=== PATIENT | male | born 1945 | race Caucasian/White ===

== ENCOUNTER 2016-11-06 18:43 | Emergency (ER) | payer OTHER ==
[~2016-11-06] VITALS: Ht 182.9 cm; Wt 121.8 kg
[~2016-11-06 18:43] MED LIST: ALT10 PO; ASPEC81 PO; ATEN50TA8 PO; ATOR-24 PO; COLE1TAB PO; DABI150C PO; DYZ PO; HMLI SC; INSDGI SC; MAGN400T6 PO; MULT-506 PO; NTRGSL/4 UT; POTA-335 PO; SULF-183 PO; TOPI50TA16 PO
[2016-11-06] MEDS ORDERED: SODIUM CHLORIDE 0.9% 1000ML 1,000 ML IV STA (18:53)
[2016-11-06 19:02] VITALS: Ht 182.9 cm; Wt 121.8 kg
[2016-11-06 19:20] LABS: BASO ABS # 0.07 K/uL (0-0.2); COMPLETE YES; EOS % 9.3 %; HEMATOCRIT 43.8 % (42-52); IG% 0.3 %; LYMPH % 29.9 %; LYMPH ABS # 2.12 K/uL (1.2-3.4); MEAN CELL VOLUME 98.4 fL (80-100); MEAN CORPUSCULAR HEMOGLOBIN 34.6 pg (25-34); MEAN CORPUSCULAR HGB CONC 35.2 g/dl (32-36); MEAN PLATELET VOLUME 10.1 fL (7.4-10.4); NEUT % 49.5 %; PLATELET COUNT 135 K/uL (130-400); RED BLOOD COUNT 4.45 M/uL (4.7-6.1); WHITE BLOOD COUNT 7.08 K/uL (4.8-10.8)
[2016-11-06 19:35] VITALS: O2SAT 96
--- NOTE | 2016-11-06 19:38 | DIAGNOSTIC IMAGING REPORT ---
CT SCAN OF THE BRAIN WITHOUT IV CONTRAST CLINICAL HISTORY: Change in mental status. COMPARISON STUDY: CT of the neck dated 02/24/2013. TECHNIQUE: Unenhanced axial CT scan of the brain is performed from the vertex to the skull base. CT DOSE: 614.27 mGy.cm FINDINGS: Brain parenchyma: There are age-related involutional changes noting mild subcortical and periventricular microangiopathic change. There is no hemorrhage, mass effect, or evidence of acute territorial ischemia by CT criteria. Hart-white matter is preserved. No extra-axial fluid collection is seen. Ventricles, sulci, cisterns: Prominent secondary to involutional change. Intracranial vasculature: There is atherosclerotic calcification of the cavernous carotid and vertebral arteries. Calvarium: Unremarkable. Sinuses and mastoids: There is minimal fluid within the sphenoid sinuses. Trace mucosal thickening is noted in the left maxillary antrum. The remaining Paranasal sinuses are clear. There is a left mastoid effusion. The right mastoid air cells are well pneumatized. Orbits: The bony orbits are grossly intact. There are bilateral ocular lens implants. IMPRESSION: 1. There is no hemorrhage, mass effect, or evidence of acute territorial ischemia by CT criteria. 2. Left mastoid effusion Electronically signed by: Brayan Mraquez M.D. 11/06/2016 7:36 PM Dictated Date/Time: 11/06/2016 7:33 PM
--- NOTE | 2016-11-06 19:42 | DIAGNOSTIC IMAGING REPORT ---
SINGLE VIEW CHEST CLINICAL HISTORY: Generalized weakness. FINDINGS: An AP, portable, upright chest radiograph is compared to study dated 12/03/2012. The examination is degraded by portable technique, large body habitus, and patient rotation. A single lead cardiac pacemaker is unchanged in position. The patient is status post midline sternotomy. The heart is enlarged and there is atherosclerotic calcification of the thoracic aorta. There is mild prominence of the central pulmonary vasculature. There are low lung volumes and bibasilar atelectasis. No focal airspace consolidation or large pleural effusion is seen. No pneumothorax is seen. The skeletal structures are osteopenic. The bony thorax is grossly intact. IMPRESSION: 1. Cardiomegaly and cardiac pacemaker. There is prominence of the central pulmonary vasculature. Correlate clinically for evidence of mild congestive failure. 2. Low lung volumes. No airspace consolidation or large pleural effusion is seen. Electronically signed by: Brayan Marquez M.D. 11/06/2016 7:41 PM Dictated Date/Time: 11/06/2016 7:39 PM
[2016-11-06 19:44] LABS: INR 1.3 (0.9-1.1); PARTIAL THROMBOPLASTIN RATIO 1.8; PROTHROMBIN TIME (PATIENT) 13.5 SECONDS (9.0-12.0)
[2016-11-06] MEDS ORDERED: RAMI10CA PO (19:44)
[2016-11-06] MEDS ORDERED: ASPI81TA21 PO (19:44)
[2016-11-06] MEDS ORDERED: POTA-65 PO (19:44)
[2016-11-06] MEDS ORDERED: INSU100I SC (19:44)
[2016-11-06] MEDS ORDERED: TRIA37.5 PO (19:44)
[2016-11-06] MEDS ORDERED: INSDGI SC (19:44)
[2016-11-06 19:53] LABS: BUN/CREATININE RATIO 19.3 (10-20)
[2016-11-06 19:54] LABS: CALCIUM 8.5 mg/dl (8.5-10.1); CREATININE 1.3 mg/dl (0.60-1.40); THYROID STIMULATING HORMONE 1.32 uIu/ml (0.300-4.500)
[2016-11-06 20:06] LABS: CKMB/CK RATIO 3.4 (0-3.0); MAGNESIUM 2.2 mg/dl (1.8-2.4); POTASSIUM 3.9 mmol/L (3.5-5.1)
[2016-11-06] MEDS ORDERED: SODIUM CHLORIDE 0.9% 1000ML 1,000 ML IV SCH (22:21)
[2016-11-06] MEDS ORDERED: GLUCOSE 40% GEL 15 GM TUBE PO PRN (22:30)
[2016-11-06] MEDS ORDERED: GLUCAGON FOR INJ 1 MG VIAL SQ PRN (22:30)
[2016-11-06] MEDS ORDERED: DEXTROSE 50% 50 ML SYR IV PRN (22:30)
[2016-11-06] MEDS ORDERED: ACETAMINOPHEN 325 MG TAB PO PRN (22:30)
[2016-11-06] MEDS ORDERED: ONDANSETRON INJ 2 MG/ML 2 ML VIAL IV PRN (22:30)
[2016-11-06] MEDS ORDERED: GLUCOSE 10 TABS/TUBE PO PRN (22:30)
[2016-11-06] MEDS ORDERED: GABAPENTIN 800 MG TAB PO SCH (22:45)
[2016-11-06] MEDS ORDERED: MULTI-VITAMIN INFUSION INJ 10 ML, THIAMINE HCL INJ 100 MG, FoLIC ACID INJ 1 MG in SODIU... IV SCH (22:45)
[2016-11-06] MEDS ORDERED: NITROGLYCERIN 0.4 MG SL PER TAB CHARGE UT SCH (22:45)
[2016-11-06] MEDS ORDERED: LORAZEPAM 1 MG TAB PO PRN (22:45)
[2016-11-06] MEDS ORDERED: IV FLUIDS COMPLETED PRN (23:00)
--- NOTE | 2016-11-06 23:10 | History and Physical ---
History & Physical Date & Time of Service: Nov 06, 2016 at 22:48 Chief Complaint: Altered Mental Status Primary Care Physician: Christ Andrews D.O. History of Present Illness Source: patient Patient is a 71 yr male with PMH of Carotid artery stenosis, Atrial fibrillation , CAD S/P CABG, HTN, CKD III, HLP, PAD, DM II, Pacemaker and other problems presents for evaluation after an episode of syncope. Patient and his family reports that he was having his dinner and drinking alcohol and had any episode of syncope and lost consciousness for about 10 minutes. Patient was confused after the episode and had some balance issues. He had another brief episode of syncope while getting CT of head which lasted for about 10 seconds but did not have confusion after the second episode. Patient believes the symptoms are likely secondary to alcohol and also states his pacemaker is being monitored closely by his community relations rep for possible battery replacement/Interrogation. Currently is alert, awake, oriented and denies any history of head trauma, aspiration, chest pain, SOB, abd pain, fever, chills, palpations, headache, dizziness, blurry vision, incontinence, diaphoresis, nausea, vomiting, weakness , numbness, samuel ein bowel/bladder habits, facial deformity or slurred speech. Past Medical/Surgical History Medical Problems: (1) Cardiac pacemaker procedure Status: Resolved (2) Diabetes mellitus type 2 Status: Chronic (3) Hypertension Status: Chronic (4) Myocardial infarction Status: Resolved (5) Quadruple bypass Status: Resolved Family History Diabetes mellitus Heart disease Hypertension Not contributory Social History Smoking Status: Former Smoker Alcohol Use: socially Drug Use: none Marital Status: Immunizations History of Influenza Vaccine: N/A History of Tetanus Vaccine?: Unknown History of Pneumococcal: No History of Hepatitis B Vaccine: No Multi-Drug Resistant Organisms History of MDRO: No Allergies Coded Allergies: Sulfa Antibiotics (Unverified Allergy, Unknown, DELIRIUM, 11/06/16) Patient states that he gets violent with bactrim and othr sulfa antibiotics. Home Medications Scheduled Aspirin Enteric Coated (Ecotrin Or Generic), 81 MG PO DAILY Atenolol (Tenormin), 50 MG PO DAILY Atorvastatin (Lipitor), 40 MG PO DAILY Colestipol Hcl (Colestid), 1 GM PO BIDM Dabigatran Etexilate Mesylate (Pradaxa), 150 MG PO BID Insulin Glargine (Lantus), 25 SC QPM Insulin Lispro (Human) (Humalog), UNITS SC TIDM Magnesium Oxide (Mag-Ox), 400 MG PO DAILY Multivitamin (Multivitamin), 1 TAB PO DAILY Nitroglycerin (Nitrostat), 0.4 MG UT PRN Potassium Chloride (Potassium Chloride ER), 20 MEQ PO DAILY Ramipril (Ramipril), 1 CAP PO DAILY Topiramate (Topamax), 50 MG PO BID Triamterene/Hctz (Dyazide 37.5MG/25MG), 1 CAP PO DAILY Review of Systems See HPI for pertinent positives & negatives. A total of 10 systems reviewed and were otherwise negative. Physical Exam Vital Signs Date Time Temp Pulse Resp B/P (MAP) Pulse Ox O2 Delivery O2 Flow Rate FiO2 11/06/16 22:46 72 11/06/16 21:50 60 24 105/50 95 Room Air 11/06/16 19:35 96 Nasal Cannula 2.0 11/06/16 19:34 66 16 118/49 90 Room Air 11/06/16 19:34 90 Room Air 11/06/16 19:03 63 11/06/16 19:02 36.7 78 18 139/71 96 Room Air 11/06/16 18:56 96 Room Air 11/06/16 18:56 96 Room Air General Appearance: WD/WN, no apparent distress Head: normocephalic, atraumatic Eyes: normal inspection, PERRL ENT: normal ENT inspection, hearing grossly normal Neck: supple, trachea midline Respiratory/Chest: chest non-tender, lungs clear, normal breath sounds, no respiratory distress, no accessory muscle use Cardiovascular: no murmur, + irregularly irregular, + pertinent finding (TRace edema) Abdomen/GI: normal bowel sounds, non tender, soft, + pertinent finding ( Protuberant) Back: normal inspection Extremities/Musculoskelatal: normal inspection, + pertinent finding (Trace edema) Neurologic/Psych: visual supervisor II-XII nml as tested, no motor/sensory deficits, alert, normal mood/affect, oriented x 3 Skin: normal color, warm/dry, + pertinent finding (Well healed Surgical scar on left arm, left leg) Diagnostics Laboratory Results Results Past 24 Hours Test 11/06/16 19:03 11/06/16 19:08 11/06/16 19:57 Range/Units White Blood Count 7.08 4.8-10.8 K/uL Red Blood Count 4.45 4.7-6.1 M/uL Hemoglobin 15.4 14.0-18.0 g/dL Hematocrit 43.8 42-52 % Mean Corpuscular Volume 98.4 80-100 fL Mean Corpuscular Hemoglobin 34.6 25-34 pg Mean Corpuscular Hemoglobin Concent 35.2 32-36 g/dl Platelet Count 135 130-400 K/uL Mean Platelet Volume 10.1 7.4-10.4 fL Neutrophils (%) (Auto) 49.5 % Lymphocytes (%) (Auto) 29.9 % Monocytes (%) (Auto) 10.0 % Eosinophils (%) (Auto) 9.3 % Basophils (%) (Auto) 1.0 % Neutrophils # (Auto) 3.50 1.4-6.5 K/uL Lymphocytes # (Auto) 2.12 1.2-3.4 K/uL Monocytes # (Auto) 0.71 0.11-0.59 K/uL Eosinophils # (Auto) 0.66 0-0.5 K/uL Basophils # (Auto) 0.07 0-0.2 K/uL RDW Standard Deviation 47.3 36.4-46.3 fL RDW Coefficient of Variation 13.2 11.5-14.5 % Immature Granulocyte % (Auto) 0.3 % Immature Granulocyte # (Auto) 0.02 0.00-0.02 K/uL Prothrombin Time 13.5 9.0-12.0 SECONDS Prothromb Time International Ratio 1.3 0.9-1.1 Activated Partial Thromboplast Time 45.8 21.0-31.0 SECONDS Partial Thromboplastin Ratio 1.8 Sodium Level 140 136-145 mmol/L Potassium Level 3.9 3.5-5.1 mmol/L Chloride Level 108 98-107 mmol/L Carbon Dioxide Level 23 21-32 mmol/L Anion Gap 9.0 3-11 mmol/L Blood Urea Nitrogen 25 7-18 mg/dl Creatinine 1.30 0.60-1.40 mg/dl Est Creatinine Clear Calc Drug Dose 71.3 ml/min Estimated GFR () 64.1 Estimated GFR (Non- 55.3 BUN/Creatinine Ratio 19.3 10-20 Random Glucose 235 70-99 mg/dl Calcium Level 8.5 8.5-10.1 mg/dl Magnesium Level 2.2 1.8-2.4 mg/dl Total Bilirubin 0.3 0.2-1 mg/dl Direct Bilirubin 0.1 0-0.2 mg/dl Aspartate Amino Transf (AST/SGOT) 15 15-37 U/L Alanine Aminotransferase (ALT/SGPT) 25 12-78 U/L Alkaline Phosphatase 57 45-117 U/L Total Creatine Kinase 79 39-308 U/L Creatine Kinase MB 2.7 0.5-3.6 ng/ml Creatine Kinase MB Ratio 3.4 0-3.0 Troponin I 0.027 0-0.045 ng/ml Total Protein 6.8 6.4-8.2 gm/dl Albumin 3.5 3.4-5.0 gm/dl Thyroid Stimulating Hormone (TSH) 1.320 0.300-4.500 uIu/ml Bedside Troponin I < 0.030 0-0.045 ng/ml Ethyl Alcohol mg/dL 198.0 0-3 mg/dl Diagnostic Radiology CT head: 1. There is no hemorrhage, mass effect, or evidence of acute territorial ischemia by CT criteria. 2. Left mastoid effusion CXR: 1. Cardiomegaly and cardiac pacemaker. There is prominence of the central pulmonary vasculature. Correlate clinically for evidence of mild congestive failure. 2. Low lung volumes. No airspace consolidation or large pleural effusion is seen. EKG EKG: Atrial fibrillation, T wave inversion in anterolateral leads Impression Assessment and Plan Syncope Alcohol intoxication could be contributing Admit in Tele Will get Pacemaker Interrogation Check ECHO, Carotid doppler, EEG, Ortho statics Consult cardiology Monitor for any arrhythmias Trend cardiac enzymes Alcohol Intoxication: Start on alcohol withdrawal protocol Banana Bag Ativan PRN DM II: Last A1C:6.2 Start on ISS, accu checks Takes 36 lantus QHS at home. Will start with 30 QHS and titrate Atrial Fibrillation: Rate controlled Continue BB On pradaxa for anticoagulation CAD S/P CABG: Denies any chest pain Continue home meds HTN: Stable Continue home meds CKD III: Cr:1.3 Monitor renal function DVT Px: On pradaxa HLP: Continue statins Code Status: Full code VTE Prophylaxis VTE Risk Assessment Done? Y/N: Yes Risk Level: Moderate
[2016-11-07 00:47] VITALS: BP 112/52; PULSE 72; TEMP 36.7; O2SAT 97
--- NOTE | 2016-11-07 03:00 | EMERGENCY ROOM VISIT NOTE ---
History Report prepared by Cassia: Shakila Gunn Under the Supervision of: Dr. Cb Meredith M.D. First contact with patient: 18:53 Stated Complaint: ALTERED MENTAL STATUS History of Present Illness The patient is a 71 year old male who presents to the Emergency Room with of a sudden episode of an altered mental status that occurred around 1700. The patient's states that the patient and she were sitting at the dinner table eating dinner when he fell asleep. She states that the patient was asleep and when she woke him, the patient was very confused. The patient's states that he appeared confused for 5-10 minutes after the episode. She states that she tried walking the patient to a chair, but notes that the patient could not ambulate normally. The patient's states that the patient kept responding to all questions she asked. She states that the patient was acting normally today, noting that the patient helped to make dinner. The patient's denies the patient having any snoring respirations or grunting during the altered episode. The patient denies any history of losing consciousness or dizziness. He states that he does have a history of a quadruple bypass in 2000. The patient additionally notes a history of diabetes and a pacemaker. Pt denies LOC, headache, fevers, chills, diaphoresis, visual changes, neck pain , chest pain, breathing difficulties, nausea, vomiting, abdominal pain, back pain, melena, hematochezia, urinary symptoms, numbness, weakness, lymphadenopathy, rash, or other complaints. Source of History: patient, spouse/significant other () Onset: 0 Position: other (global) Symptom Intensity: 5-10 minute episode Quality: other (altered mental status) Timing: other (sudden) Note: Associated Symptoms: could not ambulate, confusion for 5-10 minutes Review of Systems See HPI for pertinent positives and negatives. A total of ten systems were reviewed and were otherwise negative. Past Medical & Surgical Medical Problems: (1) Cardiac pacemaker procedure (2) Diabetes mellitus type 2 (3) Hypertension (4) Myocardial infarction (5) Quadruple bypass (6) Syncope Family History Diabetes mellitus Heart disease Hypertension Social History Smokeless Tobacco Use: No Alcohol Use: occasionally Marital Status: Housing Status: lives with family Occupation Status: retired Current/Historical Medications Scheduled Aspirin Enteric Coated (Ecotrin Or Generic), 81 MG PO DAILY Atenolol (Tenormin), 50 MG PO DAILY Atorvastatin (Lipitor), 40 MG PO DAILY Colestipol Hcl (Colestid), 1 GM PO BIDM Dabigatran Etexilate Mesylate (Pradaxa), 150 MG PO BID Insulin Glargine (Lantus), 25 SC QPM Insulin Lispro (Human) (Humalog), UNITS SC TIDM Magnesium Oxide (Mag-Ox), 400 MG PO DAILY Multivitamin (Multivitamin), 1 TAB PO DAILY Nitroglycerin (Nitrostat), 0.4 MG UT PRN Potassium Chloride (Potassium Chloride ER), 20 MEQ PO DAILY Ramipril (Ramipril), 1 CAP PO DAILY Topiramate (Topamax), 50 MG PO BID Triamterene/Hctz (Dyazide 37.5MG/25MG), 1 CAP PO DAILY Allergies Coded Allergies: Sulfa Antibiotics (Unverified Allergy, Unknown, DELIRIUM, 11/06/16) Patient states that he gets violent with bactrim and othr sulfa antibiotics. Physical Exam Vital Signs Date Time Temp Pulse Resp B/P (MAP) Pulse Ox O2 Delivery O2 Flow Rate FiO2 11/07/16 00:47 36.7 72 18 112/52 97 11/06/16 23:05 75 18 116/53 95 Room Air 11/06/16 22:46 72 11/06/16 21:50 60 24 105/50 95 Room Air 11/06/16 19:35 96 Nasal Cannula 2.0 11/06/16 19:34 66 16 118/49 90 Room Air 11/06/16 19:34 90 Room Air 11/06/16 19:03 63 11/06/16 19:02 36.7 78 18 139/71 96 Room Air 11/06/16 18:56 96 Room Air 11/06/16 18:56 96 Room Air Physical Exam GENERAL: Awake, alert, oriented, but not to place, well appearing, no distress HENT: Normocephalic, atraumatic. TM's normal. Oropharynx unremarkable. EYES: PERRL. EOMI. Normal conjunctiva. Sclera non-icteric. NECK: Supple. No nuchal rigidity. FROM. No JVD or bruit. RESPIRATORY: CTA CARDIAC: RRR. No murmur. ABDOMEN: Soft, non distended. No tenderness to palpation. No rebound or guarding. No masses. RECTAL: Deferred. MUSCULOSKELETAL: Unremarkable. Lower extremity edema. No discoloration. Gross motor strength symmetric. NEURO: Cranial nerves 2-12 grossly intact. Normal sensorium. No sensory or motor deficits noted. Speech normal. No pronator drift. SKIN: No rash or jaundice noted. LYMPH: No adenopathy. Medical Decision & Procedures ER Provider Diagnostic Interpretation: Radiology results as stated below per my review and radiologist interpretation: CT SCAN OF THE BRAIN WITHOUT IV CONTRAST CLINICAL HISTORY: Change in mental status. COMPARISON STUDY: CT of the neck dated 02/24/2013. TECHNIQUE: Unenhanced axial CT scan of the brain is performed from the vertex to the skull base. CT DOSE: 614.27 mGy.cm FINDINGS: Brain parenchyma: There are age-related involutional changes noting mild subcortical and periventricular microangiopathic change. There is no hemorrhage, mass effect, or evidence of acute territorial ischemia by CT criteria. Hart-white matter is preserved. No extra-axial fluid collection is seen. Ventricles, sulci, cisterns: Prominent secondary to involutional change. Intracranial vasculature: There is atherosclerotic calcification of the cavernous carotid and vertebral arteries. Calvarium: Unremarkable. Sinuses and mastoids: There is minimal fluid within the sphenoid sinuses. Trace mucosal thickening is noted in the left maxillary antrum. The remaining Paranasal sinuses are clear. There is a left mastoid effusion. The right mastoid air cells are well pneumatized. Orbits: The bony orbits are grossly intact. There are bilateral ocular lens implants. IMPRESSION: 1. There is no hemorrhage, mass effect, or evidence of acute territorial ischemia by CT criteria. 2. Left mastoid effusion Electronically signed by: Brayan Marquez M.D. 11/06/2016 7:36 PM Dictated Date/Time: 11/06/2016 7:33 PM SINGLE VIEW CHEST CLINICAL HISTORY: Generalized weakness. FINDINGS: An AP, portable, upright chest radiograph is compared to study dated 12/03/2012. The examination is degraded by portable technique, large body habitus, and patient rotation. A single lead cardiac pacemaker is unchanged in position. The patient is status post midline sternotomy. The heart is enlarged and there is atherosclerotic calcification of the thoracic aorta. There is mild prominence of the central pulmonary vasculature. There are low lung volumes and bibasilar atelectasis. No focal airspace consolidation or large pleural effusion is seen. No pneumothorax is seen. The skeletal structures are osteopenic. The bony thorax is grossly intact. IMPRESSION: 1. Cardiomegaly and cardiac pacemaker. There is prominence of the central pulmonary vasculature. Correlate clinically for evidence of mild congestive failure. 2. Low lung volumes. No airspace consolidation or large pleural effusion is seen. Electronically signed by: Brayan Marquez M.D. 11/06/2016 7:41 PM Dictated Date/Time: 11/06/2016 7:39 PM Laboratory Results 11/06/16 19:03 Red Blood Count 4.45, Mean Corpuscular Volume 98.4, Mean Corpuscular Hemoglobin 34.6, Mean Corpuscular Hemoglobin Concent 35.2, Mean Platelet Volume 10.1, Neutrophils (%) (Auto) 49.5, Lymphocytes (%) (Auto) 29.9, Monocytes (%) (Auto) 10.0, Eosinophils (%) (Auto) 9.3, Basophils (%) (Auto) 1.0, Neutrophils # (Auto ) 3.50, Lymphocytes # (Auto) 2.12, Monocytes # (Auto) 0.71, Eosinophils # (Auto ) 0.66, Basophils # (Auto) 0.07 11/06/16 19:03 Test 11/06/16 19:03 11/06/16 19:08 11/06/16 19:57 11/06/16 23:50 White Blood Count 7.08 K/uL (4.8-10.8) Red Blood Count 4.45 M/uL (4.7-6.1) Hemoglobin 15.4 g/dL (14.0-18.0) Hematocrit 43.8 % (42-52) Mean Corpuscular Volume 98.4 fL (80-100) Mean Corpuscular Hemoglobin 34.6 pg (25-34) Mean Corpuscular Hemoglobin Concent 35.2 g/dl (32-36) Platelet Count 135 K/uL (130-400) Mean Platelet Volume 10.1 fL (7.4-10.4) Neutrophils (%) (Auto) 49.5 % Lymphocytes (%) (Auto) 29.9 % Monocytes (%) (Auto) 10.0 % Eosinophils (%) (Auto) 9.3 % Basophils (%) (Auto) 1.0 % Neutrophils # (Auto) 3.50 K/uL (1.4-6.5) Lymphocytes # (Auto) 2.12 K/uL (1.2-3.4) Monocytes # (Auto) 0.71 K/uL (0.11-0.59) Eosinophils # (Auto) 0.66 K/uL (0-0.5) Basophils # (Auto) 0.07 K/uL (0-0.2) RDW Standard Deviation 47.3 fL (36.4-46.3) RDW Coefficient of Variation 13.2 % (11.5-14.5) Immature Granulocyte % (Auto) 0.3 % Immature Granulocyte # (Auto) 0.02 K/uL (0.00-0.02) Prothrombin Time 13.5 SECONDS (9.0-12.0) Prothromb Time International Ratio 1.3 (0.9-1.1) Activated Partial Thromboplast Time 45.8 SECONDS (21.0-31.0) Partial Thromboplastin Ratio 1.8 Anion Gap 9.0 mmol/L (3-11) Est Creatinine Clear Calc Drug Dose 71.3 ml/min Estimated GFR () 64.1 Estimated GFR (Non- 55.3 BUN/Creatinine Ratio 19.3 (10-20) Calcium Level 8.5 mg/dl (8.5-10.1) Magnesium Level 2.2 mg/dl (1.8-2.4) Total Bilirubin 0.3 mg/dl (0.2-1) Direct Bilirubin 0.1 mg/dl (0-0.2) Aspartate Amino Transf (AST/SGOT) 15 U/L (15-37) Alanine Aminotransferase (ALT/SGPT) 25 U/L (12-78) Alkaline Phosphatase 57 U/L (45-117) Total Creatine Kinase 79 U/L (39-308) Total Protein 6.8 gm/dl (6.4-8.2) Albumin 3.5 gm/dl (3.4-5.0) Thyroid Stimulating Hormone (TSH) 1.320 uIu/ml (0.300-4.500) Bedside Troponin I < 0.030 ng/ml (0-0.045) Ethyl Alcohol mg/dL 198.0 mg/dl (0-3) Creatine Kinase MB Ratio (0-3.0) Test 11/07/16 00:10 Creatine Kinase MB 3.1 ng/ml (0.5-3.6) Troponin I 0.029 ng/ml (0-0.045) Laboratory results reviewed by me Medications Administered Medications (Trade) Dose Ordered Sig/Hilary Route Start Time Stop Time Status Last Admin Dose Admin Sodium Chloride 1,000 ml @ 125 mls/hr Q8H STAT IV 11/06/16 18:53 11/06/16 23:51 DC 11/06/16 19:51 125 MLS/HR ECG Indication: altered mental status Rate (beats per minute): 78 Rhythm: atrial fibrillation Findings: T-wave inversion (Anterolateral), other (frequent paced complexes) Comparison ECG Date: 12/03/12 Change: EKG Change: When compared to EKG done on 12/03/12, anterolateral T wave inversions are similar. ED Course 1852: Ordered Sodium Chloride 1000 ml @ 125 mls/hr IV. 1904: The patient was evaluated in room B3B. A complete history and physical exam was performed. 1936: Per the tech, the patient had an episode of unresponsiveness when he arrived back from CT scan. 1939: Per nursing staff, the patients family informed her that the patient was drinking alcohol at dinner. 1942: I reevaluated the patient and he is resting. I updated the patient's family on the event and the patient's does state that the patient's behavior is off. 2042: I reevaluated the patient and he is resting. I discussed the exam findings with him and his family and I discussed the treatment plan. They verbalized complete understanding and agreement. The patient will be evaluated for further treatment. 2153: I discussed the patients case with Noa Cuello. He will evaluate the patient for further treatment. 2309: Per nursing staff, the patient is attempting to leave the department against medical advice. I revaluated the patient and I explained that he cannot leave until his alcohol has come down. He is in agreeable to stay until his levels are down. 2324: I reevaluated the patient and he is clinically sober. His speech is clear. I discussed the risks and benefits of him staying and going. His family was present during the discussion. I offered any additional services and he wishes to leave. I told him to call his cardiologists office tomorrow morning at 0800. 0033: I discussed the patients case with Noa Hadley. He is going to message cardiology. Medical Decision Medication Reconciliation: I attest that I have personally reviewed the patient' s current medication list Blood pressure screening: Patient was found to have an elevated blood pressure and was referred to their primary doctor for recheck and further treatment. Triage Nursing notes reviewed. The patient's presentation and history were concerning for syncope and confusion. Family provided additional history. Additional history was also obtained from EMS. I did give prehospital medical command on this patient. Etiologies such as metabolic, infection, hypo/hyperglycemia, electrolyte abnormalities, cardiac sources, intracerebral event, toxicologic, neurologic, as well as others were entertained. The patient was evaluated. He was oriented to person and time but not to place. His affect seemed somewhat off. During the evaluation and history the patient was mildly confrontational. After the physical examination I did explain the necessary workup. The patient laughed inappropriately, grabbed my arm forcefully and shook it saying "fine lets get it done". He was taken to CT scan and while there had a brief syncopal episode of about 10-15 seconds. He recovered rather quickly and was brought back to the Emergency Room. CT imaging did not reveal any significant findings. Chest x-ray as above. His CBC , chemical panel, cardiac markers, INR were unremarkable except for a mild elevation of his blood glucose at 235. The patient's blood alcohol level was elevated at 198 mg/dL. This was concerning. I did discuss this with him. He admitted to drinking some beer but cannot quantify. I discussed staying in the hospital with him and his family. At that point they were in agreement. I did consult with the [facility] hospitalist and the patient was evaluated for further management. After his consultation with internal medicine the patient and daughter requested for him to be discharged. At that point I did re- evaluate the patient. They were upset about the possibility of observation and potential cost. The patient would not agree to stay in the hospital. I did discuss his alcohol intoxication with him. Given his level I did convince the patient to stay for observation briefly in the emergency department as I could not allow him to sign himself out in light of the alcohol impairment. The patient was reevaluated. His mental status was clear. He had no signs of intoxication. His other half of the family presented to the emergency department including his . I discussed everything at length with them. The patient does not want to stay in the hospital. I did discuss the risks and benefits at length. The patient and family were clearly informed of the risks of leaving AMA. The patient has demonstrated no significant defect in the decision-making capacity to make choices. His alcohol intoxication cleared. The encounter had a good level of communication with language the patient can easily understand. I feel trust was present and conveyed that our action/intentions were the best interest of the patient. I did involve the patient's primary physician's medical service. The patient was given all relevant information and reiterated the explained risks and benefits. The patient explained the reasoning for refusing treatment clearly. The patient possesses and expresses a set of values and goals, the ability to communicate and understand, and an ability to reason and deliberate. Despite acting emphatically, attentively and with the utmost patient's the patient declined further treatment. I offered options, negotiated, and explored every reasonable choice. I must respect the patient's autonomy and that they feel that their choices are best for them despite the associated risks of leaving AGAINST MEDICAL ADVICE. 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 I did contact the [facility] hospitalist and they will staff message Dr. Winters and his PA Esteban Boo. Case management will also call the office in the morning. I emphasized to the patient that he can come back at any time and told the and family if he has any problems to call 911 immediately. I gave my usual and customary discussion regarding this issue. Return instructions were outlined and the patient was discharged. Consults Time Called: 2049 Consulting Physician: Noa Cuello Returned Call: [phone] I discussed the patients case with Noa Cuello. He will evaluate the patient for further treatment. Additional Consults: Time Called: 27 Consulted Physician: Noa Oakes Returned Call: 32 Additional Comments: I discussed the patients case with Noa Hadley. He is going to message cardiology. Impression Primary Impression: Syncope Additional Impressions: Alcohol intoxication Left against medical advice Scribe Attestation The scribe's documentation has been prepared under my direction and personally reviewed by me in its entirety. I confirm that the note above accurately reflects all work, treatment, procedures, and medical decision making performed by me. Departure Information Dispostion Against Medical Advice Referrals Flakito Winters M.D. Lombardo, Mark, PA-C Sulman, Scott A., D.O. Forms HOME CARE DOCUMENTATION FORM, IMPORTANT VISIT INFORMATION Patient Instructions My [facility] Additional Instructions You are leaving against the physician's medical advice. Your evaluation is not complete. The exact cause of your symptoms is not known at this time. Your health could be at significant risk by your actions of leaving before the evaluation was completed. This could result in worsening of your condition, need for further treatment, hospitalization, surgery, or even . You may return at any time, for any reason, but you are encouraged to return immediately if your symptoms worsen or if you change your mind. Follow-up with your metal fabricating supervisor today for a recheck of your current condition. Call the office at 8 AM. Problem Qualifiers
[2016-11-07] MEDS ORDERED: INSULIN ASPART 100 UNITS/ML 3 ML PEN SC SCH (07:00)
[2016-11-07] MEDS ORDERED: COLESTIPOL HCL 1 GM TAB PO SCH (08:00)
[2016-11-07] MEDS ORDERED: ATORVASTATIN 40 MG TAB PO SCH (09:00)
[2016-11-07] MEDS ORDERED: TRIAMTERENE/HCTZ 37.5/25MG CAP PO SCH (09:00)
[2016-11-07] MEDS ORDERED: TOPIRAMATE 25 MG TAB PO SCH (09:00)
[2016-11-07] MEDS ORDERED: ASPIRIN 81 MG ECTAB PO SCH (09:00)
[2016-11-07] MEDS ORDERED: DABIGATRAN ELEXILATE 75 MG CAP PO SCH (09:00)
[2016-11-07] MEDS ORDERED: MAGNESIUM OXIDE 400 MG TAB PO SCH (09:00)
[2016-11-07] MEDS ORDERED: RAMIPRIL PO SCH (09:00)
[2016-11-07] MEDS ORDERED: POTASSIUM CHLORIDE 20 MEQ TABCR PO SCH (09:00)
[2016-11-07] MEDS ORDERED: INSULIN GLARGINE SOLOSTAR 100 UNITS/ML 3 ML PEN SC SCH (21:00)
== END 2016-11-07 00:48 | disposition left against medical advice (07) ==
LOC: EDBD 18:43 → C.EDB 18:44 → ENRESERV 23:02 → CANRESERV 23:02 → C.EDB 11-07 00:48 → CANBEDREQ 11-07 01:14
DX: R55 Syncope and collapse (principal); F10.929 Alcohol use, unspecified with intoxication, unspecified; Z95.1 Presence of aortocoronary bypass graft; E11.9 Type 2 diabetes mellitus without complications; Z95.0 Presence of cardiac pacemaker; I25.2 Old myocardial infarction; Z83.3 Family history of diabetes mellitus; Z82.49 Family history of ischemic heart disease and other diseases of the circulatory system; Z79.82 Long term (current) use of aspirin; Z79.4 Long term (current) use of insulin; Z79.899 Other long term (current) drug therapy; Y90.6 Blood alcohol level of 120-199 mg/100 ml; I48.91 Unspecified atrial fibrillation; I25.10 Atherosclerotic heart disease of native coronary artery without angina pectoris; N18.3 Chronic kidney disease, stage 3 (moderate); I12.9 Hypertensive chronic kidney disease with stage 1 through stage 4 chronic kidney disease, or unspecified chronic kidney disease; E78.5 Hyperlipidemia, unspecified; I73.9 Peripheral vascular disease, unspecified; Z87.891 Personal history of nicotine dependence

== ENCOUNTER 2020-11-04 14:07 | Inpatient (IN) ==
[2020-11-04] MEDS ORDERED: PIPERACILL/TAZOBAC CONSULT ACTIVE PRN ×2 (14:46→19:46)
[2020-11-04] MEDS ORDERED: PIPERACILLIN/TAZOBACTAM 4.5 GM/120 ML BAG IV ONE (14:46)
[2020-11-04 14:48] LABS: Basophils # (auto) 0.02 K/uL (0-0.2); Basophils % (auto) 0.3 %; Eosinophils % (auto) 1.3 %; Hematocrit (blood only) 40.9 % (42-52); Hemoglobin 14.2 g/dL (14.0-18.0); Immature Granulocytes # (auto) 0.02 K/uL (0.00-0.02); Immature Granulocytes % (auto) 0.3 %; Lymphocytes # (auto) 1.45 K/uL (1.2-3.4); Lymphocytes % (auto) 19.1 %; Mean Corpuscular Hemoglobin 35.4 pg (25-34); Mean Corpuscular Hgb Conc 34.7 g/dL (32-36); Mean Platelet Volume 9.1 fL (7.4-10.4); Monocytes # (auto) 0.76 K/uL (0.11-0.59); Neutrophils # (auto) 5.24 K/uL (1.4-6.5); Platelet Count 256 K/uL (130-400); RDW Coefficient of Variation 12.8 % (11.5-14.5); Red Blood Count 4.01 M/uL (4.7-6.1); White Blood Count 7.59 K/uL (4.8-10.8)
[2020-11-04 15:07] LABS: Albumin Level 3.1 gm/dl (3.4-5.0); BUN Creatinine Ratio 17.9 (10-20); C Reactive Protein 4.48 mg/dl (0-0.29); Calcium 9.3 mg/dl (8.5-10.1); Creatinine Clr Calc Pharmacy 50.5 ml/min; Est GFR (African American) 48.5 ml/min; Est GFR (Non-African American) 41.8 ml/min; Potassium 3.8 mmol/L (3.5-5.1)
[2020-11-04 15:10] LABS: Albumin Globulin Ratio 0.6 (0.9-2); Bilirubin,Total 0.7 mg/dl (0.2-1); Globulin 4.9 gm/dl (2.5-4.0)
--- NOTE | 2020-11-04 15:23 | Emergency Department Note ---
Impression & Plan Osteomyelitis of great toe of left foot, Diabetes mellitus type 2 with atherosclerosis of arteries of extremities, CKD (chronic kidney disease) stage 3, GFR 30-59 ml/min, A-fib, Hx of CABG ED Provider Note Provider: Jomar Weiss MD DATE OF SERVICE: 11/04/2020 CHIEF COMPLAINT: Toe infection HISTORY OF PRESENT ILLNESS: Patient is a 75-year-old gentleman history of CAD status post CABG, type 2 diabetes, diabetic neuropathy, atrial fibrillation on Pradaxa, heart failure, and CKD presenting referred from the outpatient clinic today for a toe infection and possible osteomyelitis. Patient states he noted approximately 11 days ago some slight redness of his left toe. This worsened and was seen in the office and started on Augmentin. Over the past week he has been on this significant redness around the toe as well as some dried blood and maybe little bit of purulent discharge the reports. Patient with significant diabetic neuropathy and states he does not feel pain here. Denies fever but reports his blood sugars been more erratic and has been a little bit more generally tired. Denies any fever again, chills, or sweats. Patient denies a history of skin infection. X-ray in the outpatient setting was concerning for osteomyelitis and is sent here for further care. REVIEW OF SYSTEMS: A total of 10 review of systems was obtained and negative except as stated above in the HPI. PAST MEDICAL HISTORY: As noted above MEDICATIONS: Reviewed home medications SOCIAL HISTORY: Lives at home with PHYSICAL EXAM: GENERAL: alert and oriented in no acute distress on stretcher Head: normocephalic and atraumatic EYES: No injection, discharge or icterus. NECK: Trachea midline. LUNGS: Airway patent. No retractions. Breath sounds clear HEART: Regular rate and rhythm. No chest wall tenderness ABDOMEN: Soft and non-tender, without guarding or rebound. SKIN: Acyanotic, warm, dry, without rashes EXTREMITIES: Without swelling, tenderness or deformity except for some postsurgical scars on his left loomis and left forearm from vessel harvesting for CABG as well as significant erythema and redness surrounding his left great toe. This extends to the base of the great toe without crepitus but some fluctuance under the distal tip. There is some dried blood in this area but no expressible purulence grossly on exam. There is some flaking and scaling skin here. NEUROLOGICAL: No aphasia or slurred speech. Patient with diminished sensation of the bilateral feet to the ankles. CONTINUOUS CARDIAC MONITORING: was ordered and showed a heart rate of 60s-90s bpm in sinus rhythm occasional PVC Patient's laboratory studies and imaging report reviewed. Differential includes Cellulitis, abscess, MRSA infection, DVT, necrotizing fasciitis, dermatitis, drug eruption, allergic reaction, as well as other pathologies. IMPRESSION/MEDICAL DECISION MAKING: Patient with a history of diabetes and vascular disease diabetic neuropathy likely inciting wound infection around his left great toe. Significantly red and somewhat crusty with some slight fluctuance under the service. Patient does not appear septic at this time. Has some underlying vascular disease and ques tion some PAD worsening healing while he is been on the Augmentin. Patient given a dose of Zosyn for broad antimicrobial coverage after obtaining blood cultures. Epic x-ray in the outpatient setting report reviewed with concerns for osteomyelitis. Patient requires admission for further care of his toe infection likely a debridement. Blood work without significant leukocytosis but elevated inflammatory markers. Doubt acute ischemic foot at this time but likely some vascular disease which may be further evaluated while here. Patient anticoagulate this time on Pradaxa. Discussed with the hospital group will evaluate further. Patient agreed with the plan to stay for further care. DIAGNOSIS: Left great toe osteomyelitis, diabetes, PAD, history of CABG, CKD DISPOSITION: Hospitalist will evaluate Patient was agreeable with this plan. Past Med/Surg History Social History Smoking Status: Never smoker Feels Safe at Home: Yes Allergies Allergies Allergy/AdvReac Type Severity Reaction Status Date / Time Sulfa (Sulfonamide Allergy Intermediate DELIRIUM Verified 11/04/20 15:25 Antibiotics) sulfamethoxazole Allergy Intermediate DELIRIUM Verified 11/04/20 16:10 [From Bactrim] trimethoprim [From Bactrim] Allergy Intermediate DELIRIUM Verified 11/04/20 16:10 Home Meds Home Medications Medication Instructions Recorded Confirmed amoxicillin-pot clavulanate 1 tab PO BID 11/04/20 11/04/20 aspirin 81 mg PO DAILY 11/04/20 11/04/20 atorvastatin 40 mg PO DAILY 11/04/20 11/04/20 cholecalciferol (vitamin D3) 25 mcg PO DAILY 11/04/20 11/04/20 [Vitamin D3] cyanocobalamin (vitamin B-12) 100 mcg PO DAILY 11/04/20 11/04/20 [Vitamin B-12] dabigatran etexilate [Pradaxa] 150 mg PO BID 11/04/20 11/04/20 insulin glargine [Lantus U-100 36 unit SUBCUT BID 11/04/20 11/04/20 Insulin] insulin lispro 0 unit SUBCUT QID MDD 200 11/04/20 11/04/20 UNITS/DAILY magnesium oxide 400 mg PO DAILY 11/04/20 11/04/20 metoprolol succinate 50 mg PO DAILY 11/04/20 11/04/20 multivitamin 1 tab PO DAILY 11/04/20 11/04/20 nitroglycerin [Nitrostat] 0.4 mg SUBLINGUAL DIRECTED PRN 11/04/20 11/04/20 potassium chloride 20 meq PO DAILY 11/04/20 11/04/20 ramipril 10 mg PO DAILY 11/04/20 11/04/20 topiramate [Topamax] 100 mg PO DAILY 11/04/20 11/04/20 triamterene-hydrochlorothiazid 1 cap PO DAILY 11/04/20 11/04/20 Results & Data (ED) Vital Signs Vital Signs - 24 hr 11/04/20 14:12 11/04/20 14:27 11/04/20 15:08 Temperature 36.5 C Temperature Source Oral Pulse Rate 99 H Pulse Rate [Apical] 83 80 Pulse Rhythm [Apical] Respiratory Rate 18 16 16 Respiratory Effort / Characteristics Non-Labored Non-Labored Respiratory Depth Normal Normal Blood Pressure 96/62 L Blood Pressure [Left Arm] 150/67 H 150/67 H Blood Pressure Mean 73 Blood Pressure Mean [Left Arm] 94 94 Pulse Oximetry 97 97 97 Oxygen Delivery Method Room Air Room Air Room Air Sepsis Recent Fever Within 48 Hours No Sepsis New/Unexplained Change in Mental Status N/A Sepsis Action Taken by Nursing No Action Required 11/04/20 16:00 11/04/20 17:00 Temperature Temperature Source Pulse Rate Pulse Rate [Apical] 68 66 Pulse Rhythm [Apical] Regular Respiratory Rate 16 16 Respiratory Effort / Characteristics Non-Labored Non-Labored Respiratory Depth Normal Normal Blood Pressure Blood Pressure [Left Arm] 150/67 H 150/67 H Blood Pressure Mean Blood Pressure Mean [Left Arm] 94 94 Pulse Oximetry 98 98 Oxygen Delivery Method Room Air Room Air Sepsis Recent Fever Within 48 Hours Sepsis New/Unexplained Change in Mental Status Sepsis Action Taken by Nursing Laboratory Data Result diagrams: 11/04/20 14:30 11/04/20 14:30 Lab Results 11/04/20 11/04/20 11/04/20 Range/Units 14:30 14:30 14:30 WBC 7.59 (4.8-10.8) K/uL RBC 4.01 L (4.7-6.1) M/uL Hgb 14.2 (14.0-18.0) g/dL Hct 40.9 L (42-52) % MCV 102.0 H (80-100) fL MCH 35.4 H (25-34) pg MCHC 34.7 (32-36) g/dL RDW Std Deviation 48.0 H (36.4-46.3) fL RDW Coeff of Buddy 12.8 (11.5-14.5) % Plt Count 256 (130-400) K/uL MPV 9.1 (7.4-10.4) fL Immature Gran % (Auto) 0.3 % Neut % (Auto) 69.0 % Lymph % (Auto) 19.1 % [place] % (Auto) 10.0 % Eos % (Auto) 1.3 % Baso % (Auto) 0.3 % Neut # (Auto) 5.24 (1.4-6.5) K/uL Lymph # (Auto) 1.45 (1.2-3.4) K/uL [place] # (Auto) 0.76 H (0.11-0.59) K/uL Eos # (Auto) 0.10 (0-0.5) K/uL Baso # (Auto) 0.02 (0-0.2) K/uL Immature Gran # (Auto) 0.02 (0.00-0.02) K/uL ESR 47 H (0-20) mm/hr Sodium 136 (136-145) mmol/L Potassium 3.8 (3.5-5.1) mmol/L Chloride 105 (98-107) mmol/L Carbon Dioxide 26 (21-32) mmol/L Anion Gap 5.0 (3-11) BUN 29 H (7-18) mg/dl Creatinine 1.60 H (0.6-1.4) mg/dl Est Cr Clr Drug Dosing 50.5 ml/min Est GFR ( Amer) 48.5 ml/min Est GFR (Non-Af Amer) 41.8 ml/min BUN/Creatinine Ratio 17.9 (10-20) Glucose 151 H (70-99) mg/dl Lactate (0.4-2.0) mmol/L Calcium 9.3 (8.5-10.1) mg/dl Total Bilirubin 0.7 (0.2-1) mg/dl AST 50 H (15-37) U/L ALT 100 H (12-78) U/L Alkaline Phosphatase 93 (45-117) U/L C-Reactive Protein 4.48 H (0-0.29) mg/dl Total Protein 8.0 (6.4-8.2) gm/dl Albumin 3.1 L (3.4-5.0) gm/dl Globulin 4.9 H (2.5-4.0) gm/dl Albumin/Globulin Ratio 0.6 L (0.9-2) Procalcitonin (0-0.5) ng/ml COVID-19 Eval Order SARS-CoV-2 (PCR) (Negative) 11/04/20 11/04/20 11/04/20 Range/Units 14:30 14:30 15:05 WBC (4.8-10.8) K/uL RBC (4.7-6.1) M/uL Hgb (14.0-18.0) g/dL Hct (42-52) % MCV (80-100) fL MCH (25-34) pg MCHC (32-36) g/dL RDW Std Deviation (36.4-46.3) fL RDW Coeff of Buddy (11.5-14.5) % Plt Count (130-400) K/uL MPV (7.4-10.4) fL Immature Gran % (Auto) % Neut % (Auto) % Lymph % (Auto) % [place] % (Auto) % Eos % (Auto) % Baso % (Auto) % Neut # (Auto) (1.4-6.5) K/uL Lymph # (Auto) (1.2-3.4) K/uL [place] # (Auto) (0.11-0.59) K/uL Eos # (Auto) (0-0.5) K/uL Baso # (Auto) (0-0.2) K/uL Immature Gran # (Auto) (0.00-0.02) K/uL ESR (0-20) mm/hr Sodium (136-145) mmol/L Potassium (3.5-5.1) mmol/L Chloride (98-107) mmol/L Carbon Dioxide (21-32) mmol/L Anion Gap (3-11) BUN (7-18) mg/dl Creatinine (0.6-1.4) mg/dl Est Cr Clr Drug Dosing ml/min Est GFR ( Amer) ml/min Est GFR (Non-Af Amer) ml/min BUN/Creatinine Ratio (10-20) Glucose (70-99) mg/dl Lactate 2.0 (0.4-2.0) mmol/L Calcium (8.5-10.1) mg/dl Total Bilirubin (0.2-1) mg/dl AST (15-37) U/L ALT (12-78) U/L Alkaline Phosphatase (45-117) U/L C-Reactive Protein (0-0.29) mg/dl Total Protein (6.4-8.2) gm/dl Albumin (3.4-5.0) gm/dl Globulin (2.5-4.0) gm/dl Albumin/Globulin Ratio (0.9-2) Procalcitonin < 0.05 (0-0.5) ng/ml COVID-19 Eval Order Covid19 at [facility] [place] SARS-CoV-2 (PCR) (Negative) 11/04/20 Range/Units 15:05 WBC (4.8-10.8) K/uL RBC (4.7-6.1) M/uL Hgb (14.0-18.0) g/dL Hct (42-52) % MCV (80-100) fL MCH (25-34) pg MCHC (32-36) g/dL RDW Std Deviation (36.4-46.3) fL RDW Coeff of Budyd (11.5-14.5) % Plt Count (130-400) K/uL MPV (7.4-10.4) fL Immature Gran % (Auto) % Neut % (Auto) % Lymph % (Auto) % [place] % (Auto) % Eos % (Auto) % Baso % (Auto) % Neut # (Auto) (1.4-6.5) K/uL Lymph # (Auto) (1.2-3.4) K/uL [place] # (Auto) (0.11-0.59) K/uL Eos # (Auto) (0-0.5) K/uL Baso # (Auto) (0-0.2) K/uL Immature Gran # (Auto) (0.00-0.02) K/uL ESR (0-20) mm/hr Sodium (136-145) mmol/L Potassium (3.5-5.1) mmol/L Chloride (98-107) mmol/L Carbon Dioxide (21-32) mmol/L Anion Gap (3-11) BUN (7-18) mg/dl Creatinine (0.6-1.4) mg/dl Est Cr Clr Drug Dosing ml/min Est GFR ( Amer) ml/min Est GFR (Non-Af Amer) ml/min BUN/Creatinine Ratio (10-20) Glucose (70-99) mg/dl Lactate (0.4-2.0) mmol/L Calcium (8.5-10.1) mg/dl Total Bilirubin (0.2-1) mg/dl AST (15-37) U/L ALT (12-78) U/L Alkaline Phosphatase (45-117) U/L C-Reactive Protein (0-0.29) mg/dl Total Protein (6.4-8.2) gm/dl Albumin (3.4-5.0) gm/dl Globulin (2.5-4.0) gm/dl Albumin/Globulin Ratio (0.9-2) Procalcitonin (0-0.5) ng/ml COVID-19 Eval Order SARS-CoV-2 (PCR) NEGATIVE (Negative) Administered Medications Discontinued Medications Piperacillin Sod/Tazobactam Sod (Zosyn) 4.5 gm in 120 mls @ 240 mls/hr IV NOW ONE Stop: 11/04/20 15:15 Last Infusion: 11/04/20 15:41 Dose: 0 mls/hr Documented by: [id number] Admin: 11/04/20 15:02 Dose: 240 mls/hr Documented by: [id number] Discharge Plan Visit Data Chief Complaint: Infection Stated Complaint: L FOOT BIG TOE INFECTION ED Provider: Jomar Weiss Discharge Problem: Osteomyelitis of great toe of left foot, Diabetes mellitus type 2 with atherosclerosis of arteries of extremities, CKD (chronic kidney disease) stage 3, GFR 30-59 ml/min, A-fib, Hx of CABG Patient Disposition: Being Evaluated by Hospitalist Forms Stand Alone Forms: [facility] Prescriptions Prescriptions: No Action multivitamin Tablet 1 tab PO DAILY RF: 0 atorvastatin 40 mg Tablet 40 mg PO DAILY RF: 0 Lantus U-100 Insulin 100 unit/mL Solution 36 unit SUBCUT BID RF: 0 cyanocobalamin (vitamin B-12) [Vitamin B-12] 100 mcg Tablet 100 mcg PO DAILY RF: 0 metoprolol succinate 50 mg Tablet Extended Release 24 Hr 50 mg PO DAILY RF: 0 aspirin 81 mg Tablet,Delayed Release (Dr/Ec) 81 mg PO DAILY RF: 0 triamterene-hydrochlorothiazid 37.5-25 mg Capsule 1 cap PO DAILY RF: 0 nitroglycerin [Nitrostat] 0.4 mg Tablet, Sublingual 0.4 mg sublingual DIRECTED PRN (Reason: Chest Pain) RF: 0 topiramate [Topamax] 100 mg Tablet 100 mg PO DAILY RF: 0 ramipril 10 mg Capsule 10 mg PO DAILY RF: 0 amoxicillin-pot clavulanate 875-125 mg tablet 1 tab PO BID RF: 0 cholecalciferol (vitamin D3) [Vitamin D3] 25 mcg (1,000 unit) Capsule 25 mcg PO DAILY RF: 0 insulin lispro 100 unit/mL Insulin Pen 0 unit SUBCUT QID MDD 200 UNITS/DAILY RF: 0 Pradaxa 150 mg Capsule 150 mg PO BID RF: 0 magnesium oxide 400 mg magnesium Capsule 400 mg PO DAILY RF: 0 potassium chloride 20 mEq Tablet Extended Release 20 meq PO DAILY RF: 0 Referrals Referrals: Christ Andrews DO [Primary Care Provider] - Discharge Problem: CKD (chronic kidney disease) stage 3, GFR 30-59 ml/min Qualifiers: Chronic kidney disease stage 3 subtype: stage 3a (GFR 45-59) Qualified Code(s): N18.31 - Chronic kidney disease, stage 3a A-fib Qualifiers: Atrial fibrillation type: unspecified Qualified Code(s): I48.91 - Unspecified atrial fibrillation
--- NOTE | 2020-11-04 15:36 | History & Physical Report ---
Date of Service November 04, 2020 Assessment & Plan (1) Osteomyelitis of great toe of left foot: - Admit to med surg - Consult ortho, Dr. Petty, for possible OR for debridement-patient requests Dr. Eric as he has operated on his previously. - Consult wound care, gram stain of wound ordered - Outpatient imaging reviewed from [facility], Xray confirms osteo of the Left great toe. - Continue IV antibiotics with zosyn and vanco. -Npo after midnight for any plan for procedure in am. - On pradaxa and asa 81 mg for CAD, will hold for procedure pending discussion with ortho for OR time availability over the holiday weekend. If no procedure planned tomorrow restart pradaxa and aspirin. (2) Diabetes mellitus type 2 with atherosclerosis of arteries of extremities: - A1C = 6.4 from 08/03/20 - Novolog sliding scale - Cont Lantus 36 U BID unless NPO for procedure, then reduce in half changed lantus to 18 units bid if no surgery planned tomorrow to increase to 36units bid (3) Diabetic neuropathy: - Hx of such, possible underlying PAD - obtain ABIs, vascular surg consult - Pulses 1+ dorsalis pedis and posterior tibial bilateral LE. (4) A-fib: - hx of such, on pradaxa and asa daily - holding pradaxa - Rate controlled on metoprolol (5) CAD (coronary artery disease): (6) Hx of CABG: - On aspirin, b murali and statin (7) Hypertension: - Continue antihypertensives with metoprolol succinate 50 mg, ramipril 10 mg daily, triamterene/HCTZ - BP stable at 150/67 (8) CKD (chronic kidney disease) stage 3, GFR 30-59 ml/min: - Hx of such, baseline of 1.3-1.4 - Cr is 1.6 currently, monitor with am labs - Avoid nephrotoxins and renally dose medications DVT ppx: - teds, scds CODE: Full Code Dispo: From home, likely to remain in the hospital x 1-2 days (9) Chronic systolic CHF (congestive heart failure): On Toprol xl and ramipril Not on diuretics last echo EF 39% Monitor for volume overload. (10) Bradyarrhythmia: Had bradycardia superimposed on a fib post op bilateral carotid endarterectomy. s/p single chamber pace maker implantation History of Present Illness Primary Care Provider: Christ Andrews, This is a 75-year-old male with PMHx of DM type II, CAD s/p CABG, hyperlipidemia, diabetic neuropathy, A. fib on pradaxa, CHF, CKD stage III who presented to PCP office for left great toe infection last Saturday 10/28. At that time he was placed on Augmentin. Patient is unaware of whenever he injured his toe, but thinks his toenail caught on a sock and ripped. He reports not having sensation intact to light touch nearly up to his knees bilaterally. He reports scheduling issues with [facility] and getting appointments with a financial administrator to have his nails cut - states they are in town only 1 day per week for this. Today he was re-evaluated by at his PCPs office for routine follow up. He denies fever, chills or sweats, no change in redness or swelling of the left great toe. An x-ray was obtained per his PA-Cs recommendation, and x-ray read indicated osteomyelitis of the left great toe distal phalanx. In the ER patient was started on IV Zosyn. Will plan to obtain surgical consultation. Pt has requested Dr. Eric for orthopedic consultation if available. His last dose of Pradaxa was this morning. Allergies Allergy/AdvReac Type Severity Reaction Status Date / Time Sulfa (Sulfonamide Allergy Intermediate DELIRIUM Verified 11/04/20 15:25 Antibiotics) sulfamethoxazole Allergy Intermediate DELIRIUM Verified 11/04/20 16:10 [From Bactrim] trimethoprim [From Bactrim] Allergy Intermediate DELIRIUM Verified 11/04/20 16:10 Home Medications Medication Instructions Recorded Confirmed Type amoxicillin-pot clavulanate 1 tab PO BID 11/04/20 11/04/20 History aspirin 81 mg PO DAILY 11/04/20 11/04/20 History atorvastatin 40 mg PO DAILY 11/04/20 11/04/20 History cholecalciferol (vitamin D3) 25 mcg PO DAILY 11/04/20 11/04/20 History [Vitamin D3] cyanocobalamin (vitamin B-12) 100 mcg PO DAILY 11/04/20 11/04/20 History [Vitamin B-12] dabigatran etexilate [Pradaxa] 150 mg PO BID 11/04/20 11/04/20 History insulin glargine [Lantus U-100 36 unit SUBCUT BID 11/04/20 11/04/20 History Insulin] insulin lispro 0 unit SUBCUT QID MDD 200 11/04/20 11/04/20 History UNITS/DAILY magnesium oxide 400 mg PO DAILY 11/04/20 11/04/20 History metoprolol succinate 50 mg PO DAILY 11/04/20 11/04/20 History multivitamin 1 tab PO DAILY 11/04/20 11/04/20 History nitroglycerin [Nitrostat] 0.4 mg SUBLINGUAL DIRECTED PRN 11/04/20 11/04/20 History potassium chloride 20 meq PO DAILY 11/04/20 11/04/20 History ramipril 10 mg PO DAILY 11/04/20 11/04/20 History topiramate [Topamax] 100 mg PO DAILY 11/04/20 11/04/20 History triamterene-hydrochlorothiazid 1 cap PO DAILY 11/04/20 11/04/20 History Past Med/Surg History Social History Smoking Status: Former smoker Second Hand Exposure: No; Hx Alcohol Use: Yes Alcohol type: beer Hx Substance Use: No Preferred Language: Libyan Communication Ability: Effective Trial Lawyer Required: No Beliefs That Will Affect Care: None Current Living Situation: Spouse Feels Safe at Home: Yes Assistive Devices: Cane Review of Systems Review of Systems: Constitutional: No fever, sweats or chills Eyes: No diplopia, no worsening or blurred vision ENT: normal hearing, no trouble swallowing Respiratory: No cough, sputum, dyspnea at rest or on exertion Cardiovascular: No chest pain, tightness or palpitations Abdomen: No pain, nausea, vomiting, diarrhea or constipation Musculoskeletal: No joint pain, calf pain, swelling Neurologic: No weakness, + diabetic neuropathy as per HPI, no balance problems Psychiatric: No anxiety or depression Skin: No rash or itch Physical Exam Physical Exam: General: awake, alert, no apparent distress Head: Normocephalic, atraumatic ENT: PERRL, EOMI, no pharyngeal exudate, mucous membranes moist Chest: Clear to auscultation, on room air, no adventitious breath sounds Cardiac: Irregularly irregular, rate controlled, no murmur, no JVD, normal peripheral pulses, good capillary refill Abdominal: NABS x 4 quadrants, soft, nondistended, nontender to palpation, no rebound or guarding Extremities: Left great toe edematous, erythematous, erythema coming up to mid anterior tibial range, posterior tibial and dorsalis pedis pulses 1+ bilaterally. Otherwise normal inspection, no peripheral edema or erythema, calfs nontender to palpation. LLE s/p venous grafting for CABG scar present. Psych: Normal mood and affect Neuro: AAO x 3, strength intact bilaterally and rated 5/5, no motor deficits, speech is clear, no peripheral sensory deficits Results & Data Results & Data ([facility]) Vital Signs (Past 12 Hours) Vital Signs Temp Pulse Pulse Resp BP BP Pulse Ox 11/04/20 15:08 80 16 150/67 H 97 11/04/20 14:27 83 16 150/67 H 97 11/04/20 14:12 36.5 C 99 H 18 96/62 L 97 Diagnostic Findings 11/04/2020 12:23 PM - Interface, Rad In Narrative & Impression EXAM LT XR TOES 2 OR MORE VIEWS - 11/04/2020 10:20 am HISTORY right great toe infection, low suspicion osteo but assess for any findings COMPARISON No comparisons TECHNIQUE Three views left great toe. FINDINGS Osteolysis and cortical lucency at the tuft of the great toe distal phalanx cons istent with osteomyelitis. There is overlying skin irregularity beneath the toenail. No fracture or dislocation. Mild degenerative change at the 1st interphalangeal joint. Bipartite hallux sesamoids. IMPRESSION IMPRESSION Osteomyelitis of the left great toe distal phalanx. This was submitted to the radiology school office assistant worklist and the ordering provider will be notified that the final report is available in [facility]. EXAM LT XR TOES 2 OR MORE VIEWS - 11/04/2020 10:20 am HISTORY right great toe infection, low suspicion osteo but assess for any findings COMPARISON No comparisons TECHNIQUE Three views left great toe. FINDINGS Osteolysis and cortical lucency at the tuft of the great toe distal phalanx consistent with osteomyelitis. There is overlying skin irregularity beneath the toenail. No fracture or dislocation. Mild degenerative change at the 1st interphalangeal joint. Bipartite hallux sesamoids. IMPRESSION IMPRESSION Osteomyelitis of the left great toe distal phalanx. This was submitted to the radiology school office assistant worklist and the ordering provider will be notified that the final report is available in [facility]. PACS Images PACS Images - Remote and MAC Users Result Information Date and Time: Resulted: 11/04/2020 12:21 PM Status: Final result Provider Status: Reviewed Signed by Resident (Preliminary Read) Staff Radiologist (Final Read) Date Time Maite ne Pager VILMAGRIS SURY BROWN 11/04/2020 12:21 Read by Resident Staff Radiologist (Final Read) Date Phone Pager VILMABRAN LANDRYRIGO BROWN 11/04/2020 Code Status & VTE Plan Code Status Full code-discussed with the patient at bedside Supervising Physician Co-Signing Physician Notes Care coordinated with Micki Farmer PA-C. Agree with above note. Patient seen and examined. Please refer to her notes for full details. Vital signs reviewed. Physical exam: General exam: Alert and oriented. Not in acute distress. CVS: S1 and S2 heard, regular rate and rhythm, no murmurs. RS: Clear to auscultation, no wheezing or crackles. ABD: Soft, bowel sounds present, nontender, no distention. CUSTOMER SERVICE SUPERVISOR: Nonfocal. EXT: No edema, no erythema. Labs: Reviewed. Assessment and plan: 75M with hx of DM, CAD, a fib hx of bradycardia post b/l carotid artery endarterectomy s/p pacemaker, chronic systolic chf presents with infection of left great benita ingrown nail. failed out patinet treatment with augmentin. X ray showing osteomyelitis. Lef great toe infecton osteomyelitis emprically started on zosyn and vanco ortho consult in am npo after midnight for any planned procedure. Hx of a fib on metoprolol pradaxa held for any procedure in am if no procedure planned to restart pradaxa. DM will cut back on lantus to 18units bid as placed npo after midnight iss will monitor Chronic systolic chf ef 39% on torol xl and ramipril monitor for volume overload Other diagnosis and plan of care as per Micki Farmer PA-C . Catrachito cazares MD. (1) CKD (chronic kidney disease) stage 3, GFR 30-59 ml/min Chronic kidney disease stage 3 subtype: stage 3a (GFR 45-59) Qualified Code(s): N18.31 - Chronic kidney disease, stage 3a (2) A-fib Atrial fibrillation type: unspecified Qualified Code(s): I48.91 - Unspecified atrial fibrillation
--- NOTE | 2020-11-04 18:09 | Orthopedic Consultation ---
Date of Service November 04, 2020 Assessment & Plan (1) Osteomyelitis of great toe of left foot: I talked to him and his about the diagnosis and treatment options at bedside. Overall the toe does not look too bad. He does not have any history of ulcerations around the foot. Is been going on for about 10 days and is already improving. He still some obvious redness and cellulitis around the area. He has a normal white blood cell count and is afebrile. His sed rate and CRP are moderately elevated. He has a pacemaker placed and it is possible we will not be able to get an MRI of his left foot. I spoke with the radiologist personally. The first thing we will do is obtain good x-rays of the left foot. If the radiologist sees some erosive changes and possible osteomyelitis then we will proceed with a CAT scan with IV contrast. Until we get the testing back he should continue on the IV Zosyn. We will continue to follow. History of Present Illness Reason for Consultation: Left great toe injury. Requesting Physician: Fernando Sánchez is a pleasant 75-year-old male who is a diabetic and has diabetic neuropathy of both of his lower extremities. About 10 days ago he stubbed his left great toe and the nail plate slightly dislodged. He had some bleeding at the site. He then noticed some redness of his left great toe. He went to his primary care physician was started on Augmentin. Overall has gotten a little bit better. He then had an x-ray of his left foot at [facility] and it was read as possible osteomyelitis by the radiologist. He then came to the emergency room. He was started on IV Zosyn. His is with him at bedside. She says overall it is improving some but there is still some redness around the area. He has never had any injuries around his toe before. There are no ulcerations or any other issues. Orthopedics was consulted to evaluate and treat.. Allergies Allergy/AdvReac Type Severity Reaction Status Date / Time Sulfa (Sulfonamide Allergy Intermediate DELIRIUM Verified 11/04/20 15:25 Antibiotics) sulfamethoxazole Allergy Intermediate DELIRIUM Verified 11/04/20 16:10 [From Bactrim] trimethoprim [From Bactrim] Allergy Intermediate DELIRIUM Verified 11/04/20 16:10 Home Medications Medication Instructions Recorded Confirmed Type amoxicillin-pot clavulanate 1 tab PO BID 11/04/20 11/04/20 History aspirin 81 mg PO DAILY 11/04/20 11/04/20 History atorvastatin 40 mg PO DAILY 11/04/20 11/04/20 History cholecalciferol (vitamin D3) 25 mcg PO DAILY 11/04/20 11/04/20 History [Vitamin D3] cyanocobalamin (vitamin B-12) 100 mcg PO DAILY 11/04/20 11/04/20 History [Vitamin B-12] dabigatran etexilate [Pradaxa] 150 mg PO BID 11/04/20 11/04/20 History insulin glargine [Lantus U-100 36 unit SUBCUT BID 11/04/20 11/04/20 History Insulin] insulin lispro 0 unit SUBCUT QID MDD 200 11/04/20 11/04/20 History UNITS/DAILY magnesium oxide 400 mg PO DAILY 11/04/20 11/04/20 History metoprolol succinate 50 mg PO DAILY 11/04/20 11/04/20 History multivitamin 1 tab PO DAILY 11/04/20 11/04/20 History nitroglycerin [Nitrostat] 0.4 mg SUBLINGUAL DIRECTED PRN 11/04/20 11/04/20 History potassium chloride 20 meq PO DAILY 11/04/20 11/04/20 History ramipril 10 mg PO DAILY 11/04/20 11/04/20 History topiramate [Topamax] 100 mg PO DAILY 11/04/20 11/04/20 History triamterene-hydrochlorothiazid 1 cap PO DAILY 11/04/20 11/04/20 History Past Med/Surg History Social History Smoking Status: Never smoker Feels Safe at Home: Yes Review of Systems All systems reviewed & are unremarkable except as noted in HPI & below. Physical Exam On physical examination of the left foot, there is a little bit of scarring and clotting underneath the nail plate. The nail plate is slightly loose. There is no signs of abscess. There is some redness around the left great toe which extends close to the MTP joint. He has full motion of his toe without much pain. He has no pain with deep palpation, however, he does have decreased sensation due to the neuropathy.. Constitutional WD/WN, vitals as above Eyes PERRL, conjunctivae normal, anicteric sclerae ENMT external ear and nose normal, oropharynx normal Neck trachea midline, no thyromegaly Respiratory normal respiratory effort Cardiovascular RRR, no murmur, no edema Gastrointestinal (Abdomen) normal bowel sounds, soft, nontender, no hepatosplenomegaly Psychiatric A+Ox3, euthymic affect Results & Data Results & Data Laboratory Results . Diagnostic Findings . PG Care Time/CCT Total # of Minutes Spent Total Time Spent with Patient: Total time spent is greater than 50% in coordination of care (as documented) at patient's floor/unit and/or counseling patient: Coding Level of Care Code 69545 Inpt Consult Level 4 Diagnoses Osteomyelitis of great toe of left foot M86.9
--- NOTE | 2020-11-04 18:31 | XRay Report ---
XR foot LT min 3V routine CLINICAL HISTORY: questionable osteomyelitis left great toe. Left great toe swelling. COMPARISON STUDY: None. FINDINGS: Multifocal areas of erosion and cortical destruction seen at the distal tuft of the left gr eat toe consistent with an osteomyelitis. There is soft tissue swelling within the left first toe. No fracture or dislocation. Small skin stable within the medial ankle. Mild vascular calcifications are noted. There is moderate osteoarthritis at the interphalangeal joint of the left first toe. IMPRESSION: Multifocal erosions/cortical destruction within the distal tuft of the left great toe co nsistent with an osteomyelitis. ACT 112: Negative or not required by law. Electronically signed by: Yadiel Harrison M.D. 11/04/2020 6:30 PM
[2020-11-04 19:34] LABS: Appearance Urine Clear (Clear); Bilirubin Urine Negative (Negative); Blood Urine Negative (Negative); Color Urine Yellow; Glucose Urine UA Negative (Negative); Ketones Urine Negative (Negative); Leukocyte Esterase Urine Negative (Negative); Nitrite Urine Negative (Negative); Protein Urine Negative (Negative); Specific Gravity Urine 1.019 (1.000-1.030); Urobilinogen Urine Negative (Negative)
[2020-11-04] MEDS ORDERED: GLUCAGON FOR INJ 1 MG VIAL SQ PRN (19:46)
[2020-11-04] MEDS ORDERED: ACETAMINOPHEN 325 MG TAB PO PRN (19:46)
[2020-11-04] MEDS ORDERED: PIPERACILLIN/TAZOBACTAM 3.375 GM in DEXTROSE 5% 100 ML IV SCH (19:46)
[2020-11-04] MEDS ORDERED: NITROGLYCERIN SL 0.4 MG/TAB TAB SL PRN (19:46)
[2020-11-04] MEDS ORDERED: GLUCOSE 40% GEL 15 GM TUBE PO PRN (19:46)
[2020-11-04] MEDS ORDERED: DEXTROSE 50% 50 ML SYRINGE IV PRN (19:46)
[2020-11-04] MEDS ORDERED: CARBOHYDRATES FOR HYPOGLYCEMIA PO PRN (19:46)
[2020-11-04] MEDS ORDERED: ONDANSETRON INJ 2 MG/ML 2 ML VIAL IV PRN (19:46)
[2020-11-04] MEDS ORDERED: VANCOMYCIN HCL 1,000 MG in SODIUM CHLORIDE 0.9% 250 ML IV SCH (19:46)
[2020-11-04] MEDS ORDERED: VANCOMYCIN CONSULT ACTIVE PRN (19:46)
[2020-11-04] MEDS ORDERED: GLUCOSE 10 TABS/TUBE PO PRN (19:46)
[2020-11-04] MEDS ORDERED: PHARMACY GLYCEMIC MGMT CONSULT SCH (19:55)
[2020-11-04] MEDS ORDERED: INSULIN ASPART 100 UNITS/ML 3 ML PEN SC SCH (21:00)
[2020-11-04] MEDS ORDERED: VANCOMYCIN HCL 2,500 MG in SODIUM CHLORIDE 0.9% 500 ML IV SCH (21:00)
[2020-11-04] MEDS ORDERED: INSULIN GLARGINE SOLOSTAR 100 UNITS/ML 3 ML PEN SC SCH ×2 (21:00→22:15)
--- NOTE | 2020-11-04 21:18 | Ultrasound Report ---
US ankle/brachial index comp CLINICAL HISTORY: Assess peripheral arterial disease, left great toe osteomyelitis COMPARISON STUDY: None. FINDINGS: Bilateral calcified posterior tibial and dorsalis pedis arteries which were noncompressible . Therefore, the ankle brachial indices were unable to be obtained. IMPRESSION: The ankle brachial indices were unable to be obtained due to the noncompressible posterio r tibial and dorsalis pedis arteries. ACT 112: Negative or not required by law. Electronically signed by: Yadiel Harrison M.D. 11/04/2020 9:17 PM
[2020-11-04] MEDS: PIPERACILLIN/TAZOBACTAM 4.5 GM in DEXTROSE 5% 100 ML IV SCH (22:28)
[2020-11-04] MEDS ORDERED: OPTIRAY 320 125ml IV ONE (23:07)
[2020-11-05] MEDS: INSULIN ASPART 100 UNITS/ML 3 ML PEN SC SCH ×5 (01:00→20:51)
[2020-11-05] MEDS: PIPERACILLIN/TAZOBACTAM 4.5 GM in DEXTROSE 5% 100 ML IV SCH ×3 (05:10→21:02)
[2020-11-05 07:10] LABS: Hematocrit (blood only) 35.2 % (42-52); Hemoglobin 12.3 g/dL (14.0-18.0); Mean Corpuscular Hemoglobin 34.5 pg (25-34); Mean Corpuscular Hgb Conc 34.9 g/dL (32-36); Mean Corpuscular Volume 98.6 fL (80-100); Platelet Count 207 K/uL (130-400); RDW Coefficient of Variation 12.9 % (11.5-14.5); RDW Standard Deviation 46.5 fL (36.4-46.3); Red Blood Count 3.57 M/uL (4.7-6.1)
--- NOTE | 2020-11-05 07:24 | CT Scan Report ---
CT ANGIOGRAM OF THE LEFT FOOT COMBO CLINICAL HISTORY: Osteomyelitis of the first toe. COMPARISON STUDY: Radiographs of the left foot dated 11/04/2020. TECHNIQUE: CT angiogram of the left foot is performed from the distal tibia and fibula to the base of the foot before and following the IV administration of 120 cc of Optiray 320. Images are reviewed in the axial, sagittal, coronal planes. 3-D MIPS images are created and assessed. IV contrast was admin istered without complications. A dose lowering technique was utilized adhering to the principles of A DANNIELLE. CT DOSE: 378.71 mGy.cm FINDINGS: The skeletal structures are osteopenic. Again seen is erosive change and bony destruction with fragme ntation involving the tuft of the first distal phalanx consistent with osteomyelitis. No additional f oci of similar-appearing bony destruction are seen throughout the foot or ankle. There is a tiny dors al calcaneal heel spur. There is diffuse soft tissue edema identified throughout the foot. This is greatest in the first toe where there is evidence of overlying wound and subcutaneous fluid. No radiodense foreign body is seen . No soft tissue gas is identified. No organized fluid collection is seen to suggest abscess. There is advanced atherosclerotic calcification of the regional arteries. The anterior tibial, receiving team member ior tibial, and peroneal arteries are patent in the distal ankle and hindfoot. There is advanced athe rosclerotic plaque and irregularity throughout the dorsalis pedis artery which is patent. The digital arteries are diminutive but patent as imaged. IMPRESSION: 1. Findings are consistent with osteomyelitis, with erosion and bony fragmentation involving the tuft of the first distal phalanx. 2. There is a wound at the tip of the first toe with associated soft tissue edema and subcutaneous fl uid. No organized collection is seen to indicate abscess. 3. Milder soft tissue edema is seen throughout the remainder of the foot. Correlate clinically for ev idence of cellulitis. 4. There is advanced atherosclerotic calcification of the regional arteries. The large arteries of th e foot and ankle appear patent. ACT 112: Negative or not required by law. Electronically signed by: Brayan Marquez M.D. 11/05/2020 7:22 AM
[2020-11-05 07:41] LABS: Albumin Level 2.7 gm/dl (3.4-5.0); BUN Creatinine Ratio 16.9 (10-20); Calcium 8.7 mg/dl (8.5-10.1); Creatinine Clr Calc Pharmacy 57.7 ml/min; Est GFR (Non-African American) 49.1 ml/min; Potassium 3.8 mmol/L (3.5-5.1)
[2020-11-05 07:44] LABS: Albumin Globulin Ratio 0.7 (0.9-2); Bilirubin,Total 0.7 mg/dl (0.2-1); Total Protein 6.7 gm/dl (6.4-8.2)
[2020-11-05] MEDS ORDERED: BUPIVACAINE 0.5 % 5 MG/1 ML MPF 30ML VIAL ONE (08:21)
[2020-11-05] MEDS ORDERED: PROPOFOL IV EMULSION 10 MG/ML 20 ML VIAL IV ONE ×2 (08:59→10:49)
[2020-11-05] MEDS ORDERED: ONDANSETRON INJ 2 MG/ML 2 ML VIAL ONE (08:59)
[2020-11-05] MEDS ORDERED: LIDOCAINE 2% 2 ML VIAL/AMP(20MG/ML) INFIL ONE (08:59)
[2020-11-05] MEDS ORDERED: INSULIN GLARGINE SOLOSTAR 100 UNITS/ML 3 ML PEN SC ONE (09:00)
[2020-11-05] MEDS ORDERED: MIDAZOLAM HCL 1 MG/ML 2ML VIAL ONE (09:00)
[2020-11-05] MEDS ORDERED: fentaNYL citrate 100 MCG/2 ML VIAL ONE (09:00)
[2020-11-05] MEDS ORDERED: INSULIN GLARGINE SOLOSTAR 100 UNITS/ML 3 ML PEN SC SCH (09:00)
--- NOTE | 2020-11-05 09:24 | Orthopedic Progress Note ---
Date of Service November 05, 2020 Assessment & Plan (1) Osteomyelitis of great toe of left foot: I talked about the diagnosis and treatment options with him at bedside. Unfortunately he has osteomyelitis of the distal phalanx of his left great toe. I do recommend surgical removal of the distal phalanx which would result in a partial amputation of the left great toe. We talked about alternatives which would be long-term IV antibiotics but he understands that that may not completely resolve the infection. After discussions, we elected to proceed with a left great toe amputation. He understands the risk, benefits, and alternatives to the procedure is elected proceed. Questions were answered at bedside today. The decision was made for surgery. Latasha Sánchez was seen and examined at bedside this morning. Overall he is feeling fair ly well. I had a chance to review the x-rays and the CT scan from last night. He has no new complaints today.. Review of Systems All systems reviewed & are unremarkable except as noted in HPI & below. Physical Exam On physical examination of the left foot, there is redness and swelling around t he left great toe. It appears more distal. He has no pain. There is no purulent discharge.. Results & Data Results & Data Laboratory Results . Diagnostic Findings X-rays of the left foot are suggestive of osteomyelitis of the distal phalanx of the left great toe. CT angiogram of the left foot confirms the osteomyelitis of the distal phalanx of the left great toe.. PG Care Time/CCT Total # of Minutes Spent Total Time Spent with Patient: Total time spent is greater than 50% in coordination of care (as documented) at patient's floor/unit and/or counseling patient: Coding Level of Care Code 95338 Subseq Hosp Care Lvl 2 (57 - DECISION FOR SURGERY) Diagnoses Osteomyelitis of great toe of left foot M86.9
--- NOTE | 2020-11-05 09:51 | Anesthesiology Consultation ---
Date of Service November 05, 2020 Assessment & Plan (1) Encounter for pre-operative examination: Chart Review Chart Review: Acceptable Risk for Surgery and Patient NOT seen in Pre Admission Testing Consults Requested none History Surgery Operation Date: 11/05/20 09:00 Proposed Procedures p Amputation Right Great Toe(Right) - Henok Petty, Height/Weight Height: 5 ft 10 in Weight: 110.8 kg Allergies Allergy/AdvReac Type Severity Reaction Status Date / Time Sulfa (Sulfonamide Allergy Intermediate DELIRIUM Verified 11/04/20 15:25 Antibiotics) sulfamethoxazole Allergy Intermediate DELIRIUM Verified 11/04/20 16:10 [From Bactrim] trimethoprim [From Bactrim] Allergy Intermediate DELIRIUM Verified 11/04/20 16:10 Medications Home Medications Medication Instructions Recorded Confirmed Last Taken amoxicillin-pot clavulanate 1 tab PO BID 11/04/20 11/04/20 11/04/20 08:00 aspirin 81 mg PO DAILY 11/04/20 11/04/20 11/04/20 atorvastatin 40 mg PO DAILY 11/04/20 11/04/20 11/04/20 cholecalciferol (vitamin D3) 25 mcg PO DAILY 11/04/20 11/04/20 11/04/20 [Vitamin D3] cyanocobalamin (vitamin B-12) 100 mcg PO DAILY 11/04/20 11/04/20 11/04/20 [Vitamin B-12] dabigatran etexilate [Pradaxa] 150 mg PO BID 11/04/20 11/04/20 11/04/20 08:00 insulin glargine [Lantus U-100 36 unit SUBCUT BID 11/04/20 11/04/20 11/04/20 08:00 Insulin] insulin lispro 0 unit SUBCUT QID MDD 200 11/04/20 11/04/20 11/04/20 12:00 UNITS/DAILY magnesium oxide 400 mg PO DAILY 11/04/20 11/04/20 11/04/20 metoprolol succinate 50 mg PO DAILY 11/04/20 11/04/20 11/04/20 multivitamin 1 tab PO DAILY 11/04/20 11/04/20 11/04/20 nitroglycerin [Nitrostat] 0.4 mg SUBLINGUAL DIRECTED PRN 11/04/20 11/04/20 Unknown potassium chloride 20 meq PO DAILY 11/04/20 11/04/20 11/04/20 ramipril 10 mg PO DAILY 11/04/20 11/04/20 11/04/20 topiramate [Topamax] 100 mg PO DAILY 11/04/20 11/04/20 11/04/20 triamterene-hydrochlorothiazid 1 cap PO DAILY 11/04/20 11/04/20 11/04/20 Active Medications Generic Name Dose Route Start Last Admin Trade Name Law PRN Reason Stop Dose Admin Piperacillin Sod/Tazobactam 120 mls @ 30 mls/hr 11/04/20 21:00 11/05/20 05:10 Sod 4.5 gm/ Dextrose IV 12/16/20 20:59 30 mls/hr Q8H SHELLIE Administration Protocol Insulin Aspart 0 units 11/05/20 00:00 11/05/20 06:33 Insulin Aspart 100 Units/Ml 3 Ml Pen SC 12/05/20 00:00 2 units Q6 SHELLIE Administration Protocol NPO Date Last Intake of Fluids: 11/04/20 Time Last Intake of Fluids: 23:30 Date Last Intake of Solids: 11/04/20 Time Last Intake of Solids: 17:30 Past Medical History Medical History A-fib CAD (coronary artery disease) Chronic systolic CHF (congestive heart failure) CKD (chronic kidney disease) stage 3, GFR 30-59 ml/min Diabetes mellitus type 2 with atherosclerosis of arteries of extremities Diabetic neuropathy Hypertension Exercise / Class Metabolic Activity III < 4 Walking/Shop/Light housework Past Surgical History Surgical History Hx of CABG Past Anesthesia History No Hx of Anesthesia Complications History of PONV No Hx of PONV Social History Smoking Status: Former smoker Do You Dip or Chew Tobacco: No Hx Alcohol Use: Yes Alcohol type: beer alcohol intake frequency: holidays/special occasions only Hx Substance Use: No Physical Exam Vital Signs Last Vital Signs Temp 36.6 C 11/05/20 07:30 Pulse 80 11/05/20 07:30 Resp 16 11/04/20 23:36 BP 131/80 11/05/20 07:30 Pulse Ox 96 11/05/20 07:30 Testing Laboratory Results 11/05/20 06:34 11/05/20 06:34 Urine Color Yellow 11/04/20 19:20 Urine Appearance Clear (Clear) 11/04/20 19:20 Urine pH 6.0 (4.5-7.5) 11/04/20 19:20 Ur Specific Tyler 1.019 (1.000-1.030) 11/04/20 19:20 Urine Protein Negative (Negative) 11/04/20 19:20 Urine Glucose (UA) Negative (Negative) 11/04/20 19:20 Urine Ketones Negative (Negative) 11/04/20 19:20 Urine Nitrite Negative (Negative) 11/04/20 19:20 Ur Leukocyte Esterase Negative (Negative) 11/04/20 19:20 11/04/20 23:00 Gram Stain - Final Toe,Left Great 11/05/20 11/05/20 11/05/20 08:51 06:19 00:34 POC Glucose 149 H 172 H 256 H 11/04/20 21:57 POC Glucose 215 H
[2020-11-05] MEDS ORDERED: ePHEDrine sulfate 50 MG/ML AMP IV PRN (10:00)
[2020-11-05] MEDS ORDERED: ATROPINE SULFATE 0.1 MG/ML 10ML SYR IV PRN (10:00)
[2020-11-05] MEDS ORDERED: fentaNYL citrate 100 MCG/2 ML VIAL IV PRN (10:00)
[2020-11-05] MEDS ORDERED: ONDANSETRON INJ 2 MG/ML 2 ML VIAL IV PRN (10:00)
--- NOTE | 2020-11-05 10:05 | Pharmacy Report ---
Pharmacy Abx Dose Short Note - Date of Service November 05, 2020 - Assessment & Plan Assessment 75 year old M receiving Vancomycin + Zosyn for treatment of Osteo of Left great toe Obesity (BMI 35 or above) puts patient at risk for vancomycin accumulation. Will check levels early and adjust accordingly Pt also ordered Zosyn which can increase the risk of nephrotoxicity Pt does NOT meet vancomycin AUC dosing criteria based on weight > 100 kg Plan Vancomycin * Will use population based PK and adjust dose based on trough levels * Ke ~ 0.044, T1/2 ~ 15 hrs, Vd ~0.55L/kg * Start with Loading dose of 2500mg (23 mg/kg) IV x 1 then Vanco 1500mg IV Q18hrs * Goal trough level for osteo : 15 to 20 mcg/mL * Trough or random level ordered for: 11/07/20 @ 0300 (prior to third maintenance dose) Zosyn * 4.5g IV Q8hrs for BMI > 35 and crcl > 20 Pharmacy will continue to follow and will adjust dose/frequency as necessary. Thank you.
--- NOTE | 2020-11-05 11:11 | Operative Report ---
PG Post Operative Report Pre & Post Diagnosis Operation Date: 11/05/20 09:00 Pre-Op Diagnosis: Left great toe osteomyelitis. Post-Op Diagnosis: Left great toe osteomyelitis. I identified the patient and participated in the time-out.: Yes Procedure Operation Date: 11/05/20 09:00 Actual Procedures p Amputation of left great toe.(Left) - Henok Petty DO Surgeon eHnok Petty DO Show Girl Frank Coy PAC Estimated Blood Loss 5 Findings Consistent with Post-Op Diagnosis Specimens Culture swabs Amputated great toe to pathology Complications none Disposition Disposition: Recovery Room Indications Gonzalo is a pleasant 75-year-old male who is been dealing with worsening left great toe pain and redness. He is toenails are becoming detached. He thinks he may have stubbed his toe but he cannot remember. Unfortunately his symptoms have been worsening. He is a diabetic. He has no ulcerations but he has had significant redness and swelling of the great toe. X-rays and CT scan were diagnostic for osteomyelitis of the distal phalanx.. After consulting at bedside, he elected proceed with a amputation of the left great toe. Description of Procedure On November 05, 2020 Gonzalo was brought down from his hospital room to the preoperative holding area. The operative extremity identified and signed. He was continued on his antibiotics. He was taken back to the operating room and given basic sedation. The left leg was then prepped and draped in sterile fashion. A digital block with lidocaine was then performed around the base of the first MTP joint. A timeout was done. The patient and the operative extremity was properly identified. A fishmouth incision was made in the area of the IP joint. I tried to stay as distal as possible while keeping all viable tissue. The IP joint was then disarticulated. There was an area of mark pus on the plantar aspect. This was cultured with a swab culture. The soft tissue was debrided back until there was no more signs of infection. The wound was irrigated with 2 L of normal saline solution and bulb syringe. To obtain appropriate flap coverage the proximal phalanx was transected. I left over a centimeter of proximal phalanx remaining. This should help keep good function and ambulation. The edges were smoothed with a bone rasp. The wound was once again irrigated. The tourniquet was deflated. There was bleeding throughout. The fishmouth incision was closed with 4-0 nylon suture. The wound was then dressed with Xeroform, 4 x 4 gauze, and a loosely placed Tiburcio wrap. He was then transferred to a hospital bed and taken to the postanesthesia care unit in stable condition. He tolerated the procedure well. Frank Coy PA-C, was present for the entire procedure. He was critical for patient positioning, prepping, draping, retraction exposure, wound closure and application of sterile dressing. I attest to the content of the Intraoperative Record and any orders documented therein. Any exceptions are noted below.
--- NOTE | 2020-11-05 11:27 | Pharmacy Report ---
Pharmacy Glycemic Short Note 2 - Date of Service November 05, 2020 - Glycemic Short BSG Results (Last 24 hours): 11/04/20 11/04/20 11/05/20 14:30 21:57 00:34 Glucose 151 H POC Glucose 215 H 256 H 11/05/20 11/05/20 11/05/20 06:19 06:34 08:51 Glucose 166 H POC Glucose 172 H 149 H 11/05/20 11:09 Glucose POC Glucose 173 H OUTPATIENT ANTIDIABETIC REGIMEN: * Lantus 36 units bid, lispro QID * A1c ~6.4% 08/03/20 ASSESSMENT: * 75 year old male admitted for osteo of toe, plan for procedure today. Started on vancomycin and zosyn empirically. Type 2 diabetic managed on insulin at home. * Fasting BSG 166 mg/dl - received Lantus 35 units last evening. NPO today for procedure. Plan to give ~30% of home AM Lantus for this AM. * Lunch time BSG 173 mg/dL, however AM basal never given - likely patient went to OR before it could be given * Likely will start diet after procedure, will add scale for PM basal dosing PLAN FOR INPATIENT GLYCEMIC CONTROL: * Hold outpatient oral diabetes medications * Basal insulin * Lantus 25 x 1 * Lantus 25-35 units HS * Bolus insulin * NovoLog per scale ACHS or Q6hrs while NPO * Goal Range: Low 110 mg/dL - High 140 mg/dL * Correction Factor: 20 mg/dL/unit * Nutritional / Prandial insulin per carb ratio of 1 unit per 7 grams CHO consumed PLAN FOR DISCHARGE: * tbd - A1c pending
--- NOTE | 2020-11-05 11:34 | Anesthesiology Progress Note ---
Date of Service November 05, 2020 Anesthesia Post Procedure Vital Signs Vital Signs: Temp Pulse Pulse Pulse Resp BP BP 11/05/20 11:20 36.5 C 76 14 138/78 11/05/20 11:10 81 16 139/88 11/05/20 11:04 36.5 C 85 13 139/71 11/05/20 07:30 36.6 C 80 11/05/20 00:05 134/84 11/04/20 23:36 36.7 C 78 16 11/04/20 19:35 36.7 C 90 14 11/04/20 19:26 71 16 156/65 H 11/04/20 18:00 77 16 150/67 H 11/04/20 17:00 66 16 150/67 H 11/04/20 16:00 68 16 150/67 H 11/04/20 15:08 80 16 150/67 H 11/04/20 14:27 83 16 150/67 H 11/04/20 14:12 36.5 C 99 H 18 96/62 L BP Pulse Ox Pulse Ox 11/05/20 11:20 96 11/05/20 11:10 96 11/05/20 11:04 95 11/05/20 07:30 131/80 96 11/05/20 00:05 11/04/20 23:36 145/106 H 98 11/04/20 19:35 128/73 96 96 11/04/20 19:26 98 11/04/20 18:00 99 11/04/20 17:00 98 11/04/20 16:00 98 11/04/20 15:08 97 11/04/20 14:27 97 11/04/20 14:12 97 Pain Intensity Left Great Toe: Pain Intensity: 0 Transfer of Care Handoff Completed per policy Notes Mental Status: alert / awake / arousable and participated in evaluation Nausea / Vomiting: adequately controlled Pain: adequately controlled Airway Patency, RR, SpO2: stable & adequate BP & HR: stable & adequate Hydration State: stable & adequate Anesthetic Complications: no major complications apparent and Pt Satisfied with anesthetic care
--- NOTE | 2020-11-05 11:58 | Fluoroscopy Report ---
INTRAOPERATIVE RADIOGRAPHS CLINICAL HISTORY: First toe amputation. Fluoroscopy time: 7 seconds. FINDINGS: 2 spot fluoroscopic views of the left forefoot are correlated with radiographs and CT of th e left foot dated 11/04/2020. There is soft tissue edema in the first toe. The second image shows resec tion of the first toe through the distal shaft of the distal phalanx. IMPRESSION: Intraoperative images from first distal phalangeal resection as above. Electronically signed by: Brayan Marquez M.D. 11/05/2020 11:56 AM
[2020-11-05] MEDS: ASPIRIN 81 MG ECTAB PO SCH (12:52)
[2020-11-05] MEDS: MAGNESIUM OXIDE 400 MG TAB PO SCH (12:53)
[2020-11-05] MEDS: CYANOCOBALAMIN (VITAMIN B-12) 100 MCG TABLET PO SCH (12:53)
[2020-11-05] MEDS: ATORVASTATIN 40 MG TAB PO SCH (12:53)
[2020-11-05] MEDS: POTASSIUM CHLORIDE CRTAB 20 MEQ TABCR PO SCH (12:54)
[2020-11-05] MEDS: METOPROLOL SUCC 50MG EXT REL TAB PO SCH (12:54)
[2020-11-05] MEDS: MULTIVITAMIN TAB PO SCH (12:54)
[2020-11-05] MEDS: TOPIRAMATE 100 MG TAB PO SCH (12:55)
[2020-11-05] MEDS: TRIAMTERENE/HCTZ 37.5/25MG CAP PO SCH (12:56)
[2020-11-05] MEDS: ENALAPRIL MALEATE 10 MG TAB PO SCH (12:57)
[2020-11-05] MEDS: CHOLECALCIFEROL 1,000 UNITS 25 MCG TAB PO SCH (12:57)
--- NOTE | 2020-11-05 15:59 | Hospitalist Progress Note ---
Date of Service November 05, 2020 Assessment & Plan (1) Osteomyelitis of great toe of left foot: S/P amputation of left great toe POD #0 by --LE CTA:Findings are consistent with osteomyelitis, with erosion and bony fragmentation involving the tuft of the first distal phalanx. There is a wound at the tip of the first toe with associated soft tissue edema and subcutaneous fluid. No organized collection is seen to indicate abscess. Milder soft tissue edema is seen throughout the remainder of the foot. Correlate clinically for evidence of cellulitis. There is advanced atherosclerotic calcification of the regional arteries. The large arteries of the foot and ankle appear patent. -Blood cultures negative to date Wound culture pending Continue empiric antibiotics with vancomycin, Zosyn Appreciate orthopedics Input Continue wound care PT/OT when appropriate (2) Diabetes mellitus type 2 with atherosclerosis of arteries of extremities: A1C = 6.4 from 08/03/20 Continue insulin therapy while hospitalized Monitor blood glucose levels (3) Diabetic neuropathy: Continue home medications (4) A-fib: Continue metoprolol Resume Pradaxa when OK with orthopedics (5) CAD (coronary artery disease): (6) Hx of CABG: Continue aspirin, metoprolol, statin, lisinopril (7) Hypertension: Continue home medications (8) CKD (chronic kidney disease) stage 3, GFR 30-59 ml/min: Baseline of 1.3-1.4 Cr at baseline Monitor DVT Px: SCDs Resume Pradaxa as able CODE STATUS: Full Code (9) Chronic systolic CHF (congestive heart failure): On Toprol xl and ramipril Not on diuretics last echo EF 39% Monitor for volume overload. (10) Bradyarrhythmia: Had bradycardia superimposed on a fib post op bilateral carotid endarterectomy. s/p single chamber pace maker implantation Admission and Anticipated Discharge Date Admission Date: November 04, 2020 Subjective Patient is seen and examined at bedside Patient had amputation of her left great toe by Dr. Petty earlier today Patient is doing well postoperatively Denies any significant pain at surgical site Also denies any chest pain, shortness of breath, dizziness, nausea, abdominal pain Offers no other complaints Review of Systems Review of Systems: All systems reviewed & are unremarkable except as noted in HPI & below Physical Exam Physical Exam: Physical Exam: Vitals signs as noted above General Appearance:Moderately built and nourished, no apparent distress Head: normocephalic, Atraumatic Eyes: normal inspection, EOMI Neck: supple, Trachea midline Respiratory/Chest: Normal breath sounds, CTA, No accessory muscle use Cardiovascular: Irregularly irregular, No murmur Abdomen/GI:Soft, Non tender, Bowel sounds present Extremities/Musculoskeletal:normal inspection, left foot in surgical dressing Neurologic/Psych:AAOX3, grossly no focal neurological deficits Skin: normal color, warm Results & Data Results & Data ([facility]) Vital Signs (Past 12 Hours) Vital Signs Temp Pulse Pulse Resp BP BP Pulse Ox 11/05/20 12:15 36.6 C 80 16 138/78 96 11/05/20 12:00 36.4 C L 80 138/82 11/05/20 11:33 36.5 C 70 14 145/68 H 96 11/05/20 11:20 36.5 C 76 14 138/78 96 11/05/20 11:10 81 16 139/88 96 11/05/20 11:04 36.5 C 85 13 139/71 95 11/05/20 07:30 36.6 C 80 131/80 96 Laboratory Results Short CBC 11/05/20 Range/Units 06:34 WBC 5.70 (4.8-10.8) K/uL Hgb 12.3 L (14.0-18.0) g/dL Hct 35.2 L (42-52) % Plt Count 207 (130-400) K/uL BMP 11/05/20 06:34 Sodium 136 Potassium 3.8 Chloride 104 Carbon Dioxide 26 BUN 24 H Creatinine 1.40 Glucose 166 H Calcium 8.7 Liver Function 11/05/20 Range/Units 06:34 Total Bilirubin 0.7 (0.2-1) mg/dl AST 32 (15-37) U/L ALT 72 (12-78) U/L Alkaline Phosphatase 74 (45-117) U/L Albumin 2.7 L (3.4-5.0) gm/dl Urine 11/04/20 Range/Units 19:20 Urine Color Yellow Urine Appearance Clear (Clear) Urine pH 6.0 (4.5-7.5) Ur Specific [place] 1.019 (1.000-1.030) Urine Protein Negative (Negative) Urine Glucose (UA) Negative (Negative) (1) CKD (chronic kidney disease) stage 3, GFR 30-59 ml/min Chronic kidney disease stage 3 subtype: stage 3a (GFR 45-59) Qualified Code(s): N18.31 - Chronic kidney disease, stage 3a (2) A-fib Atrial fibrillation type: unspecified Qualified Code(s): I48.91 - Unspecified atrial fibrillation
[2020-11-05] MEDS ORDERED: oxyCODONE/ACETAMINOPHEN 5mg/325mg TAB PO PRN (16:13)
[2020-11-05] MEDS ORDERED: MoRPHine SULFATE 2 MG/ML CARP IV PRN (16:13)
[2020-11-05] MEDS ORDERED: POLYETHYLENE (MIRALAX) 17 GM PACK PO PRN (16:13)
[2020-11-05] MEDS: VANCOMYCIN HCL 1,500 MG in SODIUM CHLORIDE 0.9% 500 ML IV SCH (17:58)
[2020-11-05] MEDS: INSULIN GLARGINE SOLOSTAR 100 UNITS/ML 3 ML PEN SC SCH (20:52)
[2020-11-06] MEDS: PIPERACILLIN/TAZOBACTAM 4.5 GM in DEXTROSE 5% 100 ML IV SCH ×3 (05:58→21:33)
--- NOTE | 2020-11-06 06:38 | Electrocardiogram Report ---
Test Reason : Blood Pressure : / mmHG Vent. Rate : 074 BPM Atrial Rate : 077 BPM P-R Int : 000 ms QRS Dur : 084 ms QT Int : 406 ms P-R-T Axes : 000 007 016 degrees QTc Int : 450 ms Poor data quality, interpretation may be adversely affected Atrial fibrillation with frequent ventricular-paced complexes Inferior infarct , age undetermined Abnormal ECG When compared with ECG of 06-NOV-2016 18:52, Vent. rate has decreased BY 4 BPM Confirmed by Khanh Alas ([id number]) on 11/06/2020 6:38:04 AM Referred By: Esvin Carter Confirmed By:Khanh Alas
[2020-11-06 07:04] LABS: Hemoglobin 12.4 g/dL (14.0-18.0); Mean Corpuscular Hemoglobin 34.7 pg (25-34); Mean Corpuscular Hgb Conc 34.4 g/dL (32-36); Mean Corpuscular Volume 100.8 fL (80-100); Platelet Count 206 K/uL (130-400); RDW Coefficient of Variation 12.8 % (11.5-14.5); RDW Standard Deviation 47.8 fL (36.4-46.3); Red Blood Count 3.57 M/uL (4.7-6.1)
[2020-11-06 07:34] LABS: Albumin Level 2.6 gm/dl (3.4-5.0); BUN Creatinine Ratio 15.4 (10-20); Calcium 8.6 mg/dl (8.5-10.1); Est GFR (African American) 53.7 ml/min; Est GFR (Non-African American) 46.3 ml/min; Potassium 3.7 mmol/L (3.5-5.1)
[2020-11-06 07:37] LABS: Albumin Globulin Ratio 0.6 (0.9-2); Bilirubin,Total 0.6 mg/dl (0.2-1); Globulin 4.1 gm/dl (2.5-4.0); Total Protein 6.7 gm/dl (6.4-8.2)
--- NOTE | 2020-11-06 07:37 | Orthopedic Progress Note ---
Date of Service November 06, 2020 Assessment & Plan (1) Status post amputation of left great toe: At this point is doing fairly well. It is very important that we continue to monitor his glucose levels and his albumin levels. He can be weightbearing as tolerated in a hard sole shoe. He says that he has a hard sole shoe of his own. His blood cultures have been negative and the current deep wound cultures are still pending. We will continue empiric Zosyn and vancomycin. He expressed interest in being discharged as soon as possible, however, I told him a may be necessary to stay for a few days on empiric antibiotics until we get the final sensitivities back from the deep wound cultures. I also feel is important that he is medically optimized with his glucose levels and his albumin. Full orthopedic discharge instructions were placed in the discharge summary. I do plan to change the dressing tomorrow morning. He will follow-up with orthopedics in 2 weeks after discharge for suture removal. Latasha Sánchez was seen and examined at bedside this morning. Overall is doing fairly well. Is not having any pain in the left foot. He was able to get some sleep last night. He has no complaints.. Review of Systems All systems reviewed & are unremarkable except as noted in HPI & below. Physical Exam On physical examination of the left foot, the dressing has some bloody drainage. It is not saturated. Results & Data Results & Data Laboratory Results . Diagnostic Findings . PG Care Time/CCT Total # of Minutes Spent Total Time Spent with Patient: Total time spent is greater than 50% in coordination of care (as documented) at patient's floor/unit and/or counseling patient: Coding Level of Care Code 94766 Post Operative Follow-Up Diagnoses Status post amputation of left great toe Z89.412
[2020-11-06] MEDS: ASPIRIN 81 MG ECTAB PO SCH ×2 (07:53→07:56)
[2020-11-06] MEDS: CHOLECALCIFEROL 1,000 UNITS 25 MCG TAB PO SCH (07:53)
[2020-11-06] MEDS: MAGNESIUM OXIDE 400 MG TAB PO SCH (07:54)
[2020-11-06] MEDS: METOPROLOL SUCC 50MG EXT REL TAB PO SCH (07:55)
[2020-11-06] MEDS: MULTIVITAMIN TAB PO SCH (07:55)
[2020-11-06] MEDS: ENALAPRIL MALEATE 10 MG TAB PO SCH (07:55)
[2020-11-06] MEDS: ATORVASTATIN 40 MG TAB PO SCH (07:56)
[2020-11-06] MEDS: TRIAMTERENE/HCTZ 37.5/25MG CAP PO SCH (07:56)
[2020-11-06] MEDS: TOPIRAMATE 100 MG TAB PO SCH (07:57)
[2020-11-06] MEDS: POTASSIUM CHLORIDE CRTAB 20 MEQ TABCR PO SCH (07:57)
[2020-11-06] MEDS: CYANOCOBALAMIN (VITAMIN B-12) 100 MCG TABLET PO SCH (07:58)
[2020-11-06] MEDS: INSULIN GLARGINE SOLOSTAR 100 UNITS/ML 3 ML PEN SC SCH ×2 (08:00→21:33)
[2020-11-06] MEDS: VANCOMYCIN HCL 1,500 MG in SODIUM CHLORIDE 0.9% 500 ML IV SCH (08:01)
[2020-11-06] MEDS: INSULIN ASPART 100 UNITS/ML 3 ML PEN SC SCH ×4 (09:02→21:35)
--- NOTE | 2020-11-06 19:40 | Hospitalist Progress Note ---
Date of Service November 06, 2020 Assessment & Plan (1) Osteomyelitis of great toe of left foot: S/P amputation of left great toe POD #1 by --LE CTA:Findings are consistent with osteomyelitis, with erosion and bony fragmentation involving the tuft of the first distal phalanx. There is a wound at the tip of the first toe with associated soft tissue edema and subcutaneous fluid. No organized collection is seen to indicate abscess. Milder soft tissue edema is seen throughout the remainder of the foot. Correlate clinically for evidence of cellulitis. There is advanced atherosclerotic calcification of the regional arteries. The large arteries of the foot and ankle appear patent. -Blood cultures negative to date Wound culture: Staph species Continue IV vancomycin, Zosyn Appreciate orthopedics Input Continue wound care PT/OT prior to discharge With follow-up with orthopedics upon discharge (2) Diabetes mellitus type 2 with atherosclerosis of arteries of extremities: A1C = 6.4 from 08/03/20 Continue insulin therapy while hospitalized Monitor blood glucose levels (3) Diabetic neuropathy: Continue home medications (4) A-fib: Continue metoprolol Resume Pradaxa when OK with orthopedics (5) CAD (coronary artery disease): (6) Hx of CABG: Continue aspirin, metoprolol, statin, lisinopril (7) Hypertension: Continue home medications (8) CKD (chronic kidney disease) stage 3, GFR 30-59 ml/min: Baseline of 1.3-1.4 Cr 1.47 Monitor renal function (9) Chronic systolic CHF (congestive heart failure): No signs of exacerbation last echo EF 39% Monitor for volume status Continue home meds (10) Bradyarrhythmia: Had bradycardia superimposed on a fib post op bilateral carotid endarterectomy. s/p single chamber pace maker implantation DVT Px: SCDs Resume Pradaxa as able CODE STATUS: Full Code Admission and Anticipated Discharge Date Admission Date: November 04, 2020 Subjective Patient is seen and examined at bedside States feeling well Denies any pain at surgical site Offers no complaints Wound culture growing staph species Blood Cultures negative to date Denies any chest pain, shortness of breath, dizziness, nausea, abdominal pain Review of Systems Review of Systems: All systems reviewed & are unremarkable except as noted in HPI & below Physical Exam Physical Exam: Physical Exam: Vitals signs as noted above General Appearance:Moderately built and nourished, no apparent distress Head: normocephalic, Atraumatic Eyes: normal inspection, EOMI Neck: supple, Trachea midline Respiratory/Chest: Normal breath sounds, CTA, No accessory muscle use Cardiovascular: Irregularly irregular, No murmur Abdomen/GI:Soft, Non tender, Bowel sounds present Extremities/Musculoskeletal:normal inspection, left foot in surgical dressing Neurologic/Psych:AAOX3, grossly no focal neurological deficits Skin: normal color, warm Results & Data Results & Data ([facility]) Vital Signs (Past 12 Hours) Vital Signs Temp Pulse Resp BP Pulse Ox Pulse Ox 11/06/20 17:03 36.9 C 79 16 99/61 L 95 11/06/20 08:00 99 11/06/20 07:55 36.3 C L 80 16 123/50 L 98 Laboratory Results Short CBC 11/06/20 Range/Units 06:44 WBC 5.50 (4.8-10.8) K/uL Hgb 12.4 L (14.0-18.0) g/dL Hct 36.0 L (42-52) % Plt Count 206 (130-400) K/uL BMP 11/06/20 06:44 Sodium 138 Potassium 3.7 Chloride 107 Carbon Dioxide 27 BUN 23 H Creatinine 1.47 H Glucose 90 Calcium 8.6 Liver Function 11/06/20 Range/Units 06:44 Total Bilirubin 0.6 (0.2-1) mg/dl AST 30 (15-37) U/L ALT 59 (12-78) U/L Alkaline Phosphatase 72 (45-117) U/L Albumin 2.6 L (3.4-5.0) gm/dl (1) A-fib Atrial fibrillation type: unspecified Qualified Code(s): I48.91 - Unspecified atrial fibrillation (2) CKD (chronic kidney disease) stage 3, GFR 30-59 ml/min Chronic kidney disease stage 3 subtype: stage 3a (GFR 45-59) Qualified Code(s): N18.31 - Chronic kidney disease, stage 3a
[2020-11-07] MEDS: VANCOMYCIN HCL 1,500 MG in SODIUM CHLORIDE 0.9% 500 ML IV SCH (03:31)
[2020-11-07] MEDS: PIPERACILLIN/TAZOBACTAM 4.5 GM in DEXTROSE 5% 100 ML IV SCH ×2 (05:45→12:45)
[2020-11-07 07:08] LABS: Hematocrit (blood only) 35.8 % (42-52); Hemoglobin 12.1 g/dL (14.0-18.0); Mean Corpuscular Hemoglobin 34.5 pg (25-34); Mean Corpuscular Hgb Conc 33.8 g/dL (32-36); Mean Platelet Volume 8.7 fL (7.4-10.4); Platelet Count 196 K/uL (130-400); RDW Coefficient of Variation 12.9 % (11.5-14.5); RDW Standard Deviation 48.5 fL (36.4-46.3); Red Blood Count 3.51 M/uL (4.7-6.1); White Blood Count 5.92 K/uL (4.8-10.8)
[2020-11-07 07:34] LABS: Albumin Level 2.7 gm/dl (3.4-5.0); Calcium 8.4 mg/dl (8.5-10.1); Creatinine Clr Calc Pharmacy 48.7 ml/min; Est GFR (African American) 46.4 ml/min; Potassium 3.8 mmol/L (3.5-5.1)
[2020-11-07 07:37] LABS: Albumin Globulin Ratio 0.7 (0.9-2); Bilirubin,Total 0.9 mg/dl (0.2-1); Globulin 3.8 gm/dl (2.5-4.0); Total Protein 6.5 gm/dl (6.4-8.2)
[2020-11-07 07:43] LABS: Estimated Average Glucose 154 mg/dl
[2020-11-07] MEDS: CHOLECALCIFEROL 1,000 UNITS 25 MCG TAB PO SCH (08:36)
[2020-11-07] MEDS: MULTIVITAMIN TAB PO SCH (08:37)
[2020-11-07] MEDS: ATORVASTATIN 40 MG TAB PO SCH (08:37)
[2020-11-07] MEDS: TRIAMTERENE/HCTZ 37.5/25MG CAP PO SCH (08:37)
[2020-11-07] MEDS: METOPROLOL SUCC 50MG EXT REL TAB PO SCH (08:37)
[2020-11-07] MEDS: MAGNESIUM OXIDE 400 MG TAB PO SCH (08:37)
[2020-11-07] MEDS: CYANOCOBALAMIN (VITAMIN B-12) 100 MCG TABLET PO SCH (08:38)
[2020-11-07] MEDS: TOPIRAMATE 100 MG TAB PO SCH (08:38)
[2020-11-07] MEDS: POTASSIUM CHLORIDE CRTAB 20 MEQ TABCR PO SCH (08:38)
[2020-11-07] MEDS: ENALAPRIL MALEATE 10 MG TAB PO SCH (08:38)
[2020-11-07] MEDS: INSULIN GLARGINE SOLOSTAR 100 UNITS/ML 3 ML PEN SC SCH ×2 (08:40→22:14)
[2020-11-07] MEDS: INSULIN ASPART 100 UNITS/ML 3 ML PEN SC SCH ×4 (08:41→22:14)
--- NOTE | 2020-11-07 11:37 | Pharmacy Report ---
Pharmacy Glycemic Short Note 2 - Date of Service November 07, 2020 - Glycemic Short BSG Results (Last 24 hours): 11/06/20 11/06/20 11/06/20 12:08 17:37 20:41 Glucose POC Glucose 134 H 203 H 173 H 11/07/20 11/07/20 06:55 08:15 Glucose 123 H POC Glucose 119 H OUTPATIENT ANTIDIABETIC REGIMEN: * Lantus 36 units bid, lispro QID * HbA1c = 7% (11/05/20) ASSESSMENT: 11/07: * Gonzalo received a total of 76 units of insulin yesterday * 60 units basal + 16 units bolus * BSGs were acceptable: 166-371-645-173 mg/dL * Fasting BSG was 119 mg/dL this AM - controlled * No adjustment to basal regimen * There was a trend upwards in BSGs after meals the past two days. If this continues at lunchtime, I will tighten correction factor/carb ratio with dinner 11/05: * 75 year old male admitted for osteo of toe, plan for procedure today. Started on vancomycin and zosyn empirically. Type 2 diabetic managed on insulin at home. * Fasting BSG 166 mg/dl - received Lantus 35 units last evening. NPO today for procedure. Plan to give ~30% of home AM Lantus for this AM. * Lunch time BSG 173 mg/dL, however AM basal never given - likely patient went to OR before it could be given * Likely will start diet after procedure, will add scale for PM basal dosing PLAN FOR INPATIENT GLYCEMIC CONTROL: * Basal insulin - no change * Lantus 35 units SC AM * Lantus 25-35 units SC HS (see eMAR for more details) * Bolus insulin - tightened CF/CR * NovoLog per scale ACHS or Q6hrs while NPO * Goal Range: Low 110 mg/dL - High 140 mg/dL * Correction Factor: 15 mg/dL/unit * Nutritional / Prandial insulin per carb ratio of 1 unit per 5 grams CHO consumed PLAN FOR DISCHARGE: * HbA1c was 7% from this admission which is at goal for this patient. Recommend continuing Lantus and Humalog upon patient discharge.
--- NOTE | 2020-11-07 12:34 | Hospitalist Progress Note ---
Date of Service November 07, 2020 Assessment & Plan (1) Osteomyelitis of great toe of left foot: S/P amputation of left great toe POD #[address]Spencer SHERMAN CTA:Findings are consistent with osteomyelitis, with erosion and bony fragmentation involving the tuft of the first distal phalanx. There is a wound at the tip of the first toe with associated soft tissue edema and subcutaneous fluid. No organized collection is seen to indicate abscess. Milder soft tissue edema is seen throughout the remainder of the foot. Correlate clinically for evidence of cellulitis. There is advanced atherosclerotic calcification of the regional arteries. The large arteries of the foot and ankle appear patent. -Blood cultures negative to date -Wound culture: Staph species Currently on IV vancomycin and Zosyn. Based on available sensitivities, deescalate to ceftriaxone Will follow up with ortho to get a sense of if infected bone was totally removed as this may inform reduced duration of therapy ID consult to determine appropriate antibiotic/duration on discharge Continue wound care PT/OT With follow-up with orthopedics upon discharge (2) Diabetes mellitus type 2 with atherosclerosis of arteries of extremities: A1C = 6.4 from 08/03/20 Continue insulin therapy while hospitalized Better glycemic control today Monitor blood glucose levels (3) Diabetic neuropathy: Continue home medications (4) A-fib: Continue metoprolol Will discuss if ok to resume Pradaxa with orthopedics (5) CAD (coronary artery disease): (6) Hx of CABG: Continue aspirin, metoprolol, statin, lisinopril (7) Hypertension: Continue home medications (8) CKD (chronic kidney disease) stage 3, GFR 30-59 ml/min: Baseline of 1.3-1.4 Cr 1.66 Monitor renal function (9) Chronic systolic CHF (congestive heart failure): No signs of exacerbation last echo EF 39% Monitor for volume status Continue home meds (10) Bradyarrhythmia: Had bradycardia superimposed on a fib post op bilateral carotid endarterectomy. s/p single chamber pace maker implantation DVT Px: SCDs Will resume Pradaxa once ok with ortho CODE STATUS: Full Code Admission and Anticipated Discharge Date Admission Date: November 04, 2020 Subjective 75-year-old male with PMHx of DM type II, CAD s/p CABG, hyperlipidemia, diabetic neuropathy, A. fib on pradaxa, CHF, CKD stage III who presented to PCP office for left great toe infection last Saturday 10/28 Being managed for left great toe osteomyelitis status post amputation on 11/05/2020 Patient seen and examined. Denies any complaints at this time. Review of Systems Review of Systems: All systems reviewed & are unremarkable except as noted in Subjective Physical Exam Constitutional: + well hydrated; no acute distress Eyes: PERRL, conjunctivae normal, anicteric sclerae ENMT: external ear and nose normal, oropharynx normal Respiratory: normal respiratory effort, lungs clear to auscultation Cardiovascular: Rate/Rhythm: + irregularly irregular S1 S2 Gastrointestinal (Abdomen): normal bowel sounds, soft, nontender, no hepatosplenomegaly Musculoskeletal: Left foot bandaged Neurologic: PERRL, EOMI, accommodation nl, no face palsy, no dysarthria Psychiatric: A+Ox3, euthymic affect Results & Data Results & Data ([facility]) Vital Signs (Past 12 Hours) Vital Signs Temp Pulse Resp BP Pulse Ox 11/07/20 08:00 36.6 C 73 18 105/66 94 (1) CKD (chronic kidney disease) stage 3, GFR 30-59 ml/min Chronic kidney disease stage 3 subtype: stage 3a (GFR 45-59) Qualified Code(s): N18.31 - Chronic kidney disease, stage 3a (2) A-fib Atrial fibrillation type: unspecified Qualified Code(s): I48.91 - Unspecified atrial fibrillation
--- NOTE | 2020-11-07 16:03 | Orthopedic Progress Note ---
Date of Service November 07, 2020 Assessment & Plan (1) Status post amputation of left great toe: Overall is doing very well. The toe looks pretty good today. I told the nursing staff they could do daily dry dressing changes and leave the toe and the wound open to air as much as possible when he has not been active. The cultures have grown back MSSA and its sensitive to ceftriaxone. Infectious disease has been consulted and they will likely see him tomorrow. At this point we are tentatively planning discharge tomorrow on oral pain medications. He will follow-up with orthopedics in 2 weeks. Orthopedic discharge instructions were placed in the discharge summary. Latasha Sánchez was seen and examined at bedside today. Overall is doing well. Is not having much pain in the toe. He has no complaints.. Review of Systems All systems reviewed & are unremarkable except as noted in HPI & below. Physical Exam On physical examination of the left foot, the dressing was removed. The incision looks good. I not see any signs of necrosis. There is little bit of erythema in the area. He has no pain.. Results & Data Results & Data Laboratory Results . Diagnostic Findings . PG Care Time/CCT Total # of Minutes Spent Total Time Spent with Patient: Total time spent is greater than 50% in coordination of care (as documented) at patient's floor/unit and/or counseling patient: Coding Level of Care Code 48704 Post Operative Follow-Up Diagnoses Status post amputation of left great toe Z89.412
[2020-11-07] MEDS: cefTRIAXone SODIUM 2,000 MG in DEXTROSE 5% 50 ML IV SCH (16:45)
[2020-11-08 06:23] LABS: Hematocrit (blood only) 37.3 % (42-52); Hemoglobin 12.7 g/dL (14.0-18.0); Mean Corpuscular Hemoglobin 34.1 pg (25-34); Mean Corpuscular Volume 100.3 fL (80-100); Platelet Count 191 K/uL (130-400); RDW Coefficient of Variation 12.9 % (11.5-14.5); RDW Standard Deviation 47.6 fL (36.4-46.3); Red Blood Count 3.72 M/uL (4.7-6.1); White Blood Count 6.12 K/uL (4.8-10.8)
[2020-11-08 06:56] LABS: Calcium 8.6 mg/dl (8.5-10.1); Creatinine Clr Calc Pharmacy 53.9 ml/min; Est GFR (African American) 52.4 ml/min; Est GFR (Non-African American) 45.2 ml/min; Potassium 3.8 mmol/L (3.5-5.1)
[2020-11-08] MEDS: METOPROLOL SUCC 50MG EXT REL TAB PO SCH (08:34)
[2020-11-08] MEDS: ATORVASTATIN 40 MG TAB PO SCH (08:34)
[2020-11-08] MEDS: ASPIRIN 81 MG ECTAB PO SCH (08:34)
[2020-11-08] MEDS: TOPIRAMATE 100 MG TAB PO SCH (08:35)
[2020-11-08] MEDS: TRIAMTERENE/HCTZ 37.5/25MG CAP PO SCH (08:35)
[2020-11-08] MEDS: POTASSIUM CHLORIDE CRTAB 20 MEQ TABCR PO SCH (08:35)
[2020-11-08] MEDS: MULTIVITAMIN TAB PO SCH (08:35)
[2020-11-08] MEDS: CHOLECALCIFEROL 1,000 UNITS 25 MCG TAB PO SCH (08:35)
[2020-11-08] MEDS: CYANOCOBALAMIN (VITAMIN B-12) 100 MCG TABLET PO SCH (08:36)
[2020-11-08] MEDS: MAGNESIUM OXIDE 400 MG TAB PO SCH (08:36)
[2020-11-08] MEDS: ENALAPRIL MALEATE 10 MG TAB PO SCH (08:36)
[2020-11-08] MEDS: INSULIN GLARGINE SOLOSTAR 100 UNITS/ML 3 ML PEN SC SCH ×2 (08:37→22:09)
[2020-11-08] MEDS: INSULIN ASPART 100 UNITS/ML 3 ML PEN SC SCH ×4 (08:39→22:08)
[2020-11-08] MEDS: DABIGATRAN ETEXILATE 75 MG CAP PO SCH ×2 (12:25→22:10)
[2020-11-08] MEDS: cefTRIAXone SODIUM 2,000 MG in DEXTROSE 5% 50 ML IV SCH (15:22)
--- NOTE | 2020-11-08 15:37 | Hospitalist Progress Note ---
Date of Service November 08, 2020 Assessment & Plan (1) Osteomyelitis of great toe of left foot: S/P amputation of left great toe POD #[address]Spencer SHERMAN CTA:Findings are consistent with osteomyelitis, with erosion and bony fragmentation involving the tuft of the first distal phalanx. There is a wound at the tip of the first toe with associated soft tissue edema and subcutaneous fluid. No organized collection is seen to indicate abscess. Milder soft tissue edema is seen throughout the remainder of the foot. Correlate clinically for evidence of cellulitis. There is advanced atherosclerotic calcification of the regional arteries. The large arteries of the foot and ankle appear patent. -Blood cultures negative to date -Wound culture: Staph species Currently on IV ceftriaxone Awaiting ID consult PT/OT With follow-up with orthopedics upon discharge (2) Diabetes mellitus type 2 with atherosclerosis of arteries of extremities: A1C = 6.4 from 08/03/20 Continue insulin therapy while hospitalized (3) Diabetic neuropathy: Continue home medications (4) A-fib: Continue metoprolol Pradaxa resumed (5) CAD (coronary artery disease): (6) Hx of CABG: Continue aspirin, metoprolol, statin, lisinopril (7) Hypertension: Continue home medications (8) CKD (chronic kidney disease) stage 3, GFR 30-59 ml/min: Baseline of 1.3-1.4 Cr 1.5 today Monitor renal function (9) Chronic systolic CHF (congestive heart failure): No signs of exacerbation last echo EF 39% Monitor for volume status Continue home meds (10) Bradyarrhythmia: Had bradycardia superimposed on a fib post op bilateral carotid endarterectomy. s/p single chamber pace maker implantation DVT Px: Pradaxa CODE STATUS: Full Code Admission and Anticipated Discharge Date Admission Date: November 04, 2020 Subjective 75-year-old male with PMHx of DM type II, CAD s/p CABG, hyperlipidemia, diabetic neuropathy, A. fib on pradaxa, CHF, CKD stage III who presented to PCP office for left great toe infection last Saturday 10/28 Being managed for left great toe osteomyelitis status post amputation on 11/05/2020 Patient seen and examined. Denies any complaints at this time. Review of Systems Review of Systems: All systems reviewed & are unremarkable except as noted in Subjective Physical Exam Constitutional: + well hydrated; no acute distress Eyes: PERRL, conjunctivae normal, anicteric sclerae ENMT: external ear and nose normal, oropharynx normal Respiratory: normal respiratory effort, lungs clear to auscultation Cardiovascular: Rate/Rhythm: + irregularly irregular Gastrointestinal (Abdomen): normal bowel sounds, soft, nontender, no hepatosplenomegaly Musculoskeletal: Left great toe amputated site looks clean with sutures Neurologic: PERRL, EOMI, accommodation nl, no face palsy, no dysarthria Psychiatric: A+Ox3, euthymic affect Results & Data Results & Data ([facility]) Vital Signs (Past 12 Hours) Vital Signs Temp Pulse Resp BP Pulse Ox 11/08/20 07:59 36.7 C 81 20 108/69 95 Laboratory Results Abnormal lab results 11/07/20 11/07/20 11/08/20 Range/Units 17:27 20:40 06:03 RBC 3.72 L (4.7-6.1) M/uL Hgb 12.7 L (14.0-18.0) g/dL Hct 37.3 L (42-52) % MCV 100.3 H (80-100) fL MCH 34.1 H (25-34) pg RDW Std Deviation 47.6 H (36.4-46.3) fL Chloride (98-107) mmol/L BUN (7-18) mg/dl Creatinine (0.6-1.4) mg/dl Glucose (70-99) mg/dl POC Glucose 150 H 168 H (70-99) mg/dl 11/08/20 11/08/20 11/08/20 Range/Units 06:03 08:26 12:24 RBC (4.7-6.1) M/uL Hgb (14.0-18.0) g/dL Hct (42-52) % MCV (80-100) fL MCH (25-34) pg RDW Std Deviation (36.4-46.3) fL Chloride 109 H (98-107) mmol/L BUN 24 H (7-18) mg/dl Creatinine 1.50 H (0.6-1.4) mg/dl Glucose 122 H (70-99) mg/dl POC Glucose 129 H 217 H (70-99) mg/dl (1) A-fib Atrial fibrillation type: unspecified Qualified Code(s): I48.91 - Unspecified atrial fibrillation (2) CKD (chronic kidney disease) stage 3, GFR 30-59 ml/min Chronic kidney disease stage 3 subtype: stage 3a (GFR 45-59) Qualified Code(s): N18.31 - Chronic kidney disease, stage 3a
--- NOTE | 2020-11-09 06:59 | Orthopedic Progress Note ---
Date of Service November 09, 2020 Assessment & Plan (1) Status post amputation of left great toe: Overall he is doing fairly well. Is not having too much pain in the toe. He has been ambulating in a [place] shoe. He was seen by infectious disease yesterday and they recommended a week of IV antibiotics followed by oral antibiotics. He is orthopedically stable for discharge when medically ready. He will follow-up in my office in 2 weeks for suture removal. Full discharge instructions were placed in the discharge summary. Latasha Sánchez was seen and examined at bedside this morning. Overall is doing fairly well. Is not having any pain in the left toe. He was seen by infectious disease yesterday. He has no new complaints.. Review of Systems All systems reviewed & are unremarkable except as noted in HPI & below. Physical Exam On physical examination of the left foot, the amputation site seems to be healing well. There is a little bit of redness around the toe which is not too bad. I will see any signs of ischemia or maceration around the wound site.. Results & Data Results & Data Laboratory Results . Diagnostic Findings . PG Care Time/CCT Total # of Minutes Spent Total Time Spent with Patient: Total time spent is greater than 50% in coordination of care (as documented) at patient's floor/unit and/or counseling patient: Coding Level of Care Code 14934 Subseq Hosp Care Lvl 2 Diagnoses Status post amputation of left great toe Z89.412
[2020-11-09 07:21] LABS: BUN Creatinine Ratio 19.9 (10-20); Calcium 8.6 mg/dl (8.5-10.1); Creatinine Clr Calc Pharmacy 59.8 ml/min; Est GFR (African American) 59.5 ml/min; Est GFR (Non-African American) 51.4 ml/min; Potassium 3.8 mmol/L (3.5-5.1)
[2020-11-09] MEDS: TOPIRAMATE 100 MG TAB PO SCH (07:44)
[2020-11-09] MEDS: METOPROLOL SUCC 50MG EXT REL TAB PO SCH (07:44)
[2020-11-09] MEDS: MAGNESIUM OXIDE 400 MG TAB PO SCH (07:44)
[2020-11-09] MEDS: ATORVASTATIN 40 MG TAB PO SCH (07:44)
[2020-11-09] MEDS: POTASSIUM CHLORIDE CRTAB 20 MEQ TABCR PO SCH (07:45)
[2020-11-09] MEDS: MULTIVITAMIN TAB PO SCH (07:45)
[2020-11-09] MEDS: ASPIRIN 81 MG ECTAB PO SCH (07:45)
[2020-11-09] MEDS: CHOLECALCIFEROL 1,000 UNITS 25 MCG TAB PO SCH (07:45)
[2020-11-09] MEDS: CYANOCOBALAMIN (VITAMIN B-12) 100 MCG TABLET PO SCH (07:45)
[2020-11-09] MEDS: DABIGATRAN ETEXILATE 75 MG CAP PO SCH (07:46)
[2020-11-09] MEDS: ENALAPRIL MALEATE 10 MG TAB PO SCH (07:46)
[2020-11-09] MEDS: TRIAMTERENE/HCTZ 37.5/25MG CAP PO SCH (07:46)
[2020-11-09] MEDS ORDERED: cefTRIAXone SODIUM 2,000 MG in DEXTROSE 5% 50 ML IV SCH (08:00)
[2020-11-09] MEDS: INSULIN ASPART 100 UNITS/ML 3 ML PEN SC SCH ×2 (09:16→13:09)
[2020-11-09] MEDS ORDERED: INSULIN GLARGINE SOLOSTAR 100 UNITS/ML 3 ML PEN SC SCH ×2 (09:30→21:00)
[2020-11-09] MEDS: INSULIN GLARGINE SOLOSTAR 100 UNITS/ML 3 ML PEN SC SCH (09:55)
--- NOTE | 2020-11-09 11:10 | Pharmacy Report ---
Pharmacy Glycemic Short Note 2 - Date of Service November 09, 2020 - Glycemic Short BSG Results (Last 24 hours): 11/08/20 11/08/20 11/08/20 12:24 17:24 20:50 Glucose POC Glucose 217 H 206 H 181 H 11/09/20 11/09/20 11/09/20 06:08 08:41 08:43 Glucose 70 POC Glucose 65 L* 69 L* 11/09/20 11/09/20 09:11 09:13 Glucose POC Glucose 69 L* 79 OUTPATIENT ANTIDIABETIC REGIMEN: * Lantus 36 units bid, lispro QID * HbA1c = 7% (11/05/20) ASSESSMENT: 11/09 * Pt has received 118 units of insulin over the past 24hrs * 70 units of basal with Lantus * 48 units of bolus with NovoLog * BSGs [phone]/69 mg/dl * Pt with LOW BSG this morning- possibly too much basal insulin on board but current orders slightly are less than outpatient dosing. Will decrease basal insulin orders to prevent repeat LOW tomorrow * post-prandial BSGs elevated yesterday - will tighten CR only 11/07: * Gonzalo received a total of 76 units of insulin yesterday * 60 units basal + 16 units bolus * BSGs were acceptable: [phone] mg/dL * Fasting BSG was 119 mg/dL this AM - controlled * No adjustment to basal regimen * There was a trend upwards in BSGs after meals the past two days. If this continues at lunchtime, I will tighten correction factor/carb ratio with dinner 11/05: * 75 year old male admitted for osteo of toe, plan for procedure today. Started on vancomycin and zosyn empirically. Type 2 diabetic managed on insulin at home. * Fasting BSG 166 mg/dl - received Lantus 35 units last evening. NPO today for procedure. Plan to give ~30% of home AM Lantus for this AM. * Lunch time BSG 173 mg/dL, however AM basal never given - likely patient went to OR before it could be given * Likely will start diet after procedure, will add scale for PM basal dosing PLAN FOR INPATIENT GLYCEMIC CONTROL: * Basal insulin - decrease * Lantus 30 units SC this morning x 1 dose then * Lantus 35 units SQ AM + Lantus 30 units SQ PM * Bolus insulin - tightened CR * NovoLog per scale ACHS or Q6hrs while NPO * Goal Range: Low 110 mg/dL - High 140 mg/dL * Correction Factor: 15 mg/dL/unit * Nutritional / Prandial insulin per carb ratio of 1 unit per 3.5 grams CHO consumed PLAN FOR DISCHARGE: * HbA1c was 7% from this admission which is at goal for this patient. Recommend continuing Lantus and Humalog upon patient discharge.
--- NOTE | 2020-11-09 13:08 | Discharge Summary ---
Date of Service November 09, 2020 Admission HPI Per Admitting Provider This is a 75-year-old male with PMHx of DM type II, CAD s/p CABG, hyperlipidemia, diabetic neuropathy, A. fib on pradaxa, CHF, CKD stage III who presented to PCP office for left great toe infection last Saturday 10/28. At that time he was placed on Augmentin. Patient is unaware of whenever he injured his toe, but thinks his toenail caught on a sock and ripped. He reports not having sensation intact to light touch nearly up to his knees bilaterally. He reports scheduling issues with [facility] and getting appointments with a [employer] principal to have his nails cut - states they are in town only 1 day per week for this. Today he was re-evaluated by at his PCPs office for routine follow up. He denies fever, chills or sweats, no change in redness or swelling of the left great toe. An x-ray was obtained per his PA-Cs recommendation, and x-ray read indicated osteomyelitis of the left great toe distal phalanx. In the ER patient was started on IV Zosyn. Will plan to obtain surgical consultation. Pt has requ kevin Eric for orthopedic consultation if available. His last dose of Pradaxa was this morning. Admission Exam Per Admitting Provider General: awake, alert, no apparent distress Head: Normocephalic, atraumatic ENT: PERRL, EOMI, no pharyngeal exudate, mucous membranes moist Chest: Clear to auscultation, on room air, no adventitious breath sounds Cardiac: Irregularly irregular, rate controlled, no murmur, no JVD, normal peripheral pulses, good capillary refill Abdominal: NABS x 4 quadrants, soft, nondistended, nontender to palpation, no rebound or guarding Extremities: Left great toe edematous, erythematous, erythema coming up to mid anterior tibial range, posterior tibial and dorsalis pedis pulses 1+ bilate rally. Otherwise normal inspection, no peripheral edema or erythema, calfs nontender to palpation. LLE s/p venous grafting for CABG scar present. Psych: Normal mood and affect Neuro: AAO x 3, strength intact bilaterally and rated 5/5, no motor deficits, speech is clear, no peripheral sensory deficits Principal Diagnosis Left great toe osteomyelitis Status post amputation Discharge Exam Constitutional + well hydrated; no acute distress Eyes PERRL, conjunctivae normal, anicteric sclerae ENMT external ear and nose normal, oropharynx normal Respiratory normal respiratory effort, lungs clear to auscultation Cardiovascular Rate/Rhythm: + irregularly irregular S1 S2 Gastrointestinal (Abdomen) normal bowel sounds, soft, nontender, no hepatosplenomegaly Musculoskeletal Clean dressing over surgical site on right foot Neurologic PERRL, EOMI, accommodation nl, no face palsy, no dysarthria Psychiatric A+Ox3, euthymic affect Discharge Data Allergies Allergy/AdvReac Type Severity Reaction Status Date / Time Sulfa (Sulfonamide Allergy Intermediate DELIRIUM Verified 11/04/20 15:25 Antibiotics) sulfamethoxazole Allergy Intermediate DELIRIUM Verified 11/04/20 16:10 [From Bactrim] trimethoprim [From Bactrim] Allergy Intermediate DELIRIUM Verified 11/04/20 16:10 Consultations 11/04/20 15:28 ED Decision to Admit Stat 11/05/20 16:05 Consult Orthopedic Surgery Routine 11/07/20 07:51 Consult Infectious Diseases Routine Procedures Performed Operation Date: 11/05/20 09:00 Actual Procedures p Amputation of left great toe.(Left) - Henok Petty DO Ordered Studies 11/04/20 19:46 US ankle/brachial index comp Routine Bilateral calcified posterior tibial and dorsalis pedis arteries which were noncompressible. Therefore, the ankle brachial indices were unable to be obtained. IMPRESSION: The ankle brachial indices were unable to be obtained due to the noncompressible posterior tibial and dorsalis pedis arteries 11/04/20 22:34 CT angio foot LT wo/w con Urgent The skeletal structures are osteopenic. Again seen is erosive change and bony destruction with fragmentation involving the tuft of the first distal phalanx consistent with osteomyelitis. No additional foci of similar-appearing bony destruction are seen throughout the foot or ankle. There is a tiny dorsal calcaneal heel spur. There is diffuse soft tissue edema identified throughout the foot. This is greatest in the first toe where there is evidence of overlying wound and subcutaneous fluid. No radiodense foreign body is seen. No soft tissue gas is identified. No organized fluid collection is seen to suggest abscess. There is advanced atherosclerotic calcification of the regional arteries. The anterior tibial, posterior tibial, and peroneal arteries are patent in the distal ankle and hindfoot. There is advanced atherosclerotic plaque and irregularity throughout the dorsalis pedis artery which is patent. The digital arteries are diminutive but patent as imaged. IMPRESSION: 1. Findings are consistent with osteomyelitis, with erosion and bony fragmentation involving the tuft of the first distal phalanx. 2. There is a wound at the tip of the first toe with associated soft tissue edema and subcutaneous fluid. No organized collection is seen to indicate abscess. 3. Milder soft tissue edema is seen throughout the remainder of the foot. Correlate clinically for evidence of cellulitis. 4. There is advanced atherosclerotic calcification of the regional arteries. The large arteries of the foot and ankle appear patent. 11/05/20 FL toe LT 2V Routine Multifocal areas of erosion and cortical destruction seen at the distal tuft of the left great toe consistent with an osteomyelitis. There is soft tissue swelling within the left first toe. No fracture or dislocation. Small skin stable within the medial ankle. Mild vascular calcifications are noted. There is moderate osteoarthritis at the interphalangeal joint of the left first toe. IMPRESSION: Multifocal erosions/cortical destruction within the distal tuft of the left great toe consistent with an osteomyelitis Hospital Course (1) Osteomyelitis of great toe of left foot: S/P amputation of left great toe POD #4 by -HAI CTA:Findings are consistent with osteomyelitis, with erosion and bony fragmentation involving the tuft of the first distal phalanx. There is a wound at the tip of the first toe with associated soft tissue edema and subcutaneous fluid. No organized collection is seen to indicate abscess. Milder soft tissue edema is seen throughout the remainder of the foot. Correlate clinically for evidence of cellulitis. There is advanced atherosclerotic calcification of the regional arteries. The large arteries of the foot and ankle appear patent. -Blood cultures negative to date -Wound culture: Staph species (MSSA) Currently on IV ceftriaxone ID recommend IV ceftriaxone 2g q24h till 11/11 then change to cephalexin 500mg q6h from 11/12 Arrangements made for IV antibiotics for 11/10 and 11/11/20 at our [facility] here in [facility] Patient to get weekly CRP. Scripts given. PCP to follow up CRP. Cephalexin can be discontinued once CRP is normal or till 11/25/20 which ever comes first per ID recommendations Patient did well with PT/OT He will follow-up with orthopedics (2) Diabetes mellitus type 2 with atherosclerosis of arteries of extremities: A1C = 6.4 from 08/03/20 Continue home insulin regimen (3) Diabetic neuropathy: Continue home medications (4) A-fib: Continue metoprolol Continue home pradaxa (5) CAD (coronary artery disease): (6) Hx of CABG: Continue aspirin, metoprolol, statin, lisinopril (7) Hypertension: Continue home medications (8) CKD (chronic kidney disease) stage 3, GFR 30-59 ml/min: Baseline of 1.3-1.4 Cr 1.35 today (9) Chronic systolic CHF (congestive heart failure): No signs of exacerbation last echo EF 39% Monitor for volume status Continue home meds (10) Bradyarrhythmia: Had bradycardia superimposed on a fib post op bilateral carotid endarterectomy. s/p single chamber pace maker implantation Total Time Total Time Spent Total Time Spent (In Minutes): 65 Discharge Plan Discharge Items Patient Disposition: Home - Self-Care Reason For Visit: LT GREAT TOE OSTEOMYELITIS Discharge Diagnosis: Left great toe osteomyelitis Status post amputation Activity: Resume your previous activity Non-emergency contact: Primary Care Provider Call non-emergency contact if: you have any medication questions Follow-up/Referrals: Christ Andrews DO [Primary Care Provider] - (Date & Time 11/14/2020 11:20 AM Provider Christ Andrews DO Department General Internal Medicine [facility] ) Diet: Carb Consistent or DM2 and Heart Healthy Ambulatory Orders: C Reactive Protein (Q7D) Timeframe: 20201116 Location: Determined by Patient Ordered By: Lian Cummings C Reactive Protein (Q7D) Timeframe: 20201123 Location: Determined by Patient Ordered By: Lian Cummings Addtl Attending Provider Instructions: Mr Rainey You were admitted to the hospital for left great toe infection. You were evaluated and found to have osteomyelitis of your great toe. This was amputated by the surgeon. You have been on IV antibiotics. You are being discharged on IV ceftriaxone 2g daily at [facility] center on 11/10/20 and 11/11/20. You are being discharged with peripheral iv line for these antibiotics. Please ensure the line is discontinued at [facility] on 11/11/20 as we discussed. From 11/12/20, please take the oral antibiotics called cephalexin as prescribed until 11/25/20. Please do the blood test called CRP every week and follow up the result with your Primary Doctor. Please follow up instructions by the Orthopedic surgeon as detailed before and ensure follow up with him. It was a pleasure taking care of you. Addtl Architectural Technologist Provider Instructions: ORTHOPEDIC INSTRUCTIONS Activity Recommendations: Weightbearing as tolerated in the [place] shoe Medications: Take the antibiotics as prescribed by infectious disease Dressing Care: You may do daily dry dressing changes. Please keep it covered when you are wearing a shoe or being active. When you are not being active you can remove the dressing and leave the toe and the wound open to air. Showering: Do not scrub or soak the wound. Keep completely dry for at least 5 days. After 5 days and may get a little bit wet but do not let it soak in a shower. Things To Watch For: 1. Drainage from the incision site that occurs more than one week after your surgery. 2. Increased redness at the incision site. 3. Fever above 102 degrees Fahrenheit. 4. Unusual chest pain or shortness of breath. 5. Call [facility] at with any of the above problems Follow-Up Visit: Follow-up with Dr. Petty 2-3 weeks after your day of surgery. He will remove your sutures and answer any questions. If you have any questions call Appt. at [facility] for IV antibiotics: , November 10 at 0900 November 11 at 0900 Pending Studies at Discharge: No Stand-Alone Forms: [facility], Smoking Cessation Medications and DC Order Prescriptions: New cephalexin 500 mg capsule 500 mg PO Q6H 14 Days Qty: 56 RF: 0 tramadol 50 mg tablet 50 mg PO BID PRN (Reason: pain, severe) Qty: 5 RF: 0 Continued multivitamin Tablet 1 tab PO DAILY RF: 0 atorvastatin 40 mg Tablet 40 mg PO DAILY RF: 0 Lantus U-100 Insulin 100 unit/mL Solution 36 unit SUBCUT BID RF: 0 cyanocobalamin (vitamin B-12) [Vitamin B-12] 100 mcg Tablet 100 mcg PO DAILY RF: 0 metoprolol succinate 50 mg Tablet Extended Release 24 Hr 50 mg PO DAILY RF: 0 aspirin 81 mg Tablet,Delayed Release (Dr/Ec) 81 mg PO DAILY RF: 0 triamterene-hydrochlorothiazid 37.5-25 mg Capsule 1 cap PO DAILY RF: 0 nitroglycerin [Nitrostat] 0.4 mg Tablet, Sublingual 0.4 mg sublingual DIRECTED PRN (Reason: Chest Pain) RF: 0 topiramate [Topamax] 100 mg Tablet 100 mg PO DAILY RF: 0 ramipril 10 mg Capsule 10 mg PO DAILY RF: 0 cholecalciferol (vitamin D3) [Vitamin D3] 25 mcg (1,000 unit) Capsule 25 mcg PO DAILY RF: 0 insulin lispro 100 unit/mL Insulin Pen 0 unit SUBCUT QID MDD 200 UNITS/DAILY RF: 0 Pradaxa 150 mg Capsule 150 mg PO BID RF: 0 magnesium oxide 400 mg magnesium Capsule 400 mg PO DAILY RF: 0 potassium chloride 20 mEq Tablet Extended Release 20 meq PO DAILY RF: 0 Discontinued amoxicillin-pot clavulanate 875-125 mg tablet 1 tab PO BID RF: 0 Discharge Orders: Discharge Order (Routine); Ordered 11/09/20 Ordered By: Lian Wharton/Other Patient Handouts: Managing Type 2 Diabetes, Diabetes: Keeping Feet Healthy, A1C Admission Data Admit Date/Time: 11/04/20 15:44 Attending Provider: Lian Cummings I. Admit Provider: Catrachito Moura Primary Care Provider: Christ Andrews Other Providers: Catrachito Moura ; Henok Petty Satish K. ; Johnny Barajas ; Luisa Wadsworth ; Trevin Eric I. ; Alfred Weems II ; Niya Fiore ; Esteban Calderon Other Interventions: Discharge Summary Assessment (RN) Last Done: 11/09/20 13:33
[2020-11-09] MEDS: cefTRIAXone SODIUM 2,000 MG in DEXTROSE 5% 50 ML IV SCH (13:26)
== END 2020-11-09 14:50 | disposition home or self-care (01) | DRG 617 ==
LOC: ED 14:07 → SUATTDRO 15:44 → 3N 15:44

== ENCOUNTER 2021-02-10 12:26 | Inpatient (IN) ==
[2021-02-10 13:30] LABS: Basophils # (auto) 0.03 K/uL (0-0.2); Basophils % (auto) 0.4 %; Eosinophils % (auto) 1.2 %; Hematocrit (blood only) 41.8 % (42-52); Hemoglobin 14.6 g/dL (14.0-18.0); Immature Granulocytes # (auto) 0.02 K/uL (0.00-0.02); Immature Granulocytes % (auto) 0.2 %; Lymphocytes # (auto) 1.39 K/uL (1.2-3.4); Lymphocytes % (auto) 16.3 %; Mean Corpuscular Hemoglobin 34.4 pg (25-34); Mean Corpuscular Hgb Conc 34.9 g/dL (32-36); Mean Corpuscular Volume 98.4 fL (80-100); Mean Platelet Volume 10.1 fL (7.4-10.4); Monocytes # (auto) 0.85 K/uL (0.11-0.59); Neutrophils # (auto) 6.12 K/uL (1.4-6.5); Neutrophils % (auto) 71.9 %; Platelet Count 168 K/uL (130-400); RDW Coefficient of Variation 13.3 % (11.5-14.5); RDW Standard Deviation 47.7 fL (36.4-46.3); Red Blood Count 4.25 M/uL (4.7-6.1); White Blood Count 8.51 K/uL (4.8-10.8)
[2021-02-10 13:48] LABS: Albumin Level 3.4 gm/dl (3.4-5.0); BUN Creatinine Ratio 15.9 (10-20); Calcium 9.3 mg/dl (8.5-10.1); Creatinine Clr Calc Pharmacy 56.9 ml/min; Est GFR (Non-African American) 48.3 ml/min; Potassium 4.8 mmol/L (3.5-5.1)
--- NOTE | 2021-02-10 13:48 | XRay Report ---
XR toe(s) LT min 2V CLINICAL HISTORY: Left first toe infection. COMPARISON: Left foot radiographs November 04, 2020. Fluoroscopic images of the left foot November 05, 2020. FINDINGS: Postoperative findings consistent with amputation of the left first digit at the level of the distal aspect of the proximal phalanx are noted. Note is made of cortical irregularity of remaini ng portions of the proximal phalanx of the left first toe. No radiopaque foreign bodies are noted. Va scular calcification is incidentally noted. IMPRESSION: Status post left first digit amputation. Cortical irregularity and lucency of remaining p ortion of the proximal phalanx of the left first toe. Although this may be postsurgical, the appearan ce raises the possibility of osteomyelitis. ACT 112: Negative or not required by law. Electronically signed by: Loy Cassidy M.D. 02/10/2021 1:46 PM
[2021-02-10 13:51] LABS: Albumin Globulin Ratio 0.8 (0.9-2); Bilirubin,Total 0.9 mg/dl (0.2-1); Globulin 4.3 gm/dl (2.5-4.0); Total Protein 7.7 gm/dl (6.4-8.2)
--- NOTE | 2021-02-10 15:49 | Emergency Department Note ---
ED Visit Note Patient was seen by our PA/FOOD BEVERAGE SUPERVISOR. I was involved in the patient's care and did evaluate the patient myself. I was involved in the care throughout the ER stay. Patient has developed cellulitis at the site of his surgical work. The foot is erythematous and the erythema is ascending. Orthopedics was consulted. Hospitalization, IV antibiotics and potential repeat surgical work was suggested. The on-call hospitalist was consulted. .
--- NOTE | 2021-02-10 15:53 | Emergency Department Note ---
History of Present Illness General Chief complaint: Toe Injury/Pain Stated complaint: INFECTION ON BIG TOE History of Present Illness Gonzalo Thorne is a 75 year old male with history of atrial fibrillation, CAD s/p C ABG, DM2 with diabetic neuropathy, CKD3, HTN, and osteomyelitis of the left great toe s/p partial amputation by Dr. Petty on 11/05/20 who presents to the Emergency Department for evaluation of worsening infection to the remaining portion of his left great toe extending down his foot over the past week. After having the partial amputation of his left great toe in November, the patient states that he was given IV antibiotics as an outpatient for 2 days. Since then, he had been doing well until a few weeks ago when he developed redness and swelling to his toe around the surgical site. The patient was seen by his doctor at that time and was treated with a course of Keflex which he states did help to resolve the infection until this past week when he developed redness and swelling to the same toe again. The patient visited his doctor again yesterday and was restarted on a course of Keflex, however today when he got out of the shower a blister that had formed popped and began to ooze. He also noticed increased redness and swelling that is now tracking down his mid foot. The patient does not recall striking his foot off of anything or suffering any injuries, however he has diminished sensation in his feet/toes due to his history of diabetic neuropathy at baseline and denies current pain. He also denies recent fevers/chills, cough, shortness of breath, chest pain, abdominal pain, nausea, vomiting, diarrhea, dysuria or other acute illness/complaints. Home Medications Medication Instructions Recorded Confirmed Type aspirin 81 mg tablet,delayed 81 mg PO DAILY 11/04/20 02/10/21 History release atorvastatin 40 mg tablet 40 mg PO HS 11/04/20 02/10/21 History cholecalciferol (vitamin D3) 25 25 mcg PO DAILY 11/04/20 02/10/21 History mcg (1,000 unit) capsule (Vitamin D3) cyanocobalamin (vitamin B-12) 100 100 mcg PO DAILY 11/04/20 02/10/21 History mcg tablet (Vitamin B-12) dabigatran etexilate 150 mg 150 mg PO BID 11/04/20 02/10/21 History capsule (Pradaxa) insulin lispro 100 unit/mL 0 unit SUBCUT QID MDD 200 11/04/20 02/10/21 History subcutaneous pen UNITS/DAILY magnesium oxide 400 mg PO DAILY 11/04/20 02/10/21 History metoprolol succinate 50 mg 50 mg PO DAILY 11/04/20 02/10/21 History tablet,extended release 24 hr multivitamin 1 tab PO DAILY 11/04/20 02/10/21 History nitroglycerin 0.4 mg sublingual 0.4 mg SUBLINGUAL DIRECTED PRN 11/04/20 02/10/21 History tablet (Nitrostat) potassium chloride 20 mEq 20 meq PO DAILY 11/04/20 02/10/21 History tablet,extended release ramipril 10 mg capsule 10 mg PO DAILY 11/04/20 02/10/21 History topiramate 100 mg tablet (Topamax) 50 mg PO DAILY 11/04/20 02/10/21 History triamterene 37.5 1 cap PO DAILY 11/04/20 02/10/21 History mg-hydrochlorothiazide 25 mg capsule Allergies Allergy/AdvReac Type Severity Reaction Status Date / Time Sulfa (Sulfonamide Allergy Intermediate DELIRIUM Verified 02/10/21 16:55 Antibiotics) sulfamethoxazole Allergy Intermediate DELIRIUM Verified 02/10/21 16:55 [From Bactrim] trimethoprim [From Bactrim] Allergy Intermediate DELIRIUM Verified 02/10/21 16:55 Past Med/Surg History Medical History A-fib CAD (coronary artery disease) Chronic systolic CHF (congestive heart failure) CKD (chronic kidney disease) stage 3, GFR 30-59 ml/min Diabetes mellitus type 2 with atherosclerosis of arteries of extremities Diabetic neuropathy Hypertension Surgical History Hx of CABG Social History Smoking Status: Never smoker Second Hand Exposure: No; Hx Alcohol Use: Yes Alcohol type: beer Hx Substance Use: No Preferred Language: Mongolian Communication Ability: Effective Forex Trader Required: No Beliefs That Will Affect Care: None Current Living Situation: Spouse Feels Safe at Home: Yes Assistive Devices: Cane and Walker Review of Systems A total of 10 systems reviewed and were otherwise negative Physical Exam Vital Signs Vital Signs - 24 hr 02/10/21 12:58 02/10/21 15:36 Temperature 36.8 C Temperature Source Temporal Artery Scan Pulse Rate 88 Pulse Rate [Finger] 77 Respiratory Rate 18 16 Blood Pressure 100/63 Blood Pressure [Left Arm] 155/66 H Blood Pressure Mean 75 Blood Pressure Mean [Left Arm] 95 Blood Pressure Position [Left Arm] Lying Pulse Oximetry 99 92 Oxygen Delivery Method Room Air Room Air Sepsis Recent Fever Within 48 Hours No Sepsis New/Unexplained Change in Mental Status No Sepsis Action Taken by Nursing No Action Required General: The patient is resting in bed, no acute distress HEENT: Normocephalic/atraumatic, PERRL, EOMI, mucous membranes moist, oropharynx clear Resp: Good inspiratory effort on room air, lung sounds clear bilaterally CV: Irregularly irregularly rate and rhythm, peripheral pulses palpated Abd: Obese, soft, non-tender Integumentary/MSK: With attention to the left foot, the great toe is partially amputated with an open wound oozing with bloody discharge at the surgical site. The remaining toe is erythematous and edematous, tracking down into the midfoot. Warm to palpation. Skin of the foot/loomis is flaking off. Sensation to the foot/toes diminished at baseline. D/p pulse intact, capillary refill <2 seconds. Right foot without open wounds, redness or erythema. Skin of the foot/loomis is flaking off. Sensation to the foot/toes diminished at baseline, d/p pulse intact and capillary refill <2 seconds. No additional open wounds, moving all other extremities without apparent pain or difficulty. Neuro: Awake, alert and oriented, interacting and answering questions appropriately Course Administered Medications Atorvastatin Calcium (Atorvastatin 40 Mg Tab) 40 mg PO HS SHELLIE Stop: 03/12/21 20:59 Last Admin: 02/10/21 21:53 Dose: 40 mg Documented by: [id number] Heparin Sodium (Porcine) (Heparin Sod 5,000 Unit/0.5 Ml Vial) 5,000 units SQ Q12 SHELLIE Stop: 03/12/21 20:59 Last Admin: 02/10/21 21:53 Dose: 5,000 units Documented by: [id number] Insulin Aspart (Insulin Aspart 100 Units/Ml 3 Ml Pen) 0 units SC ACHS SHELLIE Stop: 03/12/21 17:59 Last Admin: 02/10/21 22:14 Dose: 7 units Documented by: [id number] Cosigned by: [id number] Admin: 02/10/21 20:21 Dose: Not Given Documented by: [id number] Discontinued Medications Piperacillin Sod/Tazobactam Sod (Zosyn) 4.5 gm in 120 mls @ 240 mls/hr IV NOW ONE Stop: 02/10/21 16:25 Last Infusion: 02/10/21 17:38 Dose: 0 mls/hr Documented by: [id number] Admin: 02/10/21 16:57 Dose: 240 mls/hr Documented by: [id number] Vancomycin HCl 2,750 mg/ (Sodium Chloride) 555 mls @ 200 mls/hr IV NOW ONE Stop: 02/10/21 18:42 Last Infusion: 02/10/21 20:23 Dose: 0 mls/hr Documented by: [id number] Admin: 02/10/21 17:36 Dose: 200 mls/hr Documented by: [id number] Insulin Glargine (Insulin Glargine Solostar 100 Units/Ml 3 Ml Pen) 40 units SC NOW ONE Stop: 02/10/21 22:16 Last Admin: 02/10/21 22:27 Dose: 40 units Documented by: [id number] Cosigned by: [id number] Medical Decision Making Differential Diagnosis Etiologies such as cellulitis, abscess, osteomyelitis, MRSA infection, necrotizing fasciitis, dermatitis, as well as others were entertained. Laboratory Data Result diagrams: 02/10/21 13:20 02/10/21 13:20 Lab Results 02/10/21 02/10/21 02/10/21 Range/Units 13:20 13:20 13:20 WBC 8.51 (4.8-10.8) K/uL RBC 4.25 L (4.7-6.1) M/uL Hgb 14.6 (14.0-18.0) g/dL Hct 41.8 L (42-52) % MCV 98.4 (80-100) fL MCH 34.4 H (25-34) pg MCHC 34.9 (32-36) g/dL RDW Std Deviation 47.7 H (36.4-46.3) fL RDW Coeff of Buddy 13.3 (11.5-14.5) % Plt Count 168 (130-400) K/uL MPV 10.1 (7.4-10.4) fL Immature Gran % (Auto) 0.2 % Neut % (Auto) 71.9 % Lymph % (Auto) 16.3 % [place] % (Auto) 10.0 % Eos % (Auto) 1.2 % Baso % (Auto) 0.4 % Neut # (Auto) 6.12 (1.4-6.5) K/uL Lymph # (Auto) 1.39 (1.2-3.4) K/uL [place] # (Auto) 0.85 H (0.11-0.59) K/uL Eos # (Auto) 0.10 (0-0.5) K/uL Baso # (Auto) 0.03 (0-0.2) K/uL Immature Gran # (Auto) 0.02 (0.00-0.02) K/uL ESR 44 H (0-20) mm/hr Sodium 134 L (136-145) mmol/L Potassium 4.8 (3.5-5.1) mmol/L Chloride 104 (98-107) mmol/L Carbon Dioxide 26 (21-32) mmol/L Anion Gap 4.0 (3-11) BUN 23 H (7-18) mg/dl Creatinine 1.42 H (0.6-1.4) mg/dl Est Cr Clr Drug Dosing 56.9 ml/min Est GFR ( Amer) 56.0 ml/min Est GFR (Non-Af Amer) 48.3 ml/min BUN/Creatinine Ratio 15.9 (10-20) Glucose 247 H (70-99) mg/dl Calcium 9.3 (8.5-10.1) mg/dl Total Bilirubin 0.9 (0.2-1) mg/dl AST 18 (15-37) U/L ALT 21 (12-78) U/L Alkaline Phosphatase 92 (45-117) U/L C-Reactive Protein (0-0.29) mg/dl Total Protein 7.7 (6.4-8.2) gm/dl Albumin 3.4 (3.4-5.0) gm/dl Globulin 4.3 H (2.5-4.0) gm/dl Albumin/Globulin Ratio 0.8 L (0.9-2) COVID-19 Eval Order SARS-CoV-2 (PCR) (Negative) 02/10/21 02/10/21 02/10/21 Range/Units 13:20 15:56 15:56 WBC (4.8-10.8) K/uL RBC (4.7-6.1) M/uL Hgb (14.0-18.0) g/dL Hct (42-52) % MCV (80-100) fL MCH (25-34) pg MCHC (32-36) g/dL RDW Std Deviation (36.4-46.3) fL RDW Coeff of Buddy (11.5-14.5) % Plt Count (130-400) K/uL MPV (7.4-10.4) fL Immature Gran % (Auto) % Neut % (Auto) % Lymph % (Auto) % [place] % (Auto) % Eos % (Auto) % Baso % (Auto) % Neut # (Auto) (1.4-6.5) K/uL Lymph # (Auto) (1.2-3.4) K/uL [place] # (Auto) (0.11-0.59) K/uL Eos # (Auto) (0-0.5) K/uL Baso # (Auto) (0-0.2) K/uL Immature Gran # (Auto) (0.00-0.02) K/uL ESR (0-20) mm/hr Sodium (136-145) mmol/L Potassium (3.5-5.1) mmol/L Chloride (98-107) mmol/L Carbon Dioxide (21-32) mmol/L Anion Gap (3-11) BUN (7-18) mg/dl Creatinine (0.6-1.4) mg/dl Est Cr Clr Drug Dosing ml/min Est GFR ( Amer) ml/min Est GFR (Non-Af Amer) ml/min BUN/Creatinine Ratio (10-20) Glucose (70-99) mg/dl Calcium (8.5-10.1) mg/dl Total Bilirubin (0.2-1) mg/dl AST (15-37) U/L ALT (12-78) U/L Alkaline Phosphatase (45-117) U/L C-Reactive Protein 4.21 H (0-0.29) mg/dl Total Protein (6.4-8.2) gm/dl Albumin (3.4-5.0) gm/dl Globulin (2.5-4.0) gm/dl Albumin/Globulin Ratio (0.9-2) COVID-19 Eval Order Covid19 at [facility] SARS-CoV-2 (PCR) NEGATIVE (Negative) Imaging Data Radiologist's Impression: Toe X-Ray 02/10/21 13:01 XR toe(s) LT min 2V CLINICAL HISTORY: Left first toe infection. COMPARISON: Left foot radiographs November 04, 2020. Fluoroscopic images of the left foot November 05, 2020. FINDINGS: Postoperative findings consistent with amputation of the left first digit at the level of the distal aspect of the proximal phalanx are noted. Note is made of cortical irregularity of remaining portions of the proximal phalanx of the left first toe. No radiopaque foreign bodies are noted. Vascular calcification is incidentally noted. IMPRESSION: Status post left first digit amputation. Cortical irregularity and lucency of remaining portion of the proximal phalanx of the left first toe. Alt ian this may be postsurgical, the appearance raises the possibility of osteomyelitis. ACT 112: Negative or not required by law. Electronically signed by: Loy Cassidy M.D. 02/10/2021 1:46 PM MDM Narrative Physical exam and history were performed as above. Nursing notes, EMR, and m edication list were personally reviewed. Patient presents to the emergency department for evaluation of worsening infection to his left great toe extending into his midfoot which was partially amputated by Dr. Petty on 11/05/2020. He was started on Keflex by his doctor yesterday, however after a blister had burst at the incision site, began oozing with bloody discharge, and the redness and swelling has since extended down his toe and into the midfoot, the patient was referred to the emergency department by Dr. Petty for further evaluation today. Prior to my examination an x-ray of the left great toe and CBC/CMP were already ordered and obtained per nursing protocol in the waiting area. Patient agreed for additional lab work including blood cultures, ESR and CRP to further evaluate for infection process. X-ray was reviewed by radiologist and myself as above. This showed cortical irr egularity and lucency of the remaining portion of the proximal left first toe which could be post-surgical vs. possible osteomyelitis. Lab work was obtained and reviewed by myself. He did not have leukocytosis with WBC 8.51, however ESR was elevated at 44 and CRP at 4.21, indicative of inflammatory process. Lactate WNL 1.7. Mild worsening in renal function with bump in Cr from 1.35 to 1.42 compared to 11/09/20, however BUN has slightly improved from 27 to 23. BSG elevated 247, history of DM2. I discussed the results of the above findings with my attending, Dr. Shaver, the patient and his at bedside. Dr. Petty of Orthopedics was also contacted and recommended that the patient be admitted to the hospitalist service for IV antibiotics as there is concern that he will need additional surgery on his left toe/foot. He also stated that he would be in to see the patient shortly. I relayed these recommendations to the patient and his at bedside, who verbalized understanding and agreement with this plan. The patient was started on IV Vancomycin and Zosyn. The [facility] Hospitalist group was contacted and agreed to evaluate the patient for continued management. The chart was completed utilizing [employer] Speech Voice Recognition Software. Grammatical errors, random word insertions, pronoun errors, and incomplete sentences are an occasional consequence of this system due to software limitations, ambient noise, and hardware issues. Any formal questions or concerns about the content, text, or information contained within the body of this dictation should be directly addressed to the provider for clarification. Impression & Plan Cellulitis of great toe, left, Cellulitis of foot, left Discharge Plan Visit Data Chief Complaint: Toe Injury/Pain Stated Complaint: INFECTION ON BIG TOE ED Provider: Brayan Shaver ED Midlevel Provider: Maureen Villalpando Discharge Problem: Cellulitis of great toe, left, Cellulitis of foot, left Patient Disposition: Admitted As Inpatient Discharge Instructions Interventions: ED Discharge Assessment Last Done: 02/10/21 19:37
[2021-02-10] MEDS ORDERED: PIPERACILL/TAZOBAC CONSULT ACTIVE PRN (15:56)
[2021-02-10] MEDS ORDERED: VANCOMYCIN HCL 2,750 MG in SODIUM CHLORIDE 0.9% 500 ML IV ONE (15:56)
[2021-02-10] MEDS ORDERED: PIPERACILLIN/TAZOBACTAM 4.5 GM/120 ML BAG IV ONE (15:56)
[2021-02-10] MEDS ORDERED: VANCOMYCIN CONSULT ACTIVE PRN (15:56)
--- NOTE | 2021-02-10 16:10 | History & Physical Report ---
Date of Service February 10, 2021 Assessment & Plan (1) Osteomyelitis of great toe of left foot: Plan: -Admit to [facility] -Area of erythema edema extending up to the mid dorsal aspect of the left foot, involving postsurgical amputation site of the left great toe. -IV Zosyn and vancomycin ordered, continue for now -Patient is unable to receive MRI due to having pacemaker in place -Orthopedic consult, follow previously with Dr. Petty -Patient denies any pain due to diabetic neuropathy - Culture wound - Wound nurse consult placed -We will allow with diet tonight, keep n.p.o. at midnight in case of surgical procedure tomorrow (2) CAD (coronary artery disease): Plan: - Continue asa 81 mg, will hold pradaxa 150 mg BID for possible surgical procedure - Continue metoprolol succ 50 mg daily, ramipril 10 mg daily - Hold triamterene/HCTZ daily (3) A-fib: Plan: - Continue BB for rate control, anticoagulated with pradaxa which will be held for possible surgical procedure (4) Chronic systolic CHF (congestive heart failure): Plan: - Appears to be euvolemic currently, holding tiramterene/HCTZ, no fluids for now (5) Hx of CABG: Plan: - Hx of such in 2011, continue medications as above (6) Diabetes mellitus type 2 with atherosclerosis of arteries of extremities: Plan: - Last a1c = 7.0 from 11/06/20, will recheck with am labs - Pt noted that he has not been using lantus for several months. Pt has been using humalog subq sometimes up to 12 times daily according to his Kaleb transdermal glucometer. He is awake multiple times per night, and does not feel it is difficult to manage his insulin in this way. Discussed seeing a school vocational educator, and he is agreeable. Pt is knowledgeable of DM II and monitors glucose and administers his own insulin. - Consult DM educator -Consult glycemic pharmacy for assistance (7) Diabetic neuropathy: Plan: - Noted, chronic bilateral lower ext. (8) CKD (chronic kidney disease) stage 3, GFR 30-59 ml/min: Plan: - Cr at baseline, 1.3-1.4, currently 1.42, follow with am labs DVT ppx: scds, hold pradaxa for possible surgical procedure CODE: DNR/DNI Dispo: From home, discharge likely within 2 days. Lives at home with . History of Present Illness Chief Complaint: Left foot pain, Erythema. Primary Care Provider: Christ Andrews DO This is a 75 yo M with PMHx of DM type II, CAD s/p CABG, hyperlipidemia, diabetic neuropathy, A. fib on pradaxa, CHF, CKD stage III who presents to the ER with 1 week of worsening erythema and discharge from post-surgical amputation site of the LEFT great toe on 11/05/20. Redness developed over the past 24 hours on the left great toe. He denies any trauma or injury that he is aware of to the area within the past few days. He noted this morning that there was a blood blister which had popped and appeared worse over the amputation site. His is present at bedside and assists with history. She reports that he started Keflex and has taken a total of 4 doses since yesterday morning, initially it seemed that the redness improved however after blood blister opened it now appears worse again. He denies any fevers, chills or sweats. Denies any pain due to neuropathy. Patient ambulates with a cane at baseline, however is typically unsteady on his feet and does not walk far distances at baseline. Denies any other acute complaints. Allergies Allergy/AdvReac Type Severity Reaction Status Date / Time Sulfa (Sulfonamide Allergy Intermediate DELIRIUM Verified 02/10/21 16:55 Antibiotics) sulfamethoxazole Allergy Intermediate DELIRIUM Verified 02/10/21 16:55 [From Bactrim] trimethoprim [From Bactrim] Allergy Intermediate DELIRIUM Verified 02/10/21 16:55 Home Medications Medication Instructions Recorded Confirmed Type aspirin 81 mg tablet,delayed 81 mg PO DAILY 11/04/20 02/10/21 History release atorvastatin 40 mg tablet 40 mg PO HS 11/04/20 02/10/21 History cholecalciferol (vitamin D3) 25 25 mcg PO DAILY 11/04/20 02/10/21 History mcg (1,000 unit) capsule (Vitamin D3) cyanocobalamin (vitamin B-12) 100 100 mcg PO DAILY 11/04/20 02/10/21 History mcg tablet (Vitamin B-12) dabigatran etexilate 150 mg 150 mg PO BID 11/04/20 02/10/21 History capsule (Pradaxa) insulin lispro 100 unit/mL 0 unit SUBCUT QID MDD 200 11/04/20 02/10/21 History subcutaneous pen UNITS/DAILY magnesium oxide 400 mg PO DAILY 11/04/20 02/10/21 History metoprolol succinate 50 mg 50 mg PO DAILY 11/04/20 02/10/21 History tablet,extended release 24 hr multivitamin 1 tab PO DAILY 11/04/20 02/10/21 History nitroglycerin 0.4 mg sublingual 0.4 mg SUBLINGUAL DIRECTED PRN 11/04/20 02/10/21 History tablet (Nitrostat) potassium chloride 20 mEq 20 meq PO DAILY 11/04/20 02/10/21 History tablet,extended release ramipril 10 mg capsule 10 mg PO DAILY 11/04/20 02/10/21 History topiramate 100 mg tablet (Topamax) 50 mg PO DAILY 11/04/20 02/10/21 History triamterene 37.5 1 cap PO DAILY 11/04/20 02/10/21 History mg-hydrochlorothiazide 25 mg capsule Past Med/Surg History Medical History A-fib CAD (coronary artery disease) Chronic systolic CHF (congestive heart failure) CKD (chronic kidney disease) stage 3, GFR 30-59 ml/min Diabetes mellitus type 2 with atherosclerosis of arteries of extremities Diabetic neuropathy Hypertension Surgical History Hx of CABG Social History Smoking Status: Never smoker Second Hand Exposure: No; Hx Alcohol Use: Yes Alcohol type: beer Hx Substance Use: No Preferred Language: Tanzanian Communication Ability: Effective Electrical Subcontractor Required: No Beliefs That Will Affect Care: None Current Living Situation: Spouse Feels Safe at Home: Yes Assistive Devices: Cane and Walker Review of Systems Review of Systems: Constitutional: No fever, sweats or chills Eyes: No diplopia, no worsening or blurred vision ENT: normal hearing, no trouble swallowing Respiratory: No cough, sputum, dyspnea at rest or on exertion Cardiovascular: No chest pain, tightness or palpitations Abdomen: No pain, nausea, vomiting, diarrhea or constipation Musculoskeletal: Left great toe blood blister, redness, and extending streaking up the top of his foot. Otherwise No joint pain, calf pain, swelling Neurologic: No weakness, numbness/tingling, + balance problems uses a cane at baseline Psychiatric: No anxiety or depression Skin: No rash or itch Physical Exam Physical Exam: General: awake, alert, no apparent distress, Obese with BMI of 35.1 Head: Normocephalic, atraumatic ENT: PERRL, EOMI, no pharyngeal exudate, mucous membranes moist Chest: Clear to auscultation, on room air, no adventitious breath sounds Cardiac: Regular rate and rhythm, no murmur, no JVD, normal peripheral pulses, good capillary refill Abdominal: NABS x 4 quadrants, soft, nondistended, nontender to palpation, no rebound or guarding Extremities: Left great toe dark erythema, open area over tip of remainder of toe s/p partial amputation, + edema, erythema up to mid dorsal aspect of the foot, does not involve other toes. Nontender to palpation. + chronic venous sta sis changes bilaterally. Other leg normal inspection, no peripheral edema or erythema, calfs nontender to palpation Psych: Normal mood and affect Neuro: AAO x 3, strength intact bilaterally and rated 5/5, no motor deficits, speech is clear, no peripheral sensory deficits Results & Data Results & Data ([facility]) Vital Signs (Past 12 Hours) Vital Signs Temp Pulse Pulse Resp BP BP Pulse Ox 02/10/21 15:36 77 16 155/66 H 92 02/10/21 12:58 36.8 C 88 18 100/63 99 Diagnostic Findings Toe X-Ray 02/10/21 13:01 XR toe(s) LT min 2V CLINICAL HISTORY: Left first toe infection. COMPARISON: Left foot radiographs November 04, 2020. Fluoroscopic images of the left foot November 05, 2020. FINDINGS: Postoperative findings consistent with amputation of the left first digit at the level of the distal aspect of the proximal phalanx are noted. Note is made of cortical irregularity of remaining portions of the proximal phalanx of the left first toe. No radiopaque foreign bodies are noted. Vascular calcification is incidentally noted. IMPRESSION: Status post left first digit amputation. Cortical irregularity and lucency of remaining portion of the proximal phalanx of the left first toe. Although this may be postsurgical, the appearance raises the possibility of osteomyelitis. ACT 112: Negative or not required by law. Electronically signed by: Loy Cassidy M.D. 02/10/2021 1:46 PM Code Status & VTE Plan Code Status DNR/DNI - discussed with the patient at bedside Supervising Physician Co-Signing Physician Notes Patient is a 75-year-old male with history of diabetes, CKD and other medical problems presents with history of worsening left foot erythema, left great toe discharge since 1 week duration. He denies any fever, chills, chest pain, shortness of breath, dizziness, nausea, abdominal pain, diarrhea. Denies any trauma to left foot. He is on Pradaxa for atrial fibrillation which he continues to use. He was started on a course of Keflex by PCP which is currently taking. Please review HPI for complete details of presentation. Blood work suggestive no leukocytosis. Creatinine at 1.42 at baseline. Glucose is elevated at 247. Lactate levels normal at 1.7. To x-ray concerning for left foot osteomyelitis. On exam patient is obese, no apparent distress, normocephalic atraumatic, EOMI, lungs-decreased breath sounds, clear to auscultation, repeat irregular rhythm, no murmur, abdomen soft, nontender, normal bowel sounds, alert, awake, oriented, grossly no focal deficits. Left lower extremity erythema, mild edema, left great toe partial amputation with open wound noted. Patient is admitted for management of left foot osteomyelitis, cellulitis. Agree with starting on vancomycin, Zosyn. Blood, wound cultures will be obtained. Consulted orthopedics for further input. MRI could not be obtained secondary to pacemaker. Pain is controlled. Will hold Pradaxa for possible surgery. Agree with subcu heparin while awaiting surgery. Continue insulin therapy to manage for diabetes mellitus. Hold diuretics for now. I personally reviewed the record. Patient is interviewed and examined at bedside. Patient's care is coordinated with Micki Farmer PA-C. Please refer to the documentation above for details of patient's presentation and for discussion of other issues. (1) CKD (chronic kidney disease) stage 3, GFR 30-59 ml/min Chronic kidney disease stage 3 subtype: stage 3a (GFR 45-59) Qualified Code(s): N18.31 - Chronic kidney disease, stage 3a (2) A-fib Atrial fibrillation type: unspecified Qualified Code(s): I48.91 - Unspecified atrial fibrillation
[2021-02-10] MEDS ORDERED: PHARMACY GLYCEMIC MGMT CONSULT PRN (17:16)
[2021-02-10] MEDS ORDERED: GLUCOSE 40% GEL 15 GM TUBE PO PRN ×2 (17:45→20:04)
[2021-02-10] MEDS ORDERED: CARBOHYDRATES FOR HYPOGLYCEMIA PO PRN ×2 (17:45→20:04)
[2021-02-10] MEDS ORDERED: GLUCAGON FOR INJ 1 MG VIAL SQ PRN ×2 (17:45→20:04)
[2021-02-10] MEDS ORDERED: DEXTROSE 50% 50 ML SYRINGE IV PRN ×2 (17:45→20:04)
[2021-02-10] MEDS ORDERED: GLUCOSE 10 TABS/TUBE PO PRN ×2 (17:45→20:04)
[2021-02-10] MEDS ORDERED: ONDANSETRON INJ 2 MG/ML 2 ML VIAL IV PRN (20:04)
[2021-02-10] MEDS ORDERED: ACETAMINOPHEN 325 MG TAB PO PRN (20:04)
[2021-02-10] MEDS ORDERED: MoRPHine SULFATE 2 MG/ML CARP IV PRN (20:04)
[2021-02-10] MEDS: INSULIN ASPART 100 UNITS/ML 3 ML PEN SC SCH ×2 (20:21→22:14)
[2021-02-10] MEDS ORDERED: NON-FORMULARY MEDICATION (Insulin Lispro 100 unit/mL Insulin Pen) SQ SCH (21:00)
[2021-02-10] MEDS ORDERED: INSULIN ASPART 100 UNITS/ML 3 ML PEN SC SCH (21:00)
--- NOTE | 2021-02-10 21:03 | Pharmacy Report ---
Pharmacy Glycemic Short Note 2 - Date of Service February 10, 2021 - Glycemic Short BSG Results (Last 24 hours): 02/10/21 13:20 Glucose 247 H OUTPATIENT ANTIDIABETIC REGIMEN: * Humalog QID * A1c = 7% (11/06/20) ASSESSMENT: * Gonzalo is a 75 yo T2DM admitted with osteo of great toe of left foot. * He is known to the glycemic service from a November 2020 admission. During this time he required 76 -118 units/day (~60 units of basal). * He reports managing his diabetes with Humalog only. He has not been taking Lantus for several months. * Will start patient on weight based novolog and add basal insulin as indicated PLAN FOR INPATIENT GLYCEMIC CONTROL: * Hold outpatient oral diabetes medications * Basal insulin * hold until further BSG data available * Bolus insulin * NovoLog per scale ACHS or Q6hrs while NPO * Goal Range: Low 110 mg/dL - High 140 mg/dL * Correction Factor: 20 mg/dL/unit * Nutritional / Prandial insulin per carb ratio of 1 unit per 6 grams CHO consumed PLAN FOR DISCHARGE: * tbd
--- NOTE | 2021-02-10 21:07 | Pharmacy Report ---
Pharmacy Vanc AUC Short Note - Date of Service February 10, 2021 - Assessment & Plan Assessment 75 year old M receiving vancomycin and zosyn for treatment of osteomyelitis of the great toe, left foot * s/p left great toe amputation on 11/05/20 * previously grew MSSA - treated with ceftriaxone IV --> keflex * h/o CKD - Scr at baseline Plan Vancomycin * Loading dose: 2750 mg IV * Maintenance dose: 1500 mg (13.5 mg/kg) IV q18h * This dose is predicted to achieve target AUC/UMESH of 400-600 mg/L.hr within 24 hours * AUC/UMESH is the preferred PK/PD target for vancomycin * AUC guided dosing is effective and associated with decreased risk of nephrotoxicity compared to traditional trough targets * Trough level ordered for: 02/12 @0330 Zosyn * 4.5 g IV q8h via extended infusion Pharmacy will continue to follow and will adjust dose/frequency as necessary. Thank you.
[2021-02-10] MEDS: ATORVASTATIN 40 MG TAB PO SCH (21:53)
[2021-02-10] MEDS: HEPARIN SOD 5,000 UNIT/0.5 ML VIAL SQ SCH (21:53)
[2021-02-10] MEDS ORDERED: INSULIN GLARGINE SOLOSTAR 100 UNITS/ML 3 ML PEN SC ONE (22:15)
[2021-02-11] MEDS: INSULIN ASPART 100 UNITS/ML 3 ML PEN SC SCH ×5 (02:11→21:20)
[2021-02-11 06:47] LABS: Hematocrit (blood only) 38.1 % (42-52); Hemoglobin 13.3 g/dL (14.0-18.0); Mean Corpuscular Hemoglobin 34.1 pg (25-34); Mean Corpuscular Hgb Conc 34.9 g/dL (32-36); Mean Corpuscular Volume 97.7 fL (80-100); Mean Platelet Volume 10.4 fL (7.4-10.4); Platelet Count 156 K/uL (130-400); RDW Coefficient of Variation 13.3 % (11.5-14.5); RDW Standard Deviation 47.4 fL (36.4-46.3); White Blood Count 5.81 K/uL (4.8-10.8)
[2021-02-11 07:15] LABS: BUN Creatinine Ratio 16.7 (10-20); Calcium 8.9 mg/dl (8.5-10.1); Creatinine Clr Calc Pharmacy 60.9 ml/min; Est GFR (African American) 61.2 ml/min; Est GFR (Non-African American) 52.8 ml/min; Magnesium 2.2 mg/dl (1.8-2.4); Potassium 3.8 mmol/L (3.5-5.1)
[2021-02-11 07:41] LABS: Estimated Average Glucose 143 mg/dl; Hemoglobin A1C 6.6 % (4.5-5.6)
[2021-02-11] MEDS: ASPIRIN 81 MG ECTAB PO SCH (08:39)
[2021-02-11] MEDS: ENALAPRIL MALEATE 10 MG TAB PO SCH (08:40)
[2021-02-11] MEDS: CYANOCOBALAMIN (VITAMIN B-12) 100 MCG TABLET PO SCH (08:40)
[2021-02-11] MEDS: CHOLECALCIFEROL 1,000 UNITS 25 MCG TAB PO SCH (08:40)
[2021-02-11] MEDS: METOPROLOL SUCC 50MG EXT REL TAB PO SCH (08:41)
[2021-02-11] MEDS: MAGNESIUM OXIDE 400 MG TAB PO SCH (08:41)
[2021-02-11] MEDS: HEPARIN SOD 5,000 UNIT/0.5 ML VIAL SQ SCH ×2 (08:41→21:21)
[2021-02-11] MEDS: TOPIRAMATE 50 MG TAB PO SCH (08:42)
[2021-02-11] MEDS: MULTIVITAMIN TAB PO SCH (08:42)
--- NOTE | 2021-02-11 08:53 | Orthopedic Consultation ---
Date of Service February 11, 2021 Assessment & Plan (1) Cellulitis of great toe, left: There appears to be an infection at the amputation site. There is obvious cellulitis around the great toe. I would like to grain picker a CT angiogram of the left foot to see if there is any further abscesses or osteomyelitis that we could be missing. Based on the CT angiogram we will decide whether we need to do further amputation or treat this through IV antibiotics and wound care. We will do our best to save the great toe but I warned him that there is a good possibility that I will have to do a partial first ray resection amputation. His albumin levels are within normal limits. His hemoglobin A1c is 6.6. He is doing everything he can to heal this wound. He can have a normal diet today. If surgery needs to be done I will likely either do it on Saturday or Saturday. History of Present Illness Reason for Consultation: Infection of the left great toe. Requesting Physician: . Attending Physician: Emmanuel Wooten MD Gonzalo is a pleasant 75-year-old male who I initially saw 3 months ago with a b lackened eschar and some infection and distal osteomyelitis of his left great toe. He is a diabetic and has neuropathy. He has no feeling in his foot. He is a community ambulator with a cane but he does not ambulate too much. He thinks he stubbed his toe about 3 months ago. He came to the hospital and given his diabetes and a osteomyelitis of the tip of the phalanx I did an amputation through the IP joint of his left great toe. He was seen by infectious disease. Cultures grew out staph aureus which was sensitive to most antibiotics. He was sent home on IV Ancef and transition to oral Keflex. He was doing well with his toe until recently. He had a eschar at the end of the wound which developed into a blood blister. The blister popped a couple days ago when he noticed significant redness around his left foot. He called our office and was started on Keflex. The Keflex helped a little bit but then his symptoms became worse yesterday. He came to the emergency room. He was then admitted to the hospitalist service. Orthopedics was consulted to evaluate and treat.. Allergies Allergy/AdvReac Type Severity Reaction Status Date / Time Sulfa (Sulfonamide Allergy Intermediate DELIRIUM Verified 02/10/21 16:55 Antibiotics) sulfamethoxazole Allergy Intermediate DELIRIUM Verified 02/10/21 16:55 [From Bactrim] trimethoprim [From Bactrim] Allergy Intermediate DELIRIUM Verified 02/10/21 16:55 Home Medications Medication Instructions Recorded Confirmed Type aspirin 81 mg tablet,delayed 81 mg PO DAILY 11/04/20 02/10/21 History release atorvastatin 40 mg tablet 40 mg PO HS 11/04/20 02/10/21 History cholecalciferol (vitamin D3) 25 25 mcg PO DAILY 11/04/20 02/10/21 History mcg (1,000 unit) capsule (Vitamin D3) cyanocobalamin (vitamin B-12) 100 100 mcg PO DAILY 11/04/20 02/10/21 History mcg tablet (Vitamin B-12) dabigatran etexilate 150 mg 150 mg PO BID 11/04/20 02/10/21 History capsule (Pradaxa) insulin lispro 100 unit/mL 0 unit SUBCUT QID MDD 200 11/04/20 02/10/21 History subcutaneous pen UNITS/DAILY magnesium oxide 400 mg PO DAILY 11/04/20 02/10/21 History metoprolol succinate 50 mg 50 mg PO DAILY 11/04/20 02/10/21 History tablet,extended release 24 hr multivitamin 1 tab PO DAILY 11/04/20 02/10/21 History nitroglycerin 0.4 mg sublingual 0.4 mg SUBLINGUAL DIRECTED PRN 11/04/20 02/10/21 History tablet (Nitrostat) potassium chloride 20 mEq 20 meq PO DAILY 11/04/20 02/10/21 History tablet,extended release ramipril 10 mg capsule 10 mg PO DAILY 11/04/20 02/10/21 History topiramate 100 mg tablet (Topamax) 50 mg PO DAILY 11/04/20 02/10/21 History triamterene 37.5 1 cap PO DAILY 11/04/20 02/10/21 History mg-hydrochlorothiazide 25 mg capsule Past Med/Surg History Medical History A-fib CAD (coronary artery disease) Chronic systolic CHF (congestive heart failure) CKD (chronic kidney disease) stage 3, GFR 30-59 ml/min Diabetes mellitus type 2 with atherosclerosis of arteries of extremities Diabetic neuropathy Hypertension Surgical History Hx of CABG Social History Smoking Status: Never smoker Second Hand Exposure: No; Hx Alcohol Use: No Hx Substance Use: No Preferred Language: Lithuanian Communication Ability: Effective Manager Social Media Required: No Beliefs That Will Affect Care: None Current Living Situation: Spouse Feels Safe at Home: Yes Safety Concerns: Feels Safe At This Time Assistive Devices: Cane Review of Systems All systems reviewed & are unremarkable except as noted in HPI & below. Physical Exam On physical examination of his left toe. There is an opening at the previous wound site. I am able to push out some purulent discharge. He has some cellulitis around the great toe. I do not see any signs of ulcerations. He appears to have fairly good blood flow. He has no feeling in his left foot.. Constitutional WD/WN, vitals as above Eyes PERRL, conjunctivae normal, anicteric sclerae ENMT external ear and nose normal, oropharynx normal Neck trachea midline, no thyromegaly Respiratory normal respiratory effort Cardiovascular RRR, no murmur, no edema Gastrointestinal (Abdomen) normal bowel sounds, soft, nontender, no hepatosplenomegaly Psychiatric A+Ox3, euthymic affect Results & Data Results & Data Laboratory Results . Diagnostic Findings . PG Care Time/CCT Total # of Minutes Spent Total Time Spent with Patient: Total time spent is greater than 50% in coordination of care (as documented) at patient's floor/unit and/or counseling patient: Coding Level of Care Code 89291 Inpt Consult Level 4 Diagnoses Cellulitis of great toe, left L03.032
[2021-02-11] MEDS: VANCOMYCIN HCL 1,500 MG in SODIUM CHLORIDE 0.9% 500 ML IV SCH (09:06)
[2021-02-11] MEDS: PIPERACILLIN/TAZOBACTAM 4.5 GM in DEXTROSE 5% 100 ML IV SCH ×3 (09:07→17:26)
[2021-02-11] MEDS ORDERED: OPTIRAY 320 125ml IV ONE (10:39)
--- NOTE | 2021-02-11 12:27 | Pharmacy Report ---
Pharmacy Glycemic Short Note 2 - Date of Service February 11, 2021 - Glycemic Short BSG Results (Last 24 hours): 02/10/21 02/10/21 02/11/21 13:20 21:47 02:08 Glucose 247 H POC Glucose 266 H 240 H 02/11/21 02/11/21 02/11/21 05:45 06:06 09:15 Glucose 188 H POC Glucose 173 H 154 H 02/11/21 12:13 Glucose POC Glucose 182 H OUTPATIENT ANTIDIABETIC REGIMEN: * Humalog QID * A1c = 7% (11/06/20) ASSESSMENT: 02/10 * Diet advanced from NPO to T2DM. Will increase basal back to ~ 60 units/day per previous admission. * May need to change CF/CR tomorrow if increased Lantus doesn't improve BSGs 02/10 * Gonzalo is a 75 yo T2DM admitted with osteo of great toe of left foot. * He is known to the glycemic service from a November 2020 admission. During this time he required 76 -118 units/day (~60 units of basal). * He reports managing his diabetes with Humalog only. He has not been taking Lantus for several months. * Will start patient on weight based novolog and add basal insulin as indicated PLAN FOR INPATIENT GLYCEMIC CONTROL: * Hold outpatient oral diabetes medications * Basal insulin * Lantus 30 units SQ BID * Bolus insulin * NovoLog per scale ACHS or Q6hrs while NPO * Goal Range: Low 110 mg/dL - High 140 mg/dL * Correction Factor: 20 mg/dL/unit * Nutritional / Prandial insulin per carb ratio of 1 unit per 6 grams CHO consumed PLAN FOR DISCHARGE: * TBD
--- NOTE | 2021-02-11 12:50 | CT Scan Report ---
CT angio foot LT wo/w con HISTORY: 75 years-old Male left great toe infection acute soft tissue infection of the left great to e with cellulitis and possible osteomyelitis. COMPARISON: [Radiographs 02/10/2021 TECHNIQUE: CTA of the left foot was obtained both with and without the use of 117 mL Optiray 320. 3-D coronal and sagittal MIPS were obtained from the axial data set and were submitted for review. All m easurements were obtained according to NASCET criteria. A dose lowering technique was used consistent with the principals of JH. FINDINGS: Status post partial amputation of the first digit at the level of the mid aspect of the first proxima l phalanx. Cortical irregularity and lucency at the amputation stump is redemonstrated. No additional cortical erosions are identified. 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 Spurr ing of the calcaneus. No acute fracture or dislocation. Bipartite lateral hallux sesamoid. Moderate diffuse subcutaneous edema. Atrophy of the musculature is likely secondary to chronic denerv ation changes. Severe atherosclerotic vascular disease. Extensive calcifications limits evaluation of the arterial lumens. No definite arterial occlusion identified. Moderate subcutaneous edema of the f irst digit. No discrete abscess identified. IMPRESSION: 1. Status post partial amputation of the left great toe with amputation site at the level of the mid aspect of the first proximal phalanx. Cortical irregularity and lucency at the amputation site is red emonstrated. Although this may be on a postoperative basis, the findings are suspicious for osteomyel itis. 2. Diffuse subcutaneous edema, most pronounced within the first digit suggestive of cellulitis. No ab scess. 3. Extensive atherosclerotic vascular disease. No arterial occlusion identified. ACT 112: Negative or not required by law. The above report was generated using voice recognition software. It may contain grammatical, syntax o r spelling errors. Electronically signed by: Douglas Covarrubias M.D. 02/11/2021 12:49 PM
[2021-02-11] MEDS: INSULIN GLARGINE SOLOSTAR 100 UNITS/ML 3 ML PEN SC SCH (13:51)
--- NOTE | 2021-02-11 14:57 | Orthopedic Progress Note ---
Date of Service February 11, 2021 Assessment & Plan (1) Cellulitis of great toe, left: I went over the diagnosis and treatment options with him again at bedside. I think this toe is been infected for the past 3 months and is just gotten worse now. I told him that I was not confident that further antibiotic treatment would eradicate this infection. I did recommend further amputation of the great toe. I will try to do a disarticulation at the MTP joint or do a partial first ray resection if indicated. He understands the risk, benefits, and alternatives to procedures like to proceed. Questions were answered at bedside. Time was spent scribed with the procedure and postop expectations. The decision was made for surgery. He will be n.p.o. past midnight tonight. I will likely be able to perform the procedure around noon tomorrow. Latasha Sánchez was seen and examined at bedside. I was able to review the CTA results. It did show some infection in the area and a very questionable osteomyelitis of the phalanx. I am not sure his foot ever fully healed from the initial surgery 3 months ago. It was always a little bit red and swollen. He took the antibiotics as prescribed by infectious disease. Eventually the symptoms just got much worse over the last week or so and he is back with some purulent discharge. Given his history, I am not confident that further antibiotic treatment would eradicate this infection without considering amputation. I discussed this with him at bedside.. Review of Systems All systems reviewed & are unremarkable except as noted in HPI & below. Physical Exam On physical examination of his left foot the previous wound has opened back up and there is some purulent discharge. There is some redness and cellulitis throughout. There are no ulcerations. He has no feeling of his left foot.. Constitutional WD/WN, vitals as above Eyes PERRL, conjunctivae normal, anicteric sclerae ENMT external ear and nose normal, oropharynx normal Neck trachea midline, no thyromegaly Respiratory normal respiratory effort Cardiovascular RRR, no murmur, no edema Gastrointestinal (Abdomen) normal bowel sounds, soft, nontender, no hepatosplenomegaly Psychiatric A+Ox3, euthymic affect Results & Data Results & Data Laboratory Results . Diagnostic Findings CTA of the left foot was reviewed. It did show some arterial sclerosis of the vessels but no full occlusion. There is questionable osteomyelitis at the tip of the proximal phalanx. I do not see any major bony destruction.. PG Care Time/CCT Total # of Minutes Spent Total Time Spent with Patient: Total time spent is greater than 50% in coordination of care (as documented) at patient's floor/unit and/or counseling patient: Coding Level of Care Code 95588 Subseq Hosp Care Lvl 2 (57 - DECISION FOR SURGERY) Diagnoses Cellulitis of great toe, left L03.032
[2021-02-11] MEDS ORDERED: INSULIN GLARGINE SOLOSTAR 100 UNITS/ML 3 ML PEN SC STA (21:15)
[2021-02-11] MEDS: ATORVASTATIN 40 MG TAB PO SCH (21:20)
--- NOTE | 2021-02-11 21:34 | Hospitalist Progress Note ---
Date of Service February 11, 2021 Assessment & Plan (1) Osteomyelitis of great toe of left foot: Plan: -CTA:Status post partial amputation of the left great toe with amputation site at the level of the mid aspect of the first proximal phalanx. Cortical irregularity and lucency at the amputation site is redemonstrated. Although this may be on a postoperative basis, the findings are suspicious for osteomyelitis. Diffuse subcutaneous edema, most pronounced within the first digit suggestive of cellulitis. No abscess. Extensive atherosclerotic vascular disease. No arterial occlusion identified. -Blood cultures negative to date Wound culture pending Continue IV Zosyn and vancomycin Day #2 Appreciate Orthopedics Input Continue wound Care Plan for toe amputation tomorrow (2) CAD (coronary artery disease): Plan: Continue Aspirin, metoprolol, ramipril 10 mg daily Hold triamterene/HCTZ for now (3) A-fib: Plan: Continue BB for rate control anticoagulated with pradaxa--held as planned for surgery (4) Chronic systolic CHF (congestive heart failure): Plan: - Appears Euvolemic Resume home diuretics as able (5) Hx of CABG: Plan: Hx of such in 2011, continue medications as above (6) Diabetes mellitus type 2 with atherosclerosis of arteries of extremities: Plan: - Last a1c = 7.0 from 11/06/20, will recheck with am labs - Pt noted that he has not been using lantus for several months. Pt has been using humalog subq sometimes up to 12 times daily according to his Kaleb transdermal glucometer. He is awake multiple times per night, and does not feel it is difficult to manage his insulin in this way. Discussed seeing a manager cafe, and he is agreeable. Pt is knowledgeable of DM II and monitors glucose and administers his own insulin. - Consult DM educator -Consult glycemic pharmacy for assistance -Monitor BGs (7) Diabetic neuropathy: Plan: - Noted, chronic bilateral lower ext. (8) CKD (chronic kidney disease) stage 3, GFR 30-59 ml/min: Plan: Baseline Cr 1.3-1.4 Monitor renal function DVT px: Heparin SQ while pradaxa held for procedure CODE STATUS: DNR/DNI Admission and Anticipated Discharge Date Admission Date: February 10, 2021 Subjective Patient is seen and examined at bedside States feeling well today Denies any neck pain Also denies any chest pain, shortness of breath, dizziness, nausea, abdominal pain Offers no other complaints Review of Systems Review of Systems: All systems reviewed & are unremarkable except as noted in Subjective Physical Exam Physical Exam: Physical Exam: Vitals signs as noted above General Appearance:Obese, no apparent distress Head: normocephalic, Atraumatic Eyes: normal inspection, EOMI Neck: supple, Trachea midline Respiratory/Chest: Decreased breath sounds, CTA, No accessory muscle use Cardiovascular: Irregular, No murmur Abdomen/GI:Soft, Non tender, Bowel sounds present Extremities/Musculoskeletal:normal inspection, Left lower extremity erythema, mild edema, left great toe partial amputation with open wound noted. Neurologic/Psych:AAOX3, grossly no focal neurological deficits Skin: normal color, warm Results & Data Results & Data ([facility]) Vital Signs (Past 12 Hours) Vital Signs Temp Pulse Resp BP Pulse Ox 02/11/21 15:37 36.6 C 80 16 127/69 98 Laboratory Results Short CBC 02/11/21 Range/Units 05:45 WBC 5.81 (4.8-10.8) K/uL Hgb 13.3 L (14.0-18.0) g/dL Hct 38.1 L (42-52) % Plt Count 156 (130-400) K/uL BMP 02/11/21 05:45 Sodium 137 Potassium 3.8 D Chloride 106 Carbon Dioxide 25 BUN 22 H Creatinine 1.32 Glucose 188 H Calcium 8.9 (1) A-fib Atrial fibrillation type: unspecified Qualified Code(s): I48.91 - Unspecified atrial fibrillation (2) CKD (chronic kidney disease) stage 3, GFR 30-59 ml/min Chronic kidney disease stage 3 subtype: stage 3a (GFR 45-59) Qualified Code(s): N18.31 - Chronic kidney disease, stage 3a
[2021-02-12] MEDS: INSULIN ASPART 100 UNITS/ML 3 ML PEN SC SCH ×5 (00:25→21:04)
[2021-02-12] MEDS: PIPERACILLIN/TAZOBACTAM 4.5 GM in DEXTROSE 5% 100 ML IV SCH ×4 (00:26→23:00)
[2021-02-12] MEDS ORDERED: VANCOMYCIN TROUGH ONE (03:30)
[2021-02-12 03:38] LABS: Hemoglobin 12.6 g/dL (14.0-18.0); Mean Corpuscular Hemoglobin 33.5 pg (25-34); Mean Corpuscular Hgb Conc 34.1 g/dL (32-36); Mean Corpuscular Volume 98.4 fL (80-100); Mean Platelet Volume 9.3 fL (7.4-10.4); Platelet Count 137 K/uL (130-400); RDW Coefficient of Variation 13.3 % (11.5-14.5); RDW Standard Deviation 47.8 fL (36.4-46.3); Red Blood Count 3.76 M/uL (4.7-6.1); White Blood Count 6.02 K/uL (4.8-10.8)
[2021-02-12 03:55] LABS: BUN Creatinine Ratio 14.5 (10-20); Calcium 8.9 mg/dl (8.5-10.1); Creatinine Clr Calc Pharmacy 46.8 ml/min; Est GFR (African American) 44.4 ml/min; Est GFR (Non-African American) 38.3 ml/min; Potassium 3.7 mmol/L (3.5-5.1)
[2021-02-12] MEDS: VANCOMYCIN HCL 1,500 MG in SODIUM CHLORIDE 0.9% 500 ML IV SCH (04:32)
[2021-02-12] MEDS: HEPARIN SOD 5,000 UNIT/0.5 ML VIAL SQ SCH ×2 (07:50→20:58)
[2021-02-12] MEDS: METOPROLOL SUCC 50MG EXT REL TAB PO SCH (07:51)
[2021-02-12] MEDS: ASPIRIN 81 MG ECTAB PO SCH (07:51)
--- NOTE | 2021-02-12 08:48 | Anesthesiology Consultation ---
Date of Service February 12, 2021 Assessment & Plan (1) Encounter for pre-operative examination: Chart Review Chart Review: Acceptable Risk for Surgery History Surgery Operation Date: 02/12/21 11:00 Proposed Procedures p Amputation Toe(Left) - Henok Petty DO Height/Weight Height: 5 ft 10 in Weight: 109.9 kg Allergies Allergy/AdvReac Type Severity Reaction Status Date / Time Sulfa (Sulfonamide Allergy Intermediate DELIRIUM Verified 02/10/21 16:55 Antibiotics) sulfamethoxazole Allergy Intermediate DELIRIUM Verified 02/10/21 16:55 [From Bactrim] trimethoprim [From Bactrim] Allergy Intermediate DELIRIUM Verified 02/10/21 16:55 Medications Home Medications Medication Instructions Recorded Confirmed Last Taken aspirin 81 mg tablet,delayed 81 mg PO DAILY 11/04/20 02/10/21 02/10/21 release atorvastatin 40 mg tablet 40 mg PO HS 11/04/20 02/10/21 02/09/21 cholecalciferol (vitamin D3) 25 25 mcg PO DAILY 11/04/20 02/10/21 02/10/21 mcg (1,000 unit) capsule (Vitamin D3) cyanocobalamin (vitamin B-12) 100 100 mcg PO DAILY 11/04/20 02/10/21 02/10/21 mcg tablet (Vitamin B-12) dabigatran etexilate 150 mg 150 mg PO BID 11/04/20 02/10/21 02/10/21 08:00 capsule (Pradaxa) insulin lispro 100 unit/mL 0 unit SUBCUT QID MDD 200 11/04/20 02/10/21 11/04/20 12:00 subcutaneous pen UNITS/DAILY magnesium oxide 400 mg PO DAILY 11/04/20 02/10/21 02/10/21 metoprolol succinate 50 mg 50 mg PO DAILY 11/04/20 02/10/21 02/10/21 tablet,extended release 24 hr multivitamin 1 tab PO DAILY 11/04/20 02/10/21 02/10/21 nitroglycerin 0.4 mg sublingual 0.4 mg SUBLINGUAL DIRECTED PRN 11/04/20 02/10/21 Unknown tablet (Nitrostat) potassium chloride 20 mEq 20 meq PO DAILY 11/04/20 02/10/21 02/10/21 tablet,extended release ramipril 10 mg capsule 10 mg PO DAILY 11/04/20 02/10/21 02/10/21 topiramate 100 mg tablet (Topamax) 50 mg PO DAILY 11/04/20 02/10/21 02/10/21 triamterene 37.5 1 cap PO DAILY 11/04/20 02/10/21 02/10/21 mg-hydrochlorothiazide 25 mg capsule Active Medications Generic Name Dose Route Start Last Admin Trade Name Law PRN Reason Stop Dose Admin Aspirin 81 mg 02/11/21 09:00 02/12/21 07:51 Aspirin 81 Mg Ectab PO 03/13/21 08:59 81 mg DAILY SHELLIE Administration Atorvastatin Calcium 40 mg 02/10/21 21:00 02/11/21 21:20 Atorvastatin 40 Mg Tab PO 03/12/21 20:59 40 mg HS SHELLIE Administration Cyanocobalamin 100 mcg 02/11/21 09:00 02/11/21 08:40 Cyanocobalamin (Vitamin B-12) 100 Mcg Tablet PO 03/13/21 08:59 100 mcg DAILY SHELLIE Administration Enalapril Maleate 40 mg 02/11/21 09:00 02/11/21 08:40 Enalapril Maleate 10 Mg Tab PO 03/13/21 08:59 40 mg DAILY SHELLIE Administration Heparin Sodium (Porcine) 5,000 units 02/10/21 21:00 02/12/21 07:50 Heparin Sod 5,000 Unit/0.5 Ml Vial SQ 03/12/21 20:59 Not Given Q12 [facility] Vancomycin HCl 1,500 mg/ 530 mls @ 200 mls/hr 02/11/21 10:00 02/12/21 07:21 Sodium Chloride IV 03/24/21 16:59 Infused Q18H [facility] Infusion Piperacillin Sod/Tazobactam 120 mls @ 30 mls/hr 02/11/21 00:00 02/12/21 07:50 Sod 4.5 gm/ Dextrose IV 03/25/21 00:00 30 mls/hr Q8H SHELLIE Administration Protocol Insulin Aspart 0 units 02/12/21 00:00 02/12/21 06:13 Insulin Aspart 100 Units/Ml 3 Ml Pen SC 03/14/21 00:00 Not Given Q6 SHELLIE Magnesium Oxide 400 mg 02/11/21 09:00 02/11/21 08:41 Magnesium Oxide 400 Mg Tab PO 03/13/21 08:59 400 mg DAILY SHELLIE Administration Metoprolol Succinate 50 mg 02/11/21 09:00 02/12/21 07:51 Metoprolol Succ 50mg Ext Rel Tab PO 03/13/21 08:59 50 mg DAILY SHELLIE Administration Multivitamins 1 tab 02/11/21 09:00 02/11/21 08:42 Multivitamin Tab PO 03/13/21 08:59 1 tab DAILY SHELLIE Administration Topiramate 50 mg 02/11/21 09:00 02/11/21 08:42 Topiramate 50 Mg Tab PO 03/13/21 08:59 50 mg DAILY SHELLIE Administration Vitamin D 1,000 units 02/11/21 09:00 02/11/21 08:40 Cholecalciferol 1,000 Units 25 Mcg Tab PO 03/13/21 08:59 1,000 units DAILY SHELLIE Administration NPO Date Last Intake of Fluids: 02/11/21 Time Last Intake of Fluids: 23:59 Date Last Intake of Solids: 02/11/21 Time Last Intake of Solids: 23:59 Past Medical History Medical History (Updated 02/12/21 @ 08:49 by Errol Gutierrez MD) A-fib CAD (coronary artery disease) Chronic systolic CHF (congestive heart failure) EF 40% CKD (chronic kidney disease) stage 3, GFR 30-59 ml/min Diabetes mellitus type 2 with atherosclerosis of arteries of extremities Diabetic neuropathy Hypertension Past Surgical History Surgical History (Updated 02/12/21 @ 08:48 by Errol Gutierrez MD) History of amputation of great toe Hx of CABG Social History Smoking Status: Never smoker Hx Alcohol Use: No Alcohol type: beer alcohol intake frequency: holidays/special occasions only Hx Substance Use: No Physical Exam Vital Signs Last Vital Signs Temp 36.5 C 02/12/21 07:21 Pulse 73 02/12/21 07:21 Resp 16 02/12/21 07:21 BP 111/66 02/12/21 07:21 Pulse Ox 98 02/12/21 07:21 Testing Laboratory Results 02/12/21 03:28 02/12/21 03:28 Hemoglobin A1c 6.6 % (4.5-5.6) H 02/11/21 05:45 02/11/21 06:32 Gram Stain - Final Toe,Left Great Wound Culture - Preliminary Staphylococcus species 02/10/21 16:25 Aerobic Blood Culture - Preliminary Blood No growth in Aerobic bottle after 24 hours. Anaerobic Blood Culture - Preliminary No growth in Anaerobic bottle after 24 hours. 02/10/21 16:28 Aerobic Blood Culture - Preliminary Blood No growth in Aerobic bottle after 24 hours. Anaerobic Blood Culture - Preliminary No growth in Anaerobic bottle after 24 hours. 02/12/21 02/12/21 02/11/21 06:06 00:21 21:00 POC Glucose 107 H 136 H 306 H*
[2021-02-12] MEDS ORDERED: SODIUM CHLORIDE 0.9% 1000ML 1,000 ML IV ONE (09:40)
[2021-02-12] MEDS ORDERED: LIDOCAINE 2% 2 ML VIAL/AMP(20MG/ML) INFIL ONE (11:09)
[2021-02-12] MEDS ORDERED: PROPOFOL IV EMULSION 10 MG/ML 20 ML VIAL IV ONE ×2 (11:09→13:03)
[2021-02-12] MEDS ORDERED: ONDANSETRON INJ 2 MG/ML 2 ML VIAL ONE (11:09)
[2021-02-12] MEDS ORDERED: MIDAZOLAM HCL 1 MG/ML 2ML VIAL ONE (11:09)
[2021-02-12] MEDS ORDERED: fentaNYL citrate 100 MCG/2 ML VIAL ONE (11:10)
[2021-02-12] MEDS ORDERED: KETAMINE 50 MG/5 ML SYRINGE ONE (11:10)
--- NOTE | 2021-02-12 11:34 | History & Physical Bridge Note ---
Date of Service February 12, 2021 History & Physical Bridge Note I have examined the patient, reviewed the History & Physical and in the interval since the performance of the History & Physical I have noted the following changes of clinical significance: no changes noted
--- NOTE | 2021-02-12 11:44 | Hospitalist Progress Note ---
Date of Service February 12, 2021 Assessment & Plan (1) Osteomyelitis of great toe of left foot: Plan: -CTA:Status post partial amputation of the left great toe with amputation site at the level of the mid aspect of the first proximal phalanx. Cortical irregularity and lucency at the amputation site is redemonstrated. Although this may be on a postoperative basis, the findings are suspicious for osteomyelitis. Diffuse subcutaneous edema, most pronounced within the first digit suggestive of cellulitis. No abscess. Extensive atherosclerotic vascular disease. No arterial occlusion identified. -Blood cultures negative to date Wound culture: Staph species Continue IV Zosyn and vancomycin Day #2>>Transitioned to Zosyn and Daptomycin Day #1 Appreciate Orthopedics Input Continue wound Care Plan for toe amputation today Consulted ID for Input Hold Statin while on Daptomycin (2) CAD (coronary artery disease): Plan: Continue Aspirin, metoprolol Statin held while on Daptomycin Enalapril held due to SONYA Hold triamterene/HCTZ for now (3) A-fib: Plan: Continue BB for rate control Anticoagulated with Pradaxa--held as planned for surgery Heparin SQ while Pradaxa on hold (4) Chronic systolic CHF (congestive heart failure): Plan: - Appears Euvolemic Resume home diuretics as able (5) Hx of CABG: Plan: Hx of such in 2011, continue medications as above (6) Diabetes mellitus type 2 with atherosclerosis of arteries of extremities: Plan: - Last a1c = 7.0 from 11/06/20, will recheck with am labs - Pt noted that he has not been using lantus for several months. Pt has been using humalog subq sometimes up to 12 times daily according to his Kaleb transdermal glucometer. He is awake multiple times per night, and does not feel it is difficult to manage his insulin in this way. Discussed seeing a peer educator, and he is agreeable. Pt is knowledgeable of DM II and monitors glucose and administers his own insulin. - Consult DM educator -Consult glycemic pharmacy for assistance -Monitor BGs (7) Diabetic neuropathy: Plan: - Noted, chronic bilateral lower ext. (8) CKD (chronic kidney disease) stage 3, GFR 30-59 ml/min: Plan: Acute Kidney Injury on CKD III Baseline Cr 1.3-1.4 Cr: 1.72 Received Contrast Hold ZAYRA, diuretics Monitor renal function Avoid Nephrotoxic agents as able DVT px: Heparin SQ while pradaxa held for procedure CODE STATUS: DNR/DNI Admission and Anticipated Discharge Date Admission Date: February 10, 2021 Subjective Patient is seen and examined at bedside Leg erythema improving Denies any leg pain Also denies any chest pain, shortness of breath, dizziness, nausea, abdominal pain Planned for Toe Amputation today Review of Systems Review of Systems: All systems reviewed & are unremarkable except as noted in Subjective Physical Exam Physical Exam: Physical Exam: Vitals signs as noted above General Appearance:Obese, no apparent distress Head: normocephalic, Atraumatic Eyes: normal inspection, EOMI Neck: supple, Trachea midline Respiratory/Chest: Decreased breath sounds, CTA, No accessory muscle use Cardiovascular: Irregular, No murmur Abdomen/GI:Soft, Non tender, Bowel sounds present Extremities/Musculoskeletal:normal inspection, Left lower extremity erythema, mild edema, left great toe partial amputation with open wound noted. Neurologic/Psych:AAOX3, grossly no focal neurological deficits Skin: normal color, warm Results & Data Results & Data ([facility]) Vital Signs (Past 12 Hours) Vital Signs Temp Pulse Resp BP Pulse Ox 02/12/21 07:21 36.5 C 73 16 111/66 98 02/12/21 00:24 36.5 C 71 18 106/62 96 Laboratory Results Short CBC 02/12/21 Range/Units 03:28 WBC 6.02 (4.8-10.8) K/uL Hgb 12.6 L (14.0-18.0) g/dL Hct 37.0 L (42-52) % Plt Count 137 (130-400) K/uL BMP 02/12/21 03:28 Sodium 140 Potassium 3.7 Chloride 108 H Carbon Dioxide 27 BUN 25 H Creatinine 1.72 H D Glucose 112 H Calcium 8.9 (1) A-fib Atrial fibrillation type: unspecified Qualified Code(s): I48.91 - Unspecified atrial fibrillation (2) CKD (chronic kidney disease) stage 3, GFR 30-59 ml/min Chronic kidney disease stage 3 subtype: stage 3a (GFR 45-59) Qualified Code(s): N18.31 - Chronic kidney disease, stage 3a
[2021-02-12] MEDS ORDERED: BUPIVACAINE 0.5 % 5 MG/1 ML MPF 30ML VIAL ONE (12:02)
[2021-02-12] MEDS ORDERED: PHENYLEPHRINE HCL 10 MG/ML VIAL ONE (13:03)
[2021-02-12] MEDS ORDERED: ePHEDrine sulfate 50 MG/ML SYR ONE (13:03)
--- NOTE | 2021-02-12 13:16 | Operative Report ---
PG Post Operative Report Pre & Post Diagnosis Operation Date: 02/12/21 11:00 Pre-Op Diagnosis: LEFT GREAT TOE OSTEOMYELITIS Post-Op Diagnosis: LEFT GREAT TOE OSTEOMYELITIS I identified the patient and participated in the time-out.: Yes Procedure Operation Date: 02/12/21 11:00 Actual Procedures p Amputation Left Great Toe with partial ray amputation (Left) - Henok Petty DO Surgeon Henok Petty DO Can Repairer Frank Coy PAC Estimated Blood Loss 100 Findings Consistent with Post-Op Diagnosis Specimens Cultures of the infection site The infected great toe Complications none Disposition Disposition: Recovery Room Indications Gonzalo is a pleasant 75-year-old male who stubbed his toe over 3 months ago. He is a diabetic with neuropathy of his foot. Unfortunately he went on to develop infection. I did a partial great toe amputation on 3 months ago. Never fully healed. The infection got worse. He came back to the emergency room. CT scan showed possible osteomyelitis in the proximal phalanx. After extensive discussions, he elected to proceed with a great toe amputation with either an MTP disarticulation or partial first ray amputation. Description of Procedure On February 12, 2021 Gonzalo was brought down from his hospital room to the preoperative holding area. The operative extremity was identified and signed. He was taken back to the operating room and laid on the table in supine position. He was put under general anesthesia. The left foot was prepped and draped in sterile fashion. A timeout was done. The patient and the operative extremity was properly identified. Cultures were first obtained directly in the infection site at the tip of the great toe. The procedure was done without tourniquet. There was ample bleeding throughout the procedure. A fishmouth incision was made around the MTP joint. Dissection was taken down to the MTP joint and the proximal phalanx was disarticulated. The amputated great toe was sent to pathology for tissue specimen and culture. I left as much skin as I could for the fishmouth without any infected or necrotic appearing tissue remaining. Hemostasis was obtained. I then tried to close the disarticulation and I did not have enough soft tissue coverage. At this point I decided to do a partial first ray amputation. The first metatarsal head was resected in an oblique fashion. The wound was irrigated. Hemostasis was once again obtained. I was able to fully close the soft tissue with very little tension.. The wound was irrigated with 3 L of normal saline solution. The deeper fascia was closed with 2-0 Vicryl. Skin was closed with 3-0 nylon suture. He was then placed in a soft dressing. He was then extubated and transferred to a [facility]. He was taken to the postanesthesia care unit in stable condition. He tolerated the procedure well. Frank Coy PA-C, was present for the entire procedure. He was critical for patient positioning, prepping, draping, retraction exposure, wound closure and application of sterile dressing. I attest to the content of the Intraoperative Record and any orders documented therein. Any exceptions are noted below.
--- NOTE | 2021-02-12 13:54 | Anesthesiology Progress Note ---
Date of Service February 12, 2021 Anesthesia Post Procedure Vital Signs Vital Signs: Temp Pulse Pulse Resp BP Pulse Ox 02/12/21 13:50 81 17 111/58 L 96 02/12/21 13:40 36.6 C 75 20 109/94 98 02/12/21 13:30 79 16 108/65 97 02/12/21 13:20 79 14 115/62 100 02/12/21 13:13 36 C L 86 13 124/65 100 02/12/21 07:21 36.5 C 73 16 111/66 98 02/12/21 00:24 36.5 C 71 18 106/62 96 02/11/21 15:37 36.6 C 80 16 127/69 98 Transfer of Care Handoff Completed per policy Notes Mental Status: alert / awake / arousable Patient Amnestic to Procedure: Yes Nausea / Vomiting: adequately controlled Pain: adequately controlled Airway Patency, RR, SpO2: stable & adequate BP & HR: stable & adequate Hydration State: stable & adequate Anesthetic Complications: no major complications apparent
[2021-02-12] MEDS ORDERED: NALOXONE HCL 0.4 MG/1 ML VIAL/CARP IV PRN (14:53)
[2021-02-12] MEDS: CYANOCOBALAMIN (VITAMIN B-12) 100 MCG TABLET PO SCH (15:20)
[2021-02-12] MEDS: MULTIVITAMIN TAB PO SCH (15:20)
[2021-02-12] MEDS: TOPIRAMATE 50 MG TAB PO SCH (15:21)
[2021-02-12] MEDS: ENALAPRIL MALEATE 10 MG TAB PO SCH (15:21)
[2021-02-12] MEDS: CHOLECALCIFEROL 1,000 UNITS 25 MCG TAB PO SCH (15:22)
[2021-02-12] MEDS: MAGNESIUM OXIDE 400 MG TAB PO SCH (15:22)
[2021-02-12] MEDS ORDERED: Nursing to Pharmacy Communication SCH (15:45)
[2021-02-12] MEDS: INSULIN GLARGINE SOLOSTAR 100 UNITS/ML 3 ML PEN SC SCH (18:31)
[2021-02-12 18:46] LABS: Appearance Urine Clear (Clear); Bilirubin Urine Negative (Negative); Blood Urine Negative (Negative); Color Urine Yellow; Glucose Urine UA Trace (Negative); Ketones Urine 1+ (Negative); Leukocyte Esterase Urine Negative (Negative); Nitrite Urine Negative (Negative); Protein Urine Negative (Negative); Specific Gravity Urine 1.026 (1.000-1.030); Urobilinogen Urine Negative (Negative); pH Urine 6.5 (4.5-7.5)
[2021-02-12] MEDS: DAPTOmycin 525 MG in SYRINGE 0 ML IV SCH (20:58)
[2021-02-12] MEDS: ATORVASTATIN 40 MG TAB PO SCH (21:23)
[2021-02-13 06:32] LABS: Hematocrit (blood only) 35.1 % (42-52); Mean Corpuscular Hemoglobin 33.9 pg (25-34); Mean Corpuscular Hgb Conc 34.2 g/dL (32-36); Mean Corpuscular Volume 99.2 fL (80-100); Mean Platelet Volume 9.7 fL (7.4-10.4); Platelet Count 140 K/uL (130-400); RDW Coefficient of Variation 13.3 % (11.5-14.5); RDW Standard Deviation 48.6 fL (36.4-46.3); Red Blood Count 3.54 M/uL (4.7-6.1); White Blood Count 6.08 K/uL (4.8-10.8)
[2021-02-13 06:52] LABS: BUN Creatinine Ratio 12.5 (10-20); Calcium 8.7 mg/dl (8.5-10.1); Creatinine Clr Calc Pharmacy 50.9 ml/min; Est GFR (African American) 49.2 ml/min; Est GFR (Non-African American) 42.5 ml/min
[2021-02-13] MEDS: PIPERACILLIN/TAZOBACTAM 4.5 GM in DEXTROSE 5% 100 ML IV SCH ×3 (08:15→23:54)
[2021-02-13] MEDS: INSULIN ASPART 100 UNITS/ML 3 ML PEN SC SCH ×5 (08:54→23:55)
[2021-02-13] MEDS: METOPROLOL SUCC 50MG EXT REL TAB PO SCH (08:56)
[2021-02-13] MEDS: TOPIRAMATE 50 MG TAB PO SCH (08:56)
[2021-02-13] MEDS: CYANOCOBALAMIN (VITAMIN B-12) 100 MCG TABLET PO SCH (08:56)
[2021-02-13] MEDS: CHOLECALCIFEROL 1,000 UNITS 25 MCG TAB PO SCH (08:56)
[2021-02-13] MEDS: MULTIVITAMIN TAB PO SCH (08:57)
[2021-02-13] MEDS: ASPIRIN 81 MG ECTAB PO SCH (08:57)
[2021-02-13] MEDS: HEPARIN SOD 5,000 UNIT/0.5 ML VIAL SQ SCH ×2 (08:58→20:10)
[2021-02-13] MEDS: MAGNESIUM OXIDE 400 MG TAB PO SCH (08:58)
[2021-02-13] MEDS: ENALAPRIL MALEATE 10 MG TAB PO SCH (09:33)
--- NOTE | 2021-02-13 11:11 | Orthopedic Progress Note ---
Date of Service February 13, 2021 Assessment & Plan (1) History of amputation of great toe: Overall is doing as well as expected. Is not having much pain in the left foot. The dressing looks good. He can be weightbearing as tolerated in a hard sole shoe. We will continue the daptomycin and the Zosyn until we have final cultures. I plan on having the dressing changed tomorrow. Latasha Sánchez was seen and examined at bedside this morning. Overall is doing fairly well. Is not having any pain in the right foot. He was able to get some sleep last night. He has no complaints.. Review of Systems All systems reviewed & are unremarkable except as noted in HPI & below. Physical Exam On physical examination of the left foot, the dressing is clean and dry.. Results & Data Results & Data Laboratory Results . Diagnostic Findings . PG Care Time/CCT Total # of Minutes Spent Total Time Spent with Patient: Total time spent is greater than 50% in coordination of care (as documented) at patient's floor/unit and/or counseling patient: Coding Level of Care Code 02730 Post Operative Follow-Up Diagnoses History of amputation of great toe Z89.419
--- NOTE | 2021-02-13 13:14 | Pharmacy Report ---
Pharmacy Glycemic Short Note 2 - Date of Service February 13, 2021 - Glycemic Short BSG Results (Last 24 hours): 02/12/21 02/12/21 02/12/21 13:17 17:27 21:03 Glucose POC Glucose 173 H 158 H 201 H 02/13/21 02/13/21 02/13/21 06:01 08:23 12:15 Glucose 214 H POC Glucose 228 H 247 H OUTPATIENT ANTIDIABETIC REGIMEN: * Humalog QID * A1c = 7% (11/06/20) ASSESSMENT: 02/13/21: * Mr Thorne has refused basal insulin during admission. * Pt prefers to use only Novolog, but is open to check BSGs overnight and provide additional Novolog at that time. * Novolog parameters tightened this morning to provide additional insulin d/t lack of basal. Will continue to adjust as required. Thus far, BSGs have been uncontrolled. 02/11 * Diet advanced from NPO to T2DM. Will increase basal back to ~ 60 units/day per previous admission. * May need to change CF/CR tomorrow if increased Lantus doesn't improve BSGs 02/10 * Gonzalo is a 75 yo T2DM admitted with osteo of great toe of left foot. * He is known to the glycemic service from a November 2020 admission. During this time he required 76 -118 units/day (~60 units of basal). * He reports managing his diabetes with Humalog only. He has not been taking Lantus for several months. * Will start patient on weight based novolog and add basal insulin as indicated PLAN FOR INPATIENT GLYCEMIC CONTROL: * Basal insulin * patient refuses basal insulin * Bolus insulin * NovoLog per scale ACHS plus 0000 and 0400. CDE discussed this with patient and he is willing. * Goal Range: Low 110 mg/dL - High 140 mg/dL * Correction Factor: 12 mg/dL/unit * Nutritional / Prandial insulin per carb ratio of 1 unit per 3 grams CHO consumed PLAN FOR DISCHARGE: * A1c: 7% * This A1c indicates acceptable glycemic control as an outpt. * Pt reports that he takes his Humalog with meals, and then checks BSGs overnight. Expect that patient may resume home regimen on discharge.
--- NOTE | 2021-02-13 18:43 | Hospitalist Progress Note ---
Date of Service February 13, 2021 Assessment & Plan (1) Osteomyelitis of great toe of left foot: Plan: -CTA:Status post partial amputation of the left great toe with amputation site at the level of the mid aspect of the first proximal phalanx. Cortical irregularity and lucency at the amputation site is redemonstrated. Although this may be on a postoperative basis, the findings are suspicious for osteomyelitis. Diffuse subcutaneous edema, most pronounced within the first digit suggestive of cellulitis. No abscess. Extensive atherosclerotic vascular disease. No arterial occlusion identified. -Blood cultures negative to date Wound culture: Staph species Continue IV Zosyn and vancomycin Day #2>>Transitioned to Zosyn and Daptomycin Day #2 --S/P Amputation Left Great Toe with partial ray amputation POD #1 Appreciate Orthopedics Input Continue wound Care Consulted ID for Input Hold Statin while on Daptomycin Follow-up final cultures Continue current antibiotics for now (2) CAD (coronary artery disease): Plan: Continue Aspirin, metoprolol Statin held while on Daptomycin Enalapril held due to SONYA, relatively low BP Hold triamterene/HCTZ for now (3) A-fib: Plan: Continue BB for rate control Anticoagulated with Pradaxa--held as planned for surgery Heparin SQ while Pradaxa on hold (4) Chronic systolic CHF (congestive heart failure): Plan: - Appears Euvolemic Resume home diuretics as able (5) Hx of CABG: Plan: Hx of such in 2011, continue medications as above (6) Diabetes mellitus type 2 with atherosclerosis of arteries of extremities: Plan: - Last a1c = 7.0 from 11/06/20, will recheck with am labs - Pt noted that he has not been using lantus for several months. Pt has been using humalog subq sometimes up to 12 times daily according to his Kaleb transdermal glucometer. He is awake multiple times per night, and does not feel it is difficult to manage his insulin in this way. Discussed seeing a outreach educator, and he is agreeable. Pt is knowledgeable of DM II and monitors glucose and administers his own insulin. - Consult DM educator -Consult glycemic pharmacy for assistance -Monitor BGs (7) Diabetic neuropathy: Plan: - Noted, chronic bilateral lower ext. (8) CKD (chronic kidney disease) stage 3, GFR 30-59 ml/min: Plan: Acute Kidney Injury on CKD III Baseline Cr 1.3-1.4 Cr: 1.72>1.5 Received Contrast Hold ZAYRA, diuretics Monitor renal function Avoid Nephrotoxic agents as able DVT px: Heparin SQ while pradaxa held for procedure CODE STATUS: DNR/DNI Admission and Anticipated Discharge Date Admission Date: February 10, 2021 Subjective Patient is seen and examined at bedside Sitting in chair comfortably during my encounter No new complaints Denies any leg pain at surgical site Also denies any chest pain, shortness of breath, dizziness, nausea, abdominal pain Physical Exam Physical Exam: Physical Exam: Vitals signs as noted above General Appearance:Obese, no apparent distress Head: normocephalic, Atraumatic Eyes: normal inspection, EOMI Neck: supple, Trachea midline Respiratory/Chest: Decreased breath sounds, CTA, No accessory muscle use Cardiovascular: Irregular, No murmur Abdomen/GI:Soft, Non tender, Bowel sounds present Extremities/Musculoskeletal:normal inspection, Left lower extremity erythema, mild edema, left great toe partial amputation with open wound noted. Neurologic/Psych:AAOX3, grossly no focal neurological deficits Skin: normal color, warm Results & Data Results & Data ([facility]) Vital Signs (Past 12 Hours) Vital Signs Temp Pulse Resp BP BP Pulse Ox 02/13/21 15:37 36.4 C L 72 18 98/63 L 97 02/13/21 07:36 36.4 C L 79 18 110/67 95 Laboratory Results Short CBC 02/13/21 Range/Units 06:01 WBC 6.08 (4.8-10.8) K/uL Hgb 12.0 L (14.0-18.0) g/dL Hct 35.1 L (42-52) % Plt Count 140 (130-400) K/uL BMP 02/13/21 06:01 Sodium 138 Potassium 4.0 Chloride 107 Carbon Dioxide 25 BUN 20 H Creatinine 1.58 H Glucose 214 H Calcium 8.7 Urine 02/12/21 Range/Units 17:24 Urine Color Yellow Urine Appearance Clear (Clear) Urine pH 6.5 (4.5-7.5) Ur Specific [place] 1.026 (1.000-1.030) Urine Protein Negative (Negative) Urine Glucose (UA) Trace H (Negative) (1) A-fib Atrial fibrillation type: unspecified Qualified Code(s): I48.91 - Unspecified atrial fibrillation (2) CKD (chronic kidney disease) stage 3, GFR 30-59 ml/min Chronic kidney disease stage 3 subtype: stage 3a (GFR 45-59) Qualified Code(s): N18.31 - Chronic kidney disease, stage 3a
[2021-02-13] MEDS: DAPTOmycin 525 MG in SYRINGE 0 ML IV SCH (20:10)
[2021-02-13] MEDS: ATORVASTATIN 40 MG TAB PO SCH (20:10)
[2021-02-14] MEDS: INSULIN ASPART 100 UNITS/ML 3 ML PEN SC SCH ×5 (03:47→21:59)
[2021-02-14 06:55] LABS: Hematocrit (blood only) 34.3 % (42-52); Hemoglobin 11.5 g/dL (14.0-18.0); Mean Corpuscular Hemoglobin 33.4 pg (25-34); Mean Corpuscular Hgb Conc 33.5 g/dL (32-36); Mean Corpuscular Volume 99.7 fL (80-100); Mean Platelet Volume 9.9 fL (7.4-10.4); Platelet Count 152 K/uL (130-400); RDW Coefficient of Variation 13.6 % (11.5-14.5); RDW Standard Deviation 49.6 fL (36.4-46.3); Red Blood Count 3.44 M/uL (4.7-6.1); White Blood Count 6.04 K/uL (4.8-10.8)
--- NOTE | 2021-02-14 07:00 | Orthopedic Progress Note ---
Date of Service February 14, 2021 Assessment & Plan (1) History of amputation of great toe: Overall is doing well. Is not having any pain in the left foot. The incision looks okay this morning. There is still little erythema but I will take some time to calm down. The initial cultures and sensitivities from the culture swab at admission has grown out MSSA. The final cultures from the operation are not back yet. I would assume those are MSSA also. He is currently on Zosyn and daptomycin. The nursing staff can change his dressing today. He can be discharged to home on antibiotics when medically ready. He will follow-up with orthopedics in 2 weeks for suture removal. He can be weightbearing as tolerated in a [place] shoe. He should keep the incision clean and dry. Full orthopedic discharge instructions were placed in the discharge summary. Latasha Sánchez was seen and examined at bedside this morning. Overall is doing fairly well. Is not having any pain in the left foot. He has been receiving his IV antibiotics. He has no new complaints.. Review of Systems All systems reviewed & are unremarkable except as noted in HPI & below. Physical Exam On physical examination of the left foot, the dressing was removed. The incision looks good. There is minimal drainage. There is still erythema in the area.. Results & Data Results & Data Laboratory Results . Diagnostic Findings . PG Care Time/CCT Total # of Minutes Spent Total Time Spent with Patient: Total time spent is greater than 50% in coordination of care (as documented) at patient's floor/unit and/or counseling patient: Coding Level of Care Code 68812 Post Operative Follow-Up Diagnoses History of amputation of great toe Z89.419
[2021-02-14 07:14] LABS: BUN Creatinine Ratio 11.5 (10-20); Calcium 8.8 mg/dl (8.5-10.1); Est GFR (African American) 48.1 ml/min; Est GFR (Non-African American) 41.5 ml/min; Potassium 3.7 mmol/L (3.5-5.1)
[2021-02-14] MEDS: PIPERACILLIN/TAZOBACTAM 4.5 GM in DEXTROSE 5% 100 ML IV SCH (07:54)
[2021-02-14] MEDS: TOPIRAMATE 50 MG TAB PO SCH (07:55)
[2021-02-14] MEDS: ASPIRIN 81 MG ECTAB PO SCH (07:55)
[2021-02-14] MEDS: MULTIVITAMIN TAB PO SCH (07:55)
[2021-02-14] MEDS: CHOLECALCIFEROL 1,000 UNITS 25 MCG TAB PO SCH (07:55)
[2021-02-14] MEDS: MAGNESIUM OXIDE 400 MG TAB PO SCH (07:56)
[2021-02-14] MEDS: HEPARIN SOD 5,000 UNIT/0.5 ML VIAL SQ SCH (07:56)
[2021-02-14] MEDS: CYANOCOBALAMIN (VITAMIN B-12) 100 MCG TABLET PO SCH (07:56)
[2021-02-14] MEDS: METOPROLOL SUCC 50MG EXT REL TAB PO SCH (07:56)
[2021-02-14] MEDS: ceFAZolin 2000MG 2,000 MG/15 ML SYR IV SCH (17:10)
--- NOTE | 2021-02-14 18:30 | Hospitalist Progress Note ---
Date of Service February 14, 2021 Assessment & Plan (1) Osteomyelitis of great toe of left foot: Plan: -CTA:Status post partial amputation of the left great toe with amputation site at the level of the mid aspect of the first proximal phalanx. Cortical irregularity and lucency at the amputation site is redemonstrated. Although this may be on a postoperative basis, the findings are suspicious for osteomyelitis. Diffuse subcutaneous edema, most pronounced within the first digit suggestive of cellulitis. No abscess. Extensive atherosclerotic vascular disease. No arterial occlusion identified. -Blood cultures negative to date Wound culture: Staph species Continue IV Zosyn and Daptomycin transition to cefazolin --S/P Amputation Left Great Toe with partial ray amputation POD #2 Appreciate Orthopedics Input Continue wound Care Consulted ID for Input Follow-up final cultures ID consult pending Needs follow-up with orthopedics upon discharge (2) CAD (coronary artery disease): Plan: Continue Aspirin, metoprolol Resume statin as able Enalapril held due to SONYA, relatively low BP Hold triamterene/HCTZ for now (3) A-fib: Plan: Continue BB for rate control On anticoagulated with Pradaxa (4) Chronic systolic CHF (congestive heart failure): Plan: - Appears Euvolemic Resume home diuretics as able (5) Hx of CABG: Plan: Hx of such in 2011, continue medications as above (6) Diabetes mellitus type 2 with atherosclerosis of arteries of extremities: Plan: - Last a1c = 7.0 from 11/06/20, will recheck with am labs - Pt noted that he has not been using lantus for several months. Pt has been using humalog subq sometimes up to 12 times daily according to his Kaleb transdermal glucometer. He is awake multiple times per night, and does not feel it is difficult to manage his insulin in this way. Discussed seeing a private branch exchange operator, and he is agreeable. Pt is knowledgeable of DM II and monitors glucose and administers his own insulin. - Consult DM educator -Consult glycemic pharmacy for assistance -Monitor BGs (7) Diabetic neuropathy: Plan: - Noted, chronic bilateral lower ext. (8) CKD (chronic kidney disease) stage 3, GFR 30-59 ml/min: Plan: Acute Kidney Injury on CKD III Baseline Cr 1.3-1.4 Cr: 1.72>1.6 Received IV Contrast Hold ZAYRA, diuretics Monitor renal function Avoid Nephrotoxic agents as able DVT px: Pradaxa CODE STATUS: DNR/DNI Admission and Anticipated Discharge Date Admission Date: February 10, 2021 Subjective Patient is seen and examined at bedside Doing well ID consult is pending Denies any chest pain, shortness of breath, dizziness, nausea, abdominal pain Final wound cultures pending Review of Systems Review of Systems: All systems reviewed & are unremarkable except as noted in Subjective Physical Exam Physical Exam: Physical Exam: Vitals signs as noted above General Appearance:Obese, no apparent distress Head: normocephalic, Atraumatic Eyes: normal inspection, EOMI Neck: supple, Trachea midline Respiratory/Chest: Decreased breath sounds, CTA, No accessory muscle use Cardiovascular: Irregular, No murmur Abdomen/GI:Soft, Non tender, Bowel sounds present Extremities/Musculoskeletal:normal inspection, Left lower extremity erythema, mild edema, left great toe partial amputation in dressing Neurologic/Psych:AAOX3, grossly no focal neurological deficits Skin: normal color, warm Results & Data Results & Data ([facility]) Vital Signs (Past 12 Hours) Vital Signs Temp Pulse Resp BP Pulse Ox 02/14/21 16:03 36.9 C 73 16 127/69 98 02/14/21 07:02 36.4 C L 67 16 100/63 96 Laboratory Results Short CBC 02/14/21 Range/Units 05:58 WBC 6.04 (4.8-10.8) K/uL Hgb 11.5 L (14.0-18.0) g/dL Hct 34.3 L (42-52) % Plt Count 152 (130-400) K/uL BMP 02/14/21 05:58 Sodium 140 Potassium 3.7 Chloride 109 H Carbon Dioxide 25 BUN 19 H Creatinine 1.61 H Glucose 145 H Calcium 8.8 (1) A-fib Atrial fibrillation type: unspecified Qualified Code(s): I48.91 - Unspecified atrial fibrillation (2) CKD (chronic kidney disease) stage 3, GFR 30-59 ml/min Chronic kidney disease stage 3 subtype: stage 3a (GFR 45-59) Qualified Code(s): N18.31 - Chronic kidney disease, stage 3a
[2021-02-14] MEDS: ATORVASTATIN 40 MG TAB PO SCH (21:56)
[2021-02-14] MEDS: DABIGATRAN ETEXILATE 75 MG CAP PO SCH (21:56)
[2021-02-15] MEDS: ceFAZolin 2000MG 2,000 MG/15 ML SYR IV SCH ×2 (00:50→07:38)
[2021-02-15] MEDS: INSULIN ASPART 100 UNITS/ML 3 ML PEN SC SCH ×4 (00:55→12:29)
--- NOTE | 2021-02-15 06:14 | Orthopedic Progress Note ---
Date of Service February 15, 2021 Assessment & Plan (1) History of amputation of great toe: He is doing about as well as expected. He denies any pain in the left foot. He can be weightbearing as tolerated in a hard sole shoe. We will await final infectious disease recommendations and then he can be discharged home on antibiotics. He will follow-up with orthopedics in 2 to 3 weeks. Full orthopedic discharge instructions were placed in the discharge summary. If you have any further questions please feel free to contact me personally at [phone] Latasha Sánchez was seen and examined at bedside this morning. Overall is doing well. Is not having any pain in the left foot. He met with infectious disease by telehealth yesterday. He has been receiving his IV antibiotics. He has no new complaints.. Review of Systems All systems reviewed & are unremarkable except as noted in HPI & below. Physical Exam On physical examination of the left foot, I peeled the dressing away and the incision looks good. There is little bit of erythema around the area but not too bad. There is no purulent discharge.. Results & Data Results & Data Laboratory Results . Diagnostic Findings . PG Care Time/CCT Total # of Minutes Spent Total Time Spent with Patient: Total time spent is greater than 50% in coordination of care (as documented) at patient's floor/unit and/or counseling patient: Coding Level of Care Code 71325 Post Operative Follow-Up Diagnoses History of amputation of great toe Z89.419
[2021-02-15 07:03] LABS: Hematocrit (blood only) 33.3 % (42-52); Hemoglobin 11.5 g/dL (14.0-18.0); Mean Corpuscular Hemoglobin 33.9 pg (25-34); Mean Corpuscular Hgb Conc 34.5 g/dL (32-36); Mean Corpuscular Volume 98.2 fL (80-100); Mean Platelet Volume 9.6 fL (7.4-10.4); Platelet Count 153 K/uL (130-400); RDW Coefficient of Variation 13.6 % (11.5-14.5); RDW Standard Deviation 48.5 fL (36.4-46.3); Red Blood Count 3.39 M/uL (4.7-6.1); White Blood Count 5.58 K/uL (4.8-10.8)
[2021-02-15 07:37] LABS: BUN Creatinine Ratio 13.4 (10-20); Calcium 8.7 mg/dl (8.5-10.1); Creatinine Clr Calc Pharmacy 60.5 ml/min; Est GFR (African American) 60.6 ml/min; Est GFR (Non-African American) 52.3 ml/min; Potassium 4.1 mmol/L (3.5-5.1)
[2021-02-15] MEDS: CYANOCOBALAMIN (VITAMIN B-12) 100 MCG TABLET PO SCH (07:41)
[2021-02-15] MEDS: CHOLECALCIFEROL 1,000 UNITS 25 MCG TAB PO SCH (07:41)
[2021-02-15] MEDS: ASPIRIN 81 MG ECTAB PO SCH (07:41)
[2021-02-15] MEDS: METOPROLOL SUCC 50MG EXT REL TAB PO SCH (07:42)
[2021-02-15] MEDS: TOPIRAMATE 50 MG TAB PO SCH (07:42)
[2021-02-15] MEDS: MULTIVITAMIN TAB PO SCH (07:42)
[2021-02-15] MEDS: MAGNESIUM OXIDE 400 MG TAB PO SCH (07:42)
[2021-02-15] MEDS: DABIGATRAN ETEXILATE 75 MG CAP PO SCH (07:43)
[2021-02-15] MEDS ORDERED: INFLUENZA VACCINE HIGH DOSE PF 65+ 0.7 ML SYR IM ONE (13:18)
--- NOTE | 2021-02-15 13:23 | Pharmacy Report ---
Pharmacy Glycemic Short Note 2 - Date of Service February 15, 2021 - Glycemic Short BSG Results (Last 24 hours): 02/14/21 02/14/21 02/15/21 17:25 20:50 00:53 Glucose POC Glucose 203 H 176 H 164 H 02/15/21 02/15/21 02/15/21 06:15 07:54 12:21 Glucose 179 H POC Glucose 160 H 258 H OUTPATIENT ANTIDIABETIC REGIMEN: * Humalog QID * A1c = 7% (11/06/20) ASSESSMENT: 02/15/21: * Glycemic control has been sub-optimal, but reasonable given the lack of basal insulin. * Continue aggressive Novolog parameters with extra BSG checks/coverage overnight. 02/13 * Mr Thorne has refused basal insulin during admission. * Pt prefers to use only Novolog, but is open to check BSGs overnight and provide additional Novolog at that time. * Novolog parameters tightened this morning to provide additional insulin d/t lack of basal. Will continue to adjust as required. Thus far, BSGs have been uncontrolled. 02/11 * Diet advanced from NPO to T2DM. Will increase basal back to ~ 60 units/day per previous admission. * May need to change CF/CR tomorrow if increased Lantus doesn't improve BSGs 02/10 * Gonzalo is a 75 yo T2DM admitted with osteo of great toe of left foot. * He is known to the glycemic service from a November 2020 admission. During this time he required 76 -118 units/day (~60 units of basal). * He reports managing his diabetes with Humalog only. He has not been taking Lantus for several months. * Will start patient on weight based novolog and add basal insulin as indicated PLAN FOR INPATIENT GLYCEMIC CONTROL: * Basal insulin * patient refuses basal insulin * Bolus insulin * NovoLog per scale ACHS plus 0000 and 0400. CDE discussed this with patient and he is willing. * Goal Range: Low 110 mg/dL - High 140 mg/dL * Correction Factor: 12 mg/dL/unit * Nutritional / Prandial insulin per carb ratio of 1 unit per 3 grams CHO consumed PLAN FOR DISCHARGE: * A1c: 7% * This A1c indicates acceptable glycemic control as an outpt. * Pt reports that he takes his Humalog with meals, and then checks BSGs overnight. Expect that patient may resume home regimen on discharge.
--- NOTE | 2021-02-15 14:28 | Discharge Summary ---
Date of Service February 15, 2021 Admission HPI Per Admitting Provider This is a 75 yo M with PMHx of DM type II, CAD s/p CABG, hyperlipidemia, diabetic neuropathy, A. fib on pradaxa, CHF, CKD stage III who presents to the ER with 1 week of worsening erythema and discharge from post-surgical amputation site of the LEFT great toe on 11/05/20. Redness developed over the past 24 hours on the left great toe. He denies any trauma or injury that he is aware of to the area within the past few days. He noted this morning that there was a blood blister which had popped and appeared worse over the amputation site. His is present at bedside and assists with history. She reports that he started Keflex and has taken a total of 4 doses since yesterday morning, initially it seemed that the redness improved however after blood blister opened it now appears worse again. He denies any fevers, chills or sweats. Denies any pain due to neuropathy. Patient ambulates with a cane at baseline, however is typically unsteady on his feet and does not walk far distances at baseline. Denies any other acute complaints. Admission Exam Per Admitting Provider General: awake, alert, no apparent distress, Obese with BMI of 35.1 Head: Normocephalic, atraumatic ENT: PERRL, EOMI, no pharyngeal exudate, mucous membranes moist Chest: Clear to auscultation, on room air, no adventitious breath sounds Cardiac: Regular rate and rhythm, no murmur, no JVD, normal peripheral pulses, good capillary refill Abdominal: NABS x 4 quadrants, soft, nondistended, nontender to palpation, no rebound or guarding Extremities: Left great toe dark erythema, open area over tip of remainder of toe s/p partial amputation, + edema, erythema up to mid dorsal aspect of the foot, does not involve other toes. Nontender to palpation. + chronic venous stasis changes bilaterally. Other leg normal inspection, no peripheral edema or erythema, calfs nontender to palpation Psych: Normal mood and affect Neuro: AAO x 3, strength intact bilaterally and rated 5/5, no motor deficits, speech is clear, no peripheral sensory deficits Principal Diagnosis Left great toe osteomyelitis SONYA Insulin-dependent T2DM with hyperglycemia Discharge Exam Gen: WD/WN, male, sitting up in bedside chair, NAD, A&O x3 HEENT: Normocephalic, atraumatic, conjunctivae moist, sclerae anicteric, mucous membranes moist. Lung: Clear to Auscultation bilaterally, no wheezes/rales/rhonchi Heart: Regular rate, regular rhythm, no murmurs, rubs, or gallops Abdomen: Soft, NT, ND +BS x 4 Extremities: No edema, left foot dressing CDI, Darco shoe in place Skin: Warm, no rash, negative turgor. Discharge Data Allergies Allergy/AdvReac Type Severity Reaction Status Date / Time Sulfa (Sulfonamide Allergy Intermediate DELIRIUM Verified 02/10/21 16:55 Antibiotics) sulfamethoxazole Allergy Intermediate DELIRIUM Verified 02/10/21 16:55 [From Bactrim] trimethoprim [From Bactrim] Allergy Intermediate DELIRIUM Verified 02/10/21 16:55 Consultations Orthopedics: Infectious Disease: If MSSA: Keflex 2 weeks of therapy after discharge Procedures Performed Operation Date: 02/12/21 11:00 Actual Procedures p Amputation Left Great Toe(Left) - Henok Petty DO Ordered Studies Toe X-Ray 02/10/21 13:01 XR toe(s) LT min 2V CLINICAL HISTORY: Left first toe infection. COMPARISON: Left foot radiographs November 04, 2020. Fluoroscopic images of the left foot November 05, 2020. FINDINGS: Postoperative findings consistent with amputation of the left first digit at the level of the distal aspect of the proximal phalanx are noted. Note is made of cortical irregularity of remaining portions of the proximal phalanx of the left first toe. No radiopaque foreign bodies are noted. Vascular calcification is incidentally noted. IMPRESSION: Status post left first digit amputation. Cortical irregularity and lucency of remaining portion of the proximal phalanx of the left first toe. Although this may be postsurgical, the appearance raises the possibility of osteomyelitis. ACT 112: Negative or not required by law. Electronically signed by: Loy Cassidy M.D. 02/10/2021 1:46 PM Lower Extremity CTA 02/11/21 08:54 CT angio foot LT wo/w con HISTORY: 75 years-old Male left great toe infection acute soft tissue infection of the left great toe with cellulitis and possible osteomyelitis. COMPARISON: [Radiographs 02/10/2021 TECHNIQUE: CTA of the left foot was obtained both with and without the use of 117 mL Optiray 320. 3-D coronal and sagittal MIPS were obtained from the axial data set and were submitted for review. All measurements were obtained according to NASCET criteria. A dose lowering technique was used consistent with the principals of JH. FINDINGS: Status post partial amputation of the first digit at the level of the mid aspect of the first proximal phalanx. Cortical irregularity and lucency at the amputation stump is redemonstrated. No additional cortical erosions are identified. 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 Spurring of the calcaneus. No acute fracture or dislocation. Bipartite lateral hallux sesamoid. Moderate diffuse subcutaneous edema. Atrophy of the musculature is likely secondary to chronic denervation changes. Severe atherosclerotic vascular disease. Extensive calcifications limits evaluation of the arterial lumens. No definite arterial occlusion identified. Moderate subcutaneous edema of the first digit. No discrete abscess identified. IMPRESSION: 1. Status post partial amputation of the left great toe with amputation site at the level of the mid aspect of the first proximal phalanx. Cortical irregularity and lucency at the amputation site is redemonstrated. Although this may be on a postoperative basis, the findings are suspicious for osteomyelitis. 2. Diffuse subcutaneous edema, most pronounced within the first digit suggestive of cellulitis. No abscess. 3. Extensive atherosclerotic vascular disease. No arterial occlusion identified. ACT 112: Negative or not required by law. The above report was generated using voice recognition software. It may contain grammatical, syntax or spelling errors. Electronically signed by: Douglas Covarrubias M.D. 02/11/2021 12:49 PM Diabetes Follow up A1C 6.6 02/11/21 Hospital Course (1) Osteomyelitis of great toe of left foot: This is a 75-year-old male who has significant past medical history of T2DM, diabetic neuropathy, diabetic retinopathy, T2DM with PAD, CAD, history of CABG, atrial fibrillation on Pradaxa, cardiac pacemaker in situ, chronic systolic CHF, CKD stage III, history of left great toe amputation who presented to ED secondary to increasing redness to his left great toe. CTA revealed status post partial amputation of the left great toe with amputation site at the level of the mid aspect of the first proximal phalanx. Cortical irregularity and lucency at the amputation site is redemonstrated. Although this may be on a postoperative basis, the findings are suspicious for osteomyelitis. Diffuse subcutaneous edema, most pronounced within the first digit suggestive of cellulitis. No abscess. Extensive atherosclerotic vascular disease. No arterial occlusion identified. Orthopedics was consulted. He was empirically started on IV Zosyn and daptomycin. Patient subsequently underwent a amputation of left great toe with partial ray amputation by Dr. Petty. Intraoperative cultures grew MSSA. Blood cultures were negative. Infectious disease was consulted who recommended oral Keflex for 2 weeks post discharge. His hospitalization was complicated with SONYA and peak creatinine of 1.72. His baseline creatinine is approximately 1.3-1.4. He did receive IV contrast during hospital stay. Renal function improved and on day of discharge was 1.33. His hgb remained stable an on day of discharge was 11.5. He also had hyperglycemia during hospital stay secondary to patient adamant about only using short acting therapy. He did refuse long-acting Lantus. Glycemic pharmacy was on board and he was seen and evaluated by health promotion educator. He is persistent to continuing to use short acting therapy only and his A1C on admission was 6.6. Home health was arranged for patient to assist with dressing teachings. At time of discharge patient was in good spirits and offers no concerns. He denied any pain to his incision site. Instructions were provided to patient from surgeon regarding daily wound care. He will follow up with orthopedics in 2 weeks. At discharge he remained hemodynamically stable and blood pressure was 122/72. He was alert and oriented x3 and tolerating regular diet. He was ambulating as tolerated with a cane/walker and Darco shoe to the left foot. (2) CAD (coronary artery disease): (3) A-fib: (4) Chronic systolic CHF (congestive heart failure): (5) Hx of CABG: e (6) Diabetes mellitus type 2 with atherosclerosis of arteries of extremities: (7) Diabetic neuropathy: (8) CKD (chronic kidney disease) stage 3, GFR 30-59 ml/min: Total Time Total Time Spent Total Time Spent (In Minutes): 75 minutes Total Time Includes: Examination of the Patient, Discharge Planning, Medication Reconciliation, Communication With Other Providers and Other Discharge Plan Discharge Items Patient Disposition: Home - Home Health Services Reason For Visit: LEFT GREAT TOE OSTEOMYELITIS Discharge Diagnosis: L great toe osteomyelitis Acute Kidney Injury T2DM Condition on Discharge: Good Activity: Per Instructions section Lifting: Wait until after follow-up appointment Bathing Comment: No Bathing or Getting incision wet, follow up with Dr. Petty Exercise/Sports: Wait until after follow-up appointment Driving/Machine Use: No driving until cleared by orthopedics Weightbearing: Full weightbearing Weightbearing Comment: Weight bearing as tolerated with Darco Shoe Non-emergency contact: Primary Care Provider and Surgeon Call non-emergency contact if: you have any medication questions, your symptoms worsen, your pain is not controlled, your pain is worsening, your pain is unusual for you, your pain is concerning for you, you have a fever, your temperature is above 101, your wound has increased redness, your wound has increased drainage and your wound pain has increased Follow-up/Referrals: Christ Andrews DO [Primary Care Provider] - (Date & Time 02/20/2021 11:00 AM Provider Amina Vidal DO Department [facility] ) Diet: Carb Consistent or DM2 and Heart Healthy Addtl Attending Provider Instructions: MEDICATION CHANGES: Keflex 500mg four times daily for 14 days. Encourage increased probiotic usage in form of yogurt or over the counter tablet for GI Health. SUMMARY OF TEST RESULTS: You were admitted to [facility] secondary to osteomyelitis of left great toe. A CAT scan was done of your left foot which revealed worsening of previous amputation concerning for further infection. An amputation of the left great toe was done on 02/12/[address] Petty. Blood cultures were negative, but cultures from your wound grew Staph species. Infectious disease was consulted who recommends Keflex 500mg QID x 14 days. You had a mild elevation of kidney function which resolved with IV fluids. PENDING TEST RESULTS: None RECOMMENDATIONS FOR FOLLOW-UP: [facility] Dr. Vidal on 02/20/21 at 11:00. Follow up with Dr. Petty in 2 weeks. Do not get incision wet. Daily dry dressing changes. Recommend repeat BMP (lab work) in 1 week. OTHER INSTRUCTIONS: Seek medical attention if you have: * temperature above 101 * chest pain or trouble breathing * abdominal pain, nausea, vomiting * diarrhea, dark stools or bloody stools * any unanswered questions or concerns Call 911 if symptoms are severe. Please take good care of yourself. It has been a pleasure taking care of you. Please take care of yourself. If you have any questions regarding your recent hospitalization please contact [facility] and request [facility] @ [phone]. QUOC Hernandeztl Manager Primary Care Provider Instructions: ORTHOPEDIC INSTRUCTIONS Activity Recommendations: Weightbearing as tolerated in a hard sole shoe Medications: Continue taking antibiotics as prescribed. Dressing Care: Please do daily dry dressing changes for the first week. After that you may leave the wound dry and open to air at times. When you are ambulating always keep it covered so it does not rub on shoe wear. Showering: Please do not get the foot wet in the shower until follow-up with orthopedics in 2 weeks. I really want to give this a chance to heal before we introduce any possible shower water. Things To Watch For: 1. Drainage from the incision site that occurs more than one week after your surgery. 2. Increased redness at the incision site. 3. Fever above 102 degrees Fahrenheit. 4. Unusual chest pain or shortness of breath. 5. Call [facility] at with any of the above problems Follow-Up Visit: Follow-up with Dr. Petty's PA (Henok Hobbs) 2-3 weeks after your day of surgery. He will remove your sutures and answer any questions. If you have any additional questions or concerns, Dr Petty is usually in the office at the same time and will be available Please call to make an appointment for a time that works for you Pending Studies at Discharge: No Stand-Alone Forms: My [facility], Smoking Cessation Medications and DC Order Prescriptions: New cephalexin 500 mg capsule 500 mg PO QID 14 Days Qty: 19 RF: 0 Continued multivitamin Tablet 1 tab PO DAILY RF: 0 atorvastatin 40 mg Tablet 40 mg PO HS RF: 0 cyanocobalamin (vitamin B-12) [Vitamin B-12] 100 mcg Tablet 100 mcg PO DAILY RF: 0 metoprolol succinate 50 mg Tablet Extended Release 24 Hr 50 mg PO DAILY RF: 0 aspirin 81 mg Tablet,Delayed Release (Dr/Ec) 81 mg PO DAILY RF: 0 triamterene-hydrochlorothiazid 37.5-25 mg Capsule 1 cap PO DAILY RF: 0 nitroglycerin [Nitrostat] 0.4 mg Tablet, Sublingual 0.4 mg sublingual DIRECTED PRN (Reason: Chest Pain) RF: 0 topiramate [Topamax] 100 mg Tablet 50 mg PO DAILY RF: 0 ramipril 10 mg Capsule 10 mg PO DAILY RF: 0 cholecalciferol (vitamin D3) [Vitamin D3] 25 mcg (1,000 unit) Capsule 25 mcg PO DAILY RF: 0 insulin lispro 100 unit/mL Insulin Pen 0 unit SUBCUT QID MDD 200 UNITS/DAILY RF: 0 Pradaxa 150 mg Capsule 150 mg PO BID RF: 0 magnesium oxide 400 mg magnesium Capsule 400 mg PO DAILY RF: 0 potassium chloride 20 mEq Tablet Extended Release 20 meq PO DAILY RF: 0 Discharge Orders: Discharge Order (Routine); Ordered 02/15/21 Ordered By: Adrianna Wharton/Other Patient Handouts: A1C, Managing Type 2 Diabetes, Special Foot Care for Diabetes Admission Data Admit Date/Time: 02/10/21 16:12 Attending Provider: Dahlia Ruggiero Admit Provider: Emmanuel Wooten Primary Care Provider: Christ Andrews Other Providers: Emmanuel Wooten ; Henok Petty Carlos M. ; Luisa Wadsworth ; Trevin Eric I. ; Alfred Weems II ; Niya Fiore ; Esteban Calderon ; Jonathan Martin ; Adrianna Leon ; [facility] Home Health Attestation I certify that this patient is under my care and that I, or a physicians medical assistant float working with me, had a face to-face encounter that meets the home health [id number] encounter requirements with this patient. The encounter with the patient was in whole, or in part, for the following medical condition, which is the primary reason for home health care (list medical condition): Left great toe osteomyelitis with amputation I certify that, based on my findings, the following services are medically necessary home health services: My clinical findings support the need for the above services because: Skilled Nsg Instruction New Medications Skilled Nsg to Assess, Perform and Teach Wound Care Further, I certify that my clinical findings support that this patient is homebound (i.e. absences from home require considerable and taxing effort and are for medical reasons or protestant services or infrequently or of short duration when for other reasons) because: Transportation Assistance/Unable to Leave Home Unassisted Certification for Home Health Services: Based on the above findings, I certify that this patient is confined to the home and needs intermittent senior care care, physical therapy and/or speech therapy or continues to need occupational therapy. The patient is under my care, and I have initiated the establishment of the plan of care. This patient will be followed by a physician who will periodically review the plan of care.
== END 2021-02-15 16:35 | disposition home health service (06) | DRG 617 ==
LOC: ED 12:26 → SUATTDRO 16:12 → 3E 16:12

== ENCOUNTER 2021-02-19 14:04 | Inpatient (IN) ==
--- NOTE | 2021-02-19 15:44 | XRay Report ---
XR foot LT min 3V routine CLINICAL HISTORY: Status post recent amputation. Infection. Evaluate for osteomyelitis. COMPARISON: Left first toe radiograph February 10, 2021. CT angiography of the left foot February 11. FINDINGS: Interval partial amputation of the left first digit is noted. A few bone fragments are pre sent. There is cortical irregularity of the distal remaining portion of the left first metatarsal. No additional sites of bony irregularity are identified within the left foot. Tarsometatarsal joints ar e intact. There is extensive vascular calcification. IMPRESSION: Cortical irregularity of the remaining portion of the left first metatarsal status post a mputation, as described above. Although this could reflect postsurgical change, the findings raise th e possibility of osteomyelitis. ACT 112: Negative or not required by law. Electronically signed by: Loy Cassidy M.D. 02/19/2021 3:43 PM
[2021-02-19 16:12] LABS: Basophils # (auto) 0.05 K/uL (0-0.2); Basophils % (auto) 0.9 %; Eosinophils # (auto) 0.17 K/uL (0-0.5); Hematocrit (blood only) 38.6 % (42-52); Hemoglobin 13.1 g/dL (14.0-18.0); Immature Granulocytes # (auto) 0.01 K/uL (0.00-0.02); Immature Granulocytes % (auto) 0.2 %; Lymphocytes # (auto) 1.31 K/uL (1.2-3.4); Lymphocytes % (auto) 23.1 %; Mean Corpuscular Hemoglobin 33.6 pg (25-34); Mean Corpuscular Hgb Conc 33.9 g/dL (32-36); Mean Platelet Volume 9.4 fL (7.4-10.4); Monocytes # (auto) 0.75 K/uL (0.11-0.59); Monocytes % (auto) 13.2 %; Neutrophils # (auto) 3.39 K/uL (1.4-6.5); Neutrophils % (auto) 59.6 %; Platelet Count 192 K/uL (130-400); RDW Coefficient of Variation 13.6 % (11.5-14.5); RDW Standard Deviation 48.6 fL (36.4-46.3); White Blood Count 5.68 K/uL (4.8-10.8)
[2021-02-19 16:26] LABS: BUN Creatinine Ratio 13.6 (10-20); Calcium 9.5 mg/dl (8.5-10.1); Creatinine Clr Calc Pharmacy 61.8 ml/min; Est GFR (African American) 61.7 ml/min; Est GFR (Non-African American) 53.3 ml/min
[2021-02-19 17:08] LABS: C Reactive Protein 0.55 mg/dl (0-0.29)
[2021-02-19] MEDS ORDERED: CEFEPIME 2,000 MG/20 ML VIAL IV STA (17:20)
[2021-02-19] MEDS ORDERED: DAPTOmycin 525 MG in SYRINGE 0 ML IV ONE (17:20)
--- NOTE | 2021-02-19 20:46 | Communication Note ---
Date of Service: February 19, 2021 H&P ATTENDING ADDENDUM: The patient is a 75-year-old man with a history of diabetes. He was recently hospitalized for cellulitis around the great toe r esulting in an amputation of the great toe on 02/12/2021. Infectious disease was consulted at that time and evaluated the patient by telemedicine. As cultures revealed MSSA Keflex was given for total 2 weeks. However the patient has returned as he now has worsening redness and bloody drainage between the stitches which are swollen. He denies any pain at this time related to his neuropathy. He denies any fevers or chills and is not septic. On evaluation today his white blood cell count is 5.7, H&H 13/39. He has a normal BMP with a creatinine of 1.31 and GFR of 53, which is his baseline. CRP is 0.55 down from 4.21 on 02/10. A foot x-ray revealed cortical irregularity of the remaining portion of the left first metatarsal status post amputation. Although this could reflect postsurgical change the findings raise the possibility of persistent osteomyelitis. He was given broad-spectrum antibiotics and will be readmitted for reevaluation by orthopedics and infectious disease. Physical exam reveals a well-nourished well-developed patient in no acute distress who functions with a clear mental ability. He is conversing appropriately. Heart exam reveals S1/S2 without murmurs gallops or rubs. Pulmonary auscultation is clear throughout. Abdomen is soft, nontender nondistended. Left foot is erythematous with black stitches along distal lateral space where the left great toe used to be. Stitches are swollen and there is some bloody drainage at the incision site. There is minimal erythema spreading proximally from the incision up onto the foot. Agree with plan to continue broad-spectrum daptomycin and cefepime, consult orthopedics and infectious disease at this time for reassessment and assistance with medical management of antibiotics. DO Bahman
--- NOTE | 2021-02-19 22:00 | History & Physical Report ---
Date of Service February 19, 2021 Assessment & Plan (1) Osteomyelitis: (2) Cellulitis: (3) Status post amputation of left great toe: Plan: -Admit to [facility] -Patient presenting from home with reports of worsening redness to left foot, s/p left great toe and partial ray amputation on 02/[address] Petty for osteomyelitis -Operative cultures grew MSSA and patient was discharged on Keflex per ID recommendations -In the ED, patient is hemodynamically stable, does not appear septic -Received IV Dapto and cefepime in the ED, continue with -blood cultures -Orthopedic and ID consult (4) Hypertension: Plan: -BP controlled, continue metoprolol, ramipril, triamterene/HCTZ (5) A-fib: Plan: -Rate controlled on metoprolol -Anticoagulated on Pradaxa, will hold and place on IV heparin due to possible surgical intervention (6) CKD (chronic kidney disease) stage 3, GFR 30-59 ml/min: Plan: -Creatinine at baseline, monitor renal functions (7) Chronic systolic CHF (congestive heart failure): Plan: -EF 40% -appears euvolemic (8) DM type 2 (diabetes mellitus, type 2): Plan: -HgbA1c 6.6 02/2021 -NovoLog per protocol while hospitalized (9) DVT prophylaxis: Plan: -on IV heparin as above History of Present Illness Chief Complaint: Left foot redness Primary Care Provider: Dr. Andrews 75-year-old male who has significant past medical history of T2DM, diabetic neuropathy, diabetic retinopathy, T2DM with PAD, CAD, history of CABG, atrial fibrillation on Pradaxa, cardiac pacemaker in situ, chronic systolic CHF, CKD stage III, history of left great toe amputation, and other problems with stability presents to the ED for evaluation of worsening left leg redness. Patient recently admitted to [facility] 02/10 through 02/15 for osteomyelitis of the left great toe. Patient underwent left great toe amputation and partial ray amputation. Operative cultures grew MSSA. Patient was discharged on Keflex. Patient has been being seen by home health who noted worsening redness to the operative site. Redness was outlined and has been worsening. Patient denies fevers or chills. Has had a small amount of bloody drainage from surgical incision. Reports blood sugars in good control. Denies chest pain or shortness of breath. No lightheadedness or dizziness. Denies abdominal pain, nausea, vomiting or diarrhea. No urinary symptoms. In the ED, left foot XR shows Cortical irregularity of the remaining portion of the left first metatarsal status post amputation concerning for possible osteomyelitis. Patient is hemodynamically stable and labs are unremarkable. Patient received IV Dapto and IV cefepime. Allergies Allergy/AdvReac Type Severity Reaction Status Date / Time Sulfa (Sulfonamide Allergy Intermediate DELIRIUM Verified 02/19/21 17:31 Antibiotics) sulfamethoxazole Allergy Intermediate DELIRIUM Verified 02/19/21 17:31 [From Bactrim] trimethoprim [From Bactrim] Allergy Intermediate DELIRIUM Verified 02/19/21 17:31 Home Medications Medication Instructions Recorded Confirmed Type aspirin 81 mg tablet,delayed 81 mg PO DAILY 11/04/20 02/19/21 History release atorvastatin 40 mg tablet 40 mg PO HS 11/04/20 02/19/21 History cholecalciferol (vitamin D3) 25 25 mcg PO DAILY 11/04/20 02/19/21 History mcg (1,000 unit) capsule (Vitamin D3) cyanocobalamin (vitamin B-12) 100 100 mcg PO DAILY 11/04/20 02/19/21 History mcg tablet (Vitamin B-12) dabigatran etexilate 150 mg 150 mg PO BID 11/04/20 02/19/21 History capsule (Pradaxa) insulin lispro 100 unit/mL 0 unit SUBCUT QID MDD 200 11/04/20 02/19/21 History subcutaneous pen UNITS/DAILY magnesium oxide 400 mg PO DAILY 11/04/20 02/19/21 History metoprolol succinate 50 mg 50 mg PO DAILY 11/04/20 02/19/21 History tablet,extended release 24 hr multivitamin 1 tab PO DAILY 11/04/20 02/19/21 History nitroglycerin 0.4 mg sublingual 0.4 mg SUBLINGUAL DIRECTED PRN 11/04/20 02/19/21 History tablet (Nitrostat) potassium chloride 20 mEq 20 meq PO DAILY 11/04/20 02/19/21 History tablet,extended release ramipril 10 mg capsule 10 mg PO DAILY 11/04/20 02/19/21 History topiramate 100 mg tablet (Topamax) 50 mg PO DAILY 11/04/20 02/19/21 History triamterene 37.5 1 cap PO DAILY 11/04/20 02/19/21 History mg-hydrochlorothiazide 25 mg capsule cephalexin 500 mg capsule 500 mg PO QID 14 Days #19 cap 02/15/21 02/19/21 Rx Past Med/Surg History Medical History (Updated 02/21/21 @ 14:24 by LEXUS Maher) A-fib CAD (coronary artery disease) Chronic systolic CHF (congestive heart failure) EF 40% CKD (chronic kidney disease) stage 3, GFR 30-59 ml/min Diabetes mellitus type 2 with atherosclerosis of arteries of extremities Diabetic neuropathy Hypertension Pacemaker Surgical History History of amputation of great toe Hx of CABG Family History Mother Diabetes Social History Smoking Status: Never smoker Second Hand Exposure: No; Hx Alcohol Use: No Hx Substance Use: No Preferred Language: Korean Communication Ability: Effective Manager Commodities Required: No Beliefs That Will Affect Care: None marital status: Current Living Situation: Spouse Feels Safe at Home: Yes Safety Concerns: Feels Safe At This Time Assistive Devices: Cane Review of Systems Review of Systems: ROS per HPI, all other systems reviewed and negative Physical Exam Constitutional: WD/WN, vitals as above + obese Eyes: PERRL, conjunctivae normal, anicteric sclerae ENMT: external ear and nose normal, oropharynx normal Respiratory: normal respiratory effort, lungs clear to auscultation Cardiovascular: Rate/Rhythm: regular rate and + irregularly irregular Vessels: normal peripheral pulses Extremities: no edema Gastrointestinal (Abdomen): normal bowel sounds, soft, nontender, no hepatosplenomegaly Musculoskeletal: no cyanosis or clubbing, extremities motor strength 5/5 Skin: no rashes, warm and dry left great toe amputation incision site noted with sutures in place, erythema extending over the dorsal aspect of the foot, small amount of bloody drainage noted from incision site Neurologic: PERRL, EOMI, accommodation nl, no face palsy, no dysarthria Psychiatric: A+Ox3, euthymic affect Results & Data Results & Data ([facility]) Vital Signs (Past 12 Hours) Vital Signs Temp Pulse Pulse Resp BP BP Pulse Ox 02/19/21 19:00 68 18 166/79 H 98 02/19/21 18:00 78 18 142/67 H 98 02/19/21 14:11 36.6 C 90 18 125/68 98 Laboratory Results Short CBC 02/19/21 Range/Units 15:56 WBC 5.68 (4.8-10.8) K/uL Hgb 13.1 L (14.0-18.0) g/dL Hct 38.6 L (42-52) % Plt Count 192 (130-400) K/uL BMP 02/19/21 15:56 Sodium 137 Potassium 5.0 Chloride 107 Carbon Dioxide 26 BUN 18 Creatinine 1.31 Glucose 179 H Calcium 9.5 Diagnostic Findings Foot X-Ray 02/19/21 15:11 XR foot LT min 3V routine CLINICAL HISTORY: Status post recent amputation. Infection. Evaluate for osteomyelitis. COMPARISON: Left first toe radiograph February 10, 2021. CT angiography of the left foot February 11, 2021. FINDINGS: Interval partial amputation of the left first digit is noted. A few bone fragments are present. There is cortical irregularity of the distal remaining portion of the left first metatarsal. No additional sites of bony irregularity are identified within the left foot. Tarsometatarsal joints are intact. There is extensive vascular calcification. IMPRESSION: Cortical irregularity of the remaining portion of the left first metatarsal status post amputation, as described above. Although this could reflect postsurgical change, the findings raise the possibility of osteomyelitis. ACT 112: Negative or not required by law. Electronically signed by: Loy Cassidy M.D. 02/19/2021 3:43 PM Code Status & VTE Plan Code Status Patient is a DNR as per my discussion with him. VTE Prophylaxis Plan VTE Prophylaxis will be ordered: No Supervising Physician Co-Signing Physician Notes I have seen and examined the patient and have discussed the case with the provider above. I agree with the assessment and plan as stated. 75 yo M with diabetic neuropathy s/p recent admission with foot surgery. Sent home on Keflex as osteo thought to be surgically removed. He returns with a worsened surgical site infection. Denies pain, fevers or chills. There is tension on the sutures with erythema along the incision line and somewhat proximal on the foot. Agree with broad spectrum IV antibiotcs. Will await ortho evaluation and infectious disease thoughts. DO Bahman (1) CKD (chronic kidney disease) stage 3, GFR 30-59 ml/min Chronic kidney disease stage 3 subtype: stage 3a (GFR 45-59) Qualified Code(s): N18.31 - Chronic kidney disease, stage 3a (2) A-fib Atrial fibrillation type: unspecified Qualified Code(s): I48.91 - Unspecified atrial fibrillation
[2021-02-19] MEDS ORDERED: ACETAMINOPHEN 325 MG TAB PO PRN (22:41)
[2021-02-19] MEDS ORDERED: CARBOHYDRATES FOR HYPOGLYCEMIA PO PRN (22:41)
[2021-02-19] MEDS ORDERED: DEXTROSE 50% 50 ML SYRINGE IV PRN (22:41)
[2021-02-19] MEDS ORDERED: GLUCOSE 10 TABS/TUBE PO PRN (22:41)
[2021-02-19] MEDS ORDERED: Heparin IV Adult Wt-Based Standard *NO* Bolus Protocol IV SCH (22:41)
[2021-02-19] MEDS ORDERED: ATORVASTATIN 40 MG TAB PO SCH (22:41)
[2021-02-19] MEDS ORDERED: GLUCAGON FOR INJ 1 MG VIAL SQ PRN (22:41)
[2021-02-19] MEDS ORDERED: GLUCOSE 40% GEL 15 GM TUBE PO PRN (22:41)
--- NOTE | 2021-02-19 23:24 | Emergency Department Note ---
Impression & Plan Osteomyelitis, Cellulitis of foot, left ED Provider Note INFORMANT: Patient and ED PROVIDER(S): Cb Meredith MD CHIEF COMPLAINT: Foot infection PLAN: Disposition: Admitted Condition: Good Outpatient prescription management: none Referral: None MEDICAL DECISION MAKING: Patient presented to my department because of spreading redness and for infection despite oral antibiotics. X-ray imaging and blood work were performed. X-ray imaging is concerning for osteomyelitis. The patient does have elevated inflammatory markers. White count is within normal range. Patient was started on daptomycin and cefepime after discussion with the ED pharmacist. [facility] Patient was evaluated in the ER admitted for further management. Triage Nursing notes reviewed and agree them. Vital Signs: reviewed and remarkable for no significant abnormalities Differential diagnosis: Cellulitis, abscess, MRSA infection, DVT, necrotizing fasciitis, dermatitis, osteomyelitis, allergic reaction, as well as other pathologies. Diagnostics interpreted by me: ECG: none Cardiac Monitoring: none Imaging studies: X-ray imaging concerning for osteomyelitis. I refer you to the EMR for further details. HPI: The patient is a 75 year old male who presents to the Emergency Room with complaints of left foot infection. This started last week and is worsening. The patient also notes the following associated symptoms, spreading redness. The patient has been taking his Keflex for relieving factors. Current pain is rated as 4/10. Patient recently had his left great toe amputated because of infection. Prior cultures revealed MSSA. Home health directed the patient to the ER. Pt denies LOC, headache, fevers, chills, diaphoresis, visual changes, neck pain, chest pain, breathing difficulties, nausea, vomiting, abdominal pain, back pain, urinary symptoms, numbness, weakness, lymphadenopathy, or other complaints. ROS: See above HPI for pertinent positives & negatives. A total of 10 systems reviewed and were otherwise negative. PAST MEDICAL HISTORY:See Below , diabetes, cellulitis PAST SURGICAL HISTORY:See Below, left great toe amputation FAMILY HISTORY:See Below SOCIAL HISTORY:See Below, HOME MEDICATIONS:See Below ALLERGIES:See Below VITALS:See Below PHYSICAL EXAMINATION: GENERAL: Awake, alert, well-appearing, in no distress HENT: Normocephalic, atraumatic. Oropharynx unremarkable. EYES: Normal conjunctiva. Sclera non-icteric. NECK: Inspection normal. Non-tender. Supple. No nuchal rigidity. FROM. No masses. RESPIRATORY: Clear to auscultation. No wheezes. No rales. Normal respiratory effort. CARDIAC: Normal rate. Normal rhythm. No murmurs. No rubs. Extremities warm and well perfused. Pulses equal. No JVD. GI: Soft, non-distended. No tenderness to palpation. No rebound or guarding. No masses. RECTAL: Deferred. MUSCULOSKELETAL: Atraumatic. Chest examination reveals no tenderness. Calves are equal size bilaterally and non-tender. No edema. There is warmth and redness of the left foot from the surgical incision involving the second and third toes spreading proximally up to the ankle NEURO: Normal sensorium. No sensory or motor deficits noted. SKIN: No rash or jaundice noted. Cb Meredith MD Past Med/Surg History Medical History A-fib CAD (coronary artery disease) Chronic systolic CHF (congestive heart failure) EF 40% CKD (chronic kidney disease) stage 3, GFR 30-59 ml/min Diabetes mellitus type 2 with atherosclerosis of arteries of extremities Diabetic neuropathy Hypertension Surgical History History of amputation of great toe Hx of CABG Family History Mother Diabetes Social History Smoking Status: Never smoker Second Hand Exposure: No; Hx Alcohol Use: No Hx Substance Use: No Preferred Language: Turkmen Communication Ability: Effective Refractory Repairer Required: No Beliefs That Will Affect Care: None marital status: Current Living Situation: Spouse Feels Safe at Home: Yes Assistive Devices: Glasses Allergies Allergies Allergy/AdvReac Type Severity Reaction Status Date / Time Sulfa (Sulfonamide Allergy Intermediate DELIRIUM Verified 02/19/21 17:31 Antibiotics) sulfamethoxazole Allergy Intermediate DELIRIUM Verified 02/19/21 17:31 [From Bactrim] trimethoprim [From Bactrim] Allergy Intermediate DELIRIUM Verified 02/19/21 17:31 Home Meds Home Medications Medication Instructions Recorded Confirmed aspirin 81 mg tablet,delayed 81 mg PO DAILY 11/04/20 02/19/21 release atorvastatin 40 mg tablet 40 mg PO HS 11/04/20 02/19/21 cholecalciferol (vitamin D3) 25 25 mcg PO DAILY 11/04/20 02/19/21 mcg (1,000 unit) capsule (Vitamin D3) cyanocobalamin (vitamin B-12) 100 100 mcg PO DAILY 11/04/20 02/19/21 mcg tablet (Vitamin B-12) dabigatran etexilate 150 mg 150 mg PO BID 11/04/20 02/19/21 capsule (Pradaxa) insulin lispro 100 unit/mL 0 unit SUBCUT QID MDD 200 11/04/20 02/19/21 subcutaneous pen UNITS/DAILY magnesium oxide 400 mg PO DAILY 11/04/20 02/19/21 metoprolol succinate 50 mg 50 mg PO DAILY 11/04/20 02/19/21 tablet,extended release 24 hr multivitamin 1 tab PO DAILY 11/04/20 02/19/21 nitroglycerin 0.4 mg sublingual 0.4 mg SUBLINGUAL DIRECTED PRN 11/04/2002/19 tablet (Nitrostat) potassium chloride 20 mEq 20 meq PO DAILY 11/04/20 02/19/21 tablet,extended release ramipril 10 mg capsule 10 mg PO DAILY 11/04/20 02/19/21 topiramate 100 mg tablet (Topamax) 50 mg PO DAILY 11/04/20 02/19/21 triamterene 37.5 1 cap PO DAILY 11/04/20 02/19/21 mg-hydrochlorothiazide 25 mg capsule Previous Rx's Medication Instructions Recorded cephalexin 500 mg capsule 500 mg PO QID 14 Days #19 cap 02/15/21 Results & Data (ED) Vital Signs Vital Signs - 24 hr 02/19/21 14:11 Temperature 36.6 C Temperature Source Temporal Artery Scan Pulse Rate 90 Respiratory Rate 18 Blood Pressure 125/68 Blood Pressure Mean 87 Pulse Oximetry 98 Oxygen Delivery Method Room Air Sepsis Recent Fever Within 48 Hours No Sepsis New/Unexplained Change in Mental Status N/A Sepsis Action Taken by Nursing No Action Required Laboratory Data Result diagrams: 02/19/21 15:56 02/19/21 15:56 Lab Results 02/19/21 02/19/21 02/19/21 Range/Units 15:56 15:56 15:56 WBC 5.68 (4.8-10.8) K/uL RBC 3.90 L (4.7-6.1) M/uL Hgb 13.1 L (14.0-18.0) g/dL Hct 38.6 L (42-52) % MCV 99.0 (80-100) fL MCH 33.6 (25-34) pg MCHC 33.9 (32-36) g/dL RDW Std Deviation 48.6 H (36.4-46.3) fL RDW Coeff of Buddy 13.6 (11.5-14.5) % Plt Count 192 (130-400) K/uL MPV 9.4 (7.4-10.4) fL Immature Gran % (Auto) 0.2 % Neut % (Auto) 59.6 % Lymph % (Auto) 23.1 % Dickens % (Auto) 13.2 % Eos % (Auto) 3.0 % Baso % (Auto) 0.9 % Neut # (Auto) 3.39 (1.4-6.5) K/uL Lymph # (Auto) 1.31 (1.2-3.4) K/uL Dickens # (Auto) 0.75 H (0.11-0.59) K/uL Eos # (Auto) 0.17 (0-0.5) K/uL Baso # (Auto) 0.05 (0-0.2) K/uL Immature Gran # (Auto) 0.01 (0.00-0.02) K/uL ESR (0-20) mm/hr Sodium 137 (136-145) mmol/L Potassium 5.0 (3.5-5.1) mmol/L Chloride 107 (98-107) mmol/L Carbon Dioxide 26 (21-32) mmol/L Anion Gap 4.0 (3-11) BUN 18 (7-18) mg/dl Creatinine 1.31 (0.6-1.4) mg/dl Est Cr Clr Drug Dosing 61.8 ml/min Est GFR ( Amer) 61.7 ml/min Est GFR (Non-Af Amer) 53.3 ml/min BUN/Creatinine Ratio 13.6 (10-20) Glucose 179 H (70-99) mg/dl Lactate 1.1 (0.4-2.0) mmol/L Calcium 9.5 (8.5-10.1) mg/dl C-Reactive Protein 0.55 H (0-0.29) mg/dl COVID-19 Eval Order SARS-CoV-2 (PCR) (Negative) 02/19/21 02/19/21 02/19/21 Range/Units 15:56 17:26 17:26 WBC (4.8-10.8) K/uL RBC (4.7-6.1) M/uL Hgb (14.0-18.0) g/dL Hct (42-52) % MCV (80-100) fL MCH (25-34) pg MCHC (32-36) g/dL RDW Std Deviation (36.4-46.3) fL RDW Coeff of Buddy (11.5-14.5) % Plt Count (130-400) K/uL MPV (7.4-10.4) fL Immature Gran % (Auto) % Neut % (Auto) % Lymph % (Auto) % Dickens % (Auto) % Eos % (Auto) % Baso % (Auto) % Neut # (Auto) (1.4-6.5) K/uL Lymph # (Auto) (1.2-3.4) K/uL Dickens # (Auto) (0.11-0.59) K/uL Eos # (Auto) (0-0.5) K/uL Baso # (Auto) (0-0.2) K/uL Immature Gran # (Auto) (0.00-0.02) K/uL ESR 37 H (0-20) mm/hr Sodium (136-145) mmol/L Potassium (3.5-5.1) mmol/L Chloride (98-107) mmol/L Carbon Dioxide (21-32) mmol/L Anion Gap (3-11) BUN (7-18) mg/dl Creatinine (0.6-1.4) mg/dl Est Cr Clr Drug Dosing ml/min Est GFR ( Amer) ml/min Est GFR (Non-Af Amer) ml/min BUN/Creatinine Ratio (10-20) Glucose (70-99) mg/dl Lactate (0.4-2.0) mmol/L Calcium (8.5-10.1) mg/dl C-Reactive Protein (0-0.29) mg/dl COVID-19 Eval Order Covid19 at [facility] SARS-CoV-2 (PCR) NEGATIVE (Negative) Administered Medications Discontinued Medications Daptomycin 525 mg/ Syringe 10.5 mls @ 5.25 mls/min IV NOW ONE; Protocol Stop: 02/19/21 17:21 Last Admin: 02/19/21 18:29 Dose: 5.25 mls/min Documented by: [id number] Cefepime HCl (Maxipime) 2,000 mg in 20 mls @ 5 mls/min IV NOW STA; Protocol Stop: 02/19/21 17:23 Last Admin: 02/19/21 18:03 Dose: 5 mls/min Documented by: [id number] Imaging Data Radiologist's Impression: Foot X-Ray 02/19/21 15:11 XR foot LT min 3V routine CLINICAL HISTORY: Status post recent amputation. Infection. Evaluate for osteomyelitis. COMPARISON: Left first toe radiograph February 10, 2021. CT angiography of the left foot February 11, 2021. FINDINGS: Interval partial amputation of the left first digit is noted. A few bone fragments are present. There is cortical irregularity of the distal remaining portion of the left first metatarsal. No additional sites of bony irregularity are identified within the left foot. Tarsometatarsal joints are intact. There is extensive vascular calcification. IMPRESSION: Cortical irregularity of the remaining portion of the left first metatarsal status post amputation, as described above. Although this could reflect postsurgical change, the findings raise the possibility of osteomyelitis. ACT 112: Negative or not required by law. Electronically signed by: Loy Cassidy M.D. 02/19/2021 3:43 PM Discharge Plan Visit Data Chief Complaint: Infection Stated Complaint: S/P LT TOE AMPUTATION,INFECTION ED Provider: Cb Meredith Discharge Problem: Osteomyelitis, Cellulitis of foot, left Patient Disposition: Admitted As Inpatient Discharge Instructions Interventions: ED Discharge Assessment Last Done: 02/19/21 22:43
[2021-02-19] MEDS: INSULIN ASPART 100 UNITS/ML 3 ML PEN SC SCH (23:46)
[2021-02-20] MEDS: HEPARIN SODIUM/DEXTROSE 25,000 UNITS/500 ML BAG IV SCH ×2 (00:50→16:45)
[2021-02-20] MEDS ORDERED: CEFEPIME CONSULT ACTIVE PRN ×2 (01:06→22:41)
[2021-02-20] MEDS ORDERED: PNEUMOCOCCAL POLYSACCHARIDES 25 MCG/0.5 ML VIAL/SYR IM ONE (02:30)
[2021-02-20] MEDS: CEFEPIME 2,000 MG in SYRINGE 0 ML IV SCH ×2 (05:51→17:00)
[2021-02-20 07:25] LABS: Hematocrit (blood only) 38.5 % (42-52); Hemoglobin 12.8 g/dL (14.0-18.0); Mean Corpuscular Hemoglobin 33.1 pg (25-34); Mean Corpuscular Hgb Conc 33.2 g/dL (32-36); Mean Corpuscular Volume 99.5 fL (80-100); Mean Platelet Volume 9.7 fL (7.4-10.4); Platelet Count 174 K/uL (130-400); RDW Coefficient of Variation 13.7 % (11.5-14.5); RDW Standard Deviation 49.1 fL (36.4-46.3); Red Blood Count 3.87 M/uL (4.7-6.1); White Blood Count 4.74 K/uL (4.8-10.8)
[2021-02-20 07:34] LABS: Partial Thromboplastin Ratio 4.4
[2021-02-20 07:43] LABS: Partial Thromboplastin Time 116.1 Seconds (21.0-31.0)
[2021-02-20 07:49] LABS: BUN Creatinine Ratio 12.6 (10-20); Creatinine Clr Calc Pharmacy 59.7 ml/min; Est GFR (African American) 59.5 ml/min; Est GFR (Non-African American) 51.4 ml/min; Potassium 4.5 mmol/L (3.5-5.1)
[2021-02-20] MEDS ORDERED: POTASSIUM CHLORIDE CRTAB 20 MEQ TABCR PO SCH (09:00)
[2021-02-20] MEDS: METOPROLOL SUCC 50MG EXT REL TAB PO SCH (09:01)
[2021-02-20] MEDS: ASPIRIN 81 MG ECTAB PO SCH (09:01)
[2021-02-20] MEDS: ENALAPRIL MALEATE 10 MG TAB PO SCH (09:01)
[2021-02-20] MEDS: TOPIRAMATE 50 MG TAB PO SCH (09:02)
[2021-02-20] MEDS: INSULIN ASPART 100 UNITS/ML 3 ML PEN SC SCH ×4 (09:02→21:04)
[2021-02-20] MEDS: TRIAMTERENE/HCTZ 37.5/25MG CAP PO SCH (09:02)
[2021-02-20] MEDS ORDERED: INSULIN GLARGINE SOLOSTAR 100 UNITS/ML 3 ML PEN SC SCH (10:15)
--- NOTE | 2021-02-20 10:36 | Orthopedic Progress Note ---
Date of Service February 20, 2021 Assessment & Plan (1) History of amputation of great toe: Overall he seems to be improving on the IV broad-spectrum antibiotics. After his initial great toe amputation in November, he was sent home on oral Keflex. Unfortunately the infection never subsided. He then went on to a partial first ray amputation 8 days ago. Postoperatively he was once again sent home with Keflex. Unfortunately the cellulitis and the redness continued to worsen. He seems to be doing better on the broad-spectrum IV antibiotics. His hemoglobin A1c is 6.6 but he has a blood sugar of 244. His albumin level is within normal limits. He has good vascular flow and should be able to heal this wound. I do recommend at least 6 weeks of IV antibiotics to really help get this to heal. If this does not heal, he is in danger of losing his entire foot. He can be weightbearing as tolerated in the hard sole shoe for now. Latasha Sánchez was seen and examined at bedside this morning. Overall his foot is improving. He has been on ceftriaxone and daptomycin. The IV broad-spectrum antibiotics seem to be helping. He is not having any pain. He has no complaints. Review of Systems All systems reviewed & are unremarkable except as noted in HPI & below. Physical Exam On physical examination of the left foot, the incision is closed. There is some redness around the area. He said that that is less than it was when he was admitted. There is a small area close to the second toe that I am watching carefully. I really want to give this a chance to heal Constitutional WD/WN, vitals as above Eyes PERRL, conjunctivae normal, anicteric sclerae ENMT external ear and nose normal, oropharynx normal Neck trachea midline, no thyromegaly Respiratory normal respiratory effort Cardiovascular RRR, no murmur, no edema Gastrointestinal (Abdomen) normal bowel sounds, soft, nontender, no hepatosplenomegaly Psychiatric A+Ox3, euthymic affect Results & Data Results & Data Laboratory Results . Diagnostic Findings . PG Care Time/CCT Total # of Minutes Spent Total Time Spent with Patient: Total time spent is greater than 50% in coordination of care (as documented) at patient's floor/unit and/or counseling patient: Coding Level of Care Code 61057 Post Operative Follow-Up Diagnoses History of amputation of great toe Z89.419
--- NOTE | 2021-02-20 15:25 | Hospitalist Progress Note ---
Date of Service February 20, 2021 Assessment & Plan (1) Osteomyelitis: (2) Cellulitis: (3) Status post amputation of left great toe: Plan: -Patient presented from home with reports of worsening redness to left foot, s/p left great toe and partial ray amputation on 02/[address] Petty for osteomyelitis -Operative cultures grew MSSA and patient was discharged on Keflex per ID recommendations -Left foot x-ray from 02/19 concerning for possible osteomyelitis -Received IV Dapto and cefepime - transition to IV ceftriaxone on 02/21 -Orthopedics recommending 6 weeks of IV antibiotics, no surgical intervention at this time -ID consult reviewed. Recommending additional imaging, CTA ordered (unable to do MRI due to pacemaker). Also recommending IV cefazolin. Discussed with Dr. Martin that patient recently was on 2 courses of p.o. cephalexin which failed and presented with recurrent osteomyelitis/cellulitis. Would also be more beneficial for the patient to have a daily antibiotic versus multiple doses per day. De-escalate antibiotics to IV ceftriaxone daily. Will need PICC line. (4) Hypertension: Plan: -BP controlled, continue metoprolol, ramipril, triamterene/HCTZ (5) A-fib: Plan: -Rate controlled on metoprolol -Anticoagulated on Pradaxa, initially placed on IV heparin due to concerns for possible surgery. Ortho not planning on surgical intervention at this time. Will discontinue IV heparin and transition back to Pradaxa. (6) CKD (chronic kidney disease) stage 3, GFR 30-59 ml/min: Plan: -Creatinine at baseline, monitor renal functions (7) Chronic systolic CHF (congestive heart failure): Plan: -EF 40% -appears euvolemic (8) DM type 2 (diabetes mellitus, type 2): Plan: -HgbA1c 6.6 02/2021 -NovoLog per protocol while hospitalized -Glucose running in the mid to high 200s. Patient declining basal insulin. sawmill tally clerk consulted. Adjust NovoLog. (9) DVT prophylaxis: Plan: -Resuming Pradaxa Admission and Anticipated Discharge Date Admission Date: February 19, 2021 Supervising Physician Co-Signing Physician Notes I have seen and examined the patient and have discussed the case with the provider above. I agree with the assessment and plan as stated. 75 yo diabetic M with post op surgical site infection and possible osteomyelitis. Agree with CTA to assess for abscess or further evidence of osteo. Site is less red today- evaluated it with Dr. Petty. There is less tension on the sutures. No fevers, chills or pain. Cont broad spectrum abx. Although ID selected cefazolin as agent of choice, family and patient have now lost piyush in first gen cephalosporins. Additionally this is a q8h medication which is difficult to adhere to for 6 weeks. Opted for ceftriaxone once daily, however, cont broad spectrum abx while awaiting results of CTA. Bahman, DO Subjective Patient seen and examined. Resting in bed. Offers no complaints. No fevers or chills. Denies chest pain or shortness of breath. No abdominal pain or nausea. Erythema improving to the foot. Physical Exam Constitutional: WD/WN, vitals as above no acute distress Respiratory: normal respiratory effort, lungs clear to auscultation Cardiovascular: Rate/Rhythm: regular rate and + irregularly irregular Vessels: normal peripheral pulses Extremities: no edema Gastrointestinal (Abdomen): Percussion/Palpation: abdomen soft; abdomen nontender Skin: no rashes, warm and dry Dressing removed from left foot -erythema to dorsal aspect improved from yesterday. Small amount of bloody drainage from incisional site over first metatarsal space. Sutures in place. Neurologic: no focal motor deficits Psychiatric: A+Ox3, euthymic affect Results & Data Results & Data ([facility]) Vital Signs (Past 12 Hours) Vital Signs Temp Pulse Resp BP Pulse Ox 02/20/21 07:30 36.6 C 62 20 133/68 97 Laboratory Results Short CBC 02/19/21 02/20/21 Range/Units 15:56 06:47 WBC 5.68 4.74 L (4.8-10.8) K/uL Hgb 13.1 L 12.8 L (14.0-18.0) g/dL Hct 38.6 L 38.5 L (42-52) % Plt Count 192 174 (130-400) K/uL BMP 02/19/21 02/20/21 15:56 06:47 Sodium 137 136 Potassium 5.0 4.5 Chloride 107 106 Carbon Dioxide 26 24 BUN 18 17 Creatinine 1.31 1.35 Glucose 179 H 251 H Calcium 9.5 9.0 (1) CKD (chronic kidney disease) stage 3, GFR 30-59 ml/min Chronic kidney disease stage 3 subtype: stage 3a (GFR 45-59) Qualified Code(s): N18.31 - Chronic kidney disease, stage 3a (2) A-fib Atrial fibrillation type: unspecified Qualified Code(s): I48.91 - Unspecified atrial fibrillation
[2021-02-20] MEDS ORDERED: OPTIRAY 320 125ml IV ONE (16:23)
[2021-02-20] MEDS ORDERED: PHARMACY GLYCEMIC MGMT CONSULT PRN (16:30)
--- NOTE | 2021-02-20 17:27 | CT Scan Report ---
CT angio foot LT wo/w con CLINICAL HISTORY: Left foot pain and swelling. Evaluate for osteomyelitis. COMPARISON STUDY: CT angiography of the left foot February 11, 2021. Left radiographs February 09, 2021. TECHNIQUE: Unenhanced and arterial phase imaging of the left foot was performed. Intravenous injectio n 113 cc Optiray 320 IV was uneventful. Sagittal and coronal reconstructed reviewed as well as shiraz l intensity projections on an independent 3-D workstation. Automated exposure control was utilized fo r the study. A dose lowering technique was utilized adhering to the principles of ALARA. FINDINGS: Extensive vascular calcification is noted. This makes evaluation of the left foot vessels d ifficult. The left posterior tibial artery and dorsalis pedis are patent. Sensitivity for detection o f stenoses within these vessels is diminished on this exam given extensive calcified plaque. Note is made of post operative findings consistent with partially amputation of the left first metatarsal. A peripherally enhancing 2.1 x 1.2 cm fluid collection within the operative bed extends to the remainin g portion of the metatarsal. A few bone fragments are noted. There is slight cortical irregularity of the remaining portion of the first metatarsal. No additional sites of bony irregularity within the l eft foot are present. There is no soft tissue gas. No acute fracture within the left foot is noted. T arsometatarsal joints are intact. IMPRESSION: 1. Status post partial amputation of the left first metatarsal. Subtle cortical irregularity of the r emaining portion of the first metatarsal. Although this may reflect postsurgical change, the findings are suspicious for osteomyelitis. 2. 2.9 x 1.2 cm peripherally enhancing fluid collection within the operative bed which extends to the underlying bone. This could a resolving hematoma however this is suspicious for an abscess. 3. Left posterior tibial artery and dorsalis pedis patent however sensitivity for detection of stenos es diminished given extensive calcified atherosclerotic plaque. ACT 112: Negative or not required by law. Electronically signed by: Loy Cassidy M.D. 02/20/2021 5:26 PM
[2021-02-20] MEDS ORDERED: DAPTOmycin 525 MG in SYRINGE 0 ML IV SCH (18:00)
[2021-02-20] MEDS: DABIGATRAN ETEXILATE 75 MG CAP PO SCH (20:56)
[2021-02-20] MEDS ORDERED: STOP ORDER [HEPARIN DRIP] ONE (21:00)
[2021-02-21] MEDS: INSULIN ASPART 100 UNITS/ML 3 ML PEN SC SCH ×6 (00:03→20:47)
[2021-02-21] MEDS ORDERED: MELATONIN 3 MG TAB PO ONE (00:07)
[2021-02-21] MEDS: MELATONIN 3 MG TAB PO PRN (00:11)
[2021-02-21] MEDS: DABIGATRAN ETEXILATE 75 MG CAP PO SCH ×2 (07:59→20:46)
[2021-02-21] MEDS: ASPIRIN 81 MG ECTAB PO SCH (08:00)
[2021-02-21] MEDS ORDERED: CEFEPIME 2,000 MG in SYRINGE 0 ML IV SCH (08:00)
[2021-02-21] MEDS: TRIAMTERENE/HCTZ 37.5/25MG CAP PO SCH (08:00)
[2021-02-21] MEDS: ENALAPRIL MALEATE 10 MG TAB PO SCH (08:00)
[2021-02-21] MEDS: TOPIRAMATE 50 MG TAB PO SCH (08:00)
[2021-02-21] MEDS: METOPROLOL SUCC 50MG EXT REL TAB PO SCH (08:01)
[2021-02-21] MEDS ORDERED: cefTRIAXone SODIUM 2,000 MG in DEXTROSE 5% 50 ML IV SCH (09:00)
[2021-02-21 09:17] LABS: Hemoglobin 14.1 g/dL (14.0-18.0); Mean Corpuscular Hemoglobin 34.1 pg (25-34); Mean Corpuscular Hgb Conc 34.4 g/dL (32-36); Mean Platelet Volume 9.6 fL (7.4-10.4); Platelet Count 187 K/uL (130-400); RDW Coefficient of Variation 13.8 % (11.5-14.5); RDW Standard Deviation 48.8 fL (36.4-46.3); Red Blood Count 4.14 M/uL (4.7-6.1); White Blood Count 6.15 K/uL (4.8-10.8)
[2021-02-21 09:29] LABS: Partial Thromboplastin Ratio 1.6; Partial Thromboplastin Time 43.3 Seconds (21.0-31.0)
--- NOTE | 2021-02-21 09:34 | Pharmacy Report ---
Pharmacy Glycemic Short Note 2 - Date of Service February 21, 2021 - Glycemic Short BSG Results (Last 24 hours): 02/20/21 02/20/21 02/20/21 12:37 17:40 21:01 POC Glucose 291 H 296 H 209 H 02/20/21 02/21/21 02/21/21 23:59 03:47 08:05 POC Glucose 113 H 110 H 155 H OUTPATIENT ANTIDIABETIC REGIMEN: * Humalog QID (max: 200 units/day) * HbA1c: 6.6% (02/11/21) ASSESSMENT: * CL is a 75 year old male admitted for worsening redness of left foot s/p amputation of left great toe * Imaging now concerning for osteomyelitis - currently on broad antibiotic regimen with daptomycin and cefepime * BSGs elevated yesterday, 244-296 mg/dL * Of note, patient refusing basal insulin despite discussion of benefits with certified diabetes educator * Pharmacy consulted given poor BSG control and patient refusal of basal insulin * Will attempt to control BSGs with 6x per day Novolog * BSGs trended downward following significant tightening of Novolog parameters PLAN FOR INPATIENT GLYCEMIC CONTROL: * Basal insulin * Hold per patient preference * Bolus insulin * NovoLog per scale ACHS or Q6hrs while NPO * Goal Range: Low 100 mg/dL - High 140 mg/dL * Correction Factor: 10 mg/dL/unit * Nutritional / Prandial insulin per carb ratio of 1 unit per 3 grams CHO consumed PLAN FOR DISCHARGE: * HbA1c is well controlled as an outpatient, reasonable to continue outpatient regimen at discharge
[2021-02-21 09:51] LABS: BUN Creatinine Ratio 15.1 (10-20); Calcium 9.3 mg/dl (8.5-10.1); Creatinine Clr Calc Pharmacy 58.4 ml/min; Potassium 4.3 mmol/L (3.5-5.1)
--- NOTE | 2021-02-21 14:09 | Hospitalist Progress Note ---
Date of Service February 21, 2021 Assessment & Plan (1) Osteomyelitis: (2) Cellulitis of left lower limb: (3) Status post amputation of left great toe: Plan: Possible Infection of Left Great Toe Amputation Site -Patient presented from home with reports of worsening redness to left foot, s/p left great toe and partial ray amputation on 02/[address] Petty for osteomyelitis -Operative cultures grew MSSA and patient was discharged on Keflex per ID re commendations -Left foot x-ray from 02/19 concerning for possible osteomyelitis. -CTA left foot concerning for possible abscess/osteomyelitis. -Received IV Dapto and cefepime - plan was to transition to IV ceftriaxone today however given CT findings, will continue Dapto and Cefepime -Orthopedics re-eval pending for today -ID consult reviewed (4) Hypertension: Plan: -BP controlled, continue metoprolol, ramipril, triamterene/HCTZ (5) A-fib: Plan: -Rate controlled on metoprolol -Anticoagulated on Pradaxa (6) CKD (chronic kidney disease) stage 3, GFR 30-59 ml/min: Plan: -Creatinine at baseline, monitor renal functions (7) Chronic systolic CHF (congestive heart failure): Plan: -EF 40% -appears euvolemic (8) DM type 2 (diabetes mellitus, type 2): Plan: -HgbA1c 6.6 02/2021 -NovoLog per protocol while hospitalized -Patient declining basal insulin. -glycemic pharmacy consulted (9) DVT prophylaxis: Plan: -Pradaxa Dispo - pending ortho re-eval today and recommendations Admission and Anticipated Discharge Date Admission Date: February 19, 2021 Supervising Physician Co-Signing Physician Notes I have seen and examined the patient and have discussed the case with the provider above. I agree with the assessment and plan as stated. 75 yo diabetic M with post op surgical site infection and possible osteomyelitis. CT findings concerning for ?abscess vs postop collection. Improved on Dapto/cefepime. Also there is evidence of bony erosions concerning for osteo. Readdress findings with ortho and ID. Again, with concern for osteo would recommend IV abx for at least 6 weeks, and no narrower than ceftriaxone. Discussed the plan with his who was very upset initially, but able to achieve more peace once things were explained clearly to her. I committed to avoiding cefazolin or Keflex, again, as the patient and family have lost piyush in this as an effective treatment at this point. [place], DO Subjective Patient seen and examined. Resting in bed. Continues to do well. Offers no complaints. Remains afebrile. No chest pain or shortness of breath. Denies abdominal pain and nausea. Review of Systems Review of Systems: ros as above. Physical Exam Constitutional: WD/WN, vitals as above Respiratory: normal respiratory effort, lungs clear to auscultation Cardiovascular: Rate/Rhythm: regular rate and + irregularly irregular Vessels: normal peripheral pulses Extremities: no edema Gastrointestinal (Abdomen): Percussion/Palpation: abdomen soft; abdomen nontender Skin: no rashes, warm and dry dressing in place to left foot Neurologic: no focal motor deficits Psychiatric: A+Ox3, euthymic affect Results & Data Results & Data ([facility]) Vital Signs (Past 12 Hours) Vital Signs Temp Pulse Resp BP Pulse Ox 02/21/21 07:20 36.4 C L 61 18 110/66 97 Laboratory Results Short CBC 02/21/21 Range/Units 08:58 WBC 6.15 (4.8-10.8) K/uL Hgb 14.1 (14.0-18.0) g/dL Hct 41.0 L (42-52) % Plt Count 187 (130-400) K/uL BMP 02/21/21 08:58 Sodium 136 Potassium 4.3 Chloride 108 H Carbon Dioxide 20 L BUN 21 H Creatinine 1.38 Glucose 171 H Calcium 9.3 Diagnostic Findings Lower Extremity CTA 02/20/21 14:27 CT angio foot LT wo/w con CLINICAL HISTORY: Left foot pain and swelling. Evaluate for osteomyelitis. COMPARISON STUDY: CT angiography of the left foot February 11, 2021. Left radiographs February 09, 2021. TECHNIQUE: Unenhanced and arterial phase imaging of the left foot was performed. Intravenous injection 113 cc Optiray 320 IV was uneventful. Sagittal and coronal reconstructed reviewed as well as maximal intensity projections on an independent 3-D workstation. Automated exposure control was utilized for the study. A dose lowering technique was utilized adhering to the principles of ALARA. FINDINGS: Extensive vascular calcification is noted. This makes evaluation of the left foot vessels difficult. The left posterior tibial artery and dorsalis pedis are patent. Sensitivity for detection of stenoses within these vessels is diminished on this exam given extensive calcified plaque. Note is made of post operative findings consistent with partially amputation of the left first metatarsal. A peripherally enhancing 2.1 x 1.2 cm fluid collection within the operative bed extends to the remaining portion of the metatarsal. A few bone fragments are noted. There is slight cortical irregularity of the remaining portion of the first metatarsal. No additional sites of bony irregularity within the left foot are present. There is no soft tissue gas. No acute fracture within the left foot is noted. Tarsometatarsal joints are intact. IMPRESSION: 1. Status post partial amputation of the left first metatarsal. Subtle cortical irregularity of the remaining portion of the first metatarsal. Although this may reflect postsurgical change, the findings are suspicious for osteomyelitis. 2. 2.9 x 1.2 cm peripherally enhancing fluid collection within the operative bed which extends to the underlying bone. This could a resolving hematoma however this is suspicious for an abscess. 3. Left posterior tibial artery and dorsalis pedis patent however sensitivity for detection of stenoses diminished given extensive calcified atherosclerotic plaque. ACT 112: Negative or not required by law. Electronically signed by: Loy Cassidy M.D. 02/20/2021 5:26 PM (1) CKD (chronic kidney disease) stage 3, GFR 30-59 ml/min Chronic kidney disease stage 3 subtype: stage 3a (GFR 45-59) Qualified Code(s): N18.31 - Chronic kidney disease, stage 3a (2) A-fib Atrial fibrillation type: unspecified Qualified Code(s): I48.91 - Unspecified atrial fibrillation
[2021-02-21] MEDS ORDERED: DAPTOmycin 525 MG in SYRINGE 0 ML IV SCH (18:00)
[2021-02-21] MEDS: CEFEPIME 2,000 MG in SYRINGE 0 ML IV SCH (20:46)
[2021-02-22] MEDS: MELATONIN 3 MG TAB PO PRN (00:04)
[2021-02-22] MEDS: INSULIN ASPART 100 UNITS/ML 3 ML PEN SC SCH ×6 (00:04→21:43)
--- NOTE | 2021-02-22 06:40 | Orthopedic Progress Note ---
Date of Service February 22, 2021 Assessment & Plan (1) Cellulitis of left lower limb: I went over the diagnosis and treatment options with Gonzalo at bedside. Before the most recent amputation, there was an area of questionable osteomyelitis at the tip of the phalanx. I did a resection all the way through the first ray. I am confident there is no more osteomyelitis in the bone at this time. He had good bleeding throughout the procedure and I am not concerned for vascular compromise. I do feel that the fluid seen on the CT scan is a hematoma and not an abscess. He does have some cellulitis around the area. This has been treated successfully on the IV antibiotics during his stay. At this point I recommend an aggressive 6 weeks course of IV antibiotics. We need to make sure that any cellulitis or potential infection is treated. Failure to treat this could result in a loss of his foot. He can be weightbearing as tolerated in a hard sole shoe. He is orthopedically stable for discharge when the antibiotics have been set up. He will follow-up with orthopedics as scheduled next week for suture removal. If you have any further questions please feel free to contact me at [phone] Subjective Gonzalo was seen and examined at bedside this morning. Overall is doing fairly well. The redness in his foot is improving. He does not have any pain. He has no complaints.. Review of Systems All systems reviewed & are unremarkable except as noted in HPI & below. Physical Exam Physical examination of his left foot, the redness is subsiding. The incision is healing nicely. I do not see any signs of ulcerations or devascularization.. Results & Data Results & Data Laboratory Results . Diagnostic Findings X-rays of the left foot were reviewed and show a partial first ray amputation. The radiologist read a questionable area of osteomyelitis, however, the amputation was just done a week ago well outside of the previous area of osteomyelitis. CT scan of the left foot was also reviewed and shows a partial first ray amputation. The radiologist also read an area of questionable osteomyelitis. However, the amputation was just done a week ago at well outside the previous area of osteomyelitis. PG Care Time/CCT Total # of Minutes Spent Total Time Spent with Patient: Total time spent is greater than 50% in coordination of care (as documented) at patient's floor/unit and/or counseling patient: Coding Level of Care Code 02188 Post Operative Follow-Up Diagnoses Cellulitis of left lower limb L03.116
[2021-02-22 07:04] LABS: Creatinine Clr Calc Pharmacy 41.8 ml/min; Est GFR (African American) 38.6 ml/min; Est GFR (Non-African American) 33.3 ml/min; Potassium 3.8 mmol/L (3.5-5.1)
[2021-02-22 07:05] LABS: Albumin Level 3.1 gm/dl (3.4-5.0); C Reactive Protein 0.39 mg/dl (0-0.29); Calcium 9.4 mg/dl (8.5-10.1)
[2021-02-22 07:07] LABS: Albumin Globulin Ratio 0.7 (0.9-2); Bilirubin,Total 0.6 mg/dl (0.2-1); Globulin 4.3 gm/dl (2.5-4.0); Total Protein 7.4 gm/dl (6.4-8.2)
[2021-02-22] MEDS: DABIGATRAN ETEXILATE 75 MG CAP PO SCH ×2 (09:43→21:41)
[2021-02-22] MEDS: TOPIRAMATE 50 MG TAB PO SCH (09:43)
[2021-02-22] MEDS: ASPIRIN 81 MG ECTAB PO SCH (09:44)
[2021-02-22] MEDS: TRIAMTERENE/HCTZ 37.5/25MG CAP PO SCH (09:44)
[2021-02-22] MEDS: METOPROLOL SUCC 50MG EXT REL TAB PO SCH (09:45)
--- NOTE | 2021-02-22 09:47 | Pharmacy Report ---
Pharmacy Glycemic Short Note 2 - Date of Service February 22, 2021 - Glycemic Short BSG Results (Last 24 hours): 02/21/21 02/21/21 02/21/21 08:58 12:01 12:01 Glucose 171 H POC Glucose 201 H 201 H 02/21/21 02/21/21 02/21/21 17:16 20:43 23:59 Glucose POC Glucose 202 H 240 H 155 H 02/22/21 02/22/21 02/22/21 04:07 05:45 08:26 Glucose 162 H POC Glucose 138 H 209 H OUTPATIENT ANTIDIABETIC REGIMEN: * Humalog QID (max: 200 units/day) * HbA1c: 6.6% (02/11/21) ASSESSMENT: 02/22: * BSGs unsurprisingly elevated yesterday given refusal of basal insulin (155, 201, 202, 240, 155 mg/dL) * Will tighten Novolog parameters further today 02/21: * CL is a 75 year old male admitted for worsening redness of left foot s/p amputation of left great toe * Imaging now concerning for osteomyelitis - currently on broad antibiotic regimen with daptomycin and cefepime * BSGs elevated yesterday, 244-296 mg/dL * Of note, patient refusing basal insulin despite discussion of benefits with elementary educator * Pharmacy consulted given poor BSG control and patient refusal of basal insulin * Will attempt to control BSGs with 6x per day Novolog * BSGs trended downward following significant tightening of Novolog parameters PLAN FOR INPATIENT GLYCEMIC CONTROL: * Basal insulin * Hold per patient refusal * Bolus insulin * NovoLog per scale ACHS or Q6hrs while NPO * Goal Range: Low 100 mg/dL - High 140 mg/dL * Correction Factor: 8 mg/dL/unit with breakfast, lunch, and dinner; 10 mg/dL/unit at HS, 0000, 0400 * Nutritional / Prandial insulin per carb ratio of 1 unit per 2 grams CHO consumed with breakfast, lunch, and dinner; 1 unit per 3 grams CHO consumed at HS, 0000, 0400 PLAN FOR DISCHARGE: * HbA1c is well controlled as an outpatient, reasonable to continue outpatient regimen at discharge
[2021-02-22] MEDS: SODIUM CHLORIDE 0.9% 1000ML 1,000 ML IV SCH ×2 (09:49→21:41)
[2021-02-22] MEDS: CEFEPIME 2,000 MG in SYRINGE 0 ML IV SCH (09:49)
[2021-02-22] MEDS ORDERED: INSULIN GLARGINE SOLOSTAR 100 UNITS/ML 3 ML PEN SC ONE (13:15)
[2021-02-22] MEDS ORDERED: INSULIN ASPART 100 UNITS/ML 3 ML PEN SC ONE (13:30)
--- NOTE | 2021-02-22 13:41 | Hospitalist Progress Note ---
Date of Service February 22, 2021 Assessment & Plan (1) Osteomyelitis: (2) Cellulitis of left lower limb: (3) Status post amputation of left great toe: Plan: Possible Infection of Left Great Toe Amputation Site -Patient presented from home with reports of worsening redness to left foot, s/p left great toe and partial ray amputation on 02/[address] Petty for osteomyelitis -Operative cultures grew MSSA and patient was discharged on Keflex per ID re commendations -Left foot x-ray from 02/19 concerning for possible osteomyelitis. CTA left foot concerning for possible abscess/osteomyelitis. -Orthopedics does not feel as though there is osteomyelitis or abscess but rather postsurgical changes and the fluid collection is a hematoma. Given recurrent cellulitic infection, patient will need long-term IV antibiotics. -Received IV Dapto and cefepime - will de-escalate to IV ceftriaxone 2 g daily starting today, monitor the patient in the hospital over the next 2 to 3 days for response -ID consult reviewed, appreciate recs. (4) Acute kidney injury superimposed on CKD: (5) CKD (chronic kidney disease) stage 3, GFR 30-59 ml/min: Plan: -Creatinine up to 1.9 today (baseline 1.3) -Hold enalapril, discontinuing daptomycin as above, IVF -Follow renal functions (6) Hypertension: Plan: -BP controlled, continue metoprolol, triamterene/HCTZ -Holding enalapril as above (7) A-fib: Plan: -Rate controlled on metoprolol -Anticoagulated on Pradaxa (8) Chronic systolic CHF (congestive heart failure): Plan: -EF 40% -appears euvolemic (9) DM type 2 (diabetes mellitus, type 2): Plan: -HgbA1c 6.6 02/2021 -NovoLog per protocol while hospitalized -Patient declining basal insulin. -glycemic pharmacy consulted (10) DVT prophylaxis: Plan: -Pradaxa Dispo -likely discharge home in the next 2 to 3 days with IV ceftriaxone to complete 6 weeks of therapy. Admission and Anticipated Discharge Date Admission Date: February 19, 2021 Supervising Physician Co-Signing Physician Notes I have seen and examined the patient and have discussed the case with the provider above. I agree with the assessment and plan as stated. 75 yo diabetic M with post op surgical site infection and possible osteomyelitis. CT findings concerning for ?abscess vs postop collection. Improved on Dapto/cefepime but ID recommending cefazolin or ceftriaxone. History of subpar treatment with Keflex. We will continue with ceftriaxone while inpatient to see how he does on this antibiotic. Patient developed SONYA over CKD today, will hold nephrotoxic's, patient is taking food, will put him on gentle hydration, monitor BMP daily. Patient will need close follow-up with ID and orthopedics upon discharge. Will need total of 6 weeks of IV antibiotics. Plan discussed with his who voiced understanding and is agreeable. Subjective Patient seen and examined. Resting in bed, offers no complaints. Ambulating to bathroom without difficulty. Remains afebrile. Physical Exam Constitutional: WD/WN, vitals as above Respiratory: normal respiratory effort, lungs clear to auscultation Cardiovascular: Rate/Rhythm: regular rate and + irregularly irregular Vessels: normal peripheral pulses Extremities: no edema Gastrointestinal (Abdomen): Percussion/Palpation: abdomen soft; abdomen nontender Skin: no rashes, warm and dry Left foot surgical wound with sutures intact, erythema has significantly improved, no drainage noted Neurologic: no focal motor deficits Psychiatric: A+Ox3, euthymic affect Results & Data Results & Data ([facility]) Vital Signs (Past 12 Hours) Vital Signs Temp Pulse Resp BP Pulse Ox 02/22/21 08:04 36.5 C 74 18 129/75 96 Laboratory Results [facility] 02/22/21 05:45 Sodium 139 Potassium 3.8 Chloride 109 H Carbon Dioxide 21 BUN 35 H D Creatinine 1.93 H D Glucose 162 H Calcium 9.4 Cardiac Enzymes 02/22/21 Range/Units 05:45 Total Creatine Kinase 46 (39-308) U/L Liver Function 02/22/21 Range/Units 05:45 Total Bilirubin 0.6 (0.2-1) mg/dl AST 21 (15-37) U/L ALT 31 (12-78) U/L Alkaline Phosphatase 74 (45-117) U/L Albumin 3.1 L (3.4-5.0) gm/dl (1) CKD (chronic kidney disease) stage 3, GFR 30-59 ml/min Chronic kidney disease stage 3 subtype: stage 3a (GFR 45-59) Qualified Code(s): N18.31 - Chronic kidney disease, stage 3a (2) A-fib Atrial fibrillation type: unspecified Qualified Code(s): I48.91 - Unspecified atrial fibrillation
[2021-02-22] MEDS ORDERED: INSULIN ASPART 100 UNITS/ML 3 ML PEN SC SCH ×2 (16:30→21:00)
[2021-02-22] MEDS ORDERED: DAPTOmycin 525 MG in SYRINGE 0 ML IV SCH (18:00)
[2021-02-22] MEDS ORDERED: cefTRIAXone SODIUM 2,000 MG in DEXTROSE 5% 50 ML IV SCH (21:00)
[2021-02-23] MEDS ORDERED: INSULIN ASPART 100 UNITS/ML 3 ML PEN SC SCH (02:00)
[2021-02-23 07:26] LABS: Hematocrit (blood only) 34.2 % (42-52); Hemoglobin 11.8 g/dL (14.0-18.0); Mean Corpuscular Hemoglobin 33.4 pg (25-34); Mean Corpuscular Hgb Conc 34.5 g/dL (32-36); Mean Corpuscular Volume 96.9 fL (80-100); Mean Platelet Volume 9.6 fL (7.4-10.4); Platelet Count 179 K/uL (130-400); RDW Coefficient of Variation 13.9 % (11.5-14.5); RDW Standard Deviation 48.8 fL (36.4-46.3); Red Blood Count 3.53 M/uL (4.7-6.1)
[2021-02-23] MEDS: ASPIRIN 81 MG ECTAB PO SCH (07:40)
[2021-02-23] MEDS: TOPIRAMATE 50 MG TAB PO SCH (07:41)
[2021-02-23] MEDS: TRIAMTERENE/HCTZ 37.5/25MG CAP PO SCH (07:41)
[2021-02-23] MEDS: METOPROLOL SUCC 50MG EXT REL TAB PO SCH (07:41)
[2021-02-23] MEDS: DABIGATRAN ETEXILATE 75 MG CAP PO SCH ×2 (07:41→20:50)
[2021-02-23 07:52] LABS: BUN Creatinine Ratio 20.4 (10-20); Calcium 8.4 mg/dl (8.5-10.1); Creatinine Clr Calc Pharmacy 61.1 ml/min; Est GFR (African American) 61.2 ml/min; Est GFR (Non-African American) 52.8 ml/min
[2021-02-23] MEDS: INSULIN ASPART 100 UNITS/ML 3 ML PEN SC SCH ×4 (09:02→20:52)
[2021-02-23] MEDS: INSULIN GLARGINE SOLOSTAR 100 UNITS/ML 3 ML PEN SC SCH (09:03)
[2021-02-23] MEDS: SODIUM CHLORIDE 0.9% 1000ML 1,000 ML IV SCH (09:03)
--- NOTE | 2021-02-23 10:42 | Hospitalist Progress Note ---
Date of Service February 23, 2021 Assessment & Plan (1) Osteomyelitis: (2) Cellulitis of left lower limb: (3) Status post amputation of left great toe: Plan: Possible Infection of Left Great Toe Amputation Site -Patient presented from home with reports of worsening redness to left foot, s/p left great toe and partial ray amputation on 02/[address] Petty for osteomyelitis -Operative cultures grew MSSA and patient was discharged on Keflex per ID re commendations -Left foot x-ray from 02/19 concerning for possible osteomyelitis. CTA left foot concerning for possible abscess/osteomyelitis. -Orthopedics does not feel as though there is osteomyelitis or abscess but rather postsurgical changes and the fluid collection is a hematoma. Given recurrent cellulitic infection, patient will need long-term IV antibiotics. -Received IV Dapto and cefepime - will de-escalate to IV ceftriaxone 2 g daily starting today, monitor the patient in the hospital for response -ID consult reviewed, appreciate recs (4) Acute kidney injury superimposed on CKD: (5) CKD (chronic kidney disease) stage 3, GFR 30-59 ml/min: Plan: -Creatinine up to 1.9 yesterday but returned to 1.3 today (baseline 1.3) -Continue to hold enalapril for now, discontinued daptomycin as above -Follow BMP (6) Hypertension: Plan: -BP controlled, continue metoprolol, triamterene/HCTZ -Holding enalapril as above (7) A-fib: Plan: -Rate controlled on metoprolol -Anticoagulated on Pradaxa (8) Chronic systolic CHF (congestive heart failure): Plan: -EF 40% -appears euvolemic (9) DM type 2 (diabetes mellitus, type 2): Plan: -HgbA1c 6.6 02/2021 -NovoLog per protocol while hospitalized -Patient declining basal insulin. -glycemic pharmacy consulted (10) DVT prophylaxis: Plan: -Pradaxa Dispo -likely discharge home tomorrow on IV ceftriaxone to complete 6 weeks of therapy. Admission and Anticipated Discharge Date Admission Date: February 19, 2021 Supervising Physician Co-Signing Physician Notes I have seen and examined the patient and have discussed the case with the provider above. I agree with the assessment and plan as stated. 75 yo diabetic M with post op surgical site infection and possible osteomyelitis. CT findings concerning for ?abscess vs postop collection. Improved on Dapto/cefepime but ID recommending cefazolin or ceftriaxone. History of subpar treatment with Keflex. We will continue with ceftriaxone while inpatient to see how he does on this antibiotic. Patient developed SONYA over CKD 02/22, resolved, DC IV fluid today, resume lisinopril tomorrow. Patient will need close follow-up with ID and orthopedics upon discharge. Will need total of 6 weeks of IV antibiotics. PICC line placed today. Plan discussed with his who voiced understanding and is agreeable. Subjective Seen and examined in 384-2. Feeling well today, eating lunch. Offers no new complaints. No fever, chills, lightheadedness, CP, SOB, N/V/D or dysuria. Review of Systems Review of Systems: At least ten systems reviewed and negative except as noted in the HPI. Physical Exam Physical Exam: Gen: WD/WN, NAD, sitting in bed eating lunch, A&Ox3 HEENT: Normocephalic, atraumatic, conjunctivae moist, sclerae anicteric, mucous membranes moist Lung: Clear to Auscultation bilaterally, no wheezes/rales/rhonchi Heart: Regular rate, regular rhythm, no murmurs, rubs, or gallops Abdomen: Soft, NT, ND +BS x 4 Extremities: L foot surgical wound with sutures intact, no drainage noted Skin: Warm, no rash Results & Data Results & Data ([facility]) Vital Signs (Past 12 Hours) Vital Signs Temp Pulse Resp BP Pulse Ox 02/23/21 07:58 36.7 C 69 18 135/72 96 Laboratory Results Short CBC 02/23/21 Range/Units 07:11 WBC 5.10 (4.8-10.8) K/uL Hgb 11.8 L (14.0-18.0) g/dL Hct 34.2 L (42-52) % Plt Count 179 (130-400) K/uL BMP 02/23/21 07:11 Sodium 139 Potassium 4.0 Chloride 112 H Carbon Dioxide 20 L BUN 27 H Creatinine 1.32 D Glucose 125 H Calcium 8.4 L Diagnostic Findings Foot X-Ray 02/19/21 15:11 XR foot LT min 3V routine CLINICAL HISTORY: Status post recent amputation. Infection. Evaluate for osteomyelitis. COMPARISON: Left first toe radiograph February 10, 2021. CT angiography of the left foot February 11, 2021. FINDINGS: Interval partial amputation of the left first digit is noted. A few bone fragments are present. There is cortical irregularity of the distal remaining portion of the left first metatarsal. No additional sites of bony irregularity are identified within the left foot. Tarsometatarsal joints are intact. There is extensive vascular calcification. IMPRESSION: Cortical irregularity of the remaining portion of the left first metatarsal status post amputation, as described above. Although this could reflect postsurgical change, the findings raise the possibility of osteomyelitis. ACT 112: Negative or not required by law. Electronically signed by: Loy Cassidy M.D. 02/19/2021 3:43 PM Lower Extremity CTA 02/20/21 14:27 CT angio foot LT wo/w con CLINICAL HISTORY: Left foot pain and swelling. Evaluate for osteomyelitis. COMPARISON STUDY: CT angiography of the left foot February 11, 2021. Left radiographs February 09, 2021. TECHNIQUE: Unenhanced and arterial phase imaging of the left foot was performed. Intravenous injection 113 cc Optiray 320 IV was uneventful. Sagittal and coronal reconstructed reviewed as well as maximal intensity projections on an independent 3-D workstation. Automated exposure control was utilized for the study. A dose lowering technique was utilized adhering to the principles of ALARA. FINDINGS: Extensive vascular calcification is noted. This makes evaluation of the left foot vessels difficult. The left posterior tibial artery and dorsalis pedis are patent. Sensitivity for detection of stenoses within these vessels is diminished on this exam given extensive calcified plaque. Note is made of post operative findings consistent with partially amputation of the left first metatarsal. A peripherally enhancing 2.1 x 1.2 cm fluid collection within the operative bed extends to the remaining portion of the metatarsal. A few bone fragments are noted. There is slight cortical irregularity of the remaining portion of the first metatarsal. No additional sites of bony irregularity within the left foot are present. There is no soft tissue gas. No acute fracture within the left foot is noted. Tarsometatarsal joints are intact. IMPRESSION: 1. Status post partial amputation of the left first metatarsal. Subtle cortical irregularity of the remaining portion of the first metatarsal. Although this may reflect postsurgical change, the findings are suspicious for osteomyelitis. 2. 2.9 x 1.2 cm peripherally enhancing fluid collection within the operative bed which extends to the underlying bone. This could a resolving hematoma however this is suspicious for an abscess. 3. Left posterior tibial artery and dorsalis pedis patent however sensitivity for detection of stenoses diminished given extensive calcified atherosclerotic plaque. ACT 112: Negative or not required by law. Electronically signed by: Loy Cassidy M.D. 02/20/2021 5:26 PM (1) CKD (chronic kidney disease) stage 3, GFR 30-59 ml/min Chronic kidney disease stage 3 subtype: stage 3a (GFR 45-59) Qualified Code(s): N18.31 - Chronic kidney disease, stage 3a (2) A-fib Atrial fibrillation type: unspecified Qualified Code(s): I48.91 - Unspecified atrial fibrillation
[2021-02-23] MEDS: cefTRIAXone SODIUM 2,000 MG in DEXTROSE 5% 50 ML IV SCH (13:04)
--- NOTE | 2021-02-23 14:58 | Orthopedic Progress Note ---
Date of Service February 23, 2021 Assessment & Plan (1) Cellulitis of left lower limb: Overall is doing much better. The cellulitis seems to be subsiding. The daptomycin has been discontinued and they are trialing him on ceftriaxone 2 g daily. He plans to get a PICC line soon and hopefully be discharged home later tomorrow. He is scheduled to follow-up with orthopedics next week for suture removal. He can be weightbearing as tolerated in the shoe. Latasha Sánchez was seen and examined at bedside this morning. Overall is doing fairly well. Is not having any pain in his foot. The antibiotics have been working. He has no new complaints.. Review of Systems All systems reviewed & are unremarkable except as noted in HPI & below. Physical Exam On physical examination of the left foot, the incision is healing. There is no drainage. There is no signs of infection at this point. The cellulitis is mostly resolved.. Results & Data Results & Data Laboratory Results . Diagnostic Findings . PG Care Time/CCT Total # of Minutes Spent Total Time Spent with Patient: Total time spent is greater than 50% in coordination of care (as documented) at patient's floor/unit and/or counseling patient: Coding Level of Care Code 27883 Post Operative Follow-Up Diagnoses Cellulitis of left lower limb L03.116
--- NOTE | 2021-02-23 15:06 | Pharmacy Report ---
Pharmacy Glycemic Short Note 2 - Date of Service February 23, 2021 - Glycemic Short BSG Results (Last 24 hours): 02/22/21 02/22/21 02/23/21 17:23 20:28 01:55 Glucose POC Glucose 140 H 160 H 125 H 02/23/21 02/23/21 02/23/21 07:11 08:13 12:13 Glucose 125 H POC Glucose 124 H 168 H OUTPATIENT ANTIDIABETIC REGIMEN: * Humalog QID (max: 200 units/day) * HbA1c: 6.6% (02/11/21) ASSESSMENT: 02/23/21: * BSGs have been quite well-controlled since starting basal insulin yesterday! * No significant changes today. 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 * Pharmacy consulted given poor BSG control and patient refusal of basal insulin * Will attempt to control BSGs with 6x per day Novolog * BSGs trended downward following significant tightening of Novolog parameters PLAN FOR INPATIENT GLYCEMIC CONTROL: * Basal insulin * Lantus 30 units SQ daily * Bolus insulin * NovoLog per scale ACHS or Q6hrs while NPO * Goal Range: Low 100 mg/dL - High 140 mg/dL * Correction Factor: 15 mg/dL/unit * Nutritional / Prandial insulin per carb ratio of 1 unit per 5 grams CHO consumed PLAN FOR DISCHARGE: * HbA1c is reasonably well-controlled as an outpatient * Patient can likely resume home regimen on discharge. If patient is willing, consider adding basal insulin (Lantus) to improve long-term glycemic control.
--- NOTE | 2021-02-23 17:42 | XRay Report ---
XR chest 1V portable HISTORY: Check PICC Line placement COMPARISON: Chest 11/06/2016. FINDINGS: No pneumothorax. No pleural effusions. The heart remains enlarged. There are poststernotomy changes and a left-sided dual-chamber pacemaker. A right PICC terminates in the SVC. There are low l rocio volumes. No evidence for pulmonary edema. No new focal lung consolidations to suggest pneumonia. IMPRESSION: The right PICC terminates in the SVC. ACT 112: Negative or not required by law. Electronically signed by: Yadiel Harrison M.D. 02/23/2021 5:41 PM
[2021-02-24 04:57] LABS: Hematocrit (blood only) 34.9 % (42-52); Hemoglobin 11.8 g/dL (14.0-18.0); Mean Corpuscular Hemoglobin 33.2 pg (25-34); Mean Corpuscular Hgb Conc 33.8 g/dL (32-36); Mean Corpuscular Volume 98.3 fL (80-100); Mean Platelet Volume 9.8 fL (7.4-10.4); Platelet Count 166 K/uL (130-400); RDW Coefficient of Variation 13.6 % (11.5-14.5); RDW Standard Deviation 48.4 fL (36.4-46.3); Red Blood Count 3.55 M/uL (4.7-6.1); White Blood Count 4.51 K/uL (4.8-10.8)
[2021-02-24] MEDS: DABIGATRAN ETEXILATE 75 MG CAP PO SCH (08:47)
[2021-02-24] MEDS: INSULIN GLARGINE SOLOSTAR 100 UNITS/ML 3 ML PEN SC SCH (08:49)
[2021-02-24] MEDS: TRIAMTERENE/HCTZ 37.5/25MG CAP PO SCH (08:50)
[2021-02-24] MEDS: METOPROLOL SUCC 50MG EXT REL TAB PO SCH (08:51)
[2021-02-24] MEDS: TOPIRAMATE 50 MG TAB PO SCH (08:51)
[2021-02-24] MEDS: ASPIRIN 81 MG ECTAB PO SCH (08:51)
[2021-02-24] MEDS: INSULIN ASPART 100 UNITS/ML 3 ML PEN SC SCH ×2 (08:55→13:04)
[2021-02-24] MEDS ORDERED: ADVANCED PROBIOTIC 1250 MG CAPSULE PO SCH (09:00)
[2021-02-24 11:15] LABS: BUN Creatinine Ratio 20.8 (10-20); Blood Urea Nitrogen 25 mg/dl (7-18); C Reactive Protein < 0.29 mg/dl (0-0.29); Calcium 8.7 mg/dl (8.5-10.1); Carbon Dioxide 23 mmol/L (21-32); Chloride 107 mmol/L (98-107); Creatinine Clr Calc Pharmacy 67.8 ml/min; Est GFR (African American) 69.3 ml/min; Est GFR (Non-African American) 59.8 ml/min; Glucose 117 mg/dl (70-99); Potassium 3.9 mmol/L (3.5-5.1); Sodium 136 mmol/L (136-145)
--- NOTE | 2021-02-24 12:37 | Discharge Summary ---
Date of Service February 24, 2021 Admission HPI Per Admitting Provider This is a 75-year-old male who has significant past medical history of T2DM, diabetic neuropathy, diabetic retinopathy, T2DM with PAD, CAD, history of CABG, atrial fibrillation on Pradaxa, cardiac pacemaker in situ, chronic systolic CHF, CKD stage III, history of left great toe amputation, and other problems with stability presents to the ED for evaluation of worsening left leg redness. Patient recently admitted to [facility] 02/10 through 02/15 for osteomyelitis of the left great toe. Patient underwent left great toe amputation and partial ray amputation. Operative cultures grew MSSA. Patient was discharged on Keflex. Patient has been being seen by home health who noted worsening redness to the operative site. Redness was outlined and has been worsening. Patient denies fevers or chills. Has had a small amount of bloody drainage from surgical incision. Reports blood sugars in good control. Denies chest pain or shortness of breath. No lightheadedness or dizziness. Denies abdominal pain, nausea, vomi ting or diarrhea. No urinary symptoms. In the ED, left foot XR shows Cortical irregularity of the remaining portion of the left first metatarsal status post amputation concerning for possible osteomyelitis. Patient is hemodynamically stable and labs are unremarkable. Patient received IV Dapto and IV cefepime. Admission Exam Per Admitting Provider Constitutional: WD/WN, vitals as above + obese Eyes: PERRL, conjunctivae normal, anicteric sclerae ENMT: external ear and nose normal, oropharynx normal Respiratory: normal respiratory effort, lungs clear to auscultation Cardiovascular: Rate/Rhythm: regular rate and + irregularly irregular Vessels: normal peripheral pulses Extremities: no edema Gastrointestinal (Abdomen): normal bowel sounds, soft, nontender, no hepatosplenomegaly Musculoskeletal: no cyanosis or clubbing, extremities motor strength 5/5 Skin: no rashes, warm and dry left great toe amputation incision site noted with sutures in place, erythema extending over the dorsal aspect of the foot, small amount of bloody drainage noted from incision site Neurologic: PERRL, EOMI, accommodation nl, no face palsy, no dysarthria Psychiatric: A+Ox3, euthymic affect Principal Diagnosis Infected great toe amputation site Discharge Exam Gen: WD/WN, NAD, sitting in bed eating lunch, A&Ox3 HEENT: Normocephalic, atraumatic, conjunctivae moist, sclerae anicteric, mucous membranes moist Lung: Clear to Auscultation bilaterally, no wheezes/rales/rhonchi Heart: Regular rate, regular rhythm, no murmurs, rubs, or gallops Abdomen: Soft, NT, ND +BS x 4 Extremities: L foot surgical wound with sutures intact, no drainage noted Skin: Warm, no rash Discharge Data Allergies Allergy/AdvReac Type Severity Reaction Status Date / Time Sulfa (Sulfonamide Allergy Intermediate DELIRIUM Verified 02/19/21 17:31 Antibiotics) sulfamethoxazole Allergy Intermediate DELIRIUM Verified 02/19/21 17:31 [From Bactrim] trimethoprim [From Bactrim] Allergy Intermediate DELIRIUM Verified 02/19/21 17:31 Consultations 02/19/21 17:25 ED Decision to Admit Stat 02/19/21 18:00 Consult Orthopedic Surgery Routine 02/19/21 22:41 Consult Infectious Diseases Routine Ordered Studies 02/20/21 14:27 CT angio foot LT wo/w con Routine Hospital Course (1) Osteomyelitis: (2) Cellulitis of left lower limb: (3) Status post amputation of left great toe: (4) Acute kidney injury superimposed on CKD: (5) CKD (chronic kidney disease) stage 3, GFR 30-59 ml/min: (6) Hypertension: (7) A-fib: (8) Chronic systolic CHF (congestive heart failure): (9) DM type 2 (diabetes mellitus, type 2): This is a 75yo M with PMH of infected L great toe amputation site, HTN, A Fib, chronic systolic HF, DM II and other problems listed below who presented for infection of left great toe amputation site. Initially operative cultures grew MSSA and patient was treated with Keflex per infectious disease recommendations but redness and edema persisted and patient returned. Left foot x-ray from 02/19 concerning for possible osteomyelitis and CTA left foot concerning for possible abscess/osteomyelitis. Orthopedic service reviewed imaging and evaluated patient and did not feel as though there is osteomyelitis or abscess but rather postsurgical changes and the fluid collection is a hematoma. Given recurrent cellulitic infection, he was discharged on a six week course of IV ceftriaxone 2mg daily to complete 6 weeks of therapy. During admission, patient had an SONYA that resolved. Creatinine back to baseline. Gonzalo is to be discharged home with services coordinating to help with IV antibiotic. Follow up with ortho arranged. No pain and hemodynamically stable at time of discharge. Total Time Total Time Spent Total Time Spent (In Minutes): 50 Discharge Plan Discharge Items Patient Disposition: Home - Home Health Services Reason For Visit: OSTEOMYELITIS Discharge Diagnosis: Infection of Left Great Toe Amputation Site Activity: As commented below Activity Comment: Weightbearing as tolerated in the shoe. Non-emergency contact: Primary Care Provider Call non-emergency contact if: you have any medication questions, your symptoms worsen and your pain is not controlled Follow-up/Referrals: Esteban Olivarez MD [Outside Practitioners] - (Date & Time 03/03/2021 3:00 PM Provider Esteban Olivarez MD Department [facility] ) Diet: Carb Consistent or DM2 and Heart Healthy Addtl Attending Provider Instructions: Gonzalo, You were admitted for infection of left great toe amputation site. Initially your operative cultures grew MSSA and you were discharged on Keflex per infectious disease recommendations. Left foot x-ray from 02/19 concerning for possible osteomyelitis. CTA left foot concerning for possible abscess/osteomyelitis. Orthopedic service does not feel as though there is osteomyelitis or abscess but rather postsurgical changes and the fluid collection is a hematoma. Given recurrent cellulitic infection, you will be discharged on a six week course of IV ceftriaxone 2mg daily to complete 6 weeks of therapy. Per orthopedic service, you can be weight bearing as tolerated in the shoe. Both PT and OT services feel you are safe for discharge home. Home health services have been coordinating to help with IV antibiotic. MEDICATION CHANGES: A picc line to complete 6 weeks of antibiotic therapy with IV ceftriaxone 2mg daily. RECOMMENDATIONS FOR FOLLOW-UP: Please follow up with Dr. Petty's orthopedics office next week for suture removal. Please follow up with Dr. Olivarez for hospital follow up on 03/03/2021 at3:00 PM. OTHER INSTRUCTIONS: Seek medical attention if you have: * temperature above 101 * chest pain or trouble breathing * abdominal pain, nausea, vomiting * diarrhea, dark stools or bloody stools * any unanswered questions or concerns Call 911 if symptoms are severe. Please take good care of yourself. Call if you have any questions or problems. You can reach a [facility] hospitalist on duty at [facility] 24 hours a day by calling [phone]. Anju Eric PA-C [facility] Hospitalist Pending Studies at Discharge: No Stand-Alone Forms: My [facility], Smoking Cessation Medications and DC Order Prescriptions: New ceftriaxone 2 gram recon soln 2 g IV DAILY 42 Days Qty: 1 RF: 0 Continued multivitamin Tablet 1 tab PO DAILY RF: 0 atorvastatin 40 mg Tablet 40 mg PO HS RF: 0 cyanocobalamin (vitamin B-12) [Vitamin B-12] 100 mcg Tablet 100 mcg PO DAILY RF: 0 metoprolol succinate 50 mg Tablet Extended Release 24 Hr 50 mg PO DAILY RF: 0 aspirin 81 mg Tablet,Delayed Release (Dr/Ec) 81 mg PO DAILY RF: 0 triamterene-hydrochlorothiazid 37.5-25 mg Capsule 1 cap PO DAILY RF: 0 nitroglycerin [Nitrostat] 0.4 mg Tablet, Sublingual 0.4 mg sublingual DIRECTED PRN (Reason: Chest Pain) RF: 0 topiramate [Topamax] 100 mg Tablet 50 mg PO DAILY RF: 0 ramipril 10 mg Capsule 10 mg PO DAILY RF: 0 cholecalciferol (vitamin D3) [Vitamin D3] 25 mcg (1,000 unit) Capsule 25 mcg PO DAILY RF: 0 insulin lispro 100 unit/mL Insulin Pen 0 unit SUBCUT QID MDD 200 UNITS/DAILY RF: 0 Pradaxa 150 mg Capsule 150 mg PO BID RF: 0 magnesium oxide 400 mg magnesium Capsule 400 mg PO DAILY RF: 0 potassium chloride 20 mEq Tablet Extended Release 20 meq PO DAILY RF: 0 Discontinued cephalexin 500 mg capsule 500 mg PO QID 14 Days Qty: 19 RF: 0 Discharge Orders: Discharge Order (Routine); Ordered 02/24/21 Ordered By: Anju Eric Admission Data Admit Date/Time: 02/19/21 17:33 Attending Provider: David Decker Admit Provider: Dahlia Ruggiero Primary Care Provider: Christ Andrews Other Providers: Henok Petty ; Dahlia Ruggiero ; Johnny Barajas ; Luisa Wadsworth ; Trevin Eric I. ; Alfred Weems II ; Niya Fiore ; Esteban Calderon ; Jonathan Martin ; [facility] Other Interventions: Discharge Summary Assessment (RN) Last Done: 02/24/21 14:20 Supervising Physician Co-Signing Physician Notes I have seen and examined the patient and have discussed the case with the provider above. I agree with the assessment and plan as stated. 75 yo diabetic M with post op surgical site infection and possible osteomyelitis. CT findings concerning for ?abscess vs postop collection. Orthopedics did not think it is abscess. Improved on Dapto/cefepime but ID recommending cefazolin or ceftriaxone. History of subpar treatment with Keflex. Patient was put on ceftriaxone for 3 days to see if he develops any fever, patient did well and stayed afebrile with no new complaints while inpatient. Patient will be discharged on ceftriaxone for total of 6 weeks. [address] line in place. Examinations as above. Patient developed SONYA over CKD while inpatient, resolved. Patient will need close follow-up with ID and orthopedics upon discharge, patient made aware. Patient to follow-up with his PCP within a week time.
[2021-02-24] MEDS: cefTRIAXone SODIUM 2,000 MG in DEXTROSE 5% 50 ML IV SCH (12:51)
== END 2021-02-24 14:50 | disposition home health service (06) | DRG 565 ==
LOC: ED 14:04 → SUATTDRO 17:33 → EDINP 17:33 → 3N 22:43
DX: Z79.4 Long term (current) use of insulin; I48.91 Unspecified atrial fibrillation; T87.44 Infection of amputation stump, left lower extremity; M86.9 Osteomyelitis, unspecified; Z88.2 Allergy status to sulfonamides; Z79.82 Long term (current) use of aspirin; Z95.0 Presence of cardiac pacemaker; E11.51 Type 2 diabetes mellitus with diabetic peripheral angiopathy without gangrene; I50.22 Chronic systolic (congestive) heart failure; L03.116 Cellulitis of left lower limb; Z98.890 Other specified postprocedural states; Z79.01 Long term (current) use of anticoagulants; E11.22 Type 2 diabetes mellitus with diabetic chronic kidney disease; N18.31 Chronic kidney disease, stage 3a; Z86.19 Personal history of other infectious and parasitic diseases; Z83.3 Family history of diabetes mellitus; Z95.1 Presence of aortocoronary bypass graft; Y92.009 Unspecified place in unspecified non-institutional (private) residence as the place of occurrence of the external cause; E11.69 Type 2 diabetes mellitus with other specified complication; N17.9 Acute kidney failure, unspecified; I25.10 Atherosclerotic heart disease of native coronary artery without angina pectoris; E11.40 Type 2 diabetes mellitus with diabetic neuropathy, unspecified; I13.0 Hypertensive heart and chronic kidney disease with heart failure and stage 1 through stage 4 chronic kidney disease, or unspecified chronic kidney disease; I70.209 Unspecified atherosclerosis of native arteries of extremities, unspecified extremity; E11.319 Type 2 diabetes mellitus with unspecified diabetic retinopathy without macular edema

== ENCOUNTER 2021-07-26 15:54 | Inpatient (IN) ==
[2021-07-26] MEDS ORDERED: VANCOMYCIN HCL 2,250 MG in SODIUM CHLORIDE 0.9% 500 ML IV ONE (16:35)
[2021-07-26] MEDS ORDERED: CEFEPIME 2,000 MG/20 ML VIAL IV STA (16:35)
[2021-07-26] MEDS ORDERED: VANCOMYCIN CONSULT ACTIVE PRN (16:35)
--- NOTE | 2021-07-26 16:42 | Emergency Department Note ---
Impression & Plan Acute osteomyelitis of toe of left foot, Diabetic ulcer of toe associated with type 2 diabetes mellitus, Status post amputation of left great toe, Cellulitis of left lower limb ED Provider Note Provider: Jomar Weiss MD DATE OF SERVICE: 07/26/2021 CHIEF COMPLAINT: Left toe infection HISTORY OF PRESENT ILLNESS: Patient is a 76-year-old gentleman history of atrial fibrillation on Pradaxa and aspirin, CKD, CAD with CABG, diabetic neuropathy and type 2 diabetes, and prior left great toe amputation last year presenting referred from the orthopedic clinic due to an infection of his left second toe. Patient and patient state over the last several days he noticed some reddening and an increasingly large wound over the PIP joints of the left second toe. Patient is diabetic neuropathy and does not feel pain or significant sensation in the foot or toe which is unchanged. Denies known trauma. Patient states maybe a trace amount of discharge but minimal in nature. Patient denies significant fevers or chills. States his right great toe had a blister after ingrown toenail removal last month but is doing fairly well. States there was a small dot on the left great second toe several months ago but just over again the last several days to week as blossomed into a more red and swollen infection. Evidently received a IM dose of ceftriaxone yesterday and started on doxycycline of which she is taken 3 doses. Patient states his diabetes has been well controlled recently. REVIEW OF SYSTEMS: A total of 10 review of systems was obtained and negative except as stated above in the HPI. PAST MEDICAL HISTORY: As noted above MEDICATIONS: Reviewed home medications, includes doxycycline and Pradaxa SOCIAL HISTORY: Lives at home with PHYSICAL EXAM: GENERAL: alert and oriented in no acute distress on stretcher Head: normocephalic and atraumatic EYES: No injection, discharge or icterus. NECK: Trachea midline. LUNGS: Airway patent. No retractions or tachypnea HEART: Regular rate and rhythm. No chest wall tenderness ABDOMEN: Soft and non-tender, without guarding or rebound. SKIN: Acyanotic, warm, dry EXTREMITIES: Patient with Band-Aid and some healing with very slight erythema around the right great toenail near the base. No purulence or significant granulated open wound noted. Patient with amputated left great toe site appears healed. The left second toe shows an approximately 6 mm granulomatous type wound around the PIP joint here with surrounding erythema of the entire second toe into the base of the second MTP area. No crepitus appreciated. No other toes noted to be inflamed or erythematous. NEUROLOGICAL: No aphasia. No facial droop or slurred speech Patient's laboratory studies and imaging reviewed. Differential includes Foreign body, fracture, dislocation, joint compromise, infection, soft tissue injury, tendon injury, vascular compromise, compartment syndrome, as well as other pathologies. IMPRESSION/MEDICAL DECISION MAKING: No trauma I doubt any fracture. Appears likely to be a recurrent diabetic foot wound on the left second great toe. History of MSSA and osteo of the left great toe which has been amputated previously. Patient does not appear systemically unwell. Basic labs, cultures, lactate, procalcitonin, inflammatory markers were sent. Given his pacemaker, CT of the left foot including the toe will be completed look for osteomyelitis changes. Started on dose of Rocephin as well as doxycycline yesterday. Will broaden at this time. Orthopedics recommended further care here. We will start on IV cefepime and vancomycin for broad coverage at this point. Blood work reassuring without significant leukocytosis only minimal ESR and CRP elevation. CT reports noted and again will need further orthopedic evaluation and likely debridement versus amputation over the next several days. Patient updated. DIAGNOSIS: Diabetic left second toe infection, LLE cellulitis, left toe osteomyelitis DISPOSITION: Hospitalist will evaluate Patient was agreeable with this plan. Past Med/Surg History Medical History A-fib CAD (coronary artery disease) Cellulitis of foot, left Chronic systolic CHF (congestive heart failure) EF 40% CKD (chronic kidney disease) stage 3, GFR 30-59 ml/min Diabetes mellitus type 2 with atherosclerosis of arteries of extremities Diabetic neuropathy Hypertension Pacemaker Surgical History History of amputation of great toe Hx of CABG Family History Mother Diabetes Social History Smoking Status: Never smoker Second Hand Exposure: No; Hx Alcohol Use: No Hx Substance Use: No Preferred Language: Austrian Communication Ability: Effective Psychotherapist Social Worker Required: No Beliefs That Will Affect Care: None marital status: Current Living Situation: Spouse Feels Safe at Home: Yes Assistive Devices: Cane Allergies Allergies Allergy/AdvReac Type Severity Reaction Status Date / Time Sulfa (Sulfonamide Allergy Intermediate DELIRIUM Verified 02/19/21 17:31 Antibiotics) sulfamethoxazole Allergy Intermediate DELIRIUM Verified 02/19/21 17:31 [From Bactrim] trimethoprim [From Bactrim] Allergy Intermediate DELIRIUM Verified 02/19/21 17:31 Home Meds Home Medications Medication Instructions Recorded Confirmed aspirin 81 mg tablet,delayed 81 mg PO DAILY 11/04/20 07/26/21 release atorvastatin 40 mg tablet 40 mg PO HS 11/04/20 07/26/21 cholecalciferol (vitamin D3) 25 25 mcg PO DAILY 11/04/20 07/26/21 mcg (1,000 unit) capsule (Vitamin D3) cyanocobalamin (vitamin B-12) 100 100 mcg PO DAILY 11/04/20 07/26/21 mcg tablet (Vitamin B-12) dabigatran etexilate 150 mg 150 mg PO BID 11/04/20 07/26/21 capsule (Pradaxa) insulin lispro 100 unit/mL 0 unit SUBCUT QID MDD 200 11/04/20 07/26/21 subcutaneous pen UNITS/DAILY magnesium oxide 400 mg PO DAILY 11/04/20 07/26/21 metoprolol succinate 50 mg 50 mg PO DAILY 11/04/20 07/26/21 tablet,extended release 24 hr multivitamin 1 tab PO DAILY 11/04/20 07/26/21 nitroglycerin 0.4 mg sublingual 0.4 mg SUBLINGUAL DIRECTED PRN 11/04/20 07/26/21 tablet (Nitrostat) potassium chloride 20 mEq 20 meq PO DAILY 11/04/20 07/26/21 tablet,extended release ramipril 10 mg capsule 10 mg PO DAILY 11/04/20 07/26/21 topiramate 100 mg tablet (Topamax) 100 mg PO DAILY 11/04/20 07/26/21 triamterene 37.5 1 cap PO DAILY 11/04/20 07/26/21 mg-hydrochlorothiazide 25 mg capsule doxycycline hyclate 100 mg capsule 100 mg PO BID 07/26/21 07/26/21 insulin glargine 100 unit/mL (3 36 unit SUBCUT BID 07/26/21 07/26/21 mL) subcutaneous pen (Lantus Solostar U-100 Insulin) Results & Data (ED) Vital Signs Vital Signs - 24 hr 07/26/21 15:54 Temperature 36.4 C L Temperature Source Temporal Artery Scan Pulse Rate 104 H Pulse Rhythm Regular Pulse Strength Normal Respiratory Rate 16 Respiratory Effort / Characteristics Non-Labored Respiratory Depth Normal Blood Pressure 130/70 Blood Pressure Mean 90 Pulse Oximetry 98 Oxygen Delivery Method Room Air Sepsis Recent Fever Within 48 Hours No Sepsis New/Unexplained Change in Mental Status No Sepsis Action Taken by Nursing No Action Required Laboratory Data Result diagrams: 07/26/21 16:54 07/26/21 16:54 Lab Results 07/26/21 07/26/21 07/26/21 Range/Units 16:54 16:54 16:54 WBC 7.04 (4.8-10.8) K/uL RBC 3.99 L (4.7-6.1) M/uL Hgb 13.6 L (14.0-18.0) g/dL Hct 38.9 L (42-52) % MCV 97.5 (80-100) fL MCH 34.1 H (25-34) pg MCHC 35.0 (32-36) g/dL RDW Std Deviation 46.7 H (36.4-46.3) fL RDW Coeff of Buddy 13.2 (11.5-14.5) % Plt Count 180 (130-400) K/uL MPV 9.8 (7.4-10.4) fL Immature Gran % (Auto) 0.1 % Neut % (Auto) 52.5 % Lymph % (Auto) 32.4 % [place] % (Auto) 12.2 % Eos % (Auto) 2.1 % Baso % (Auto) 0.7 % Neut # (Auto) 3.69 (1.4-6.5) K/uL Lymph # (Auto) 2.28 (1.2-3.4) K/uL [place] # (Auto) 0.86 H (0.11-0.59) K/uL Eos # (Auto) 0.15 (0-0.5) K/uL Baso # (Auto) 0.05 (0-0.2) K/uL Immature Gran # (Auto) 0.01 (0.00-0.02) K/uL ESR 34 H (0-20) mm/hr Sodium 138 (136-145) mmol/L Potassium 3.7 (3.5-5.1) mmol/L Chloride 105 (98-107) mmol/L Carbon Dioxide 26 (21-32) mmol/L Anion Gap 7 (3-11) BUN 26 H (6-23) mg/dl Creatinine 1.27 (0.6-1.4) mg/dl Est Cr Clr Drug Dosing 62.3 ml/min Est GFR ( Amer) 63.6 ml/min Est GFR (Non-Af Amer) 54.9 ml/min BUN/Creatinine Ratio 20.5 H (10-20) Glucose 58 L (70-99(Fasting)) mg/dl Lactate (0.4-2.0) mmol/L Calcium 9.2 (8.5-10.1) mg/dl C-Reactive Protein 0.52 H (0-0.5) mg/dl Procalcitonin (0-0.5) ng/ml SARS-CoV-2, RNA, NAAT (NEGATIVE) 07/26/21 07/26/21 07/26/21 Range/Units 16:54 16:54 17:43 WBC (4.8-10.8) K/uL RBC (4.7-6.1) M/uL Hgb (14.0-18.0) g/dL Hct (42-52) % MCV (80-100) fL MCH (25-34) pg MCHC (32-36) g/dL RDW Std Deviation (36.4-46.3) fL RDW Coeff of Buddy (11.5-14.5) % Plt Count (130-400) K/uL MPV (7.4-10.4) fL Immature Gran % (Auto) % Neut % (Auto) % Lymph % (Auto) % [place] % (Auto) % Eos % (Auto) % Baso % (Auto) % Neut # (Auto) (1.4-6.5) K/uL Lymph # (Auto) (1.2-3.4) K/uL [place] # (Auto) (0.11-0.59) K/uL Eos # (Auto) (0-0.5) K/uL Baso # (Auto) (0-0.2) K/uL Immature Gran # (Auto) (0.00-0.02) K/uL ESR (0-20) mm/hr Sodium (136-145) mmol/L Potassium (3.5-5.1) mmol/L Chloride (98-107) mmol/L Carbon Dioxide (21-32) mmol/L Anion Gap (3-11) BUN (6-23) mg/dl Creatinine (0.6-1.4) mg/dl Est Cr Clr Drug Dosing ml/min Est GFR ( Amer) ml/min Est GFR (Non-Af Amer) ml/min BUN/Creatinine Ratio (10-20) Glucose (70-99(Fasting)) mg/dl Lactate 2.0 (0.4-2.0) mmol/L Calcium (8.5-10.1) mg/dl C-Reactive Protein (0-0.5) mg/dl Procalcitonin < 0.05 (0-0.5) ng/ml SARS-CoV-2, RNA, NAAT NEGATIVE (NEGATIVE) Administered Medications Vancomycin HCl 2,250 mg/ (Sodium Chloride) 545 mls @ 200 mls/hr IV NOW ONE Stop: 07/26/21 19:18 Last Admin: 07/26/21 17:46 Dose: 200 mls/hr Documented by: [id number] Discontinued Medications Cefepime HCl (Maxipime) 2,000 mg in 20 mls @ 5 mls/min IV NOW STA; Protocol Stop: 07/26/21 16:38 Last Admin: 07/26/21 17:45 Dose: 5 mls/min Documented by: [id number] Imaging Data Radiologist's Impression: Foot CT 07/26/21 16:29 CT SCAN OF THE LEFT FOOT WITHOUT IV CONTRAST CLINICAL HISTORY: Second toe infection. COMPARISON STUDY: CT of the left foot dated 02/20/2021. Radiographs of the left foot dated 02/19/2021. TECHNIQUE: CT scan of the left foot is performed from the ankle to the base of the foot. Images are reviewed in the axial, sagittal, and coronal planes. IV contrast was not administered for this examination. A dose lowering technique was utilized adhering to the principles of ALARA. Note that interpretation is suboptimal without current plain film correlate. CT DOSE: 205.58 mGycm FINDINGS: The skeletal structures are osteopenic. No acute fracture is identi fied. There is postoperative change of first amputation through the shaft of the first metatarsal. There is soft tissue thickening and trace subcutaneous fluid overlying the resection site. Erosive change is seen in the tuft of the first distal phalanx, typical for osteomyelitis. No additional foci of bony erosion are identified. Diffuse soft tissue edema is present throughout the forefoot and second toe. There is marked atrophy of the regional musculature. Advanced atherosclerotic calcification is noted in the regional arteries. No soft tissue gas is seen. An approximately 1.1 x 1.7 x 1.2 cm fluid collection is suggested along the plantar surface of the second toe at the level of the metatarsal head. This is best seen on axial image #70 of 77. A small abscess is not excluded. IMPRESSION: 1. Diffuse soft tissue edema throughout the forefoot and second toe suggests cellulitis. Clinical correlation will be required. 2. Erosive change is noted in the tuft of the second distal phalanx. This is typical for osteomyelitis and clinical correlation will be required. 3. Postoperative change from first amputation as above. 4. A 1.7 cm fluid collection is seen along the plantar aspect of the second metatarsal head. This is suspicious for abscess. ACT 112: Negative or not required by law. Dictated: 07/26/2021 5:35 PM Transcribed: 07/26/2021 6:09 PM Bhavya [id number] [facility] Electronically signed by: Brayan Marquez M.D. 07/26/2021 6:31 PM Discharge Plan Visit Data Chief Complaint: Infection Stated Complaint: INFECTED TOE ED Provider: Jomar Weiss Prescriptions Prescriptions: No Action multivitamin Tablet 1 tab PO DAILY RF: 0 atorvastatin 40 mg Tablet 40 mg PO HS RF: 0 cyanocobalamin (vitamin B-12) [Vitamin B-12] 100 mcg Tablet 100 mcg PO DAILY RF: 0 metoprolol succinate 50 mg Tablet Extended Release 24 Hr 50 mg PO DAILY RF: 0 aspirin 81 mg Tablet,Delayed Release (Dr/Ec) 81 mg PO DAILY RF: 0 triamterene-hydrochlorothiazid 37.5-25 mg Capsule 1 cap PO DAILY RF: 0 nitroglycerin [Nitrostat] 0.4 mg Tablet, Sublingual 0.4 mg sublingual DIRECTED PRN (Reason: Chest Pain) RF: 0 topiramate [Topamax] 100 mg Tablet 100 mg PO DAILY RF: 0 ramipril 10 mg Capsule 10 mg PO DAILY RF: 0 cholecalciferol (vitamin D3) [Vitamin D3] 25 mcg (1,000 unit) Capsule 25 mcg PO DAILY RF: 0 insulin lispro 100 unit/mL Insulin Pen 0 unit SUBCUT QID MDD 200 UNITS/DAILY RF: 0 Pradaxa 150 mg Capsule 150 mg PO BID RF: 0 magnesium oxide 400 mg magnesium Capsule 400 mg PO DAILY RF: 0 potassium chloride 20 mEq Tablet Extended Release 20 meq PO DAILY RF: 0 doxycycline hyclate 100 mg capsule 100 mg PO BID RF: 0 Lantus Solostar U-100 Insulin 100 unit/mL (3 mL) insulin pen 36 unit SUBCUT BID RF: 0
--- NOTE | 2021-07-26 17:00 | History & Physical Report ---
Date of Service July 26, 2021 Assessment & Plan (1) Osteomyelitis: (2) Cellulitis: Plan: Patient is 76 y/o M with PMH DM II, diabetic neuropathy, PAD, CAD, s/p CABG, atrial fibrillation on Pradaxa, cardiac pacemaker in situ, chronic systolic CHF, CKD III, history of left great toe amputation in 2020, presented to ER with c/o left second toe erythema for several days. 07/25/21 given Rocephin x1 and doxycycline po by PCP. Seen today by Dr Petty, ortho and referred to ER. In ER afebrile, P: 104, BP: 130/70, WBC: 7, Lactate: 2.0, Procalcitonin: negative, ESR: 34, CRP: 0.[address]: 1. Diffuse soft tissue edema throughout the forefoot and second toe suggests cellulitis. Clinical correlation will be required. 2. Erosive change is noted in the tuft of the second distal phalanx. This is typical for osteomyelitis and clinical correlation will be required. 3. Postoperative change from first amputation as above. 4. A 1.7 cm fluid collection is seen along the plantar aspect of the second metatarsal head. This is suspicious for abscess. Wound culture, blood cultures pending In ER given cefepime, vancomycin Will continue cefepime, vancomycin Ortho consult Wound nurse consult CBC, BMP in am (3) DM type 2 (diabetes mellitus, type 2): Plan: A1c: 6.2 on 07/04/21 Patient uses sliding scale insulin lispro. He often does not use Lantus Novolog sliding scale Glycemic pharmacy to assist with glycemic management (4) A-fib: Plan: Rate controlled On Pradaxa Will hold Pradaxa and start IV Heparin in anticipation for surgery Continue metoprolol (5) CKD (chronic kidney disease) stage 3, GFR 30-59 ml/min: Plan: Cr: 1.27. Baseline~ 1.3 Monitor renal functions, avoid nephrotoxic agents when possible (6) Hypertension: Plan: Continue ramipril, triamterene/HCTZ (7) Chronic systolic CHF (congestive heart failure): Plan: EF: 40% on 2019 (8) CAD (coronary artery disease): Plan: S/P CABG No CP Continue aspirin, metoprolol, atorvastatin DVT Prophylaxis On IV Heparin DNR/DNI as per discussion with pt Follows with Dr Vidal for routine care Pt was seen and care coordinated with Dr Araujo. See addendum History of Present Illness Chief Complaint: left toe redness Primary Care Provider: Christ Andrews DO Patient is 76 y/o M with PMH DM II, diabetic neuropathy, PAD, CAD, s/p CABG, atrial fibrillation on Pradaxa, cardiac pacemaker in situ, chronic systolic CHF, CKD III, history of left great toe amputation in 2020, presented to ER with c/o left second toe wound. Patient reports had blister to left 2nd toe months ago. Reports area never seemed to completely heal. Past couple of days has noticed erythema to left 2nd toe and bloody discharge. He has neuropathy and chronically has decreased sensation so denies any pain. Outpatient records reviewed. Patient was seen at PCP office yesterday given dose Rocephin and started on doxycycline. Preliminary wound culture results not available. Left foot xray results: Bony erosive changes noted at distal phalanx of 2nd toe consistent with osteomyelitis. Patient seen by ortho today - Dr Petty and referred to ER. Patient denies fever/chills, diaphoresis, N/V/D/C, MAXWELL, dizziness, syncope, vision changes, neck pain, CP, SOB, orthopnea, palpitations, cough, sore throat, choking, otalgia, rhinorrhea, abdominal pain, paresthesias, weakness, extremity weakness, extremity edema, other rashes, urinary symptoms. Allergies Allergy/AdvReac Type Severity Reaction Status Date / Time Sulfa (Sulfonamide Allergy Intermediate DELIRIUM Verified 02/19/21 17:31 Antibiotics) sulfamethoxazole Allergy Intermediate DELIRIUM Verified 02/19/21 17:31 [From Bactrim] trimethoprim [From Bactrim] Allergy Intermediate DELIRIUM Verified 02/19/21 17:31 Home Medications Medication Instructions Recorded Confirmed Type aspirin 81 mg tablet,delayed 81 mg PO DAILY 11/04/20 07/26/21 History release atorvastatin 40 mg tablet 40 mg PO HS 11/04/20 07/26/21 History cholecalciferol (vitamin D3) 25 25 mcg PO DAILY 11/04/20 07/26/21 History mcg (1,000 unit) capsule (Vitamin D3) cyanocobalamin (vitamin B-12) 100 100 mcg PO DAILY 11/04/20 07/26/21 History mcg tablet (Vitamin B-12) dabigatran etexilate 150 mg 150 mg PO BID 11/04/20 07/26/21 History capsule (Pradaxa) insulin lispro 100 unit/mL 0 unit SUBCUT QID MDD 200 11/04/20 07/26/21 History subcutaneous pen UNITS/DAILY magnesium oxide 400 mg PO DAILY 11/04/20 07/26/21 History metoprolol succinate 50 mg 50 mg PO DAILY 11/04/20 07/26/21 History tablet,extended release 24 hr multivitamin 1 tab PO DAILY 11/04/20 07/26/21 History nitroglycerin 0.4 mg sublingual 0.4 mg SUBLINGUAL DIRECTED PRN 11/04/20 07/26/21 History tablet (Nitrostat) potassium chloride 20 mEq 20 meq PO DAILY 11/04/20 07/26/21 History tablet,extended release ramipril 10 mg capsule 10 mg PO DAILY 11/04/20 07/26/21 History topiramate 100 mg tablet (Topamax) 100 mg PO DAILY 11/04/20 07/26/21 History triamterene 37.5 1 cap PO DAILY 11/04/20 07/26/21 History mg-hydrochlorothiazide 25 mg capsule doxycycline hyclate 100 mg capsule 100 mg PO BID 07/26/21 07/26/21 History insulin glargine 100 unit/mL (3 36 unit SUBCUT BID 07/26/21 07/26/21 History mL) subcutaneous pen (Lantus Solostar U-100 Insulin) Past Med/Surg History Medical History A-fib CAD (coronary artery disease) Cellulitis of foot, left Chronic systolic CHF (congestive heart failure) EF 40% CKD (chronic kidney disease) stage 3, GFR 30-59 ml/min Diabetes mellitus type 2 with atherosclerosis of arteries of extremities Diabetic neuropathy Hypertension Pacemaker Surgical History History of amputation of great toe Hx of CABG Family History Mother Diabetes Social History Smoking Status: Never smoker Second Hand Exposure: No; Hx Alcohol Use: No Hx Substance Use: No Preferred Language: Gibraltarian Communication Ability: Effective Generation Engineer Required: No Beliefs That Will Affect Care: None marital status: Current Living Situation: Spouse Feels Safe at Home: Yes Assistive Devices: Cane Review of Systems Review of Systems: All systems reviewed & are unremarkable except as noted in HPI & below Physical Exam 2 Physical Exam: General: no distress, WDWN Head: normocephalic, atraumatic Eyes: PERRL, EOM's intact, conjunctiva non-injected, anicteric ENT: normal inspection external ears, nose, mucous membranes moist Neck: supple, trachea midline, non-tender Lungs: clear, no respiratory distress, no wheezing/rhonchi/rales CV: irregularly irregular, no JVD, no pretibial edema Abd: normal BS, soft, non-tender Ext: no cyanosis, no calf tenderness, LLE: +amputation left great toe. +ulcer left 2nd toe, +erythema second toe extending to MCP, distal pulses palpable Neuro: A&O x 3, no focal deficits noted, normal affect Skin: warm, dry Results & Data Results & Data ([facility]) Vital Signs (Past 12 Hours) Vital Signs Temp Pulse Resp BP Pulse Ox 07/26/21 15:54 36.4 C L 104 H 16 130/70 98 Laboratory Results Short CBC 07/26/21 Range/Units 16:54 WBC 7.04 (4.8-10.8) K/uL Hgb 13.6 L (14.0-18.0) g/dL Hct 38.9 L (42-52) % Plt Count 180 (130-400) K/uL BMP 07/26/21 16:54 Sodium 138 Potassium 3.7 Chloride 105 Carbon Dioxide 26 BUN 26 H Creatinine 1.27 Glucose 58 L Calcium 9.[address] 07/26/21 16:29 CT SCAN OF THE LEFT FOOT WITHOUT IV CONTRAST CLINICAL HISTORY: Second toe infection. COMPARISON STUDY: CT of the left foot dated 02/20/2021. Radiographs of the left foot dated 02/19/2021. TECHNIQUE: CT scan of the left foot is performed from the ankle to the base of the foot. Images are reviewed in the axial, sagittal, and coronal planes. IV contrast was not administered for this examination. A dose lowering technique was utilized adhering to the principles of ALARA. Note that interpretation is suboptimal without current plain film correlate. CT DOSE: 205.58 mGycm FINDINGS: The skeletal structures are osteopenic. No acute fracture is identified. There is postoperative change of first amputation through the shaft of the first metatarsal. There is soft tissue thickening and trace subcutaneous fluid overlying the resection site. Erosive change is seen in the tuft of the first distal phalanx, typical for osteomyelitis. No additional foci of bony erosion are identified. Diffuse soft tissue edema is present throughout the forefoot and second toe. There is marked atrophy of the regional musculature. Advanced atherosclerotic calcification is noted in the regional arteries. No soft tissue gas is seen. An approximately 1.1 x 1.7 x 1.2 cm fluid collection is suggested along the plantar surface of the second toe at the level of the metatarsal head. This is best seen on axial image #70 of 77. A small abscess is not excluded. IMPRESSION: 1. Diffuse soft tissue edema throughout the forefoot and second toe suggests cellulitis. Clinical correlation will be required. 2. Erosive change is noted in the tuft of the second distal phalanx. This is typical for osteomyelitis and clinical correlation will be required. 3. Postoperative change from first amputation as above. 4. A 1.7 cm fluid collection is seen along the plantar aspect of the second metatarsal head. This is suspicious for abscess. ACT 112: Negative or not required by law. Dictated: 07/26/2021 5:35 PM Transcribed: 07/26/2021 6:09 PM Bhavya [id number] [facility] Electronically signed by: Brayan Marquez M.D. 07/26/2021 6:31 PM Supervising Physician Co-Signing Physician Notes Attending addendum: The patient was seen and examined in the emergency room He is a 76-year-old significant medical conditions including diabetes neuropathy has been having left second toe edema and ulceration for the last several days Denies any symptoms secondary to neurologist and does not have any fever and or chills Was seen by PCP also orthopedic surgeon sent him to the emergency room for admission and possible surgery on Saturday. 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 x3 His admission labs and imaging studies reviewed Has osteomyelitis of the second distal phalanx patient is needing frequent and joint cellulitis We will hold Pradaxa and start with intravenous heparin while in the hospital Has been started on intravenous cefepime and vancomycin Agree with assessment plan as outlined above by Carly Araujo (1) CKD (chronic kidney disease) stage 3, GFR 30-59 ml/min Chronic kidney disease stage 3 subtype: stage 3a (GFR 45-59) Qualified Code(s): N18.31 - Chronic kidney disease, stage 3a (2) A-fib Atrial fibrillation type: unspecified Qualified Code(s): I48.91 - Unspecified atrial fibrillation
[2021-07-26 17:17] LABS: Basophils # (auto) 0.05 K/uL (0-0.2); Basophils % (auto) 0.7 %; Eosinophils # (auto) 0.15 K/uL (0-0.5); Eosinophils % (auto) 2.1 %; Hematocrit (blood only) 38.9 % (42-52); Hemoglobin 13.6 g/dL (14.0-18.0); Immature Granulocytes # (auto) 0.01 K/uL (0.00-0.02); Immature Granulocytes % (auto) 0.1 %; Lymphocytes # (auto) 2.28 K/uL (1.2-3.4); Lymphocytes % (auto) 32.4 %; Mean Corpuscular Hemoglobin 34.1 pg (25-34); Mean Corpuscular Volume 97.5 fL (80-100); Mean Platelet Volume 9.8 fL (7.4-10.4); Monocytes # (auto) 0.86 K/uL (0.11-0.59); Monocytes % (auto) 12.2 %; Neutrophils # (auto) 3.69 K/uL (1.4-6.5); Neutrophils % (auto) 52.5 %; Platelet Count 180 K/uL (130-400); RDW Coefficient of Variation 13.2 % (11.5-14.5); RDW Standard Deviation 46.7 fL (36.4-46.3); Red Blood Count 3.99 M/uL (4.7-6.1); White Blood Count 7.04 K/uL (4.8-10.8)
[2021-07-26 17:39] LABS: BUN Creatinine Ratio 20.5 (10-20); C Reactive Protein 0.52 mg/dl (0-0.5); Calcium 9.2 mg/dl (8.5-10.1); Creatinine Clr Calc Pharmacy 62.3 ml/min; Est GFR (African American) 63.6 ml/min; Est GFR (Non-African American) 54.9 ml/min; Potassium 3.7 mmol/L (3.5-5.1)
[2021-07-26] MEDS ORDERED: CONSULT PHARMACY STA (17:54)
--- NOTE | 2021-07-26 18:32 | CT Scan Report ---
CT SCAN OF THE LEFT FOOT WITHOUT IV CONTRAST CLINICAL HISTORY: Second toe infection. COMPARISON STUDY: CT of the left foot dated 02/20/2021. Radiographs of the left foot dated 02/19/2021 . TECHNIQUE: CT scan of the left foot is performed from the ankle to the base of the foot. Images are r eviewed in the axial, sagittal, and coronal planes. IV contrast was not administered for this examina tion. A dose lowering technique was utilized adhering to the principles of ALARA. Note that interpret ation is suboptimal without current plain film correlate. CT DOSE: 205.58 mGycm FINDINGS: The skeletal structures are osteopenic. No acute fracture is identified. There is postopera tive change of first amputation through the shaft of the first metatarsal. There is soft tissue thick ening and trace subcutaneous fluid overlying the resection site. Erosive change is seen in the tuft o f the first distal phalanx, typical for osteomyelitis. No additional foci of bony erosion are identif ied. Diffuse soft tissue edema is present throughout the forefoot and second toe. There is marked atr ophy of the regional musculature. Advanced atherosclerotic calcification is noted in the regional art eries. No soft tissue gas is seen. An approximately 1.1 x 1.7 x 1.2 cm fluid collection is suggested along the plantar surface of the second toe at the level of the metatarsal head. This is best seen on axial image #70 of 77. A small abscess is not excluded. IMPRESSION: 1. Diffuse soft tissue edema throughout the forefoot and second toe suggests cellulitis. Clinical cor relation will be required. 2. Erosive change is noted in the tuft of the second distal phalanx. This is typical for osteomyeliti s and clinical correlation will be required. 3. Postoperative change from first amputation as above. 4. A 1.7 cm fluid collection is seen along the plantar aspect of the second metatarsal head. This is suspicious for abscess. ACT 112: Negative or not required by law. Dictated: 07/26/2021 5:35 PM Transcribed: 07/26/2021 6:09 PM Bhavya [id number] [facility] Electronically signed by: Brayan Marquez M.D. 07/26/2021 6:31 PM
[2021-07-26] MEDS ORDERED: ONDANSETRON INJ 2 MG/ML 2 ML VIAL IV PRN (18:44)
[2021-07-26] MEDS ORDERED: DEXTROSE 50% 50 ML SYRINGE IV PRN (21:19)
[2021-07-26] MEDS ORDERED: PHARMACY GLYCEMIC MGMT CONSULT PRN (21:19)
[2021-07-26] MEDS ORDERED: MAGNESIUM HYDROXIDE SUSP 30 ML UDC PO PRN (21:19)
[2021-07-26] MEDS ORDERED: GLUCAGON FOR INJ 1 MG VIAL SQ PRN (21:19)
[2021-07-26] MEDS ORDERED: NITROGLYCERIN SL 0.4 MG/TAB TAB SL PRN (21:19)
[2021-07-26] MEDS ORDERED: ACETAMINOPHEN 325 MG TAB PO PRN (21:19)
[2021-07-26] MEDS ORDERED: GLUCOSE 40% GEL 15 GM TUBE PO PRN (21:19)
[2021-07-26] MEDS ORDERED: GLUCOSE 10 TABS/TUBE PO PRN (21:19)
[2021-07-26] MEDS ORDERED: POLYETHYLENE (MIRALAX) 17 GM PACK PO PRN (21:19)
[2021-07-26] MEDS ORDERED: CARBOHYDRATES FOR HYPOGLYCEMIA PO PRN (21:19)
[2021-07-26] MEDS ORDERED: Heparin IV Adult Wt-Based Standard *NO* Bolus Protocol IV SCH (21:30)
--- NOTE | 2021-07-26 22:00 | Pharmacy Report ---
Pharmacy Glycemic Short Note 2 - Date of Service July 26, 2021 - Glycemic Short BSG Results (Last 24 hours): 07/26/21 07/26/21 16:54 20:42 Glucose 58 L POC Glucose 120 H OUTPATIENT ANTIDIABETIC REGIMEN: * Lantus 36 units SC BID * Humalog ACHS SSI (max 200 units/day) * HbA1c pending ASSESSMENT: * 76 yo M admitted secondary to a diabetic foot infection. Pharmacy has been consulted to assist with inpatient glycemic management. * Patient is ordered a T2DM diet and is on Vancomycin and Cefepime for foot infection. * Will hold off on Lantus dose this evening given hypoglycemia upon admission (serum BSG 58 mg/dL). Previous admission data shows patient was well controlled on 30 units of basal once daily. * Will start Novolog sliding scale insulin based on previous admission data. Will add an overnight check for tonight only. PLAN FOR INPATIENT GLYCEMIC CONTROL: * Basal insulin * None * Bolus insulin * NovoLog per scale ACHS or Q6hrs while NPO * Goal Range: Low 110 mg/dL - High 140 mg/dL * Correction Factor: 15 mg/dL/unit * Nutritional / Prandial insulin per carb ratio of 1 unit per 5 grams CHO consumed
--- NOTE | 2021-07-26 22:03 | Pharmacy Report ---
Pharmacy Vanc AUC Short Note - Date of Service July 26, 2021 - Assessment & Plan Assessment 76 year old M receiving Vancomycin and Cefepime for treatment of diabetic foot infection (osteomyelitis w/ possible abscess) * Afebrile and without leukocytosis. * H/o L great toe amputation. * Cultures pending. Plan Vancomycin * AUC/UMESH is the preferred PK/PD target for vancomycin * AUC guided dosing is effective and associated with decreased risk of nephrotoxicity compared to traditional trough targets * Vanc 2250 mg IV x 1 loading dose followed by 750 mg IV every 12 hours * Expected to achieve steady-state AUC/UMESH of 400-600 mg/L.hr * Trough level ordered for 07/28/21 prior to 0600 dose Cefepime * Pharmacy not consulted * 2000 mg IV every 8 hours is appropriate Pharmacy will continue to follow and will adjust dose/frequency as necessary. Thank you.
[2021-07-26] MEDS: INSULIN ASPART PER UNIT SC SCH (22:41)
[2021-07-26] MEDS: ATORVASTATIN 40 MG TAB PO SCH (23:09)
[2021-07-26 23:10] LABS: Basophils # (auto) 0.03 K/uL (0-0.2); Basophils % (auto) 0.4 %; Eosinophils # (auto) 0.14 K/uL (0-0.5); Eosinophils % (auto) 2.1 %; Hematocrit (blood only) 39.6 % (42-52); Hemoglobin 13.3 g/dL (14.0-18.0); Immature Granulocytes # (auto) 0.02 K/uL (0.00-0.02); Immature Granulocytes % (auto) 0.3 %; Lymphocytes # (auto) 1.42 K/uL (1.2-3.4); Lymphocytes % (auto) 20.9 %; Mean Corpuscular Hemoglobin 33.4 pg (25-34); Mean Corpuscular Volume 99.5 fL (80-100); Mean Platelet Volume 9.8 fL (7.4-10.4); Monocytes # (auto) 0.63 K/uL (0.11-0.59); Monocytes % (auto) 9.3 %; Neutrophils # (auto) 4.55 K/uL (1.4-6.5); Platelet Count 168 K/uL (130-400); RDW Coefficient of Variation 13.2 % (11.5-14.5); Red Blood Count 3.98 M/uL (4.7-6.1); White Blood Count 6.79 K/uL (4.8-10.8)
[2021-07-26 23:26] LABS: INR 1.2 (0.9-1.1); Partial Thromboplastin Ratio 1.5; Partial Thromboplastin Time 42.5 Seconds (21.0-31.0); Prothrombin Time 12.5 Seconds (9.0-12.0)
[2021-07-26] MEDS: HEPARIN SODIUM/DEXTROSE 25,000 UNITS/500 ML BAG IV SCH (23:32)
[2021-07-26 23:39] LABS: Mean Corpuscular Hgb Conc 33.6 g/dL (32-36)
[2021-07-27] MEDS ORDERED: INSULIN ASPART PER UNIT SC SCH (02:00)
[2021-07-27] MEDS: CEFEPIME 2,000 MG in SYRINGE 0 ML IV SCH ×3 (02:14→18:20)
[2021-07-27] MEDS ORDERED: MELATONIN 3 MG TAB PO PRN (05:05)
[2021-07-27 05:48] LABS: Hematocrit (blood only) 36.6 % (42-52); Hemoglobin 12.5 g/dL (14.0-18.0); Mean Corpuscular Hemoglobin 33.6 pg (25-34); Mean Corpuscular Hgb Conc 34.2 g/dL (32-36); Mean Corpuscular Volume 98.4 fL (80-100); Mean Platelet Volume 9.8 fL (7.4-10.4); Platelet Count 153 K/uL (130-400); RDW Coefficient of Variation 13.2 % (11.5-14.5); RDW Standard Deviation 47.3 fL (36.4-46.3); Red Blood Count 3.72 M/uL (4.7-6.1); White Blood Count 6.14 K/uL (4.8-10.8)
[2021-07-27] MEDS ORDERED: VANCOMYCIN HCL 750 MG in SODIUM CHLORIDE 0.9% 250 ML IV SCH (06:00)
[2021-07-27 06:09] LABS: BUN Creatinine Ratio 21.1 (10-20); Calcium 8.8 mg/dl (8.5-10.1); Est GFR (African American) 76.5 ml/min; Potassium 4.2 mmol/L (3.5-5.1)
[2021-07-27 06:11] LABS: Partial Thromboplastin Ratio 4.7
[2021-07-27 06:17] LABS: Partial Thromboplastin Time 128.4 Seconds (21.0-31.0)
[2021-07-27 07:44] LABS: Estimated Average Glucose 120 mg/dl; Hemoglobin A1C 5.8 % (4.5-5.6)
[2021-07-27] MEDS: INSULIN ASPART PER UNIT SC SCH ×4 (08:34→21:05)
[2021-07-27] MEDS: CHOLECALCIFEROL 1,000 UNITS 25 MCG TAB PO SCH (08:36)
[2021-07-27] MEDS: ASPIRIN 81 MG ECTAB PO SCH (08:36)
[2021-07-27] MEDS: ENALAPRIL MALEATE 10 MG TAB PO SCH (08:37)
[2021-07-27] MEDS: METOPROLOL SUCC 50MG EXT REL TAB PO SCH (08:37)
[2021-07-27] MEDS: CYANOCOBALAMIN (B-12) 100 MCG TABLET PO SCH (08:37)
[2021-07-27] MEDS: MAGNESIUM OXIDE 400 MG TAB PO SCH (08:37)
[2021-07-27] MEDS: POTASSIUM CHLORIDE CRTAB 20 MEQ TABCR PO SCH (08:38)
[2021-07-27] MEDS: TOPIRAMATE 100 MG TAB PO SCH (08:38)
[2021-07-27] MEDS ORDERED: INSULIN GLARGINE SOLOSTAR 100 UNITS/ML 3 ML PEN SC SCH (09:00)
[2021-07-27] MEDS: TRIAMTERENE/HCTZ 37.5/25MG CAP PO SCH (09:10)
[2021-07-27 13:28] LABS: Partial Thromboplastin Time 81.4 Seconds (21.0-31.0)
--- NOTE | 2021-07-27 13:38 | Orthopedic Consultation ---
Date of Service July 27, 2021 Assessment & Plan (1) Acute osteomyelitis of toe of left foot: The surrounding soft tissues are already looking better since has been on the antibiotics. I think it safe to perform a second toe amputation tomorrow. He understands the risk, benefits, and alternatives to procedures like to proceed. Questions were answered at bedside. Time was spent scribed procedure and post expectations. We will keep him n.p.o. past midnight tonight. The medicine team will stop his heparin when ready. We will plan on amputating his second toe later tomorrow afternoon. History of Present Illness Reason for Consultation: Diabetic foot ulcer left second toe Requesting Physician: . Attending Physician: Emmanuel Wooten MD Gonzalo is a pleasant 76-year-old male who I did a left great toe amputation on in November 2020. Unfortunately he continued to have an infection in the stump and had a taken back for a partial first ray amputation in February 2021. He went on to heal that just fine. He was doing well. Unfortunately his shoe was rubbing on the dorsal aspect of his second toe. An ulceration formed and his second toe became infected. He came to my office and I sent directly to the emergency room. He was admitted to the medical service. He was started on cefepime and vancomycin. His foot is already looking a little bit better. Orthopedics was consulted to evaluate and treat. Allergies Allergy/AdvReac Type Severity Reaction Status Date / Time Sulfa (Sulfonamide Allergy Intermediate DELIRIUM Verified 02/19/21 17:31 Antibiotics) sulfamethoxazole Allergy Intermediate DELIRIUM Verified 02/19/21 17:31 [From Bactrim] trimethoprim [From Bactrim] Allergy Intermediate DELIRIUM Verified 02/19/21 17:31 Home Medications Medication Instructions Recorded Confirmed Type aspirin 81 mg tablet,delayed 81 mg PO DAILY 11/04/20 07/26/21 History release atorvastatin 40 mg tablet 40 mg PO HS 11/04/20 07/26/21 History cholecalciferol (vitamin D3) 25 25 mcg PO DAILY 11/04/20 07/26/21 History mcg (1,000 unit) capsule (Vitamin D3) cyanocobalamin (vitamin B-12) 100 100 mcg PO DAILY 11/04/20 07/26/21 History mcg tablet (Vitamin B-12) dabigatran etexilate 150 mg 150 mg PO BID 11/04/20 07/26/21 History capsule (Pradaxa) insulin lispro 100 unit/mL 0 unit SUBCUT QID MDD 200 11/04/20 07/26/21 History subcutaneous pen UNITS/DAILY magnesium oxide 400 mg PO DAILY 11/04/20 07/26/21 History metoprolol succinate 50 mg 50 mg PO DAILY 11/04/20 07/26/21 History tablet,extended release 24 hr multivitamin 1 tab PO DAILY 11/04/20 07/26/21 History nitroglycerin 0.4 mg sublingual 0.4 mg SUBLINGUAL DIRECTED PRN 11/04/20 07/26/21 History tablet (Nitrostat) potassium chloride 20 mEq 20 meq PO DAILY 11/04/20 07/26/21 History tablet,extended release ramipril 10 mg capsule 10 mg PO DAILY 11/04/20 07/26/21 History topiramate 100 mg tablet (Topamax) 100 mg PO DAILY 11/04/20 07/26/21 History triamterene 37.5 1 cap PO DAILY 11/04/20 07/26/21 History mg-hydrochlorothiazide 25 mg capsule doxycycline hyclate 100 mg capsule 100 mg PO BID 07/26/21 07/26/21 History insulin glargine 100 unit/mL (3 36 unit SUBCUT BID 07/26/21 07/26/21 History mL) subcutaneous pen (Lantus Solostar U-100 Insulin) Past Med/Surg History Medical History A-fib CAD (coronary artery disease) Cellulitis of foot, left Chronic systolic CHF (congestive heart failure) EF 40% CKD (chronic kidney disease) stage 3, GFR 30-59 ml/min Diabetes mellitus type 2 with atherosclerosis of arteries of extremities Diabetic neuropathy Hypertension Pacemaker Surgical History History of amputation of great toe Hx of CABG Family History Mother Diabetes Social History Smoking Status: Never smoker Second Hand Exposure: No; Do You Dip or Chew Tobacco: No; Tobacco Cessation Education Requested by Patient: No Hx Alcohol Use: Yes Alcohol type: beer Hx Substance Use: No Preferred Language: Kazakh Communication Ability: Effective Can Top Setter Required: No Beliefs That Will Affect Care: None marital status: Current Living Situation: Spouse Current Living Situation Comment: Lives with . Other Information That Helps Us Care for You: No Feels Safe at Home: Yes Assistive Devices: Cane Review of Systems All systems reviewed & are unremarkable except as noted in HPI & below. Physical Exam On physical examination of the left foot, there is a 7 mm ulceration on the dorsal aspect of the PIP joint of the left second toe. The whole second toe is red and inflamed. It is swollen. There is some purulent discharge coming out and ulceration. The remainder the foot looks better. Some of the redness is subsided from yesterday. Constitutional WD/WN, vitals as above Eyes PERRL, conjunctivae normal, anicteric sclerae ENMT external ear and nose normal, oropharynx normal Neck trachea midline, no thyromegaly Respiratory normal respiratory effort Cardiovascular RRR, no murmur, no edema Gastrointestinal (Abdomen) normal bowel sounds, soft, nontender, no hepatosplenomegaly Psychiatric A+Ox3, euthymic affect Results & Data Results & Data Laboratory Results . Diagnostic Findings CT scan of the left foot was reviewed. There are some questionable osteomyelitis at the tip of the second toe. There is some diffuse swelling and cellulitis throughout. There is possible abscess underneath the head of the second metatarsal. PG Care Time/CCT Total # of Minutes Spent Total Time Spent with Patient: Total time spent is greater than 50% in coordination of care (as documented) at patient's floor/unit and/or counseling patient: Coding Level of Care Code 36298 Inpt Consult Level 4 (57 - DECISION FOR SURGERY) Diagnoses Acute osteomyelitis of toe of left foot M86.172
[2021-07-27] MEDS ORDERED: Nursing to Pharmacy Communication SCH (14:15)
[2021-07-27] MEDS: VANCOMYCIN HCL 1,000 MG in SODIUM CHLORIDE 0.9% 250 ML IV SCH (16:04)
--- NOTE | 2021-07-27 16:09 | Hospitalist Progress Note ---
Date of Service July 27, 2021 Assessment & Plan (1) Osteomyelitis: (2) Cellulitis: Plan: Patient is a 76 yr male with H/O DM II, diabetic neuropathy, PAD, CAD, s/p CABG, atrial fibrillation on Pradaxa, cardiac pacemaker in situ, chronic systolic CHF, CKD III, history of left great toe amputation in 2020, presented to ER with c/o left second toe erythema for several days. 07/25/21 given Rocephin x1 and doxycycline po by PCP. Seen today by Dr Petty, ortho and referred to ER. Acute osteomyelitis of 2nd toe of left foot --Foot CT:Diffuse soft tissue edema throughout the forefoot and second toe suggests cellulitis. Clinical correlation will be required. Erosive change is noted in the tuft of the second distal phalanx. This is typical for osteomyelitis and clinical correlation will be required. Postoperative change from first amputation as above. A 1.7 cm fluid collection is seen along the plantar aspect of the second metatarsal head. This is suspicious for abscess. --Blood culture pending --Wound culture growing gram-negative bacilli Continue cefepime, vancomycin Day #2 Appreciate orthopedics input Plan for second toe amputation tomorrow N.p.o. after midnight Continue wound Care (3) DM type 2 (diabetes mellitus, type 2): Plan: A1c: 6.2 on 07/04/21 Patient uses sliding scale insulin lispro. He often does not use Lantus Novolog sliding scale Glycemic pharmacy to assist with glycemic management (4) A-fib: Plan: Rate controlled On Pradaxa hold Pradaxa given plan for surgery Continue IV Heparin for now Continue metoprolol (5) CKD (chronic kidney disease) stage 3, GFR 30-59 ml/min: Plan: Baseline~ 1.3 Cr at baseline Monitor renal functions Avoid nephrotoxic agents when possible (6) Hypertension: Plan: Continue ramipril, triamterene/HCTZ (7) Chronic systolic CHF (congestive heart failure): Plan: EF: 40% on echo 2020 Euvolemic currently (8) CAD (coronary artery disease): Plan: S/P CABG Continue aspirin, metoprolol, atorvastatin DVT Px IV Heparin Code Status DNR/DNI Admission and Anticipated Discharge Date Admission Date: July 26, 2021 Subjective Patient is seen and examined at bedside Denies any foot pain Plan for surgery tomorrow Denies any chest pain, shortness breath, dizziness, nausea, abdominal pain Offers no other complaints Review of Systems Review of Systems: All systems reviewed & are unremarkable except as noted in Subjective Physical Exam Physical Exam: Physical Exam: Vitals signs as noted above General Appearance:Obese, no apparent distress Head: normocephalic, Atraumatic Eyes: normal inspection, EOMI Neck: supple, Trachea midline Respiratory/Chest: Decreased breath sounds, CTA, No accessory muscle use Cardiovascular: Irregularly Irregular, No murmur Abdomen/GI:Soft, Non tender, Bowel sounds present Extremities/Musculoskeletal:normal inspection, Trace edema, S/P Left great toe amputation, 2nd toe ulceration, erythematous, swollen Neurologic/Psych:AAOX3, grossly no focal neurological deficits Skin: normal color, warm Results & Data Results & Data ([facility]) Vital Signs (Past 12 Hours) Vital Signs Temp Pulse Pulse Resp BP Pulse Ox 07/27/21 15:51 36.6 C 71 18 115/60 97 07/27/21 11:10 36.9 C 64 18 104/67 96 07/27/21 07:47 36.5 C 69 18 152/76 H 97 07/27/21 06:14 67 Laboratory Results Short CBC 07/26/21 07/26/21 07/27/21 Range/Units 16:54 22:36 05:21 WBC 7.04 6.79 6.14 (4.8-10.8) K/uL Hgb 13.6 L 13.3 L 12.5 L (14.0-18.0) g/dL Hct 38.9 L 39.6 L 36.6 L (42-52) % Plt Count 180 168 153 (130-400) K/uL [facility] 07/26/21 07/27/21 16:54 05:21 Sodium 138 137 Potassium 3.7 4.2 Chloride 105 106 Carbon Dioxide 26 27 BUN 26 H 23 Creatinine 1.27 1.09 Glucose 58 L 178 H Calcium 9.2 8.8 (1) A-fib Atrial fibrillation type: unspecified Qualified Code(s): I48.91 - Unspecified atrial fibrillation (2) CKD (chronic kidney disease) stage 3, GFR 30-59 ml/min Chronic kidney disease stage 3 subtype: stage 3a (GFR 45-59) Qualified Code(s): N18.31 - Chronic kidney disease, stage 3a
--- NOTE | 2021-07-27 16:56 | Electrocardiogram Report ---
Test Reason : Blood Pressure : / mmHG Vent. Rate : 081 BPM Atrial Rate : 063 BPM P-R Int : 000 ms QRS Dur : 088 ms QT Int : 390 ms P-R-T Axes : 000 016 013 degrees QTc Int : 453 ms Poor data quality, interpretation may be adversely affected Atrial fibrillation with occasional ventricular-paced complexes Possible Inferior infarct , age undetermined Abnormal ECG When compared with ECG of 05-NOV-2020 10:04, Vent. rate has increased BY 7 BPM Confirmed by Joe Maguire ([id number]) on 07/27/2021 4:55:52 PM Referred By: REFERRED SELF Confirmed By:Adrian Maguire
[2021-07-27 20:06] LABS: Partial Thromboplastin Ratio 3.1
[2021-07-27 20:26] LABS: Partial Thromboplastin Time 85.7 Seconds (21.0-31.0)
[2021-07-27] MEDS: ATORVASTATIN 40 MG TAB PO SCH (21:06)
[2021-07-27] MEDS: HEPARIN SODIUM/DEXTROSE 25,000 UNITS/500 ML BAG IV SCH (21:45)
[2021-07-28] MEDS ORDERED: VANCOMYCIN TROUGH ONE ×3 (03:30→15:30)
[2021-07-28] MEDS: VANCOMYCIN HCL 1,000 MG in SODIUM CHLORIDE 0.9% 250 ML IV SCH ×2 (03:40→16:18)
[2021-07-28] MEDS: CEFEPIME 2,000 MG in SYRINGE 0 ML IV SCH ×3 (03:40→18:06)
[2021-07-28 04:00] LABS: Basophils # (auto) 0.03 K/uL (0-0.2); Basophils % (auto) 0.5 %; Eosinophils # (auto) 0.27 K/uL (0-0.5); Eosinophils % (auto) 4.8 %; Hematocrit (blood only) 35.5 % (42-52); Hemoglobin 12.3 g/dL (14.0-18.0); Immature Granulocytes # (auto) 0.01 K/uL (0.00-0.02); Immature Granulocytes % (auto) 0.2 %; Lymphocytes # (auto) 1.15 K/uL (1.2-3.4); Lymphocytes % (auto) 20.3 %; Mean Corpuscular Hemoglobin 34.1 pg (25-34); Mean Corpuscular Hgb Conc 34.6 g/dL (32-36); Mean Corpuscular Volume 98.3 fL (80-100); Mean Platelet Volume 9.6 fL (7.4-10.4); Monocytes # (auto) 0.75 K/uL (0.11-0.59); Monocytes % (auto) 13.2 %; Neutrophils # (auto) 3.46 K/uL (1.4-6.5); Platelet Count 151 K/uL (130-400); RDW Coefficient of Variation 13.2 % (11.5-14.5); RDW Standard Deviation 47.6 fL (36.4-46.3); Red Blood Count 3.61 M/uL (4.7-6.1); White Blood Count 5.67 K/uL (4.8-10.8)
[2021-07-28 04:09] LABS: Partial Thromboplastin Ratio 1.3
[2021-07-28 04:30] LABS: BUN Creatinine Ratio 19.5 (10-20); Calcium 8.7 mg/dl (8.5-10.1); Creatinine Clr Calc Pharmacy 62.1 ml/min; Est GFR (Non-African American) 54.4 ml/min; Potassium 4.2 mmol/L (3.5-5.1)
[2021-07-28] MEDS: HEPARIN SODIUM/DEXTROSE 25,000 UNITS/500 ML BAG IV SCH (07:04)
[2021-07-28] MEDS ORDERED: INSULIN GLARGINE SOLOSTAR 100 UNITS/ML 3 ML PEN SC ONE (07:30)
[2021-07-28] MEDS: INSULIN ASPART PER UNIT SC SCH ×4 (07:45→20:43)
[2021-07-28] MEDS: ASPIRIN 81 MG ECTAB PO SCH (08:09)
[2021-07-28] MEDS: CHOLECALCIFEROL 1,000 UNITS 25 MCG TAB PO SCH (08:10)
[2021-07-28] MEDS: CYANOCOBALAMIN (B-12) 100 MCG TABLET PO SCH (08:10)
[2021-07-28] MEDS: ENALAPRIL MALEATE 10 MG TAB PO SCH (08:10)
[2021-07-28] MEDS: POTASSIUM CHLORIDE CRTAB 20 MEQ TABCR PO SCH (08:11)
[2021-07-28] MEDS: MAGNESIUM OXIDE 400 MG TAB PO SCH (08:11)
[2021-07-28] MEDS: TRIAMTERENE/HCTZ 37.5/25MG CAP PO SCH (08:11)
[2021-07-28] MEDS: TOPIRAMATE 100 MG TAB PO SCH (08:51)
[2021-07-28] MEDS: METOPROLOL SUCC 50MG EXT REL TAB PO SCH (08:52)
[2021-07-28 10:15] LABS: Partial Thromboplastin Ratio 1.3; Partial Thromboplastin Time 35.4 Seconds (21.0-31.0)
--- NOTE | 2021-07-28 11:23 | History & Physical Bridge Note ---
Date of Service July 28, 2021 History & Physical Bridge Note I have examined the patient, reviewed the History & Physical and in the interval since the performance of the History & Physical I have noted the following changes of clinical significance: no changes noted
--- NOTE | 2021-07-28 11:58 | Anesthesiology Consultation ---
Date of Service July 28, 2021 Assessment & Plan Chart Review Chart Review: Acceptable Risk for Surgery Consults Requested none History Surgery Operation Date: 07/28/21 13:10 Proposed Procedures p Left 2nd Toe Amputation - Henok Petty DO Height/Weight Height: 5 ft 10 in Weight: 110.767 kg Allergies Allergy/AdvReac Type Severity Reaction Status Date / Time Sulfa (Sulfonamide Allergy Intermediate DELIRIUM Verified 02/19/21 17:31 Antibiotics) sulfamethoxazole Allergy Intermediate DELIRIUM Verified 02/19/21 17:31 [From Bactrim] trimethoprim [From Bactrim] Allergy Intermediate DELIRIUM Verified 02/19/21 17:31 Medications Home Medications Medication Instructions Recorded Confirmed Last Taken aspirin 81 mg tablet,delayed 81 mg PO DAILY 11/04/20 07/26/21 07/26/21 release atorvastatin 40 mg tablet 40 mg PO HS 11/04/20 07/26/21 07/25/21 cholecalciferol (vitamin D3) 25 25 mcg PO DAILY 11/04/20 07/26/21 02/19/21 mcg (1,000 unit) capsule (Vitamin D3) cyanocobalamin (vitamin B-12) 100 100 mcg PO DAILY 11/04/20 07/26/21 02/19/21 mcg tablet (Vitamin B-12) dabigatran etexilate 150 mg 150 mg PO BID 11/04/20 07/26/21 07/26/21 capsule (Pradaxa) insulin lispro 100 unit/mL 0 unit SUBCUT QID MDD 200 11/04/20 07/26/21 07/26/21 subcutaneous pen UNITS/DAILY magnesium oxide 400 mg PO DAILY 11/04/20 07/26/21 02/19/21 metoprolol succinate 50 mg 50 mg PO DAILY 11/04/20 07/26/21 07/26/21 tablet,extended release 24 hr multivitamin 1 tab PO DAILY 11/04/20 07/26/21 02/19/21 nitroglycerin 0.4 mg sublingual 0.4 mg SUBLINGUAL DIRECTED PRN 11/04/20 07/26/21 Unknown tablet (Nitrostat) potassium chloride 20 mEq 20 meq PO DAILY 11/04/20 07/26/21 07/26/21 tablet,extended release ramipril 10 mg capsule 10 mg PO DAILY 11/04/20 07/26/21 07/26/21 topiramate 100 mg tablet (Topamax) 100 mg PO DAILY 11/04/20 07/26/21 07/26/21 triamterene 37.5 1 cap PO DAILY 11/04/20 07/26/21 07/26/21 mg-hydrochlorothiazide 25 mg capsule doxycycline hyclate 100 mg capsule 100 mg PO BID 07/26/21 07/26/21 07/26/21 insulin glargine 100 unit/mL (3 36 unit SUBCUT BID 07/26/21 07/26/21 Unknown mL) subcutaneous pen (Lantus Solostar U-100 Insulin) Active Medications Generic Name Dose Route Start Last Admin Trade Name Freq PRN Reason Stop Dose Admin Aspirin 81 mg 07/27/21 09:00 07/28/21 08:09 Aspirin 81 Mg Ectab PO 08/26/21 08:59 Not Given DAILY SHELLIE Atorvastatin Calcium 40 mg 07/26/21 21:30 07/27/21 21:06 Atorvastatin 40 Mg Tab PO 08/25/21 21:29 40 mg HS SHELLIE Administration Cyanocobalamin 100 mcg 07/27/21 09:00 07/28/21 08:10 Cyanocobalamin (B-12) 100 Mcg Tablet PO 08/26/21 08:59 Not Given DAILY SHELLIE Enalapril Maleate 40 mg 07/27/21 09:00 07/28/21 08:10 Enalapril Maleate 10 Mg Tab PO 08/26/21 08:59 Not Given DAILY SHELLIE Protocol Cefepime HCl 2,000 mg/ Syringe 20 mls @ 5 mls/min 07/27/21 02:00 07/28/21 03:40 IV 09/07/21 01:59 5 mls/min Q8H SHELLIE Administration Protocol Heparin Sodium/Dextrose 25,000 units in 500 mls @ 0 mls/hr 07/26/21 21:19 07/28/21 08:10 Heparin Sodium/Dextrose IV 08/25/21 21:18 0 units/hr .Q0M SHELLIE 0 mls/hr Titration Protocol 0 UNITS/HR Vancomycin HCl 1,000 mg/ 270 mls @ 200 mls/hr 07/27/21 16:00 07/28/21 05:05 Sodium Chloride IV 09/07/21 15:59 Infused Q12H [facility] Infusion Insulin Aspart 0 units 07/28/21 07:15 07/28/21 07:45 Insulin Aspart Per Unit SC 08/25/21 21:59 Not Given Q6 SHELLIE Protocol Magnesium Oxide 400 mg 07/27/21 09:00 07/28/21 08:11 Magnesium Oxide 400 Mg Tab PO 08/26/21 08:59 Not Given DAILY SHELLIE Melatonin 3 mg 07/27/21 05:05 07/27/21 21:04 Melatonin 3 Mg Tab PO 08/26/21 05:04 3 mg HS PRN Administration Sleep Metoprolol Succinate 50 mg 07/27/21 09:00 07/28/21 08:52 Metoprolol Succ 50mg Ext Rel Tab PO 08/26/21 08:59 50 mg DAILY SHELLIE Administration Potassium Chloride 20 meq 07/27/21 09:00 07/28/21 08:11 Potassium Chloride Crtab 20 Meq Tabcr PO 08/26/21 08:59 Not Given DAILY SHELLIE Topiramate 100 mg 07/27/21 09:00 07/28/21 08:51 Topiramate 100 Mg Tab PO 08/26/21 08:59 100 mg DAILY SHELLIE Administration Triamterene/Hydrochlorothiazide 1 cap 07/27/21 09:00 07/28/21 08:11 Triamterene/Hctz 37.5/25mg Cap PO 08/26/21 08:59 Not Given DAILY SHELLIE Vitamin D 1,000 units 07/27/21 09:00 07/28/21 08:10 Cholecalciferol 1,000 Units 25 Mcg Tab PO 08/26/21 08:59 Not Given DAILY SHELLIE NPO Date Last Intake of Fluids: 07/27/21 Time Last Intake of Fluids: 22:00 Date Last Intake of Solids: 07/27/21 Time Last Intake of Solids: 22:00 Past Medical History Medical History A-fib CAD (coronary artery disease) Cellulitis of foot, left Chronic systolic CHF (congestive heart failure) EF 40% CKD (chronic kidney disease) stage 3, GFR 30-59 ml/min Diabetes mellitus type 2 with atherosclerosis of arteries of extremities Diabetic neuropathy Hypertension Pacemaker Past Family History Family History Mother Diabetes Past Surgical History Surgical History History of amputation of great toe Hx of CABG Social History Smoking Status: Never smoker Do You Dip or Chew Tobacco: No Hx Alcohol Use: Yes Alcohol type: beer alcohol intake frequency: holidays/special occasions only Hx Substance Use: No Physical Exam Vital Signs Last Vital Signs Temp 36.7 C 07/28/21 11:01 Pulse 81 07/28/21 11:01 Resp 20 07/28/21 11:01 BP 139/77 07/28/21 11:01 Pulse Ox 99 07/28/21 11:01 Testing Laboratory Results 07/28/21 03:36 07/28/21 03:36 PT 12.5 Seconds (9.0-12.0) H 07/26/21 22:36 INR 1.2 (0.9-1.1) H 07/26/21 22:36 APTT 35.4 Seconds (21.0-31.0) H 07/28/21 09:56 Hemoglobin A1c 5.8 % (4.5-5.6) H 07/27/21 05:21 07/26/21 16:54 Gram Stain - Final Toe,Left Second Wound Culture - Final Pseudomonas aeruginosa 07/26/21 17:43 Aerobic Blood Culture - Preliminary Blood No growth in Aerobic bottle after 24 hours. Anaerobic Blood Culture - Preliminary No growth in Anaerobic bottle after 24 hours. 07/26/21 16:54 Aerobic Blood Culture - Preliminary Blood No growth in Aerobic bottle after 24 hours. Anaerobic Blood Culture - Preliminary No growth in Anaerobic bottle after 24 hours. 07/28/21 08:16 POC Glucose 147 H
[2021-07-28] MEDS ORDERED: BUPIVACAINE 0.5 % 5 MG/1 ML MPF 30ML VIAL ONE (12:00)
[2021-07-28] MEDS ORDERED: HYDROmorphone INJ 2 MG/ML SYR/VIAL IV PRN (12:00)
[2021-07-28] MEDS ORDERED: ONDANSETRON INJ 2 MG/ML 2 ML VIAL IV PRN (12:00)
[2021-07-28] MEDS ORDERED: PROMETHAZINE HCL 12.5 MG in SODIUM CHLORIDE 0.9% 50 ML IV PRN (12:00)
[2021-07-28] MEDS ORDERED: ePHEDrine sulfate 50 MG/ML AMP IV PRN (12:00)
[2021-07-28] MEDS ORDERED: ATROPINE SULFATE 0.1 MG/ML 10ML SYR IV PRN (12:00)
[2021-07-28] MEDS ORDERED: fentaNYL citrate 100 MCG/2 ML VIAL IV PRN (12:00)
[2021-07-28] MEDS ORDERED: fentaNYL citrate 100 MCG/2 ML VIAL ONE (12:53)
--- NOTE | 2021-07-28 13:53 | Pharmacy Report ---
Pharmacy Glycemic Short Note 2 - Date of Service July 28, 2021 - Glycemic Short BSG Results (Last 24 hours): 07/27/21 07/27/21 07/28/21 16:49 20:17 03:36 Glucose 124 H POC Glucose 185 H 232 H 07/28/21 08:16 Glucose POC Glucose 147 H OUTPATIENT ANTIDIABETIC REGIMEN: * Lantus 36 units SC BID * Humalog ACHS SSI (max 200 units/day) * HbA1c: 5.8% (07/27/21) ASSESSMENT: 07/28/21: * BSGs yesterday of 140, 216, 185, and 232 mg/dL, fasting BSG of 147 mg/dL this morning * Received 66 units of insulin (30 units of basal and 36 units of prandial/correctional bolus) * Patient NPO today for left second toe amputation * Gave 50% of yesterday's basal dose this morning, will utilize scale this evening postoperatively * Continues on vancomycin/cefepime for broad spectrum antibiotic coverage 07/26/21: * 76 yo M admitted secondary to a diabetic foot infection. Pharmacy has been consulted to assist with inpatient glycemic management. * Patient is ordered a T2DM diet and is on Vancomycin and Cefepime for foot infection. * Will hold off on Lantus dose this evening given hypoglycemia upon admission (serum BSG 58 mg/dL). Previous admission data shows patient was well controlled on 30 units of basal once daily. * Will start Novolog sliding scale insulin based on previous admission data. Will add an overnight check for tonight only. PLAN FOR INPATIENT GLYCEMIC CONTROL: * Basal insulin * None * Bolus insulin * NovoLog per scale ACHS or Q6hrs while NPO * Goal Range: Low 110 mg/dL - High 140 mg/dL * Correction Factor: 15 mg/dL/unit * Nutritional / Prandial insulin per carb ratio of 1 unit per 5 grams CHO consumed
--- NOTE | 2021-07-28 13:55 | Operative Report ---
PG Post Operative Report Pre & Post Diagnosis Operation Date: 07/28/21 13:10 Preoperative diagnosis: Osteomyelitis left second toe Postoperative diagnosis: Osteomyelitis left second toe I identified the patient and participated in the time-out.: Yes Procedure Operation Date: 07/28/21 13:10 Procedure: Left second toe amputation Surgeon Henok Petty DO Litigation Attorney Associate None Estimated Blood Loss 30 Findings Consistent with Post-Op Diagnosis Specimens Left second toe Complications none Disposition Disposition: Recovery Room Indications Gonzalo is a pleasant 76-year-old male who is a diabetic. He recently had a partial first ray amputation. He was doing well. The dorsal aspect of his second toe was rubbing on his shoe wear. He developed an ulceration osteomyelitis. He elected to proceed with a left second toe amputation. Description of Procedure On July 28, 2021 Gonzalo was brought down from the hospital room to the preoperative holding area. The operative extremity was identified and signed. He was already on IV antibiotics. He was taken back to operative room and laid on the table in supine position. He was given deep sedation. The left foot was then prepped and draped in sterile fashion. A timeout was done. The patient and the operative extremity was properly identified. A tennis racquet incision was made around the second toe. There was good bleeding throughout the procedure. The second toe was then disarticulated at the MTP joint. I do not see any signs of abscess. I not see any signs of gross infection. Hemostasis was changed. The toe was placed on the back table and then sent to pathology. The wound was then irrigated with normal saline solution. The wound was then closed with 3-0 nylon suture. He was then placed in a soft dressing. He was then taken to the postanesthesia care unit in stable condition. He tolerated the procedure well. I attest to the content of the Intraoperative Record and any orders documented therein. Any exceptions are noted below.
--- NOTE | 2021-07-28 14:22 | Anesthesiology Progress Note ---
Date of Service July 28, 2021 Anesthesia Post Procedure Vital Signs Vital Signs: Temp Pulse Pulse Pulse Resp BP BP 07/28/21 14:15 69 19 132/56 L 07/28/21 14:05 69 13 128/55 L 07/28/21 13:58 36.5 C 79 15 117/68 07/28/21 11:01 36.7 C 81 20 139/77 07/28/21 07:42 36.3 C L 74 16 116/66 07/28/21 06:16 77 07/28/21 03:19 36.5 C 63 18 109/64 07/27/21 22:54 36.4 C L 69 18 96/56 L 07/27/21 22:18 73 07/27/21 19:15 36.4 C L 83 20 111/70 07/27/21 15:51 36.6 C 71 18 115/60 07/27/21 14:31 83 Pulse Ox 07/28/21 14:15 100 07/28/21 14:05 100 07/28/21 13:58 99 07/28/21 11:01 99 07/28/21 07:42 96 07/28/21 06:16 07/28/21 03:19 96 07/27/21 22:54 96 07/27/21 22:18 07/27/21 19:15 96 07/27/21 15:51 97 07/27/21 14:31 Transfer of Care Handoff Completed per policy Notes Mental Status: alert / awake / arousable and participated in evaluation Patient Amnestic to Procedure: Yes Nausea / Vomiting: adequately controlled Pain: adequately controlled Airway Patency, RR, SpO2: stable & adequate BP & HR: stable & adequate Hydration State: stable & adequate Anesthetic Complications: no major complications apparent
[2021-07-28] MEDS ORDERED: HYDROmorphone INJ 0.5 MG/0.5 ML SYR IV PRN (14:28)
[2021-07-28] MEDS ORDERED: oxyCODONE HCL IR 5 MG TAB (IMMEDIATE RELEASE) PO PRN (14:28)
--- NOTE | 2021-07-28 15:44 | Hospitalist Progress Note ---
Date of Service July 28, 2021 Assessment & Plan (1) Osteomyelitis: (2) Cellulitis: Plan: Patient is a 76 yr male with H/O DM II, diabetic neuropathy, PAD, CAD, s/p CABG, atrial fibrillation on Pradaxa, cardiac pacemaker in situ, chronic systolic CHF, CKD III, history of left great toe amputation in 2020, presented to ER with c/o left second toe erythema for several days. 07/25/21 given Rocephin x1 and doxycycline po by PCP. Seen today by Dr Petty, ortho and referred to ER. Acute osteomyelitis of 2nd toe of left foot --Foot CT:Diffuse soft tissue edema throughout the forefoot and second toe suggests cellulitis. Clinical correlation will be required. Erosive change is noted in the tuft of the second distal phalanx. This is typical for osteomyelitis and clinical correlation will be required. Postoperative change from first amputation as above. A 1.7 cm fluid collection is seen along the plantar aspect of the second metatarsal head. This is suspicious for abscess. --S/P Left second toe amputation --Blood culture: No growth --Wound culture growing Pseudomonas Continue cefepime, vancomycin Day #3 Appreciate orthopedics input Continue wound Care (3) DM type 2 (diabetes mellitus, type 2): Plan: A1c: 6.2 on 07/04/21 Patient uses sliding scale insulin lispro. He often does not use Lantus Novolog sliding scale Glycemic pharmacy to assist with glycemic management (4) A-fib: Plan: Rate controlled On Pradaxa hold Pradaxa given surgery Continue IV Heparin when OK with surgery Continue metoprolol (5) CKD (chronic kidney disease) stage 3, GFR 30-59 ml/min: Plan: Baseline~ 1.3 Cr at baseline Monitor renal functions Avoid nephrotoxic agents when possible (6) Hypertension: Plan: Continue ramipril, triamterene/HCTZ (7) Chronic systolic CHF (congestive heart failure): Plan: EF: 40% on echo 2019 Euvolemic currently (8) CAD (coronary artery disease): Plan: S/P CABG Continue aspirin, metoprolol, atorvastatin DVT Px SCDs IV Heparin as able Code Status DNR/DNI Admission and Anticipated Discharge Date Admission Date: July 26, 2021 Subjective Patient is seen and examined at bedside Had Toe Amputation today Doing well postoperatively Denies any foot pain Family at bedside Denies any chest pain, shortness breath, dizziness, nausea, abdominal pain Review of Systems Review of Systems: All systems reviewed & are unremarkable except as noted in Subjective Physical Exam Physical Exam: Physical Exam: Vitals signs as noted above General Appearance:Obese, no apparent distress Head: normocephalic, Atraumatic Eyes: normal inspection, EOMI Neck: supple, Trachea midline Respiratory/Chest: Decreased breath sounds, CTA, No accessory muscle use Cardiovascular: Irregularly Irregular, No murmur Abdomen/GI:Soft, Non tender, Bowel sounds present Extremities/Musculoskeletal:normal inspection, Trace edema, S/P Left great toe amputation, 2nd toe ulceration, erythematous, swollen Neurologic/Psych:AAOX3, grossly no focal neurological deficits Skin: normal color, warm Results & Data Results & Data ([facility]) Vital Signs (Past 12 Hours) Vital Signs Temp Pulse Pulse Pulse Resp BP Pulse Ox 07/28/21 14:25 36.3 C L 65 13 127/59 L 98 07/28/21 14:15 69 19 132/56 L 100 07/28/21 14:05 69 13 128/55 L 100 07/28/21 13:58 36.5 C 79 15 117/68 99 07/28/21 11:01 36.7 C 81 20 139/77 99 07/28/21 07:42 36.3 C L 74 16 116/66 96 07/28/21 06:16 77 Laboratory Results Short CBC 07/28/21 Range/Units 03:36 WBC 5.67 (4.8-10.8) K/uL Hgb 12.3 L (14.0-18.0) g/dL Hct 35.5 L (42-52) % Plt Count 151 (130-400) K/uL BMP 07/28/21 03:36 Sodium 138 Potassium 4.2 Chloride 108 H Carbon Dioxide 23 BUN 25 H Creatinine 1.28 Glucose 124 H Calcium 8.7 (1) A-fib Atrial fibrillation type: unspecified Qualified Code(s): I48.91 - Unspecified atrial fibrillation (2) CKD (chronic kidney disease) stage 3, GFR 30-59 ml/min Chronic kidney disease stage 3 subtype: stage 3a (GFR 45-59) Qualified Code(s): N18.31 - Chronic kidney disease, stage 3a
[2021-07-28] MEDS ORDERED: NON-FORMULARY MEDICATION (Insulin Lispro 100 unit/mL Insulin Pen) SQ SCH (17:00)
[2021-07-28] MEDS ORDERED: Nursing to Pharmacy Communication SCH (17:15)
[2021-07-28] MEDS: ATORVASTATIN 40 MG TAB PO SCH (20:25)
[2021-07-28] MEDS ORDERED: INSULIN GLARGINE SOLOSTAR 100 UNITS/ML 3 ML PEN SQ SCH (21:00)
[2021-07-28] MEDS ORDERED: DOXYCYCLINE HYCLATE 100 MG CAP PO SCH (21:00)
[2021-07-28] MEDS ORDERED: INSULIN GLARGINE SOLOSTAR 100 UNITS/ML 3 ML PEN SC SCH (21:00)
[2021-07-28] MEDS ORDERED: DABIGATRAN ETEXILATE 75 MG CAP PO SCH (21:00)
[2021-07-29] MEDS: CEFEPIME 2,000 MG in SYRINGE 0 ML IV SCH ×3 (02:34→17:24)
[2021-07-29] MEDS: VANCOMYCIN HCL 750 MG in SODIUM CHLORIDE 0.9% 250 ML IV SCH ×2 (03:08→17:24)
[2021-07-29 05:52] LABS: Hematocrit (blood only) 36.8 % (42-52); Hemoglobin 12.3 g/dL (14.0-18.0); Mean Corpuscular Hemoglobin 33.3 pg (25-34); Mean Corpuscular Hgb Conc 33.4 g/dL (32-36); Mean Corpuscular Volume 99.7 fL (80-100); Mean Platelet Volume 9.8 fL (7.4-10.4); Platelet Count 146 K/uL (130-400); RDW Coefficient of Variation 13.5 % (11.5-14.5); RDW Standard Deviation 48.8 fL (36.4-46.3); Red Blood Count 3.69 M/uL (4.7-6.1); White Blood Count 6.13 K/uL (4.8-10.8)
[2021-07-29 06:04] LABS: Partial Thromboplastin Ratio 1.2; Partial Thromboplastin Time 31.8 Seconds (21.0-31.0)
[2021-07-29 06:07] LABS: BUN Creatinine Ratio 20.7 (10-20); Calcium 8.7 mg/dl (8.5-10.1); Creatinine Clr Calc Pharmacy 68.6 ml/min; Est GFR (Non-African American) 61.3 ml/min; Potassium 4.4 mmol/L (3.5-5.1)
--- NOTE | 2021-07-29 08:36 | Orthopedic Progress Note ---
Date of Service July 29, 2021 Assessment & Plan (1) Acute osteomyelitis of toe of left foot: Overall he is doing fairly well. He seems to be responding very well to these antibiotics. He is on cefepime and vancomycin. I amputated the toe and sent to pathology. Current cultures have grown out Pseudomonas. It seems very sensitive to antibiotic's. I did not see any gross infection during the surgical procedure. I was able to get good bleeding soft tissue beds throughout. This should heal fairly well. I think it is fairly important we keep him on a good course of antibiotics to make sure that no further infections return in his foot. If further infections show up, then he is risking more of a below-knee amputation. He has good blood flow to his foot and I think if we continue to stay aggressive with antibiotic treatment then we will be able to save his foot. I do not think there is any remaining osteomyelitis. Again, I do not see any gross abscess collections or gross infection during the procedure. The antibiotic regimen should be set up to ensure that no infection returns. He can be weightbearing as tolerated in a hard sole shoe. He is orthopedically stable for discharge when medically ready. He can follow-up with orthopedics in 2 weeks for suture removal. Latasha áSnchez was seen and examined at bedside this morning. Overall is doing fairly well. Is not having any pain in the right foot. He was able to get some sleep last night. He has no complaints. Review of Systems All systems reviewed & are unremarkable except as noted in HPI & below. Physical Exam On physical examination of the right foot, the dressing is clean and dry. He has some motion of his lesser 3 toes. Results & Data Results & Data Laboratory Results . Diagnostic Findings . PG Care Time/CCT Total # of Minutes Spent Total Time Spent with Patient: Total time spent is greater than 50% in coordination of care (as documented) at patient's floor/unit and/or counseling patient: Coding Level of Care Code 90259 Post Operative Follow-Up Diagnoses Acute osteomyelitis of toe of left foot M86.172
[2021-07-29] MEDS: CHOLECALCIFEROL 1,000 UNITS 25 MCG TAB PO SCH (09:02)
[2021-07-29] MEDS: MAGNESIUM OXIDE 400 MG TAB PO SCH (09:02)
[2021-07-29] MEDS: METOPROLOL SUCC 50MG EXT REL TAB PO SCH (09:02)
[2021-07-29] MEDS: ENALAPRIL MALEATE 10 MG TAB PO SCH (09:02)
[2021-07-29] MEDS: MULTIVITAMIN TAB PO SCH (09:02)
[2021-07-29] MEDS: POTASSIUM CHLORIDE CRTAB 20 MEQ TABCR PO SCH (09:02)
[2021-07-29] MEDS: TRIAMTERENE/HCTZ 37.5/25MG CAP PO SCH (09:02)
[2021-07-29] MEDS: TOPIRAMATE 100 MG TAB PO SCH (09:02)
[2021-07-29] MEDS: ASPIRIN 81 MG ECTAB PO SCH (09:02)
[2021-07-29] MEDS: CYANOCOBALAMIN (B-12) 100 MCG TABLET PO SCH (09:03)
[2021-07-29] MEDS: INSULIN GLARGINE SOLOSTAR 100 UNITS/ML 3 ML PEN SC SCH ×2 (09:03→20:47)
[2021-07-29] MEDS: INSULIN ASPART PER UNIT SC SCH ×4 (09:08→20:52)
[2021-07-29] MEDS: DABIGATRAN ETEXILATE 75 MG CAP PO SCH ×2 (10:19→20:00)
--- NOTE | 2021-07-29 16:06 | Hospitalist Progress Note ---
Date of Service July 29, 2021 Assessment & Plan (1) Osteomyelitis: (2) Cellulitis: Plan: Patient is a 76 yr male with H/O DM II, diabetic neuropathy, PAD, CAD, s/p CABG, atrial fibrillation on Pradaxa, cardiac pacemaker in situ, chronic systolic CHF, CKD III, history of left great toe amputation in 2020, presented to ER with c/o left second toe erythema for several days. 07/25/21 given Rocephin x1 and doxycycline po by PCP. Seen today by Dr Petty, ortho and referred to ER. Acute osteomyelitis of 2nd toe of left foot --Foot CT:Diffuse soft tissue edema throughout the forefoot and second toe suggests cellulitis. Clinical correlation will be required. Erosive change is noted in the tuft of the second distal phalanx. This is typical for osteomyelitis and clinical correlation will be required. Postoperative change from first amputation as above. A 1.7 cm fluid collection is seen along the plantar aspect of the second metatarsal head. This is suspicious for abscess. --S/P Left second toe amputation on 07/28/21 --Blood culture: No growth to date --Wound culture growing Pseudomonas Continue cefepime, vancomycin Day #4 Appreciate orthopedics input Continue wound Care De-escalate antibiotics as able Consulted ID for further input weightbearing as tolerated in a hard sole shoe as per Ortho Needs follow-up with orthopedics upon discharge Ok to resume Pradaxa today as per Ortho (3) DM type 2 (diabetes mellitus, type 2): Plan: A1c: 6.2 on 07/04/21 Patient uses sliding scale insulin lispro. He often does not use Lantus Novolog sliding scale Glycemic pharmacy to assist with glycemic management (4) A-fib: Plan: Rate controlled Resume Pradaxa Continue metoprolol (5) CKD (chronic kidney disease) stage 3, GFR 30-59 ml/min: Plan: Baseline~ 1.3 Cr at baseline Monitor renal functions Avoid nephrotoxic agents when possible (6) Hypertension: Plan: Continue ramipril, triamterene/HCTZ (7) Chronic systolic CHF (congestive heart failure): Plan: EF: 40% on 2019 Euvolemic currently (8) CAD (coronary artery disease): Plan: S/P CABG Continue aspirin, metoprolol, atorvastatin DVT Px Pradaxa Code Status DNR/DNI Admission and Anticipated Discharge Date Admission Date: July 26, 2021 Subjective Patient is seen and examined at bedside Offers no new complaints Denies any pain at surgical site Also denies any chest pain, shortness breath, dizziness, nausea, abdominal pain Wound culture growing Pseudomonas Review of Systems Review of Systems: All systems reviewed & are unremarkable except as noted in Subjective Physical Exam Physical Exam: Physical Exam: Vitals signs as noted above General Appearance:Obese, no apparent distress Head: normocephalic, Atraumatic Eyes: normal inspection, EOMI Neck: supple, Trachea midline Respiratory/Chest: Decreased breath sounds, CTA, No accessory muscle use Cardiovascular: Irregularly Irregular, No murmur Abdomen/GI:Soft, Non tender, Bowel sounds present Extremities/Musculoskeletal:normal inspection, Trace edema, S/P Left great and 2nd toe amputation in dressing Neurologic/Psych:AAOX3, grossly no focal neurological deficits Skin: normal color, warm Results & Data Results & Data ([facility]) Vital Signs (Past 12 Hours) Vital Signs Temp Pulse Pulse Resp BP Pulse Ox 07/29/21 11:32 36.6 C 69 16 118/74 96 07/29/21 07:27 36.8 C 71 16 131/66 97 07/29/21 05:40 66 Laboratory Results Short CBC 07/29/21 Range/Units 05:23 WBC 6.13 (4.8-10.8) K/uL Hgb 12.3 L (14.0-18.0) g/dL Hct 36.8 L (42-52) % Plt Count 146 (130-400) K/uL BMP 07/29/21 05:23 Sodium 137 Potassium 4.4 Chloride 108 H Carbon Dioxide 26 BUN 24 H Creatinine 1.16 Glucose 136 H Calcium 8.7 (1) A-fib Atrial fibrillation type: unspecified Qualified Code(s): I48.91 - Unspecified atrial fibrillation (2) CKD (chronic kidney disease) stage 3, GFR 30-59 ml/min Chronic kidney disease stage 3 subtype: stage 3a (GFR 45-59) Qualified Code(s): N18.31 - Chronic kidney disease, stage 3a
[2021-07-29] MEDS: ATORVASTATIN 40 MG TAB PO SCH (23:02)
[2021-07-30] MEDS: CEFEPIME 2,000 MG in SYRINGE 0 ML IV SCH ×3 (02:08→17:28)
[2021-07-30] MEDS: VANCOMYCIN HCL 750 MG in SODIUM CHLORIDE 0.9% 250 ML IV SCH (04:03)
[2021-07-30 05:55] LABS: Basophils # (auto) 0.05 K/uL (0-0.2); Basophils % (auto) 0.9 %; Eosinophils # (auto) 0.29 K/uL (0-0.5); Eosinophils % (auto) 5.1 %; Hematocrit (blood only) 36.9 % (42-52); Hemoglobin 12.2 g/dL (14.0-18.0); Immature Granulocytes # (auto) 0.01 K/uL (0.00-0.02); Immature Granulocytes % (auto) 0.2 %; Lymphocytes # (auto) 1.32 K/uL (1.2-3.4); Mean Corpuscular Hemoglobin 33.2 pg (25-34); Mean Corpuscular Hgb Conc 33.1 g/dL (32-36); Mean Corpuscular Volume 100.5 fL (80-100); Mean Platelet Volume 9.9 fL (7.4-10.4); Monocytes # (auto) 0.74 K/uL (0.11-0.59); Monocytes % (auto) 12.9 %; Neutrophils # (auto) 3.33 K/uL (1.4-6.5); Neutrophils % (auto) 57.9 %; Platelet Count 145 K/uL (130-400); RDW Coefficient of Variation 13.7 % (11.5-14.5); RDW Standard Deviation 50.3 fL (36.4-46.3); Red Blood Count 3.67 M/uL (4.7-6.1); White Blood Count 5.74 K/uL (4.8-10.8)
[2021-07-30 06:31] LABS: BUN Creatinine Ratio 21.7 (10-20); Calcium 8.9 mg/dl (8.5-10.1); Creatinine Clr Calc Pharmacy 66.3 ml/min; Est GFR (African American) 68.1 ml/min; Est GFR (Non-African American) 58.8 ml/min; Potassium 4.3 mmol/L (3.5-5.1)
[2021-07-30] MEDS: CHOLECALCIFEROL 1,000 UNITS 25 MCG TAB PO SCH (07:54)
[2021-07-30] MEDS: CYANOCOBALAMIN (B-12) 100 MCG TABLET PO SCH (07:54)
[2021-07-30] MEDS: ASPIRIN 81 MG ECTAB PO SCH (07:54)
[2021-07-30] MEDS: METOPROLOL SUCC 50MG EXT REL TAB PO SCH (07:55)
[2021-07-30] MEDS: DABIGATRAN ETEXILATE 75 MG CAP PO SCH ×2 (07:55→20:21)
[2021-07-30] MEDS: MAGNESIUM OXIDE 400 MG TAB PO SCH (07:55)
[2021-07-30] MEDS: ENALAPRIL MALEATE 10 MG TAB PO SCH (07:55)
[2021-07-30] MEDS: MULTIVITAMIN TAB PO SCH (07:56)
[2021-07-30] MEDS: TRIAMTERENE/HCTZ 37.5/25MG CAP PO SCH (07:56)
[2021-07-30] MEDS: POTASSIUM CHLORIDE CRTAB 20 MEQ TABCR PO SCH (07:56)
[2021-07-30] MEDS: TOPIRAMATE 100 MG TAB PO SCH (07:57)
[2021-07-30] MEDS: INSULIN GLARGINE SOLOSTAR 100 UNITS/ML 3 ML PEN SC SCH ×2 (08:03→20:48)
[2021-07-30] MEDS: INSULIN ASPART PER UNIT SC SCH ×4 (08:04→20:28)
--- NOTE | 2021-07-30 08:38 | Orthopedic Progress Note ---
Date of Service July 30, 2021 Assessment & Plan (1) Acute osteomyelitis of toe of left foot: At this point he is doing fairly well. He is on the IV antibiotics. I talked to the hospitalist personally. The goal right now will be to keep him in the hospital for another day on IV antibiotics. He will speak with infectious disease tomorrow and come up with a good regimen of outpatient antibiotics. Whether be IV or several weeks of oral. I called his and spoke to her as well. He can be weightbearing as tolerated in a hardsole shoe. The nursing staff can do daily dry dressing changes. He needs to follow-up with orthopedics in 2 weeks for suture removal. Latasha Sánchez was seen and examined at bedside this morning. Overall he is doing fairly well with his foot. He is not having any pain. He is on IV antibiotics. He is no complaints. Review of Systems All systems reviewed & are unremarkable except as noted in HPI & below. Physical Exam Physical examination of the left foot shows the incision to be healing nicely. There is no significant cellulitis. There is no necrosis of the tissue. Results & Data Results & Data Laboratory Results . Diagnostic Findings . PG Care Time/CCT Total # of Minutes Spent Total Time Spent with Patient: Total time spent is greater than 50% in coordination of care (as documented) at patient's floor/unit and/or counseling patient: Coding Level of Care Code 37458 Post Operative Follow-Up Diagnoses Acute osteomyelitis of toe of left foot M86.172
--- NOTE | 2021-07-30 13:01 | Pharmacy Report ---
Pharmacy Glycemic Short Note 2 - Date of Service July 30, 2021 - Glycemic Short BSG Results (Last 24 hours): 07/29/21 07/29/21 07/30/21 16:38 20:25 05:21 Glucose 122 H POC Glucose 187 H 185 H 07/30/21 07/30/21 07:33 11:54 Glucose POC Glucose 121 H 119 H OUTPATIENT ANTIDIABETIC REGIMEN: * Lantus 36 units SC BID * Humalog ACHS SSI (max 200 units/day) * HbA1c: 5.8% (07/27/21) ASSESSMENT: 07/30/21: * BSGs well controlled on ~59 units of insulin per day, 45 units basal * Continues on vancomycin/cefepime for broad spectrum antibiotic coverage, discharge after ID consult tomorrow to determine antibiotics and duration, etc 07/28/21: * BSGs yesterday of 140, 216, 185, and 232 mg/dL, fasting BSG of 147 mg/dL this morning * Received 66 units of insulin (30 units of basal and 36 units of prandi al/correctional bolus) * Patient NPO today for left second toe amputation * Gave 50% of yesterday's basal dose this morning, will utilize scale this evening postoperatively * Continues on vancomycin/cefepime for broad spectrum antibiotic coverage 07/26/21: * 76 yo M admitted secondary to a diabetic foot infection. Pharmacy has been consulted to assist with inpatient glycemic management. * Patient is ordered a T2DM diet and is on Vancomycin and Cefepime for foot infection. * Will hold off on Lantus dose this evening given hypoglycemia upon admission (serum BSG 58 mg/dL). Previous admission data shows patient was well controlled on 30 units of basal once daily. * Will start Novolog sliding scale insulin based on previous admission data. Will add an overnight check for tonight only. PLAN FOR INPATIENT GLYCEMIC CONTROL: * Basal insulin * 30 units SQ QAM * 0-15 units HS (0 units BSG < 120, 8 units BSG 121-180, 15 units BSG 181 or greater) * Bolus insulin * NovoLog per scale ACHS or Q6hrs while NPO * Goal Range: Low 110 mg/dL - High 140 mg/dL * Correction Factor: 15 mg/dL/unit * Nutritional / Prandial insulin per carb ratio of 1 unit per 5 grams CHO consumed
--- NOTE | 2021-07-30 14:56 | Hospitalist Progress Note ---
Date of Service July 30, 2021 Assessment & Plan (1) Osteomyelitis: (2) Cellulitis: Plan: Patient is a 76 yr male with H/O DM II, diabetic neuropathy, PAD, CAD, s/p CABG, atrial fibrillation on Pradaxa, cardiac pacemaker in situ, chronic systolic CHF, CKD III, history of left great toe amputation in 2020, presented to ER with c/o left second toe erythema for several days. 07/25/21 given Rocephin x1 and doxycycline po by PCP. Seen today by Dr Petty, ortho and referred to ER. Acute osteomyelitis of 2nd toe of left foot --Foot CT:Diffuse soft tissue edema throughout the forefoot and second toe suggests cellulitis. Clinical correlation will be required. Erosive change is noted in the tuft of the second distal phalanx. This is typical for osteomyelitis and clinical correlation will be required. Postoperative change from first amputation as above. A 1.7 cm fluid collection is seen along the plantar aspect of the second metatarsal head. This is suspicious for abscess. --S/P Left second toe amputation on 07/28/21 --Blood culture: No growth to date --Wound culture growing Pseudomonas Continue cefepime, vancomycin Day #5>>> discontinue vancomycin, continue cefepime for now Appreciate orthopedics input Continue wound Care Consulted ID for further input weightbearing as tolerated in a hard sole shoe as per Ortho Needs follow-up with orthopedics upon discharge (3) DM type 2 (diabetes mellitus, type 2): Plan: A1c: 6.2 on 07/04/21 Patient uses sliding scale insulin lispro. He often does not use Lantus Novolog sliding scale Glycemic pharmacy to assist with glycemic management (4) A-fib: Plan: Rate controlled Resume Pradaxa Continue metoprolol (5) CKD (chronic kidney disease) stage 3, GFR 30-59 ml/min: Plan: Baseline~ 1.3 Cr at baseline Monitor renal functions Avoid nephrotoxic agents when possible (6) Hypertension: Plan: Continue ramipril, triamterene/HCTZ (7) Chronic systolic CHF (congestive heart failure): Plan: EF: 40% on echo 2019 Euvolemic currently (8) CAD (coronary artery disease): Plan: S/P CABG Continue aspirin, metoprolol, atorvastatin DVT Px Pradaxa Code Status DNR/DNI Admission and Anticipated Discharge Date Admission Date: July 26, 2021 Subjective Patient is seen and examined at bedside Denies any discharge from wound Discussed with orthopedics today No new complaints Denies any chest pain, shortness breath, dizziness, nausea, abdominal pain Review of Systems Review of Systems: All systems reviewed & are unremarkable except as noted in Subjective Physical Exam Physical Exam: Physical Exam: Vitals signs as noted above General Appearance:Obese, no apparent distress Head: normocephalic, Atraumatic Eyes: normal inspection, EOMI Neck: supple, Trachea midline Respiratory/Chest: Decreased breath sounds, CTA, No accessory muscle use Cardiovascular: Irregularly Irregular, No murmur Abdomen/GI:Soft, Non tender, Bowel sounds present Extremities/Musculoskeletal:normal inspection, Trace edema, S/P Left great and 2nd toe amputation in dressing Neurologic/Psych:AAOX3, grossly no focal neurological deficits Skin: normal color, warm Results & Data Results & Data ([facility]) Vital Signs (Past 12 Hours) Vital Signs Temp Pulse Pulse Resp BP Pulse Ox 07/30/21 07:23 36.7 C 70 16 110/66 97 07/30/21 06:22 61 07/30/21 03:06 36.6 C 74 18 120/73 97 Laboratory Results Short CBC 07/30/21 Range/Units 05:21 WBC 5.74 (4.8-10.8) K/uL Hgb 12.2 L (14.0-18.0) g/dL Hct 36.9 L (42-52) % Plt Count 145 (130-400) K/uL BMP 07/30/21 05:21 Sodium 139 Potassium 4.3 Chloride 110 H Carbon Dioxide 25 BUN 26 H Creatinine 1.20 Glucose 122 H Calcium 8.9 (1) A-fib Atrial fibrillation type: unspecified Qualified Code(s): I48.91 - Unspecified atrial fibrillation (2) CKD (chronic kidney disease) stage 3, GFR 30-59 ml/min Chronic kidney disease stage 3 subtype: stage 3a (GFR 45-59) Qualified Code(s): N18.31 - Chronic kidney disease, stage 3a
[2021-07-30] MEDS ORDERED: VANCOMYCIN TROUGH ONE (15:30)
[2021-07-30] MEDS: ATORVASTATIN 40 MG TAB PO SCH (20:21)
[2021-07-31] MEDS: CEFEPIME 2,000 MG in SYRINGE 0 ML IV SCH ×2 (02:20→10:52)
[2021-07-31 07:10] LABS: BUN Creatinine Ratio 25.4 (10-20); Calcium 9.1 mg/dl (8.5-10.1); Creatinine Clr Calc Pharmacy 67.4 ml/min; Est GFR (African American) 69.5 ml/min; Potassium 4.3 mmol/L (3.5-5.1)
[2021-07-31] MEDS: INSULIN ASPART PER UNIT SC SCH ×2 (08:20→12:47)
[2021-07-31] MEDS: CHOLECALCIFEROL 1,000 UNITS 25 MCG TAB PO SCH (08:39)
[2021-07-31] MEDS: METOPROLOL SUCC 50MG EXT REL TAB PO SCH (08:39)
[2021-07-31] MEDS: ASPIRIN 81 MG ECTAB PO SCH (08:39)
[2021-07-31] MEDS: ENALAPRIL MALEATE 10 MG TAB PO SCH (08:39)
[2021-07-31] MEDS: POTASSIUM CHLORIDE CRTAB 20 MEQ TABCR PO SCH (08:40)
[2021-07-31] MEDS: TOPIRAMATE 100 MG TAB PO SCH (08:40)
[2021-07-31] MEDS: MULTIVITAMIN TAB PO SCH (08:40)
[2021-07-31] MEDS: CYANOCOBALAMIN (B-12) 100 MCG TABLET PO SCH (08:40)
[2021-07-31] MEDS: DABIGATRAN ETEXILATE 75 MG CAP PO SCH (08:40)
[2021-07-31] MEDS: MAGNESIUM OXIDE 400 MG TAB PO SCH (08:40)
[2021-07-31] MEDS: TRIAMTERENE/HCTZ 37.5/25MG CAP PO SCH (08:40)
[2021-07-31] MEDS: INSULIN GLARGINE SOLOSTAR 100 UNITS/ML 3 ML PEN SC SCH (08:41)
[2021-07-31] MEDS ORDERED: DOXYCYCLINE HYCLATE 100 MG CAP PO SCH (12:00)
--- NOTE | 2021-07-31 13:02 | Hospitalist Progress Note ---
Date of Service July 31, 2021 Assessment & Plan (1) Osteomyelitis: (2) Cellulitis: Plan: Patient is a 76 yr male with H/O DM II, diabetic neuropathy, PAD, CAD, s/p CABG, atrial fibrillation on Pradaxa, cardiac pacemaker in situ, chronic systolic CHF, CKD III, history of left great toe amputation in 2020, presented to ER with c/o left second toe erythema for several days. 07/25/21 given Rocephin x1 and doxycycline po by PCP. Seen today by Dr Petty, ortho and referred to ER. Acute osteomyelitis of 2nd toe of left foot --Foot CT:Diffuse soft tissue edema throughout the forefoot and second toe suggests cellulitis. Clinical correlation will be required. Erosive change is noted in the tuft of the second distal phalanx. This is typical for osteomyelitis and clinical correlation will be required. Postoperative change from first amputation as above. A 1.7 cm fluid collection is seen along the plantar aspect of the second metatarsal head. This is suspicious for abscess. --S/P Left second toe amputation on 07/28/21 --Blood culture: No growth to date --Wound culture growing Pseudomonas Continue cefepime, vancomycin Day #5>>> discontinue vancomycin, continue cefepime, Doxycycline for now Appreciate orthopedics input Continue wound Care Appreciate ID Input Weightbearing as tolerated in a hard sole shoe as per Ortho Needs follow-up with orthopedics upon discharge Also advised to follow up with Infectious disease as outpatient. No residual Osteomyelitis as per Orthopedics. Plan to transition to Oral antibiotics to complete the course (3) DM type 2 (diabetes mellitus, type 2): Plan: A1c: 6.2 on 07/04/21 Patient uses sliding scale insulin lispro. He often does not use Lantus Novolog sliding scale Glycemic pharmacy to assist with glycemic management (4) A-fib: Plan: Rate controlled Resume Pradaxa Continue metoprolol (5) CKD (chronic kidney disease) stage 3, GFR 30-59 ml/min: Plan: Baseline~ 1.3 Cr at baseline Monitor renal functions Avoid nephrotoxic agents when possible (6) Hypertension: Plan: Continue ramipril, triamterene/HCTZ (7) Chronic systolic CHF (congestive heart failure): Plan: EF: 40% on 2019 Euvolemic currently (8) CAD (coronary artery disease): Plan: S/P CABG Continue aspirin, metoprolol, atorvastatin DVT Px Pradaxa Code Status DNR/DNI Admission and Anticipated Discharge Date Admission Date: July 26, 2021 Subjective Patient is seen and examined at bedside States feeling well today No new complaints Discussed with Noa ID and Ortho today Denies any chest pain, shortness breath, dizziness, nausea, abdominal pain Eager to get discharged Review of Systems Review of Systems: All systems reviewed & are unremarkable except as noted in Subjective Physical Exam Physical Exam: Physical Exam: Vitals signs as noted above General Appearance:Obese, no apparent distress Head: normocephalic, Atraumatic Eyes: normal inspection, EOMI Neck: supple, Trachea midline Respiratory/Chest: Decreased breath sounds, CTA, No accessory muscle use Cardiovascular: Irregularly Irregular, No murmur Abdomen/GI:Soft, Non tender, Bowel sounds present Extremities/Musculoskeletal:normal inspection, Trace edema, S/P Left great and 2nd toe amputation in dressing Neurologic/Psych:AAOX3, grossly no focal neurological deficits Skin: normal color, warm Results & Data Results & Data ([facility]) Vital Signs (Past 12 Hours) Vital Signs Temp Pulse Pulse Pulse Resp BP Pulse Ox 07/31/21 11:00 36.6 C 77 14 124/60 97 07/31/21 07:40 36.6 C 73 18 120/60 95 07/31/21 07:19 71 07/31/21 03:40 36.4 C L 63 18 100/63 97 Laboratory Results [facility] 07/31/21 06:17 Sodium 139 Potassium 4.3 Chloride 110 H Carbon Dioxide 23 BUN 30 H Creatinine 1.18 Glucose 131 H Calcium 9.1 (1) CKD (chronic kidney disease) stage 3, GFR 30-59 ml/min Chronic kidney disease stage 3 subtype: stage 3a (GFR 45-59) Qualified Code(s): N18.31 - Chronic kidney disease, stage 3a (2) A-fib Atrial fibrillation type: unspecified Qualified Code(s): I48.91 - Unspecified atrial fibrillation
--- NOTE | 2021-07-31 14:09 | Discharge Summary ---
Date of Service July 31, 2021 Admission HPI Per Admitting Provider Patient is 76 y/o M with PMH DM II, diabetic neuropathy, PAD, CAD, s/p CABG, atrial fibrillation on Pradaxa, cardiac pacemaker in situ, chronic systolic CHF, CKD III, history of left great toe amputation in 2020, presented to ER with c/o left second toe wound. Patient reports had blister to left 2nd toe months ago. Reports area never seemed to completely heal. Past couple of days has noticed erythema to left 2nd toe and bloody discharge. He has neuropathy and chronically has decreased sensation so denies any pain. Outpatient records reviewed. Patient was seen at PCP office yesterday given dose Rocephin and started on doxycycline. Preliminary wound culture results not available. Left foot xray results: Bony erosive changes noted at distal phalanx of 2nd toe consistent with osteomyelitis. Patient seen by ortho today - Dr Petty and referred to ER. Patient denies fever/chills, diaphoresis, N/V/D/C, MAXWELL, dizziness, syncope, vision changes, neck pain, CP, SOB, orthopnea, palpitations, cough, sore throat, choking, otalgia, rhinorrhea, abdominal pain, paresthesias, weakness, extremity weakness, extremity edema, other rashes, urinary symptoms. Admission Exam Per Admitting Provider Physical Exam Physical Exam: General: no distress, WDWN Head: normocephalic, atraumatic Eyes: PERRL, EOM's intact, conjunctiva non-injected, anicteric ENT: normal inspection external ears, nose, mucous membranes moist Neck: supple, trachea midline, non-tender Lungs: clear, no respiratory distress, no wheezing/rhonchi/rales CV: irregularly irregular, no JVD, no pretibial edema Abd: normal BS, soft, non-tender Ext: no cyanosis, no calf tenderness, LLE: +amputation left great toe. +ulcer left 2nd toe, +erythema second toe extending to MCP, distal pulses palpable Neuro: A&O x 3, no focal deficits noted, normal affect Skin: warm, dry Principal Diagnosis Acute osteomyelitis of 2nd toe of left foot Discharge Data Allergies Allergy/AdvReac Type Severity Reaction Status Date / Time Sulfa (Sulfonamide Allergy Intermediate DELIRIUM Verified 02/19/21 17:31 Antibiotics) sulfamethoxazole Allergy Intermediate DELIRIUM Verified 02/19/21 17:31 [From Bactrim] trimethoprim [From Bactrim] Allergy Intermediate DELIRIUM Verified 02/19/21 17:31 Consultations 07/29/21 10:06 Consult Infectious Diseases Routine Procedures Performed Operation Date: 07/28/21 13:10 Actual Procedures p Left second Toe Amputation(Left) - Henok Petty DO Ordered Studies 07/26/21 16:29 CT foot LT wo con Stat Hospital Course (1) Osteomyelitis: (2) Cellulitis: Patient is a 76 yr male with H/O DM II, diabetic neuropathy, PAD, CAD, s/p CABG, atrial fibrillation on Pradaxa, cardiac pacemaker in situ, chronic systolic CHF, CKD III, history of left great toe amputation in 2020, presented to ER with c/o left second toe erythema for several days. 07/25/21 given Rocephin x1 and doxycycline po by PCP. Seen today by Dr Petty, ortho and referred to ER. Acute osteomyelitis of 2nd toe of left foot --Foot CT:Diffuse soft tissue edema throughout the forefoot and second toe suggests cellulitis. Clinical correlation will be required. Erosive change is noted in the tuft of the second distal phalanx. This is typical for osteomyelitis and clinical correlation will be required. Postoperative change from first amputation as above. A 1.7 cm fluid collection is seen along the plantar aspect of the second metatarsal head. This is suspicious for abscess. --S/P Left second toe amputation on 07/28/21 --Blood culture: No growth to date --Wound culture growing Pseudomonas Continue cefepime, vancomycin Day #5>>> discontinue vancomycin, continue cefepime, Doxycycline for now Appreciate orthopedics input Continue wound Care Appreciate ID Input Weightbearing as tolerated in a hard sole shoe as per Ortho Needs follow-up with orthopedics upon discharge Also advised to follow up with Infectious disease as outpatient. No residual Osteomyelitis as per Orthopedics. Plan to transition to Oral antibiotics to complete the course (3) DM type 2 (diabetes mellitus, type 2): A1c: 6.2 on 07/04/21 Patient uses sliding scale insulin lispro. He often does not use Lantus Novolog sliding scale Glycemic pharmacy to assist with glycemic management (4) A-fib: Rate controlled Resume Pradaxa Continue metoprolol (5) CKD (chronic kidney disease) stage 3, GFR 30-59 ml/min: Baseline~ 1.3 Cr at baseline Monitor renal functions Avoid nephrotoxic agents when possible (6) Hypertension: Continue ramipril, triamterene/HCTZ (7) Chronic systolic CHF (congestive heart failure): EF: 40% on echo 2020 Euvolemic currently (8) CAD (coronary artery disease): S/P CABG Continue aspirin, metoprolol, atorvastatin DVT Px Pradaxa Code Status DNR/DNI Total Time Total Time Spent Total Time Spent (In Minutes): 55 minutes Discharge Plan Discharge Items Patient Disposition: Home - Self-Care Reason For Visit: OSTEOMYELITIS Discharge Diagnosis: Acute osteomyelitis of 2nd toe of left foot Activity: Per Instructions section Exercise/Sports: Wait until after follow-up appointment Non-emergency contact: Primary Care Provider and Surgeon Call non-emergency contact if: you have any medication questions, your symptoms worsen, your pain is not controlled, your pain is concerning for you, you have a fever, your wound has increased redness, your wound has increased drainage and your wound pain has increased Follow-up/Referrals: Selam Vera DO [Primary Care Provider] - (Date & Time 08/03/2021 2:20 PM Provider Amina Vidal DO Department [facility] ) Diet: Carb Consistent or DM2 Addtl Attending Provider Instructions: Follow up with your PCP on 08/03/2021 2:20 PM Follow up with your Orthopedic Surgeon in 1-2 weeks Follow up with your Infectious disease physician in 2 weeks --Complete the antibiotic course as prescribed. --Your Final Blood cultures are pending at the time of discharge. Follow up with your physician for results. --Seek immediate medical attention if your symptoms reoccur or worsen Please take all medications as instructed on discharge list below. Please call if you have any questions or problems. You can reach a [facility] hospitalist on duty at [facility] 24 hours a day by calling [phone] Addtl Granulating Blender Provider Instructions: ORTHOPEDIC INSTRUCTIONS Activity Recommendations: Weightbearing as tolerated in a hard sole shoe Medications: Antibiotics as prescribed by the hospitalist Dressing Care: Sutures can be open to air as long as the incisions are not draining. If the incisions are draining or if the sutures are getting caught on your socks then please cover the sutures with dry gauze. Change the dressings as necessary to keep the incision as dry as possible Showering: You may shower 5 days from the day of surgery as long as the incisions are not draining. Do not soak the incision. Do not let the foot stay immersed in standing shower water. Things To Watch For: 1. Drainage from the incision site that occurs more than one week after your surgery. 2. Increased redness at the incision site. 3. Fever above 102 degrees Fahrenheit. 4. Unusual chest pain or shortness of breath. 5. Call [facility] at with any of the above problems Follow-Up Visit: Follow-up with Dr. Petty's PA (Henok Hobbs) 2 weeks after your day of surgery. He will remove your sutures and answer any questions. If you have any additional questions or concerns, Dr Petty is usually in the office at the same time and will be available Please call the office to make an appointment for a time that works for you. If you have any questions call Pending Studies at Discharge: Yes Studies:: Blood Culture Stand-Alone Forms: [facility] [employer], Smoking Cessation Medications and DC Order Prescriptions: New ciprofloxacin HCl 500 mg tablet 500 mg PO BID Qty: 20 RF: 0 Continued multivitamin Tablet 1 tab PO DAILY RF: 0 atorvastatin 40 mg Tablet 40 mg PO HS RF: 0 cyanocobalamin (vitamin B-12) [Vitamin B-12] 100 mcg Tablet 100 mcg PO DAILY RF: 0 metoprolol succinate 50 mg Tablet Extended Release 24 Hr 50 mg PO DAILY RF: 0 aspirin 81 mg Tablet,Delayed Release (Dr/Ec) 81 mg PO DAILY RF: 0 triamterene-hydrochlorothiazid 37.5-25 mg Capsule 1 cap PO DAILY RF: 0 nitroglycerin [Nitrostat] 0.4 mg Tablet, Sublingual 0.4 mg sublingual DIRECTED PRN (Reason: Chest Pain) RF: 0 topiramate [Topamax] 100 mg Tablet 100 mg PO DAILY RF: 0 ramipril 10 mg Capsule 10 mg PO DAILY RF: 0 cholecalciferol (vitamin D3) [Vitamin D3] 25 mcg (1,000 unit) Capsule 25 mcg PO DAILY RF: 0 insulin lispro 100 unit/mL Insulin Pen 0 unit SUBCUT QID MDD 200 UNITS/DAILY RF: 0 Pradaxa 150 mg Capsule 150 mg PO BID RF: 0 magnesium oxide 400 mg magnesium Capsule 400 mg PO DAILY RF: 0 potassium chloride 20 mEq Tablet Extended Release 20 meq PO DAILY RF: 0 Lantus Solostar U-100 Insulin 100 unit/mL (3 mL) insulin pen 36 unit SUBCUT BID RF: 0 doxycycline hyclate 100 mg capsule 100 mg PO BID Qty: 20 RF: 0 Discharge Orders: Discharge Order (Routine); Ordered 07/31/21 Ordered By: Emmanuel Wooten Admission Data Admit Date/Time: 07/26/21 17:54 Attending Provider: Emmanuel Wooten Admit Provider: Dane Araujo Primary Care Provider: Selam Vera Other Providers: Johnny Barajas ; Luisa Wadsworth ; Trevin Eric I. ; Alfred Weems II ; Niya Fiore ; Esteban Calderon ; Jonathan Martin
== END 2021-07-31 15:32 | disposition home or self-care (01) | DRG 617 ==
LOC: ED 15:54 → 2N 17:54 → SUATTDRO 17:54 → 2N 20:00